=== PATIENT | female | born 1950 | race Caucasian/White ===

== ENCOUNTER 2018-06-02 06:57 | Day surgery (SDC) | payer MEDICARE, BC, SELFPAY ==
--- NOTE | 2018-05-31 20:39 | POEE_ITS ---
History of Present Illness Chief Complaint: Progressive decreased vision, left eye Narrative: The patient is a 68-year-old lady with history of progressive decreased vision in both eyes at both distance and near. She notes that things are becoming increasingly blurry and fuzzy. She also notes double vision that she experiences both with and without her glasses. Her current spectacles have prism to correct diplopia. On examination she was noted to have moderate bilateral nuclear and cortical cataracts. The option of cataract surgery was offered to the patient and she felt she was symptomatic enough that she wished to proceed. NOTE: The Chief Complaint, HPI, Past Medical History, Past Surgical History, Family History, Social History, Medications, and complete Ophthalmic Exam with detailed Assessment and Plan have already been documented in the patient's outpatient ophthalmic record and are not covered again in detail here. PFSH Family History Brother Personal history of malignant neoplasm Mother Brain cancer Father Throat cancer Medical History Cortical cataract of left eye (Acute) Nuclear sclerotic cataract of left eye (Acute) Asthma Insomnia Osteoarthritis Osteopenia Spondylolisthesis at L5-S1 level Social History Smoking/Tobacco Use Status: Never Surgical History CYSTECTOMY RIGHT NECK Colonoscopy - IV Sedation Ligation of fallopian tube Meds Home Medications Medication Instructions Recorded Confirmed Type diphenhydramine HCl 25 mg PO PRN PRN 03/21/15 05/30/18 History metronidazole [MetroCream] 45 gm TOPICAL .QOD script 04/07/17 05/26/18 History calcium carbonate 400 mg PO DAILY tab.chew 04/25/17 05/30/18 History multivitamin [Daily Multi-Vitamin] 1 ea PO DAILY 04/25/17 05/29/18 History acetaminophen [Mapap Extra 1,000 mg PO BID 02/25/18 05/29/18 History Strength] Heal And Sooth 1 tab PO TID 05/30/18 05/30/18 History Allergies Allergy/AdvReac Type Severity Reaction Status Date / Time No Known Allergies Allergy Unverified 02/25/18 05:41 Exam OCULAR EXAM:: Visual acuity at distance: Corrected 20/30 right eye, 20/40 left eye Pupils: Pupils equal, round, and reactive without afferent pupillary defect IOP: 16 OD, 14 OS Extraocular Motility: Normal, with glasses Pertinent Slit Lamp Findings: Significant for chalazion and of the right lower lid. Pupils dilate to 6 mm in both eyes. 1+ nuclear with 1+ cortical cataracts OU. Dilated Funduscopic Examination: Disc cupping is 0.3 OU with good color. Both macula does have drusen present. Peripheral retina and vitreous is normal. BRIGHTNESS ACUITY TESTING (BAT):: Off left eye 20/40 Low: 20/60 Medium: 20/60 High: 20/60 Assessment and Plan (1) Nuclear sclerotic cataract of left eye: Current visit: No Status: Acute Assessment: Visually significant cataract, left eye. Plan: Cataract extraction with intraocular lens implantation, left eye (2) Cortical cataract of left eye: Current visit: No Status: Acute Assessment: Visually significant cataract, left eye. Plan: Cataract extraction with intraocular lens implantation, left eye Note: NOTE:: The details of the planned surgery, including the risks, indications, limitations,expectations,outcome and possible complications were explained to the patient. The patient understands the complications including, but not limited to: infection, hemorrhage, posterior dislocation of the lens or nuclear fragments which may require the intervention of a vitreoretinal surgeon, possible loss of the eye, or from anesthetic complications. The patient has been made aware of the option of not having surgery, that vision following surgery may not be equal to that prior to surgery, and that the planned surgery may not achieve the intended results. Following this discussion, which the patient appeared to understand, the patient wishes to proceed with cataract surgery with lens implantation of the affected eye to improve and maximize vision.
[2018-06-02 07:13] VITALS: BP 119/76; PULSE 66; RESP 18; TEMP 36.1; O2SAT 99
[2018-06-02] MEDS: Povidone-Iodine Ophth 30 ML BTL (08:17)
[2018-06-02] MEDS: Balanced Salt Soln.-PLUS 500 ML BAG (08:17)
[2018-06-02] MEDS: Lidocaine 2% Jelly 6 ML SYR (08:17)
--- NOTE | 2018-06-02 08:43 | W.PM.DSUDISC ---
Discharge Plan Discharge Details Attending Provider: Sami Valdez Primary Care Provider: Niki Vyas Home Meds and New Rx's Prescriptions: No Action metronidazole [MetroCream] 45 GM cream 45 gm Topical .QOD RF: 0 multivitamin [Daily Multi-Vitamin] 1 EACH tablet 1 ea PO DAILY RF: 0 calcium carbonate 500 MG tablet,chewable 400 mg PO DAILY RF: 0 diphenhydramine HCl 25 MG capsule 25 mg PO PRN PRNRF: 0 acetaminophen [Mapap Extra Strength] 500 MG tablet 1,000 mg PO BID RF: 0 Heal And Sooth 1 tab PO TID RF: 0 Discharge Instructions Stand Alone Forms: Post-op Topical CataractAntonino (DSU) DS: Diagnosis Discharge Diagnosis (1) Nuclear sclerotic cataract of left eye: Status: Resolved (2) Cortical cataract of left eye: Status: Resolved
--- NOTE | 2018-06-02 08:46 | ROE_ITS ---
Date of service: 06/02/18 Time of Service: 08:44 Operative Note DATE OF PROCEDURE: 06/02/18 PRE-OP DIAGNOSIS: Cataract, left eye POST-OP DIAGNOSIS: same PROCEDURE: Cataract extraction using phacoemulsification with intraocular lens implant, left eye SURGEON: Sami Valdez ANESTHESIA: MAC and local (sub-tenon's anesthetic infiltration) PATHOLOGY: none sent COMPLICATIONS: None Patient was transported to: same day Patient's condition: stable Implants: [employer] Sha[employer] / [employer] Tecnis [id number] Indications: Progressive decreased vision due to cataract, left eye Procedure Description: CATARACT SURGERY OPERATIVE REPORT PREOPERATIVE DIAGNOSIS: Nuclear/cortical cataract, left eye POSTOPERATIVE DIAGNOSIS: Same OPERATION: Cataract extraction using phacoemulsification with posterior chamber intraocular lens implant, left eye. IOL: IOL Prospecting Driller Helper/Model: [employer] Vision / JEWEL Tecnis ZCB00 IOL Power: +20.50 diopters IOL Serial Number: [id number] Optic Diameter: 6.0mm Haptic/Overall Diameter: 13.0mm PHACO INFO: JanesEmpact Interactive Mediaon Vision System with OZil and Active Fluidics Cumulative Dispersed Energy (CDE): 6.71 seconds SURGEON: Sami Valdez MD, ISIDRO ANESTHESIA: Monitored Anesthesia Care (MAC), with local sub-tenon's anesthetic infiltration COMPLICATIONS: None SPECIMENS: None INDICATIONS FOR PROCEDURE: The patient is a 68-year-old lady with history of diminished visual acuity in her left eye. She notes fuzzy shadowy vision. She was noted to have nuclear and cortical cataract. The option of cataract surgery was offered to the patient and she felt she was symptomatic enough that she wished to proceed. PROCEDURE: The correct surgical eye was identified and marked as the left eye and the pupil was dilated in the preoperative area using mydriatics, cycloplegics, and NSAIDS (except in aspirin allergic patients). The dilated pupil size was 8.0 mm. Oral sedation was administered in the form of an Imprimis MKO Melt (midazolam 3mg/ketamine 25mg/ondansetron 2mg). The patient was brought to the operating room where cardiopulmonary monitoring was instituted and surgical time-out was performed, confirming the correct operative eye and IOL power. Topical anesthesia was administered and ophthalmic povidone-iodine 5% was instilled into the conjunctival fornices. Lidocaine gel was applied to the cornea and the jerson-ocular area was prepped with Betadine 10% solution and draped in the usual sterile fashion for intraocular surgery. Steri-strips were used to cover the lashes and lid margins and an adhesive eye drape was placed. Care was taken to isolate the lashes and lid margins under the Steri-strips and adhesive eye drape. A lid speculum was placed between the lids of the operative eye and the Sedrick-Ariel operating microscope was maneuvered into position. Miguel scissors were then used to make a conjunctival buttonhole approximately 6mm posterior to the limbus in the inferonasal quadrant. Blunt dissection was carried out to expose bare sclera, and a blunt-tipped sub-tenon? s anesthesia cannula was introduced and passed posteriorly along the globe where non-preserved plain lidocaine was injected into posterior sub-Tenon?s space. A sideport knife was used to make a paracentesis port at the 12:00 postion and the anterior chamber was filled with Healon GV. A 2.4mm keratome knife was used to create a half-thickness groove at the limbus and then to construct a three-plane near-clear corneal tunnel extending 2.0mm into clear cornea at the 3:00 position. A flap was raised on the anterior capsule and capsulorhexis forceps were used to complete a continuous curvilinear capsulorhexis of 5.0 mm. Balanced salt solution was then used to perform cortical cleaving hydrodissection and nuclear hydrodelineation until the lens could be freely rotated within the capsular bag. The lens nucleus was then disassembled and removed within the capsular bag and iris plane using phacoemulsification. Residual cortical material was removed using the 45-degree angled silicone I/A tip with 0.3mm port. The posterior capsule was carefully polished to remove as much residual lens epithelial cells as safely possible. The capsular bag was then inflated and the anterior chamber deepened with viscoelastic. The lens implant described above was inserted into the capsular bag using the JEWEL Sleetmute Injector. A Kuglen hook was used to dial the IOL into position. Residual viscoelastic was then removed first from posterior to the IOL, then from the anterior chamber using the I/A handpiece. The lens implant was noted to center nicely within the capsular bag. The incisions were stromally hydrated , and the anterior chamber was reformed using BSS. Then 0.4cc of moxifloxacin 1.5mg/ml were injected into the capsular bag and anterior chamber. The incisions were checked with a Weck spear and found to be secure. Several drops of ophthalmic povidone-iodine 5% were then applied to the eye followed by two drops of Imprimis combination moxifloxacin/dexamethasone solution. The drapes were removed and a clear plastic protective eye shield was placed over the eye. The patient was then returned to [facility] Day Surgery in stable condition.
[2018-06-02 09:00] VITALS: BP 112/69; PULSE 62; RESP 16; TEMP 37.1; O2SAT 98
== END 2018-06-02 09:15 | disposition home or self-care (01) ==
LOC: SUR 06:57
PROVIDERS: Visit Provider Ophthalmology
PROC: (CPT 66984; principal; 2018-06-02 08:20)
DX: H25.812 Combined forms of age-related cataract, left eye (principal)
CPT/HCPCS: 66984; V2632

== ENCOUNTER 2018-06-16 06:54 | Day surgery (SDC) | payer MEDICARE, BC, SELFPAY ==
--- NOTE | 2018-06-15 09:45 | W.PIPPEYE ---
History of Present Illness Chief Complaint: Progressive decreased vision, right eye Narrative: The patient is a 68-year-old lady with history of progressive decreased vision in both eyes at both distance and near. On examination she was noted to have moderate bilateral nuclear and cortical cataracts. She was significantly symptomatic that she desires cataract surgery and attempt to improve and maximize her vision. She underwent cataract surgery in the left eye on 06/02/2018. Postoperatively she has regained best corrected vision of 20/15 in the left eye. She now presents for cataract surgery in the right eye. NOTE: The Chief Complaint, HPI, Past Medical History, Past Surgical History, Family History, Social History, Medications, and complete Ophthalmic Exam with detailed Assessment and Plan have already been documented in the patient's outpatient ophthalmic record and are not covered again in detail here. PFSH Family History Brother Personal history of malignant neoplasm Mother Brain cancer Father Throat cancer Medical History Nuclear sclerotic cataract of right eye (Acute) Cortical cataract of right eye (Acute) Asthma Insomnia Osteoarthritis Osteopenia Spondylolisthesis at L5-S1 level Social History Smoking/Tobacco Use Status: Never Surgical History Status post cataract extraction and insertion of intraocular lens of left eye (Chronic 06/02/18) CYSTECTOMY RIGHT NECK Colonoscopy - IV Sedation Ligation of fallopian tube Meds Home Medications Medication Instructions Recorded Confirmed Type diphenhydramine HCl 25 mg PO PRN PRN 03/21/15 02/25/18 History metronidazole [MetroCream] 45 gm TOPICAL .QOD script 04/07/17 05/26/18 History calcium carbonate 400 mg PO DAILY tab.chew 04/25/17 02/25/18 History multivitamin [Daily Multi-Vitamin] 1 ea PO DAILY 04/25/17 02/25/18 History acetaminophen [Mapap Extra 1,000 mg PO BID 02/25/18 06/02/18 History Strength] Heal And Sooth 1 tab PO TID 05/30/18 06/02/18 History Allergies Allergy/AdvReac Type Severity Reaction Status Date / Time No Known Allergies Allergy Unverified 06/02/18 07:09 Exam OCULAR EXAM:: Visual acuity at distance: Corrected to 20/30 OD, 20/15 OS. Pupils: Pupils equal, round, and reactive without afferent pupillary defect IOP: 16 OD, 14 OS. Extraocular Motility: Normal Pertinent Slit Lamp Findings: Significant for pupils dilating to 6 mm OU. 1+ nuclear with 1+ cortical spoking OD. Well-positioned PCIOL OS with clear posterior capsule. Dilated Funduscopic Examination: Disc cupping is 0.3 OU with good color. The optic nerves have good perfusion and normal color. The retinal vasculature is normal without significant tortuosity or abnormality. The maculas are normal in appearance with normal contour and foveal reflex appropriate for age. The peripheral retina and vitreous are normal. BRIGHTNESS ACUITY TESTING (BAT):: Off right eye 20/30 Low: 20/40 Medium: 20/40 High: 20/40 Assessment and Plan (1) Cortical cataract of right eye: Current visit: No Status: Acute Assessment: Visually significant cataract, right eye. Plan: Cataract extraction with intraocular lens implantation, right eye (2) Nuclear sclerotic cataract of right eye: Current visit: No Status: Acute Assessment: Visually significant cataract, right eye. Plan: Cataract extraction with intraocular lens implantation, right eye Note: NOTE:: The details of the planned surgery, including the risks, indications,limitations,expectations,outcome and possible complications were explained to the patient. The patient understands the complications including, but not limited to: infection, hemorrhage, posterior dislocation of the lens or nuclear fragments which may require the intervention of a vitreoretinal surgeon, possible loss of the eye, or from anesthetic complications. The patient has been made aware of the option of not having surgery, that vision following surgery may not be equal to that prior to surgery, and that the planned surgery may not achieve the intended results. Following this discussion, which the patient appeared to understand, the patient wishes to proceed with cataract surgery with lens implantation of the affected eye to improve and maximize vision.
--- NOTE | 2018-06-15 09:52 | POEE_ITS ---
History of Present Illness Chief Complaint: Progressive decreased vision, right eye Narrative: The patient is a 68-year-old lady with history of progressive decreased vision in both eyes at both distance and near. On examination she was noted to have moderate bilateral nuclear and cortical cataracts. She was significantly symptomatic that she desires cataract surgery and attempt to improve and maximize her vision. She underwent cataract surgery in the left eye on 06/02/2018. Postoperatively she has regained best corrected vision of 20/ 15 in the left eye. She now presents for cataract surgery in the right eye. NOTE: The Chief Complaint, HPI, Past Medical History, Past Surgical History, Family History, Social History, Medications, and complete Ophthalmic Exam with detailed Assessment and Plan have already been documented in the patient's outpatient ophthalmic record and are not covered again in detail here. PFSH Family History Brother Personal history of malignant neoplasm Mother Brain cancer Father Throat cancer Medical History Nuclear sclerotic cataract of right eye (Acute) Cortical cataract of right eye (Acute) Asthma Insomnia Osteoarthritis Osteopenia Spondylolisthesis at L5-S1 level Social History Smoking/Tobacco Use Status: Never Surgical History Status post cataract extraction and insertion of intraocular lens of left eye ( Chronic 06/02/18) CYSTECTOMY RIGHT NECK Colonoscopy - IV Sedation Ligation of fallopian tube Meds Home Medications Medication Instructions Recorded Confirmed Type diphenhydramine HCl 25 mg PO PRN PRN 03/21/15 02/25/18 History metronidazole [MetroCream] 45 gm TOPICAL .QOD script 04/07/17 05/26/18 History calcium carbonate 400 mg PO DAILY tab.chew 04/25/17 02/25/18 History multivitamin [Daily Multi-Vitamin] 1 ea PO DAILY 04/25/17 02/25/18 History acetaminophen [Mapap Extra 1,000 mg PO BID 02/25/18 06/02/18 History Strength] Heal And Sooth 1 tab PO TID 05/30/18 06/02/18 History Allergies Allergy/AdvReac Type Severity Reaction Status Date / Time No Known Allergies Allergy Unverified 06/02/18 07:09 Exam OCULAR EXAM:: Visual acuity at distance: Corrected to 20/30 OD, 20/15 OS. Pupils: Pupils equal, round, and reactive without afferent pupillary defect IOP: 16 OD, 14 OS. Extraocular Motility: Normal Pertinent Slit Lamp Findings: Significant for pupils dilating to 6 mm OU. 1+ nuclear with 1+ cortical spoking OD. Well-positioned PCIOL OS with clear posterior capsule. Dilated Funduscopic Examination: Disc cupping is 0.3 OU with good color. The optic nerves have good perfusion and normal color. The retinal vasculature is normal without significant tortuosity or abnormality. The maculas are normal in appearance with normal contour and foveal reflex appropriate for age. The peripheral retina and vitreous are normal. BRIGHTNESS ACUITY TESTING (BAT):: Off right eye 20/30 Low: 20/40 Medium: 20/40 High: 20/40 Assessment and Plan (1) Cortical cataract of right eye: Current visit: No Status: Acute Assessment: Visually significant cataract, right eye. Plan: Cataract extraction with intraocular lens implantation, right eye (2) Nuclear sclerotic cataract of right eye: Current visit: No Status: Acute Assessment: Visually significant cataract, right eye. Plan: Cataract extraction with intraocular lens implantation, right eye Note: NOTE:: The details of the planned surgery, including the risks, indications, limitations,expectations,outcome and possible complications were explained to the patient. The patient understands the complications including, but not limited to: infection, hemorrhage, posterior dislocation of the lens or nuclear fragments which may require the intervention of a vitreoretinal surgeon, possible loss of the eye, or from anesthetic complications. The patient has been made aware of the option of not having surgery, that vision following surgery may not be equal to that prior to surgery, and that the planned surgery may not achieve the intended results. Following this discussion, which the patient appeared to understand, the patient wishes to proceed with cataract surgery with lens implantation of the affected eye to improve and maximize vision.
[2018-06-16 07:14] VITALS: BP 129/72; PULSE 68; RESP 16; TEMP 36.3; O2SAT 99
[2018-06-16] MEDS: Balanced Salt Soln.-PLUS 500 ML BAG (08:17)
[2018-06-16] MEDS: Lidocaine 1% Pres-Free 5 ML VIAL (08:18)
[2018-06-16] MEDS: Lidocaine 2% Jelly 6 ML SYR (08:19)
[2018-06-16] MEDS: Povidone-Iodine Ophth 30 ML BTL (08:19)
--- NOTE | 2018-06-16 08:39 | W.PM.DSUDISC ---
Discharge Plan Discharge Details Attending Provider: Sami Valdez Primary Care Provider: Niki Vyas Home Meds and New Rx's Prescriptions: No Action metronidazole [MetroCream] 45 GM cream 45 gm Topical .QOD RF: 0 multivitamin [Daily Multi-Vitamin] 1 EACH tablet 1 ea PO DAILY RF: 0 calcium carbonate 500 MG tablet,chewable 400 mg PO DAILY RF: 0 diphenhydramine HCl 25 MG capsule 25 mg PO PRN PRNRF: 0 acetaminophen [Mapap Extra Strength] 500 MG tablet 1,000 mg PO BID RF: 0 Heal And Sooth 1 tab PO TID RF: 0 Discharge Instructions Stand Alone Forms: Post-op Topical CataractAntonino (DSU) DS: Diagnosis Discharge Diagnosis (1) Cortical cataract of right eye: Status: Resolved (2) Nuclear sclerotic cataract of right eye: Status: Resolved
--- NOTE | 2018-06-16 08:41 | W.PM.OP ---
Date of service: 06/16/18 Time of Service: 08:41 Operative Note DATE OF PROCEDURE: 06/16/18 PRE-OP DIAGNOSIS: Cataract, right eye POST-OP DIAGNOSIS: same SURGEON: Sami Valdez ANESTHESIA: MAC and local (sub-tenon's anesthetic infiltration) PATHOLOGY: none sent COMPLICATIONS: None Patient was transported to: same day Patient's condition: stable Implants: [employer] / [employer] Tecnis [id number] Indications: Progressive decreased vision due to cataract, right eye Procedure Description: CATARACT SURGERY OPERATIVE REPORT PREOPERATIVE DIAGNOSIS: Nuclear/cortical cataract, right eye POSTOPERATIVE DIAGNOSIS: Same OPERATION: Cataract extraction using phacoemulsification with posterior chamber intraocular lens implant, right eye. IOL: IOL Fitter Type Bar And Segment/Model: [employer] Vision / JEWEL Tecnis ZCB00 IOL Power: +20.0 diopters IOL Serial Number: [id number] Optic Diameter: 6.0mm Haptic/Overall Diameter: 13.0mm PHACO INFO: [employer]urion Vision System with OZil and Active [employer]uidics Cumulative Dispersed Energy (CDE): 6.24 seconds SURGEON: Sami Valdez MD, ISIDRO ANESTHESIA: Monitored Anesthesia Care (MAC), with local sub-tenon's anesthetic infiltration COMPLICATIONS: None SPECIMENS: None INDICATIONS FOR PROCEDURE: The patient is a 68-year-old lady with history of diminished visual acuity in both eyes secondary to the development of bilateral nuclear and cortical cataracts. She was significantly symptomatic that she desired cataract surgery. She is Ardie undergone cataract surgery in the left eye on 06/02/2018 and is doing well postoperatively. She now presents for cataract surgery in the right eye. PROCEDURE: The correct surgical eye was identified and marked as the right eye and the pupil was dilated in the preoperative area using mydriatics, cycloplegics, and NSAIDS (except in aspirin allergic patients). The dilated pupil size was 8.0mm. Oral sedation was administered in the form of an Imprimis MKO Melt (midazolam 3mg/ketamine 25mg/ondansetron 2mg). The patient was brought to the operating room where cardiopulmonary monitoring was instituted and surgical time-out was performed, confirming the correct operative eye and IOL power. Topical anesthesia was administered and ophthalmic povidone-iodine 5% was instilled into the conjunctival fornices. Lidocaine gel was applied to the cornea and the jerson-ocular area was prepped with Betadine 10% solution and draped in the usual sterile fashion for intraocular surgery. Steri-strips were used to cover the lashes and lid margins and an adhesive eye drape was placed. Care was taken to isolate the lashes and lid margins under the Steri-strips and adhesive eye drape. A lid speculum was placed between the lids of the operative eye and the Sedrick-Ariel operating microscope was maneuvered into position. Miguel scissors were then used to make a conjunctival buttonhole approximately 6mm posterior to the limbus in the inferonasal quadrant. Blunt dissection was carried out to expose bare sclera, and a blunt-tipped sub-tenon?s anesthesia cannula was introduced and passed posteriorly along the globe where non-preserved plain lidocaine was injected into posterior sub-Tenon?s space. A sideport knife was used to make a paracentesis port at the 7:00 postion and the anterior chamber was filled with Healon GV. A 2.4mm keratome knife was used to create a half-thickness groove at the limbus and then to construct a three-plane near-clear corneal tunnel extending 2.0mm into clear cornea at the 10:00 position. A flap was raised on the anterior capsule and capsulorhexis forceps were used to complete a continuous curvilinear capsulorhexis of 5.0mm. Balanced salt solution was then used to perform cortical cleaving hydrodissection and nuclear hydrodelineation until the lens could be freely rotated within the capsular bag. The lens nucleus was then disassembled and removed within the capsular bag and iris plane using phacoemulsification. Residual cortical material was removed using the 45-degree angled silicone I/A tip with 0.3mm port. The posterior capsule was carefully polished to remove as much residual lens epithelial cells as safely possible. The capsular bag was then inflated and the anterior chamber deepened with viscoelastic. The lens implant described above was inserted into the capsular bag using the JEWEL Rosebud Injector. A Kuglen hook was used to dial the IOL into position. Residual viscoelastic was then removed first from posterior to the IOL, then from the anterior chamber using the I/A handpiece. The lens implant was noted to center nicely within the capsular bag. The incisions were stromally hydrated, and the anterior chamber was reformed using BSS. Then 0.4cc of moxifloxacin 1.5mg/ml were injected into the capsular bag and anterior chamber. The incisions were checked with a Weck spear and found to be secure. Several drops of ophthalmic povidone-iodine 5% were then applied to the eye followed by two drops of Imprimis combination moxifloxacin/dexamethasone solution. The drapes were removed and a clear plastic protective eye shield was placed over the eye. The patient was then returned to Same Day Surgery in stable condition.
[2018-06-16 09:05] VITALS: BP 99/60; PULSE 67; RESP 16; TEMP 36.8; O2SAT 96
== END 2018-06-16 09:10 | disposition home or self-care (01) ==
LOC: SUR 06:58
PROVIDERS: Visit Provider Ophthalmology
PROC: (CPT 66984; principal; 2018-06-16 08:20)
DX: H25.811 Combined forms of age-related cataract, right eye (principal); Z98.42 Cataract extraction status, left eye; Z96.1 Presence of intraocular lens
CPT/HCPCS: 66984; V2632

== ENCOUNTER 2018-08-08 12:31 | Outpatient (REF) | payer MEDICARE, BC, SELFPAY ==
[2018-08-09 11:50] LABS: Hepatitis C Ab w Rflx HCV PCR Negative (NEGAT)
== END 2018-08-08 12:51 ==
LOC: NCHCN 12:31
PROVIDERS: Visit Provider Nurse Practitioner Family
DX: R00.2 Palpitations (principal); R06.09 Other forms of dyspnea; Z11.59 Encounter for screening for other viral diseases
CPT/HCPCS: 86803

== ENCOUNTER 2018-10-05 14:14 | Outpatient (REF) | payer MEDICARE, BC, SELFPAY ==
[2018-10-05 21:15] LABS: Anion Gap 8.4 mmol/L (3-11); BUN 14 mg/dL (7-18); C-Reactive Protein 0.14 mg/dL (0.0-0.3); CO2 28.6 mmol/L (21.0-32.0); CREATININE 0.91 mg/dL (0.55-1.02); Calcium 9.4 mg/dL (8.5-10.1); Chloride 103 mmol/L (98-107); Creatine Kinase 91 U/L (26-192); Glucose 87 mg/dL (70-100); Magnesium 1.9 mg/dL (1.8-2.4); Potassium 4.1 mmol/L (3.5-5.1); Sodium 140 mmol/L (136-145)
[2018-10-05 21:48] LABS: ESR 9 MM/HR (0-30)
[2018-10-09 13:56] LABS: ANA Interpretation Negative (NEGAT)
[2018-10-09 15:40] LABS: Rheumatoid Factor <8 IU/mL (<12.5)
== END 2018-10-05 14:34 ==
LOC: NCHCN 14:14
PROVIDERS: Visit Provider Nurse Practitioner Family
DX: R25.3 Fasciculation (principal); R25.1 Tremor, unspecified; M54.5 Low back pain; M62.838 Other muscle spasm
CPT/HCPCS: 80048; 82550; 85652; 83735; 86038; 86140; 86431

== ENCOUNTER 2018-12-28 14:20 | Outpatient (REF) | payer MEDICARE, BC, SELFPAY ==
[2019-01-01 10:42] LABS: Hepatitis B Surface Ag Negative (NEGAT)
[2019-01-01 11:12] LABS: HBs Antibody, Quant 38.8 mIU/mL; Hepatitis B Surface Ab Positive
[2019-01-01 12:28] LABS: Hep B Core Antibody Negative (NEGAT)
== END 2018-12-28 14:40 ==
LOC: NCHCN 14:20
PROVIDERS: PCP Nurse Practitioner Family; Visit Provider Nurse Practitioner Family
DX: Z52.008 Unspecified donor, other blood (principal); Z11.59 Encounter for screening for other viral diseases
CPT/HCPCS: 86704; 86706; 87340

== ENCOUNTER 2019-03-22 09:00 | Outpatient (CLI) | payer MEDICARE, BC, SELFPAY ==
--- NOTE | 2019-02-14 08:03 | DI.US_ITS ---
SYMPTOMS/DIAGNOSIS: ABD BLOATING, R14.0 PELVIC ULTRASOUND: A transabdominal and transvaginal examination was carried out. The uterus is retroflexed. The uterine length is 4.8 cm, height 2.5 cm, width 3.9 cm. Endometrial stripe thickness is 2.3 mm. There is a posterior fundal 1.2 x 0.6 x 0.8 cm fibroid. Note is made of a tiny quantity of fluid in the endometrial cavity. The right ovary was not visualized. The left ovary measures 0.8 x 0.6 x 0.6 cm. SUMMARY: A 1.2 x 0.6 x 0.8 cm uterine fibroid is identified. A tiny quantity of fluid is noted in the endometrial cavity and note is made of nonvisualization of the right ovary. ABDOMINAL ULTRASOUND: The aorta and vena cava are normal. There are a number of small radiolucencies in the left hepatic lobe presumed to represent cysts. The largest measuring 1.4 x 1.3 x 1.3 cm. The gallbladder is normal. There are no stones or ductal dilatation. The pancreas is normal. The spleen is normal. The kidneys are normal. There is no evidence of abdominal free fluid. SUMMARY: Left hepatic lobe cysts are demonstrated. The examination is otherwise unremarkable.
--- NOTE | 2019-03-22 09:40 | DI.MAMMO_ITS ---
SYMPTOM/DIAGNOSIS: SCREENING MAMMOGRAM Z12.31 BILATERAL SCREENING MAMMOGRAM: Mammograms were interpreted according to the usual protocol including computer analysis with CAD system, tomosynthesis and C view imaging. Comparison is made with exams from 2012 through 2018. The breasts are composed of scattered fibroglandular densities, breast density category B. No suspicious masses or suspicious microcalcifications are seen. There has been no significant change. IMPRESSION: Category 1, negative mammogram. Yearly screening mammography is recommended. Breast density category B. SA ASSESSMENT OF FINDINGS: Negative. Category 1. Patient will receive a letter notifying them of these results. BI-RADS category B. There are scattered areas of fibroglandular density.
== END 2019-03-22 09:20 ==
PROVIDERS: PCP Nurse Practitioner Family; Visit Provider Nurse Practitioner Family
DX: R14.0 Abdominal distension (gaseous) (principal); D25.9 Leiomyoma of uterus, unspecified; N85.4 Malposition of uterus; K76.89 Other specified diseases of liver; Z12.31 Encounter for screening mammogram for malignant neoplasm of breast
CPT/HCPCS: 77063; 77067; 76700; 76830; 76856

== ENCOUNTER 2019-06-06 00:44 | Outpatient (CLI) | payer MEDICARE, BC, SELFPAY ==
--- NOTE | 2019-06-06 11:50 | DI.MRI_ITS ---
EXAM: MR LUMBAR SPINE WO CLINICAL HISTORY: DEGENERATIVE DISC DISEASE, M51.37, LOW BACK PAIN M54.5, OSTEOPENIA M85.80. TECHNIQUE: Multiplanar multisequence MRI was performed. COMPARISON: MRI - LUMBAR SPINE WO CONTRAST from 11/05/2016 FINDINGS: Patient is now status post surgery at L5-S1 with hardware in place. There is a stable mild L5-S1 spo ndylolisthesis. There is no evidence of an acute fracture. The conus medullaris appears intact. Th e aorta is normal in diameter. Mild disc bulging at T12-L1, L1-2 and L2-3. There is mild neural for aminal narrowing. There is mild disc bulging and facet mild facet degenerative changes at L3-4 and L 4-5. There is no significant central canal stenosis. There is no significant neural foraminal narro wing at these levels. No acute disc herniation is seen at any level. IMPRESSION: Status post posterior fusion with hardware in place at L5-S1. Degenerative disc changes and facet d egenerative changes are seen at multiple levels some causing mild neural foraminal narrowing. No dis c herniation is seen.
--- NOTE | 2019-06-06 16:02 | DI.VRAD_ITS ---
PROCEDURE INFORMATION: Exam: MR Lumbar Spine Without Contrast. Exam date and time: 06/06/2019 11:54 AM Clinical history: 69 years old, female; Low back pain; Prior surgery; Surgery date: 6+ months; Surgery type: Fusion l5-s1 2016 TECHNIQUE: Imaging protocol: Multiplanar magnetic resonance images of the lumbar spine without intravenous contrast. COMPARISON: MRI - LUMBAR SPINE WO CONTRAST 11/05/2016 5:48 PM FINDINGS: Vertebrae: Degenerative endplate marrow signal changes. No acute fracture. Alignment anatomic. Previous fusion L5-S1 with bilateral pedicle screws and posterior rods. Stable anterolisthesis L5-S1. Spinal cord: Normal signal. No cord compression. T12-L1: Degenerative disc and spondylitic changes. No stenosis. L1-L2: Degenerative disc and spondylitic changes. No central canal stenosis. Mild bilateral foraminal narrowing. L2-L3: Degenerative disc and spondylitic changes. No central canal stenosis. Mild right foraminal narrowing. L3-L4: Degenerative disc and spondylitic changes. No central canal stenosis. No significant foraminal stenosis. L4-L5: Degenerative disc and spondylitic changes. No central canal stenosis. No significant foraminal narrowing. L5-S1: Degenerative disc and spondylitic changes. No central canal stenosis. Mild left foraminal stenosis. Soft tissues: Unremarkable. IMPRESSION: Degenerative changes as described. Dictated and Authenticated by: Miguel Angel Ivory MD. Ordering:WEI Alfaro MD
== END 2019-06-06 01:04 ==
PROVIDERS: PCP Nurse Practitioner Family; Visit Provider Nurse Practitioner Family
DX: M51.37 Other intervertebral disc degeneration, lumbosacral region (principal); M43.17 Spondylolisthesis, lumbosacral region; M51.35 Other intervertebral disc degeneration, thoracolumbar region; Z98.1 Arthrodesis status; M85.80 Other specified disorders of bone density and structure, unspecified site
CPT/HCPCS: 72148

== ENCOUNTER 2019-07-19 02:19 | Outpatient (CLI) | payer MEDICARE, BC, SELFPAY ==
--- NOTE | 2019-07-19 15:05 | DI.CT_ITS ---
EXAM: CT LUMBAR SPINE WO CLINICAL HISTORY: PSEUDOARTHROSIS M24.9 COMPARISON: LUMBAR SPINE AP, LAT from 06/02/2017 MR LUMBAR SPINE WO from 06/06/2019 FINDINGS: There is posterior spinal fusion at L5 and S1 with posterior spinal rods and pedicle screws. There i s L5-S1 disc fusion. There is L5 spondylolysis and grade 1 spondylolisthesis of L5 on S1. No suspicious lucencies are seen in or about the orthopedic hardware to suggest loosening or infectio n. Cnnr-ph-wrqgzome degenerative changes are seen throughout the lumbar spine. Findings include disc sp sujey narrowing, vacuum discs and endplate osteophytes. Facet arthropathy is seen at multiple levels o f the lumbar spine. No acute fractures or subluxations are seen. No significant central spinal canal stenosis is seen in the lumbar spine. There is moderate bilateral neural foraminal stenosis at L5-S1 The soft tissues are unremarkable. IMPRESSION: Posterior spinal fusion at L5-S1. No findings to suggest infection or loosening. Degenerative changes in the lumbar spine resulting in bilateral L5-S1 neural foraminal stenosis. L5 spondylolysis and grade 1 spondylolisthesis of L5 on S1.
== END 2019-07-19 02:39 ==
PROVIDERS: PCP Nurse Practitioner Family; Visit Provider Nurse Practitioner Family
DX: Z98.1 Arthrodesis status (principal); M43.07 Spondylolysis, lumbosacral region; M43.17 Spondylolisthesis, lumbosacral region; M99.53 Intervertebral disc stenosis of neural canal of lumbar region
CPT/HCPCS: 72131

== ENCOUNTER 2020-06-13 16:52 | Outpatient (REF) | payer MEDICARE, BC, SELFPAY ==
[2020-06-16 07:11] LABS: Patient Race White; SARS-CoV-2 RNA Undetected (Undetected); SARS-CoV-2 Specimen Source Nasopharynx
== END 2020-06-13 17:12 ==
LOC: NCHCN 16:52
PROVIDERS: PCP Nurse Practitioner Family; Visit Provider Nurse Practitioner Family
DX: R05 Cough (principal)
CPT/HCPCS: U0003

== ENCOUNTER → 2020-10-09 10:27 | Outpatient (BNVA) | payer MEDICARE, BC, SELFPAY | PROVIDERS: PCP Nurse Practitioner Family; Referring Provider Nurse Practitioner Family; Visit Provider Physical Therapy Assistant | DX: Z12.11 Encounter for screening for malignant neoplasm of colon (principal); Z86.010 Personal history of colon polyps; Z80.0 Family history of malignant neoplasm of digestive organs ==

== ENCOUNTER 2020-10-24 07:16 | Day surgery (SDC) | payer MEDICARE, BC, SELFPAY ==
[2020-10-24 07:15] VITALS: BP 110/76; PULSE 76; RESP 18; TEMP 36.6; O2SAT 98
[2020-10-24] MEDS: Lactated Ringers 1,000 ML 80 ML IV (07:50)
--- NOTE | 2020-10-24 09:04 | W.COLOREPORT ---
Date of service: 10/24/20 Time of Service: 09:04 Colonoscopy Report Date of procedure: 10/29/20 Pre-op diagnosis general: family Hx of CRC Post-op diagnosis procedure note: other (right sided diverticula ) Surgeon: Pepper Marti Anesthesia proc note operative: GETA Estimated blood loss (mL): 0 Pathology: none sent Disposition: same day Prep: Miralax/Dulcolax Retraction Time: 8 mins Procedure Description: After informed consent was obtained the patient was taken to the procedure room and placed in a left decubitous position. Monitors were applied and a time out was done. The patients name, date of , procedure, allergies to medications and metal in their body was reviewed. The patient was then sedated. Once sedated and comfortable a rectal exam was done. External exam was normal. Internal exam revealed a normal sphincter tone and no palpable masses. The scope was then introduced and retrofelexed. no internal hemorrhoids were identified. The scope was then advanced to the cecum w/out difficulty. The TI and appendiceal orifice were identified. The prep was good. The scope was then slowly retracted over 8minutes back into the rectum. Patient has no polyps or AVMs. She does have smal few small scattered diverticuli confined to the right side of the colon. There is no signs of active bleeding or infection. The scope was removed and the patient was woken up and taken back to Same day surgery in stable condition. The patient tolerated the procedure well and there were no immediate complications. Follow up: The patient should follow up in 5 years (if she is still healthy for anethesia) unless they develop changes in bowel habits or other new gastrointestinal complaints.
--- NOTE | 2020-10-24 09:05 | PDOC.DSDIS_ITS ---
Discharge Plan Disposition Patient Disposition: HOME Condition: Good Discharge Details Reason For Visit: colon scope Attending Provider: Pepper Marti Primary Care Provider: Angelina Walker Home Meds and New Rx's Prescriptions: Continued metronidazole [MetroCream] 45 GM cream 45 g Topical .QOD RF: 0 multivitamin [Daily Multi-Vitamin] 1 EACH tablet 1 ea PO DAILY RF: 0 magnesium 250 mg tablet 500 mg PO DAILY RF: 0 diphenhydramine HCl 25 MG capsule 25 mg PO PRN PRNRF: 0 acetaminophen [Mapap Extra Strength] 500 MG tablet 1,000 mg PO BID RF: 0 Heal And Sooth 1 tab PO TID RF: 0 magnesium 250 mg Tablet 250 mg PO Q OTHER DAY RF: 0 Discontinued polyethylene glycol 3350 17 gram/dose powder 238 g PO ONCE Qty: 238 RF: 0 bisacodyl [Dulcolax (bisacodyl)] 5 mg tablet,delayed release (DR/EC) 5 mg PO ONCE Qty: 4 RF: 0 Discharge Instructions Additional Instructions: Findings: Right sided diverticula Follow up:repeat in 5yrs time if still healthy for anesthesia Please call if you develop: fevers >101.5 Nausea or Vomiting Abdominal pain that is not transient DAY SURGERY UNIT POST COLONOSCOPY INSTRUCTIONS 1. Because there will be medication in your system for the next 24 hours, you may feel a little sleepy. Your coordination will be affected. Therefore: a. Do not drive or operate dangerous equipment for 24 hours. b. Do not drink alcohol beverages for 24 hours (not even beer). c. Plan to go home and rest for the day. 2. Generally there are no restrictions on your activity after a day or so has gone by, but you may feel a bit fatigued for a few days. 3 After you arrive home you may have a light meal and return to a normal diet as you can tolerate it without feeling sick to your stomach. 4. After surgery, you may feel pain or discomfort. This should be only transient, but if it persists please contact your doctor. 5. If there are any questions regarding the findings of your procedure, please feel free to contact your doctor. 6. If you are unable to contact your doctor with a problem, contact the hospital at [phone]. 7. Continue all your regular medications unless directed otherwise. I understand the above instructions and have no questions. Signature of Patient or Responsible Adult Escort Date/Time Name of Responsible Adult Escort Signature of Nurse Date/Time DIVERTICULAR DISEASE OVERVIEW ? A diverticulum is a pouch-like structure that can form through points of weakness in the muscular wall of the colon (ie, at points where blood vessels pass through the wall). Diverticulosis affects men and women equally. The risk of diverticular disease increases with age. It occurs throughout the world but is seen more commonly in developed countries. WHAT IS DIVERTICULAR DISEASE? Diverticulosis ? Diverticulosis merely describes the presence of diverticula. Diverticulosis is often found during a test done for other reasons, such as flexible sigmoidoscopy, colonoscopy, or barium enema. Most people with diverticulosis have no symptoms and will remain symptom free for the rest of their lives. A person with diverticulosis may have diverticulitis, or diverticular bleeding. Diverticulitis ? Inflammation of a diverticulum (diverticulitis) occurs when there is thinning and breakdown of the diverticular wall. This may be caused by increased pressure within the colon or by hardened particles of stool, which can become lodged within the diverticulum. The symptoms of diverticulitis depend upon the degree of inflammation present. The most common symptom is pain in the left lower abdomen. Other symptoms can include nausea and vomiting, constipation, diarrhea, and urinary symptoms such as pain or burning when urinating or the frequent need to urinate. Diverticulitis is divided into simple and complicated forms. ?Simple diverticulitis, which accounts for 75 percent of cases, is not associated with complications and typically responds to medical treatment without surgery. ?Complicated diverticulitis occurs in 25 percent of cases and usually requires surgery. Complications associated with diverticulitis can include the following: ?Abscess ? a localized collection of pus ?Fistula ? an abnormal tract between two areas that are not normally connected (eg, bowel and bladder) ?Obstruction ? a blockage of the colon ?Peritonitis ? infection involving the space around the abdominal organ ?Sepsis ? overwhelming body-wide infection that can lead to failure of multiple organs Diverticular bleeding ? Diverticular bleeding occurs when a small artery located within a diverticulum is eroded and bleeds into the colon. Diverticular bleeding usually causes painless bleeding from the rectum. In approximately 50 percent of cases, the person will see maroon or bright red blood with bowel movements. Is bleeding with a bowel movement normal? ? It is not normal to see blood in a bowel movement; this can be a sign of several conditions, most of which are not serious (eg, hemorrhoids) but some of which are serious and require immediate treatment. Anyone who sees blood after a bowel movement should consult with their healthcare provider to determine if further testing or evaluation is needed. DIVERTICULOSIS AND DIVERTICULITIS DIAGNOSIS ? Diverticulosis is often found during tests performed for other reasons. ?Barium enema ? This is an x-ray study that uses barium in an enema to view the outline of the lower intestinal tract. This is an older test and has been largely replaced by computed tomography (CT) scan. ?Flexible sigmoidoscopy ? This is an examination of the inside of the sigmoid colon with a thin, flexible tube that contains a camera. ?Colonoscopy ? This is an examination of the inside of the entire colon. ?CT scan ? A CT scan is often used to diagnose diverticulitis and its complications. If diverticulitis (not just diverticulosis) is suspected, the above three tests should not be used because of the risk of perforation. TREATMENT Diverticulosis ? People with diverticulosis who do not have symptoms do not require treatment. However, most clinicians recommend increasing fiber in the diet, which can help to bulk the stools and possibly prevent the development of new diverticula, diverticulitis, or diverticular bleeding. Fiber is not proven to prevent these conditions in all patients but may help to control recurrent episodes in some. Increase fiber ? Fruits and vegetables are a good source of fiber. Fiber content of packaged foods can be calculated by reading the nutrition label. Seeds and nuts ? Patients with diverticular disease have historically been advised to avoid whole pieces of fiber (such as seeds, corn, and nuts) because of concern that these foods could cause an episode of diverticulitis. However, this belief is completely unproven. We do not suggest that patients with diverticulosis avoid seeds, corn, or nuts. Diverticulitis ? Treatment of diverticulitis depends upon how severe your symptoms are. Home treatment ? If you have mild symptoms of diverticulitis (mild abdominal pain, usually left lower abdomen), you can be treated at home with a clear liquid diet and oral antibiotics. However, if you develop one or more of the following signs or symptoms, you should seek immediate medical attention: ?Temperature >100.1?F (38?C) ?Worsening or severe abdominal pain ?An inability to tolerate fluids Hospital treatment ? If you have moderate to severe symptoms, you may be hospitalized for treatment. During this time, you are not allowed to eat or drink; antibiotics and fluids are given into a vein. If you develop an abscess of the colon, you may require drainage of the abscess (usually performed by placing a drainage tube across the abdominal wall) or by surgically opening the affected area. Surgery ? If you develop a generalized infection in the abdomen (peritonitis), you will usually require an emergency operation. A two-part operation may be necessary in some cases. ?The first operation involves removal of the diseased colon and creation of a colostomy. A colostomy is an opening between the colon and the skin, where a bag is attached to collect waste from the intestine. The lower end of the colon is temporarily sewed closed to allow it to heal. ?Approximately three to six months later, a second operation is performed to reconnect the two parts of the colon and close the opening in the skin. You are then able to empty your bowels through the rectum. Sometimes patients require up to a year to recover from the first operation, depending on how sick they were. In non-emergency situations, the diseased area of the colon can be removed and t he two ends of the colon can be reconnected in one operation, without the need for a colostomy. Surgery versus medical therapy ? An operation to remove the diseased area of the colon may be necessary if you do not improve with medical therapy. After an episode of uncomplicated diverticulitis, elective surgery is generally not required as the risk of another attack or requiring emergency surgery is low. However, patients with persistent symptoms attributable to diverticulitis, a history of complicated diverticulitis, or a compromised immune system should be evaluated for possible surgery to prevent another attack. In such patients, another attack has been associated with a higher risk of complications or . Of course, the decision will also depend in part upon your other medical conditi ons and ability to undergo surgery. In many cases, an elective operation can be performed laparoscopically, using small incisions, rather than the typical vertical (up and down) abdominal incision. Laparoscopic surgery usually allows you to recover more quickly and shortens the hospital stay. After diverticulitis resolves ? After an episode of diverticulitis resolves, if you have not had a recent colonoscopy, the entire length of the colon should be evaluated to determine the extent of disease and to rule out the presence of abnormal lesions such as polyps or cancer. Recommended tests include colonoscopy, barium enema and sigmoidoscopy, or CT colonography. Diverticular bleeding ? Most cases of diverticular bleeding resolve on their own. However, some people will need further testing or treatment to stop bleeding, which may include a colonoscopy, angiography (a treatment that blocks off the bleeding artery), bleeding scan, or surgery. DIVERTICULAR DISEASE PROGNOSIS Diverticulosis ? Over time, diverticulosis may cause no problems or it may cause episodes of bleeding and/or diverticulitis. Approximately 15 to 25 percent of people with diverticulosis will develop diverticulitis, while 5 to 15 percent will develop diverticular bleeding. Diverticulitis ? Approximately 85 percent of people with uncomplicated diverticulitis will respond to medical treatment, while approximately 15 percent of patients will need an operation. After successful treatment for a first attack of diverticulitis, one-third of patients will remain asymptomatic, one- third will have episodic cramps without diverticulitis, and one-third will go on to have a second attack of diverticulitis. The prognosis tends to remain similar following a second attack of diverticulitis. Only 10 percent of people remain symptom-free after a second attack. Subsequent attacks tend to be of similar severity, not increasing in severity as previously believed. High Fiber Diet What is Dietary Fiber? All fiber comes from plants, bushes, landy or trees. Of course, the ones that we eat provide us with fruits, vegetables and grains. There are many different types of fiber but the three that are most important to the health of the body are: Insoluble Fiber This fiber does not dissolve in water, nor is it fermented by the bacteria residing in the colon. Rather, it retains water and in so doing, helps to promote a larger, bulkier and more regular bowel activity. This, in turn, may be important in preventing disorder such as diverticulosis and hemorrhoids, and in sweeping out certain toxins and cancer causing carcinogens. Sources of insoluble fiber are: ? whole grain wheat and other whole grains ? corn bran, including popcorn, unflavored and unsweetened ? nuts and seeds ? potatoes and the skins from most fruits from trees such as apples, bananas and avocados ? many green vegetables such as green beans, zucchini, celery and cauliflower ? some fruit plants such as tomatoes and kiwi Soluble Fiber These fibers are fermented or used by the colon bacteria as a food source or nourishment. When these good bacteria grow and thrive, many health benefits occur in both the colon and the body. Soluble fiber is present in some degree in most edible plant foods, but the ones with the most soluble fiber include: ? legumes such as peas and most beans, including soybeans ? oats, rye and barley ? many fruits such as berries, plums, apples bananas and pears ? certain vegetables such as broccoli and carrots ? most root vegetables ? psyllium husk supplement products Prebiotic Soluble Fiber These are relatively newly discovered soluble plant fibers. The technical name for this fiber is inulin or fructan. When these soluble fibers are fermented by the good colon bacteria, some further significant health benefits have been shown to occur by research in many medical centers. These soluble prebiotic fibers occur in significant amounts in: ? asparagus ? yams ? onions ? garlic ? bananas ? leeks ? agave ? chicory and other root vegetables such as [place] artichokes ? wheat, rye and barley (smaller amounts) Benefits of a High Fiber Diet The health benefits of a high fiber diet, consumed on a regular basis and reaching recommended amounts (below), are now fairly well-defined. There are some additional benefits in the early research stage with the prebiotic soluble fibers. What is now known regarding a high fiber diet include: Bowel Regularity A high fiber diet promotes regularity with a softer, bulkier and regular stool pattern. This decreases the chance of hemorrhoids, diverticulosis and perhaps colon cancer. Cholesterol and Reduced Triglycerides The soluble fibers are the ones that will reduce cholesterol levels when used on a regular basis. Psyllium husk and prebiotic soluble fiber will also reduce cholesterol. They may also reduce the incidence of coronary heart disease. Oats, flax seeds and legumes or beans are the recommended fibers. Colon Polyps and Cancer It is still not certain if a high fiber diet helps prevent colon cancer. Considerable research suggests that this may occur. Certainly it makes sense to increase regularity and so speed the movement of cancer causing carcinogens t hrough the bowel. In addition, reducing a heavy meat diet reduces the bile flow from the liver in a favorable way. This, too, reduces the amount of carcinogens that reach and are manufactured in the colon. Finally, a high fiber diet, including prebiotic soluble fiber, increases the integrity and health of the wall of the colon. The risk of cancer may be reduced. Colon Wall Integrity A high fiber diet changes the bacterial makeup of the colon toward a more favorable balance. For instance, it is known that those people with obesity, diabetes type 2 and inflammatory bowel disease have a predominance of bad bacteria in the colon. This, in turn, may render the bowel wall weak and allow bacteria and, indeed, even toxins to seep through. A high fiber diet with a modest reduction in animal and meat products may return the bacterial makeup to a more positive balance. This, in particular, has been seen when the soluble fiber prebiotics are added to the diet. Blood Sugar Soluble fiber such as in legumes (beans), oats and in prebiotic fibers slows the absorption of blood sugar and so helps regulate the sugar in the blood. Insoluble fiber on a regular basis is associated with reduced risk of type 2 diabetes. Weight Loss High fiber diets are more filling and give a sense of fullness sooner than an animal and meat based diet does. In addition, the soluble prebiotic fibers have been shown to turn off the hunger hormones produced in the wall of the gut and to increase the hormones that give a sense of fullness. Those hormones are made in the wall of the gut. New medical research has shown that the bacterial makeup in the colon in overweight people is abnormal to the extent that they manufacture and absorb almost twice the number of calories through the colon wall as do normals. Prebiotic fibers (below) will help change this hormonal balancein a favorable way. Bacteria and the Function of the Colon The colon finishes the digestive process. Hopefully, the waste products move through in a nice regular manner. Insoluble fibers help this process by retaining water and so producing a bulkier, softer stool, which is easy to pass. The additional role of the colon is to provide a home for an enormous number of micro-organisms, mostly bacteria. Recent research has shown that there are over 1,000 species of bacteria with a total bacterial count ten times the number of cells in the body. These bacteria play a major role in keeping the colon wall itself healthy. In addition, these good bacteria produce a very strong immune system for the body. They significantly increase calcium absorption and bone density. They provide other documented benefits. It is the soluble fibers in the diet that are so effective in stimulating the growth of good colon bacteria. How Much is Enough? The amount of fiber in food is measured in grams. National nutritional authorities recommend the following amounts of dietary fiber daily. Under Age 50 Over Age 50 Men 38 grams 30 grams Women 25 grams 21 grams For a week or so, it is best to tally the amount of fiber you are consuming. Boxed and packaged foods will have the amount of fiber per serving on the nutrition label. Which Fibers and Which Foods are Best? As noted, healthy fiber is only found in plants. The three major categories are whole grains, fruits and vegetables. Whole Grains Wheat, oats, barley, wild or brown rice, amaranth, buckwheat, bulgur, corn, millet, quinoa, rye, sorghum, teff and triticals. By far, wheat, oats and wild or brown rice are most common. Always buy whole grain products. White bread, baked goods and rolls almost always are made from wheat flour. Wheat flour is white because most of the fiber, vitamins and other nutrients have been removed. Try not buy enriched grains. What this means is that simple white flour has had vitamins added to it by the clinic office manager. The word, enriched, implies a good and healthy product. On the contrary, enriched means that most of the fiber has been removed and a few vitamins added. Fruits Fruits come from trees such as apple and pear or from bushes or landy. You should eat a wide variety of fruits, preferably with every meal. In many cases, the skin of a fruit such as apple will contain much of the insoluble fiber while the pulp contains most of the soluble fiber. To the extent possible, buy organic fruits as these will have little or no pesticides. Always wash fruit. Vegetables Eat a wide variety of vegetables. They should be a mainstay of lunch and dinners. Frozen vegetables retain as much nutrition and fiber as fresh vegetables. As with fruit, try to buy organic to reduce any residual pesticide ingestion. Wash fresh vegetables thoroughly. Cruciferous vegetables such as broccoli, [place] sprouts and cauliflower contain certain chemicals such as sulforaphane. This substance has very strong anti-cancer properties and should be eaten frequently. Legumes, Beans, Peas and Soybeans These vegetables have plenty of soluble fiber and should be part of a varied vegetable intake. Beans, in particular, contain a certain type of fiber that may lead to harmless gas or bloating. Nuts and Seeds These are rich sources of fiber and are a good substitute for sweets such as candies and baked sweet goods. While nuts and seeds are rich in fiber, they also contain vegetable fat and so can and do add calories. Read the Labels As noted, fresh and frozen foods are usually better. They have good nutrition and few, if any, chemicals added to them. When buying packaged foods and, in particular grains, look for three things: ? The first word on the label should be whole, such as whole wheat or whole grain. ? Check out the calories and the amount of fiber in a serving. ? How many and what other additives or chemicals are added. Fewer is always better. Do you know what each additive does? Some are added not for the benefit of the strategic buyer but rather for manufacturers. These could and do include sugar, artificial flavor, chemicals to prevent oxidation and spoilage, emulsifiers to blend the product. You have to be a factory manager. Fiber Facts, Nuggets and Pearls ? For breakfast you can easily get the day started well by using a high fiber, whole grain cereal. Check the labels. Add fruit such as blueberries and bananas. If you are an egg eater, use whole wheat or grain toast. Adding wheat germ gives you a good fiber kick. ? Always use whole grain or wheat with rolls and sandwiches. Does your fast food store not have them? Perhaps you look elsewhere. Eating an occasional black starkey or veggie burger provides variety. ? Snacks should consist of fruit and/or nuts. While nuts are loaded with fiber, they are an energy rich food, meaning they have a lot of calories in a small packet. ? Fruit juices should contain pulp. Clear juices such as clear orange, pear or apple juice contain little fiber and have a lot of fructose. Prune juice is usually high in fiber. ? Homemade soups ? adding fresh or frozen vegetables to a chicken or vegetable stock is a good way to start homemade soup. ? Salads ? adding cooked and then chilled vegetables provide great flavoring to almost any salad. Remember, a whitehead salad has lots of cooked corn in it. Small slices of apples or oranges and nuts such as chopped walnuts or sliced almonds always adds taste, variety and fiber to almost any salad. ? Fruit ? Try to eat fruit of some type with almost every meal. ? Rethink how you place the various foods on your dinner plate. Reducing the portions of the meat or animal food portion to the side with equal or more portions of vegetables, legumes and fruits portion always allows for more fiber. There was never anything magic about making the meat or animal food portion the main part of the dinner plate. Eating from smaller plates can, over time, trick your mind and terminal superintendent habit of using a dinner plate. Again, there is nothing magic in an 11, 12, or 13 inch dinner plate. Fiber Supplements There are a variety of fiber supplements available on the food or pharmacy shelves. Psyllium This soluble plant fiber has been used in [place] for over 2,000 years. It is a soluble fiber with mucilage in it. This acts to retain a lot of water and also is fermented by colon bacteria. When 7 grams a day are used, it does lower cholesterol. Metamucil in various forms is psyllium. Methyl Cellulose All the cellulose products come from finely ground wood chips which are then treated in a variety of ways such as boiling in acids. Methyl cellulose is an insoluble fiber which does dissolve in water. It is also an emulsifier, meaning it blends oils and water. Citrucel is methyl cellulose (MC). MC may not be appropriate for Crohn?s disease or ulcerative colitis as several medical studies have shown that certain emulsifiers dissolve the mucous lining of the colon in animals prone to Crohn?s disease. This then allows bacteria to invade the underlying tissue. Inulin Inulin is a soluble prebiotic fiber found in many foods and which are fermented mostly in the left side of the colon. It is available in a supplement as generic inulin and in Fiber Choice. Oligofructose FOS These are also prebiotic fibers. They are fermented very quickly in the right side of the colon. Prebiotin This product is a combination of oligofructose, which feeds the bacteria in the right side of the colon and inulin, which does the same in the left side of the colon. There seems to be a benefit for this particular formula based on medical research. Prebiotic Soluble Fiber These may be the healthiest of all the soluble fibers. They grow in many plants and have had a great deal of research done on them in the last 10-15 years. These fibers are found in asparagus, yams and other root vegetables such as chicory, garlic, onion, leeks and in smaller amounts in wheat. This research has shown the following: ? Increase in good and decrease in bad colon bacteria ? Increase calcium absorption and enhanced bone mass ? Enhanced immune system ? Appetite and weight control by changing the hormone appetite signals to the brain ? May decrease colon cancer incidence ? Reduce or correct a leaky colon Eating a wide variety of plant food up to the recommended amount will likely give you enough prebiotic fiber. Supplements such as Prebiotin can be added to the diet. Short Chain Fatty Acids (SCFA) Some rather remarkable research findings have shown that one of the benefits of ingesting a lot of soluble fiber, in particular the prebiotic ones, results in larger amounts of SCFAs in the colon. These SCFAs are made by the good bacteria in the colon such as Bifidobacter and Lactobacillus. These small molecules have been shown to do the following: ? Enhance the health and integrity of the colon wall ? Provide nourishment for the cells that actually line the colon ? Increases the acidity of the colon which is a very real health benefit ? Stabilize blood sugar for diabetics ? Reduce blood cholesterol and triglyceride ? Significantly enhance immunity ? May be a benefit for Crohn?s disease and ulcerative colitis patients Fiber and Gas Everyone has intestinal gas and that is a good thing. It means that bacteria, hopefully the good ones, are thriving. The normal amount of flatus passed each day depends on sex and what is eaten. The normal number of flatus is 10-20 times a day. When the bacteria that make intestinal gases are growing, it also means that other good bacteria are using the same fibers to grow and produce multiple health benefits, including the production of healthy short-chain fatty acids. These substances are produced quietly in the colon and produce many health-related outcomes. Soluble fiber should always be used in a gradual manner. If too much is consumed at any one time, then excess, but harmless, intestinal gas can occur. People with irritable bowel syndrome are particularly prone to bloating and mild cramping. In this instance, soluble fiber in the diet or supplement should be used in small doses and increased gradually. Finally, prebiotic fibers tend to cause the production of short-chain fatty acids which acidify the colon. This, in turn, reduces or stops the growth of bacteria that make the smelly hydrogen sulfide gases that produce noxious flatus. People who consume many vegetables with prebiotics or take a prebiotic fiber supplement often have non-odoriferous flatus. Fiber and Irritable Bowel Syndrome Irritable bowel syndrome (IBS) is one of the most common disorders of the lower digestive tract. The symptoms of IBS can be quite varied. They can be a mix of several symptoms such as constipation, diarrhea, crampy abdominal discomfort, bloating and gas. An attack of IBS can be triggered by emotional tension and anxiety, poor dietary habits and certain medications. It is now known that infections in the intestine can lead to long-term IBS symptoms. Increased amounts of fiber in the diet can help relieve the symptoms of irritable bowel syndrome by producing soft, bulky stools. This helps to normalize the time it takes for the stool to pass through the colon. Recent medical research with newer techniques has shown some surprising and dramatic findings for IBS patients. Specifically, there is a very significant and abnormal shift of bacteria from those that provide health benefits to those bad bacteria that we really do not want in the gut. The technical name for this bad group of bacteria is called Firmicutes. Along with this abnormal bacterial collection, there is a smoldering low-grade inflammation in the gut wall that may contribute to symptoms. The goal for IBS patients should be to gradually increase the soluble dietary fibers in the diet so as to promote the growth of good bacteria and so suppress the bad ones along with the associated inflammation. IBS patients need to be careful of the amount of soluble fiber they consume. The reason for this is that, while the good colon bacteria thrive on these fibers and produce health benefits, other gas-forming bacteria may generate excessive but harmless gas and subsequent bloating. Thus, soluble plant fibers or a dietary prebiotic supplement should be taken in small initial doses and then gradually increased to tolerance. Fiber and Colon Polyps/Cancer Colon cancer is a major health problem. This disease is most common in Western cultures. It is not seen very often in rural cultures where the diet is mostly plant based. Usually, colon cancer starts out as a colon polyp, a benign mushroom-shaped growth. In time it grows, and in some people it becomes cancerous. Colon cancer is usually always curable if polyps are removed when found or if surgery is performed at an early stage. It is now known that people can inherit the risk of developing colon cancer, but diet is important, too. As noted, there is a very low rate of colon cancer in residents of countries where grains are unprocessed and retain their fiber. It seems that in the [place] world, cancer-containing agents (carcinogens) remain in contact with the colon wall for a longer time and in higher concentrations. So, a large bulky stool may act to dilute these carcinogens by moving them through the bowel more quickly. Less carcinogenic exposure to the colon may mean fewer colon polyps and less cancer. A very current review of the entire world?s literature on the effect of fiber on colon polyps and cancer prevention has shown rather clearly that for every 10 grams of fiber added to the diet, there is a 10% reduction in incidence of colon cancer. So the recommended 30 gram fiber diet would result in a 30% less chance of getting these tumors. There are also substances produced in the colon by the good bacteria that seem to retard certain pre-cancer factors from developing. They are called short- chain fatty acids (SCFA). See above for description of SCFAs. A high fiber diet increases these substances. So, the combination of dietary fiber and the production of short-chain fatty acids have a clear health benefit. Fiber and Diverticulosis Prolonged, vigorous contraction of the colon over a long period of time may result in diverticulosis. This increased pressure causes small and, eventually, larger ballooning pockets to form. These pockets by themselves cause no problem. However, sometimes they become infected (diverticulitis) or even break open (perforate) causing infection or inflammation within the abdomen (peritonitis). A high fiber diet increases the bulk in the stool and thereby reduces the pressure within the colon. By so doing, the formation of pockets may be reduced or possibly even stopped. In the past, many physicians were fearful that seeds as in tomatoes, nuts or berries were harmful and could get inside these pockets and rattle around, causing damage. We now know that this has never been the case and that these foods contain lots of fiber and are actually beneficial for diverticulosis patients. Certain bulking agents such as psyllium are traditional types of bulk producing supplements. Psyllium is a soluble fiber. Combining it with insoluble fiber as in wheat bran or corn bran (no gluten) can enhance this bulking effect even more. A product containing a prebiotic, psyllium and wheat bran is probably a very good combination for bowel regularity. Prebiotin Regularity/Diverticulosis is one such product. Activity:: NO lifting over 20 pounds or strenuous activity x24 hours. Diet:: small light meals x 24hrs Discharge Orders Discharge Orders: Discharge Order (Routine); Ordered 10/24/20 Ordered By: Pepper Marti DS: Diagnosis Discharge Diagnosis (1) Diverticula, colon, congenital: Status: Acute
[2020-10-24 09:20] VITALS: BP 121/72; PULSE 54; RESP 16; TEMP 36.6; O2SAT 99
== END 2020-10-24 10:00 | disposition home or self-care (01) ==
PROVIDERS: PCP Nurse Practitioner Family; Visit Provider Surgery
PROC: 0DJD8ZZ Inspection of Lower Intestinal Tract, Via Natural or Artificial Opening Endoscopic (ICD-10-PCS; CPT 45378; principal; 2020-10-24 08:15)
DX: Z12.11 Encounter for screening for malignant neoplasm of colon (principal); Z86.010 Personal history of colon polyps; J45.909 Unspecified asthma, uncomplicated; G47.00 Insomnia, unspecified; Z80.0 Family history of malignant neoplasm of digestive organs; K57.30 Diverticulosis of large intestine without perforation or abscess without bleeding
CPT/HCPCS: G0105; J2001

== ENCOUNTER 2021-03-04 01:37 | Outpatient (CLI) | payer MEDICARE, BC, SELFPAY ==
--- NOTE | 2021-03-04 15:05 | DI.MAMMO_ITS ---
Exam(s) MAMMO SCREENING EXAM: MAMMO SCREENING CLINICAL HISTORY: SCREENING, Z12.31 TECHNIQUE: Bilateral full field digital CC and MLO mammographic images were obtained with 3D tomosyn thesis and utilizing computer aided detection (CAD). COMPARISON: Available for comparison. FINDINGS: Masses/Architectural Distortion: There is a focal asymmetry in the central right breast on the MLO vi ew. Microcalcifications: No suspicious pleomorphic-type are seen. Skin Thickening/Nipple Retraction: None. IMPRESSION: 1. Focal asymmetry in the central right breast on the MLO view. 2. Further evaluation with spot compression views recommended. Ultrasound may be indicated at that t maurizio. BI-RADS Category 0 - Assessment Incomplete: Need additional imaging evaluation Breast Density - Category B - Scattered areas of fibroglandular density Breast density category C or D implies that the patient has dense breast tissue. Dense breast tissue is very common and is not abnormal but dense breast tissue can make it harder to find cancer on a ma mmogram. Also, dense breast tissue may increase their breast cancer risk. This information about the result of the mammogram report was provided to the patient to raise their awareness. Use this report when you speak with the patient about their risks for breast cancer, which includes their family hist ory. At that time, you may recommend for more screening tests (Ultrasound or MRI) as they might be us eful based on their risk. A negative radiographic report should not delay biopsy if a dominant or clinically suspicious mass is present. Up to ten percent of cancers are not identified on mammography. A negative report may reinforce clinical impression. Adenosis and dense breasts may obscure an underlying neoplasm. False positive reports average 6 to 10%. Patient will receive a letter notifying them of these results.
== END 2021-03-04 01:57 ==
PROVIDERS: PCP Nurse Practitioner Family
DX: Z12.31 Encounter for screening mammogram for malignant neoplasm of breast (principal); N64.89 Other specified disorders of breast; R92.8 Other abnormal and inconclusive findings on diagnostic imaging of breast
CPT/HCPCS: 77063; 77067

== ENCOUNTER 2021-03-12 02:06 | Outpatient (CLI) | payer MEDICARE, BC, SELFPAY ==
--- NOTE | 2021-03-12 | DI.DEXA_ITS ---
Exam(s) XR DEXA BONE DENSITY W/WO AHSAN EXAM: XR DEXA BONE DENSITY W/WO AHSAN CLINICAL HISTORY: SCREENING FOR OSTEOPOROSIS IN POSTMENOPAUSAL WOMAN,Z78.0 TECHNIQUE: Routine DEXA evaluation of the lumbar spine, hip, or forearm. COMPARISON: Prior DEXA scan November 2015 FINDINGS: Performed on a [employer] unit. Lateral image: No compression fracture evident. L5-S1 fusion hardware noted Lumbar Spine total T-score: 1.5. Prior 2016 reading was -0.4 Hip total T-score:-1.4 . prior 2016 reading was minus 0.4 Independent reading at the femoral neck yields a T-score of -0.9 Forearm total T-score: -2.8 IMPRESSION: Bone mineral density measures in the osteopenia range. Fracture risk is moderate. Note: Any spine fracture indicates 5x risk for subsequent spine fracture and 2x risk for subsequent h ip fracture. World Health Organization criteria for BMD interpretation classify patients: Normal...... T- Score at or above -1.0 Osteopenic... T- Score between -1.0 and -2.5 Osteoporosis... T-Score at or below -2.5
== END 2021-03-12 02:26 ==
PROVIDERS: PCP Nurse Practitioner Family
DX: Z13.820 Encounter for screening for osteoporosis (principal); R93.7 Abnormal findings on diagnostic imaging of other parts of musculoskeletal system; Z78.0 Asymptomatic menopausal state
CPT/HCPCS: 77080

== ENCOUNTER 2021-03-20 04:33 | Outpatient (CLI) | payer MEDICARE, BC, SELFPAY ==
--- NOTE | 2021-03-20 | DI.MAMMO_ITS ---
Exam(s) MAMMO SCREEN CALL BACK UNI EXAM: MAMMO SCREEN CALL BACK UNI CLINICAL HISTORY: F/U MAMMO, FOCAL ASYMMETRY CENTRAL RT BREAST TECHNIQUE: Spot compression views and tomographic imaging were performed. COMPARISON: 04 March 2021 and 2011. FINDINGS: No suspicious masses or suspicious microcalcifications are seen. No persistent abnormality is seen on the additional views performed. The findings are consistent wit h overlying fibroglandular tissue. There has been no significant change from prior exams. IMPRESSION: BI-RADS Category 1, Negative Yearly screening mammography is recommended. Breast Density - Category B, scattered fibroglandular densities.
== END 2021-03-20 04:53 ==
PROVIDERS: PCP Nurse Practitioner Family
DX: Z12.31 Encounter for screening mammogram for malignant neoplasm of breast (principal); N64.89 Other specified disorders of breast; R92.8 Other abnormal and inconclusive findings on diagnostic imaging of breast
CPT/HCPCS: 77063; 77067

== ENCOUNTER 2021-06-12 13:44 | Outpatient (REF) | payer MEDICARE, BC, SELFPAY ==
[2021-06-13 15:32] LABS: COVID-19 RT-PCR UVMMC Result Negative (Negative)
== END 2021-06-12 13:45 | disposition home or self-care (01) ==
LOC: NCHCN 13:44
PROVIDERS: PCP Nurse Practitioner Family; Visit Provider Family Medicine
DX: Z20.822 Contact with and (suspected) exposure to COVID-19 (principal); J06.9 Acute upper respiratory infection, unspecified
CPT/HCPCS: U0003; U0005

== ENCOUNTER 2021-12-22 03:17 | Outpatient (CLI) | payer MEDICARE, BC, SELFPAY ==
--- NOTE | 2021-12-22 09:15 | DI.MRI_ITS ---
Exam(s) MR THORACIC SPINE WO EXAM: MR THORACIC SPINE WO CLINICAL HISTORY: DYSTONIA, G24.9; SPONDYLOLISTHESIS, M43.10; LEG LENGTH DISCREPANCY, M21.70. TECHNIQUE: Multiplanar multisequence MRI of the Thoracic spine was performed. COMPARISON: MR MRI - THORACIC SPINE WO CONT from 05/03/2017 FINDINGS: The examination is limited due to patient motion artifact. Bones: No evidence of an acute fracture or subluxation. There is a mild right convex scoliosis in th e midthoracic spine. There are degenerative endplate signal changes seen in the mid and lower thorac ic spine. Cord: The thoracic cord is normal size and signal intensity. No intrinsic cord lesion is present. Discs: No disc herniation or bulge is present. There is no significant central spinal canal or neural foraminal stenosis in the thoracic spine. Soft tissues: Normal. IMPRESSION: 1. Degenerative changes seen in the thoracic spine. 2. No significant central spinal canal or neural foraminal stenosis is seen. No focal disc herniatio n is present. 3. The thoracic spinal cord shows normal size and signal. No intrinsic cord lesion is present. DATA REPOSITORY:
--- NOTE | 2021-12-22 09:15 | DI.MRI_ITS ---
Exam(s) MR LUMBAR SPINE WO EXAM: MR LUMBAR SPINE WO CLINICAL HISTORY: DYSTONIA, G24.9; SPONDYLOLISTHESIS, M43.10; DDD, L-SPINE, M51.37. TECHNIQUE: Multiplanar multisequence MRI of the Lumbar spine was performed. COMPARISON: MR MR LUMBAR SPINE WO from 06/06/2019 FINDINGS: Bones: The last intervertebral disc space is designated the L5/S1 level for the numbering purpose of this examination. The vertebral body heights are well maintained. There is stable anterolisthesis o f L5 on S1. Degenerative endplate signal changes are seen from L2-3 through L4-L5. There are postsurg ical changes with posterior fusion at L5-S1 and L5-S1 disc fusion. Cord: The conus tip ends at the T12-L1 level. It is of normal size and signal intensity. T12-L1: No disc herniations or bulges are present. No central spinal canal or neural foraminal stenos is. L1-2: No disc herniations or bulges are present. No significant central spinal canal stenosis. There is mild bilateral neural foraminal stenosis. L2-3: There is a mild diffuse disc bulge. Degenerative changes of the facets are present. No signif icant central spinal canal stenosis is seen. There is mild bilateral neural foraminal stenosis. L3-4: There is a mild diffuse disc bulge. No significant central spinal canal stenosis is present. There is very mild bilateral neural foraminal narrowing. L4-5: No disc herniations or bulges are present. Facet arthropathy is present. No significant centra l spinal canal stenosis.No significant neural foraminal stenosis is present. L5-S1: No disc herniations or bulges are present. No significant central spinal canal stenosis.The ne ural foramen show mild narrowing bilaterally. Evaluation is limited due to artifact from the orthope dic hardware. Soft tissues: The visualized SI joints and sacrum are well maintained. The paraspinal soft tissues ar e unremarkable. IMPRESSION: 1. Postsurgical changes again seen at L5-S1. 2. Multilevel degenerative changes in the lumbar spine causing bilateral neural foraminal stenosis as described above. DATA REPOSITORY:
== END 2021-12-22 03:37 ==
PROVIDERS: PCP Nurse Practitioner Family; Visit Provider Nurse Practitioner Family
DX: G24.8 Other dystonia (principal); M43.17 Spondylolisthesis, lumbosacral region; M21.70 Unequal limb length (acquired), unspecified site; M41.84 Other forms of scoliosis, thoracic region; M47.814 Spondylosis without myelopathy or radiculopathy, thoracic region; M51.26 Other intervertebral disc displacement, lumbar region; Z98.1 Arthrodesis status; M51.37 Other intervertebral disc degeneration, lumbosacral region
CPT/HCPCS: 72146; 72148

== ENCOUNTER → 2022-05-25 08:19 | Outpatient (BNVA) | payer MEDICARE, BC, SELFPAY | PROVIDERS: PCP Nurse Practitioner Family; Referring Provider Family Medicine; Visit Provider Psychiatry & Neurology Neurology | DX: G24.8 Other dystonia (principal); G25.2 Other specified forms of tremor | CPT/HCPCS: 99215; G2212 ==

== ENCOUNTER → 2022-08-16 09:15 | Outpatient (BNVA) | payer MEDICARE, BC, SELFPAY | PROVIDERS: PCP Nurse Practitioner Family; Referring Provider Nurse Practitioner Family; Visit Provider Psychiatry & Neurology Neurology | DX: G25.2 Other specified forms of tremor (principal); G24.9 Dystonia, unspecified | CPT/HCPCS: 99213 ==

== ENCOUNTER → 2022-09-27 10:47 | Outpatient (BNVA) | payer MEDICARE, BC, SELFPAY | PROVIDERS: PCP Nurse Practitioner Family; Referring Provider Nurse Practitioner Family; Visit Provider Psychiatry & Neurology Neurology | DX: G25.2 Other specified forms of tremor (principal); G24.9 Dystonia, unspecified; G47.00 Insomnia, unspecified | CPT/HCPCS: 99214 ==

== ENCOUNTER 2023-03-07 01:20 | Outpatient (CLI) | payer MEDICARE, BC, SELFPAY ==
--- NOTE | 2023-03-07 | DI.MAMMO_ITS ---
Exam(s) MAMMO SCREENING EXAM: MAMMO SCREENING CLINICAL HISTORY: SCREENING MAMMO Z12.31 PREVENTATIVE CARE Z00.00. TECHNIQUE: Bilateral full field digital CC and MLO mammographic images were obtained with 3D tomosyn thesis and utilizing computer aided detection (CAD). COMPARISON: Prior mammograms were reviewed. FINDINGS: There has been no significant change in the appearance and distribution of the fibroglandular tissue. There are no new spiculated masses nor malignant appearing microcalcification groups. There is no significant architectural distortion nor skin thickening-retraction. IMPRESSION: No radiographic evidence of malignancy. BI-RADS Category 1 - Negative Breast Density - Category B - Scattered areas of fibroglandular density Breast density Category C or D implies that the patient has dense breast tissue. Dense breast tissue can make it harder to find cancer on a mammogram. Dense breast tissue is also associated with an incr eased risk of breast cancer. This information about the result of the mammogram report was provided to the patient to raise their awareness. Use this report when you speak with the patient about their risks for breast cancer, which includes their family history. At that time, you may recommend additional screening tests (Ultrasoun d or MRI) as these tests may add significant information. A negative radiographic report should not delay biopsy if a dominant or clinically suspicious mass is present. Up to ten percent of cancers are not identified on mammography. A negative report may reinforce clinical impression. Adenosis and dense breasts may obscure an underlying neoplasm. False positive reports average 6 to 10%. Patient will receive a letter notifying them of these results.
== END 2023-06-15 13:51 ==
LOC: DI 01:21
PROVIDERS: PCP Nurse Practitioner Family; Visit Provider Family Medicine
DX: Z12.31 Encounter for screening mammogram for malignant neoplasm of breast (principal)
CPT/HCPCS: 77063; 77067

== ENCOUNTER → 2023-04-04 10:19 | Outpatient (BNVA) | payer MEDICARE, BC, SELFPAY | PROVIDERS: PCP Nurse Practitioner Family; Visit Provider Psychiatry & Neurology Neurology | DX: G25.2 Other specified forms of tremor (principal); G24.9 Dystonia, unspecified; M25.562 Pain in left knee | CPT/HCPCS: 99214 ==

== ENCOUNTER 2023-04-27 14:38 | Outpatient (REF) | payer MEDICARE, BC, SELFPAY ==
--- NOTE | 2023-04-27 09:15 | SKI_PTH ---
PATIENT: Linda Browning LOC: [id number] AGE/SX: 73/F ROOM: RE04/27/[address]: Chester Umanzor : 1950 BED: DIS: 04/27/2023 SPEC #: [id number] RECD: 04/27/23 18:16 STATUS: LOTTIE REQ #: [id number] MARYANA: 04/27/23 09:[address]: Chester Umanzor DEPT: Surgical Specimen RECD BY: Taylor Chow ENTERED: 04/27/23 18:22 SP TYPE: SKI TAYLER DR: Angelina Walker Tissues: 1 - SKIN BIOPSY(SHAVE/PUNCH) Procedures: SKIN LEVEL 4 Comments: [id number]
== END 2023-04-27 14:39 | disposition home or self-care (01) ==
LOC: NCHCN 14:38
PROVIDERS: PCP Nurse Practitioner Family; Visit Provider Family Medicine
DX: C44.91 Basal cell carcinoma of skin, unspecified (principal)
CPT/HCPCS: 88305

== ENCOUNTER 2023-06-24 10:13 | Outpatient (CLI) | payer MEDICARE, BC, SELFPAY ==
--- NOTE | 2023-06-24 09:30 | DI.RAD_ITS ---
Exam(s) XR KNEE LT 3V AP,LAT,TERRANCE EXAM: XR KNEE LT 3V AP,LAT,TERRANCE CLINICAL HISTORY: eval L knee pain. TECHNIQUE: 2D digital imaging was performed. Three views. COMPARISON: No exams were available for comparison FINDINGS: BONES: No acute fracture is present. No bony destructive lesion is seen. Enthesophyte at quadriceps insertion on patella. Minimal periarticular spurring. JOINTS: The knee is normally aligned. No joint effusion is seen. The joint spaces are maintained. SOFT TISSUE: Normal. IMPRESSION: Minimal degenerative changes. DATA REPOSITORY: RADIATION DOSE DELIVERED:
--- NOTE | 2023-06-24 09:30 | DI.RAD_ITS ---
Exam(s) XR HIP LT COMPLETE AP PELVIS EXAM: XR HIP LT COMPLETE AP PELVIS CLINICAL HISTORY: left hip pain. TECHNIQUE: 2D digital imaging was performed. Two views. COMPARISON: CR XR DEXA BONE DENSITY W/WO AHSAN from 03/12/2021 FINDINGS: BONES: No acute fracture is present. No bony destructive lesion is seen. Hardware lumbosacral junctio n. JOINTS: No dislocation present. Hip joint spaces are maintained. Bilateral acetabular spurring. Mil d spurring at the margins of the femoral heads. SI joints are unremarkable. SOFT TISSUE: Normal. IMPRESSION: Mild degenerative changes. DATA REPOSITORY: RADIATION DOSE DELIVERED:
== END 2023-06-24 10:14 | disposition home or self-care (01) ==
LOC: DIORS 10:13
PROVIDERS: PCP Nurse Practitioner Family; Referring Provider Nurse Practitioner Family; Visit Provider Student in an Organized Health Care Education/Training Program
DX: S83.242A Other tear of medial meniscus, current injury, left knee, initial encounter; X58.XXXA Exposure to other specified factors, initial encounter; M17.12 Unilateral primary osteoarthritis, left knee
CPT/HCPCS: 73562; 99213; 73502

== ENCOUNTER 2023-07-10 10:16 | Emergency (ER) | payer MEDICARE, BC, SELFPAY ==
[2023-07-10 10:28] VITALS: BP 114/63; PULSE 69; RESP 16; TEMP 37; O2SAT 100
[2023-07-10 10:32] VITALS: BP 114/63; PULSE 69; RESP 16; TEMP 37; O2SAT 100
--- NOTE | 2023-07-10 10:33 | ED.GENADUL_ITS ---
Discharge Plan Disposition Patient Disposition: Home Condition: Stable Discharge Details Clinical Impression: Infected surgical wound, Conjunctivitis of left eye Primary Care Provider: Angelina Walker ED Provider: Klever Wells Home Meds and New Rx's Prescriptions: New mupirocin 2 % ointment 1 applic topical TID Qty: 15 0RF Rx Instructions: Apply a very thin film to wound at bridge of nose three times per day- do not get in eye erythromycin 5 mg/gram (0.5 %) ointment 0.5 inch ophthalmic (eye) QID 5 Days Qty: 3.5 0RF Rx Instructions: apply 0.5in to left eye four times per day for 5 days doxycycline hyclate 100 mg capsule 100 mg PO BID 7 Days Qty: 14 0RF Continued ibuprofen 200 mg tablet 200 mg PO Q6H PRN Airborne (ascorbic acid) 250-8.875 mg tablet,chewable PO albuterol sulfate 90 mcg/actuation aerosol powdr breath activated 1 inh inhalation ONCE glucosamine HCl 500 mg tablet 500 mg PO DAILY Rx Instructions: administer with a meal multivitamin [Daily Multi-Vitamin] 1 EACH tablet 1 ea PO DAILY magnesium oxide 500 mg capsule 500 mg PO .4x wk metronidazole [MetroCream] 0.75 % cream 1 applic Topical .QOD PRN carbidopa-levodopa [Sinemet] 25-100 mg tablet 1 tab PO TID Qty: 270 3RF Discharge Instructions Instructions: Mupirocin (On the skin), Doxycycline (By mouth), Erythromycin (Into the eye), Wound Infection (ED), Conjunctivitis (ED) Additional Instructions: You were seen in the emergency department for the wound infection of the skin biopsy to the bridge of your nose, this appears to have some purulent material and I am starting you on doxycycline to cover for MRSA as well as providing a topical antibiotic called mupirocin to apply to this area, do not get this topical in your eye. I am prescribing a separate topical antibiotic for the conjunctivitis of her left eye. These were sent to [facility] in [place]. Please follow-up with your provider that perform biopsy. Please return to the emergency department for severe increase in pain and redness especially with fever or pain with eye movement. Referrals: Angelina Walker [Primary Care Provider] - Discharge Data Discharge Date/Time-TO BE ENTERED AT DEPARTURE: 07/10/23 11:04 Medical Decision Making This dictation utilizes [id number] dictation software and may contain unedited grammatical errors. 73 y/o F presents to ED today with a chief complaint of L eye redness, crusting in the AM, recent biopsy of basal cell on L bridge of nose. Patient has relevant history of cataracts, basal cell carcinoma. Family and social history: Noncontributory. Pertinent exam findings / vital signs include conjunctival erythema without purulent drainage to the left eye at this time she states that there was crusting and purulence this morning. There is a mildly purulent biopsy lesion to the left bridge of the nose, she denies fever, visual yu and vision grossly intact. Differential / pathologies of concern include cellulitis, conjunctivitis, NOT vision loss or globe involvement. Diagnostic studies of: -none. Interventions of: -outpatient Rx. ED Course: Counseled the patient on likely minor wound infection from her biopsy site and prescribed topical antibiotics as well as doxycycline to cover MRSA as well as topical erythromycin for conjunctivitis. Findings not consistent with visual compromise, orbital cellulitis, facial abscess, likely superficial conjunctivitis from cross-contamination during procedure with a minor infection to the biopsy site. Disposition of Infected Surgical Wound, Conjunctivitis of Left Eye. Patient verbalized understanding of the plan and return to ED criteria and engaged in shared decision making. HPI General Date/Time Provider Initiated Documentation: 07/10/23 10:32 . HPI Narrative: 73 year-old female presents to ED today by POV/wheelchair at baseline with a chief complaint of recent biopsy of L bridge of nose for basal cell carcinoma, now having eye redness, feels she have infection with onset days ago. Quality described as some drainage of pus, and crusting in the am to the eye, with redness to conjunctiva, and some purulent drainage from the biopsy site which is 0.5cm from her medial canthus of OS, no radiation to pain with eye movement, headache, fever, visual changes. Severity is described as 3/10. Palliating factors include has been putting vaseline on the biopsy site. Provoking factors include nothing specific. Events leading up to the incident/Associated Symptoms: Patient has follow-up with the biopsy provider in a couple weeks. Patient not anticoagulated. Related Data Home Medications Medication Instructions Recorded Confirmed multivitamin (Daily Multi-Vitamin 1 ea PO DAILY 04/25/17 07/10/23 tablet) albuterol sulfate 90 mcg/actuation 1 inh inhalation ONCE 05/25/22 07/10/23 breath activated powder inhaler ibuprofen 200 mg tablet 200 mg PO Q6H PRN 05/25/22 07/10/23 magnesium oxide 500 mg capsule 500 mg PO .4x wk 05/25/22 07/10/23 dlxoeily-jfyvpfwz-dgq C 250 tab PO 05/25/22 06/26/23 mg-herbal no.124 8.875 mg chewable tablet (Airborne (ascorbic acid)) metronidazole 0.75 % topical cream 1 applic topical .QOD PRN 08/16/22 07/10/23 (MetroCream) carbidopa 25 mg-levodopa 100 mg 1 tab PO TID #270 tabs 02/08/23 07/10/23 tablet (Sinemet) glucosamine HCl 500 mg tablet 500 mg PO DAILY 06/24/23 07/10/23 doxycycline hyclate 100 mg capsule 100 mg PO BID wound infection 7 07/10/23 days #14 caps erythromycin 5 mg/gram (0.5 %) eye 0.5 inch ophthalmic (eye) QID 07/10/23 ointment conjunctivitis 5 days #3.5 grams mupirocin 2 % topical ointment 1 applic topical TID #15 grams 07/10/23 Previous Rx's Medication Instructions Recorded carbidopa 25 mg-levodopa 100 mg 1 tab PO TID #270 tabs 02/08/23 tablet (Sinemet) doxycycline hyclate 100 mg capsule 100 mg PO BID wound infection 7 07/10/23 days #14 caps erythromycin 5 mg/gram (0.5 %) eye 0.5 inch ophthalmic (eye) QID 07/10/23 ointment conjunctivitis 5 days #3.5 grams mupirocin 2 % topical ointment 1 applic topical TID #15 grams 07/10/23 Allergies Allergy/AdvReac Type Severity Reaction Status Date / Time No Known Allergies Allergy Unverified 07/10/23 10:31 General Stated Complaint: GenMedical DANIKA: 3 Review of Systems All systems reviewed & are unremarkable except as noted in HPI and below PFSH All Active Problems Conjunctivitis of left eye (Acute) Infected surgical wound (Acute) Arthritis of left knee (Acute) Tear of medial meniscus of left knee (Acute) Dystonia (Acute) Orthostatic tremor (Acute) Diverticula, colon, 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, lumbar region (Chronic) Status post cataract extraction and insertion of intraocular lens of right eye (Chronic 06/16/18) Status post cataract extraction and insertion of intraocular lens of left eye (Chronic 06/02/18) Medical History Vertigo Degenerative disc disease Leg length discrepancy Hepatic cyst Seborrheic keratosis Menopause Seasonal allergies Nuclear sclerotic cataract of right eye Cortical cataract of right eye Asthma Osteopenia Osteoarthritis Spondylolisthesis at L5-S1 level Insomnia Surgical History History of colonoscopy (~10/24/20) History of back surgery Ligation of fallopian tube Colonoscopy - IV Sedation CYSTECTOMY RIGHT NECK Family History Brother Personal history of malignant neoplasm Colon cancer Mother Brain cancer Father Throat cancer Social History Smoking/Tobacco Use Status: Never Smoking risk assessment performed?: Yes Alcohol Intake: never Drug use: Never Substance use type: does not use Household members: spouse Housing: house Number of Children: 2 current occupation: Retired teacher Do you feel safe at home: Yes Do you feel safe in your relationship?: Yes Exam Narrative Exam Narrative: GENERAL APPEARANCE: Well-nourished, non-toxic, awake and alert, atraumatic, no acute distress. SKIN: Warm, pink, dry, intact, without rashes/lesions/ulcerations. HEAD: Normocephalic, atraumatic, normal hair distribution for gender/age. EYES: Pupils PERRLA, EOMs intact without nystagmus, normal conjunctiva, no exudates on lids/lashes. Erythema to the conjunctiva of OS, vision grossly intact, visual yu intact, biopsy site at the left bridge of the nose has some purulent drainage, no purulent drainage. ENT: Nares patent, no circumoral cyanosis, no facial swelling NECK: Supple, trachea midline, painless cervical ROM. LUNGS/CHEST: Non-labored respirations, normal A/P diameter, symmetrical expansion, no chest wall deformity HEART (CV/PV): No peripheral edema, no JVD. ABDOMEN: Soft, non-distended, no guarding. MSK: Normal ROM, no swelling/deformity to bilateral UEs or LEs, moving all extremities without weakness, no cyanosis, spine midline without tenderness, normal curvature. NEURO: Mental Status AAOx4 - alert to person, place, time, events No facial droop, no forehead involvement. Motor: No focal weakness - strength 5/5 in bilateral UEs and LEs, proximal and distal, symmetric. Sensory: sensation intact to light touch globally. Gait normal: patient ambulated without ataxia into ED room. PSYCH: euthymic, cooperative, pleasant, appropriate speech Course Vital Signs Vital signs: Vital Signs Temperature 37 C 07/10/23 10:28 Pulse 69 07/10/23 10:28 Respiratory Rate 16 07/10/23 10:28 Blood Pressure 114/63 07/10/23 10:28 Pulse Oximetry 100 07/10/23 10:28 Temperature 37 C 07/10/23 10:28 Temperature Source Temporal Artery Scan 07/10/23 10:28 Pulse 69 07/10/23 10:28 Respiratory Rate 16 07/10/23 10:28 Blood Pressure 114/63 07/10/23 10:28 Blood Pressure Position Sitting 07/10/23 10:28 Pulse Oximetry 100 07/10/23 10:28 Oxygen Delivery Method Room Air 07/10/23 10:28 Oxygen Flow Rate 0 07/10/23 10:28
[2023-07-10 11:01] VITALS: RESP 18
== END 2023-07-10 11:04 | disposition home or self-care (01) ==
PROVIDERS: Emergency Provider Physician Assistant; PCP Nurse Practitioner Family
DX: T81.49XA Infection following a procedure, other surgical site, initial encounter (principal); H10.32 Unspecified acute conjunctivitis, left eye
CPT/HCPCS: 99283; 99284

== ENCOUNTER → 2023-10-03 11:13 | Outpatient (BNVA) | payer MEDICARE, BC, SELFPAY | PROVIDERS: PCP Nurse Practitioner Family; Visit Provider Psychiatry & Neurology Neurology | DX: G25.2 Other specified forms of tremor (principal); G24.9 Dystonia, unspecified; M25.562 Pain in left knee | CPT/HCPCS: 99214 ==

== ENCOUNTER → 2024-01-03 10:30 | Outpatient (CLI) | payer MEDICARE, BC, SELFPAY ==
--- NOTE | 2024-01-03 14:24 | DI.RAD_ITS ---
Exam(s) XR RIBS LT W PA LAT CHEST EXAM: XR RIBS LT W PA LAT CHEST CLINICAL HISTORY: Acute thoracic back pain, M54.6; s/p injury TECHNIQUE: 2D digital imaging was performed. Six images are obtained. COMPARISON: No exams were available for comparison FINDINGS: MEDIASTINUM: Normal. HEART: Normal. PULMONARY VASCULATURE: Normal. LUNGS: The lungs are hyperinflated with flattened diaphragms suggesting underlying COPD. PLEURAL SPACE: No pleural effusion or pneumothorax. BONE:Within normal limits for the patient's age. LEFT RIBS: Normal. OTHER FINDINGS:Normal. IMPRESSION: 1. No acute pulmonary findings. 2. Unremarkable left ribs. DATA REPOSITORY: RADIATION DOSE DELIVERED:
== END ==
PROVIDERS: PCP Nurse Practitioner Family; Visit Provider Family Medicine
DX: M54.6 Pain in thoracic spine (principal)
CPT/HCPCS: 71046; 71100

== ENCOUNTER → 2024-04-02 08:48 | Outpatient (BNVA) | payer MEDICARE, BC, SELFPAY | PROVIDERS: PCP Nurse Practitioner Family; Visit Provider Psychiatry & Neurology Neurology | DX: G25.2 Other specified forms of tremor (principal); G24.9 Dystonia, unspecified; M25.562 Pain in left knee | CPT/HCPCS: 99214 ==

== ENCOUNTER 2024-08-09 10:13 | Outpatient (REF) | payer MEDICARE, BC, SELFPAY ==
--- OUTSIDE RECORDS SUMMARY | 2024-08-09 10:16 | XMS_ITS | Encounter Summary ---
Author Organization [facility] Address [address] [place] [address] Care Team Providers Care Batterboard Setter Name Role Phone Niki Vyas MD Primary Care Provider Unavailabl e Encounter Details Date Type Department Care Team (Late st Contact Info) Description 03/07/2015 Results Only [facility] [phone] Chip Nath, DO [address] [place] [phone] Social History Tobacco Use Types Packs/Day Years Used Date Smoking Tobacco: Never Assessed Comments Unknown Sex and Gender Information Value Date Recorded Sex Assigned at Not on file Legal Sex Female 18:13 EST Gender Identity Not on file Sexual Orientation Not on file documented as of this encounter Plan of Treatment Not on file documented as of this encounter Procedures Procedure Name Priority Date/Time Associated Diagnosis Comments SURGICAL PATHOLOGY Routine 03/07/2015 7:57 EDT documented in this encounter Results * SURGICAL PATHOLOGY (03/07/2015 7:57 EDT) Pathology Report: SURGICAL PATHOLOGY REPORT Reports generated via electronic interface contain original data; however they are lacking the format of the original report. Caution should be taken when reading/interpret ing unformatted reports. Name: ? LINDA BROWNING ? Accession #: ? [id number] ? : ? 1950 (Age: 65) ??F ? Collect Date: ? 03/07/2015 ? Location: ? [facility] ? Receive Date: ? 03/08/2015 ? Provider: CHIP NATH DO Copy to: NIKI VYAS MD ? Final Pathologic Diagnosis: A. COLON, TRANSVERSE, POLYP, BIOPSY: - ??Benign colonic mucosa with prominent lymphoid aggregate. See comment. B. COLON, SIGMOID, POLYP, BIOPSIES: - ??Fragments of hyperplastic polyp. Comment: Deeper levels of (A) have been examined. Dr. Harrison 03/11/2015 11:30 AM Document reviewed and electronically signed by: COLLIN HARRISON MD Report ??Date: 03/11/2015 17:06 By the signature above, the attending physician certifies that he/she has personally conducted a gross and/or microscopic examination of the described specimens and rendered or confirmed the above diagnosis. Specimen(s) Received: A. ??Transverse colon polyp B. ??Sigmoid polyp ?? Clinical History: Screening, F/H colon Ca, polyps Gross Description: A. ?Received in formalin labelled with proper patient identification (initials G, G) and transverse colon polyp is a single pink-torres tissue fragment (0.7 x 0.2 x 0.2 cm). Submitted intact in A1. B. ?Received in formalin labelled with proper patient identification (initials G, G) and sigmoid polyp are three pink-torres tissues (0.2 x 0.2 x 0.1 cm to 0.5 x 0.2 x 0.1 cm). Entirely submitted in B1. Yolanda Zuniga 03/10/2015 8:32 AM End of Report [facility] 03/07/2015 7:57 EDT 03/08/2015 7:57 EDT us Chip Nath DO PATHOLOGY ORDERABLES Final Res ult [facility] [address] [place] [address] documented in this encounter Visit Diagnoses Not on filedocumented in this encounter Care Teams Batterboard Setter Relationship Specialty Start Date End Date Niki Vyas MD PCP - General 08/01/09 03/13/15 documented as of this encounter
--- OUTSIDE RECORDS SUMMARY | 2024-08-09 10:16 | XMS_ITS | Encounter Summary ---
Author Organization [facility] Address [address] [place] [address] Care Team Providers Care Brazing Machine Setter Name Role Phone Niki Vysa MD Primary Care Provider Unavailabl e Encounter Details Date Type Department Care Team (Late st Contact Info) Description 04/19/2001 Results Only [facility] Medicine - [address] [address] Niki Vyas MD Social History Tobacco Use Types Packs/Day Years [...] Procedure Name Priority Date/Time Associated Diagnosis Comments CYTOPATHOLOGY Routine 04/19/2001 0:00 EDT documented in this encounter Results * CYTOPATHOLOGY (04/19/2001 0:00 EDT) Pathology Report: CYTOPATHOLOGY REPORT Reports generated via electronic interface contain original data; however they are lacking the format of the original report. Caution should be taken when reading/interpreti ng unformatted reports. Name: ? LINDA BROWNING ? Accession #: ? [id number] : ? 1950 (Age: 51) ??F ?Collect Date: ? 04/19/2001 Location: ? [facility] ? Receive Date: ? 04/24/2001 Provider: ?NIKI VYAS MD Copy to: ? Specimen/Source: ?ThinPrep Pap Test, Endocervix Last Menstrual Period: ? Not applicable. Previous Gynecologic Pathology: ? ASC-US: 1 time, f/u paps nl Other: ? HPVL - HPV testing requested if LSIL/ASCUS/CHAPIN on the current ThinPrep Pap test. ? SPECIMEN ADEQUACY ? Satisfactory for evaluation but limited by scant squamous epithelial component secondary to excessive mucus. GENERAL CATEGORIZATION ? Within Normal Limits ? Document reviewed and electronically signed by: ? BERTHA Talbert(ASCP) ? Report Date: ??04/26/2001 11:35 End of Report [facility] 04/19/2001 04/24/2001 us Niki Vyas MD PATHOLOGY ORDERABLES Final Resul t [facility] [address] [place] [address] documented in this encounter Visit Diagnoses Not on filedocumented in this encounter Care Teams Brazing Machine Setter Relationship Specialty Start Date End Date Niki Vyas MD PCP - General 08/01/09 03/13/15 documented as of this encounter
--- OUTSIDE RECORDS SUMMARY | 2024-08-09 10:16 | XMS_ITS | Clinical Summary ---
Author Organization [facility] Address [address] [place] [address] Care Team Providers Care Lead Operator Name Role Phone Unknown, Provider MD Primary Care Provider Unava ilable Social History Tobacco Use Types Packs/Day Years Used Date Smoking Tobacco: Never Assessed Comments Unknown Sex and Gender Information Value Date Recorded Sex Assigned at Not on file Legal Sex Female 18:13 EST Gender Identity Not on file Sexual Orientation Not on file Plan of Treatment Health Maintenance Due Date Last Done Comments Hepatitis C Screen 1950 Fall Risk Screening 2014 RSV Immunization ( o r 60+ Years) (1 - 1-dose 75+ series) 02/03/2024 COVID-19 Vaccine (2023-25 season) 2024 Insurance [facility] MEDICARE [facility] [place] Care Teams Lead Operator Relationship Specialty Start Date End Date Unknown, Provider, PCP - General 03/14/15
--- OUTSIDE RECORDS SUMMARY | 2024-08-09 10:16 | XMS_ITS | Encounter Summary ---
Author Organization [facility] Address [address] [place] [address] Care Team Providers Care Clinical Project Assistant Name Role Phone Niki Vyas MD Primary Care Provider Unavailabl e Encounter Details Date Type Department Care Team (Late st Contact Info) Description 02/28/2004 Results Only [facility] Family Medicine - [address] [address] Niki Vyas MD Social History [...] Priority Date/Time Associated Diagnosis Comments CYTOPATHOLOGY Routine 02/28/2004 0:00 EDT documented in this encounter Results * CYTOPATHOLOGY (02/28/2004 0:00 EDT) Pathology Report: CYTOPATHOLOGY REPORT Reports generated via electronic interface contain original data; however they are lacking the format of the original report. Caution should be taken when reading/interpreti ng unformatted reports. Name: ? LINDA BROWNING ? Accession #: ? [id number] : ? 1950 (Age: 54) ??F ?Collect Date: ? 02/28/2004 Location: ? [facility] ? Receive Date: ? 03/04/2004 Provider: ?NIKI VYAS MD Copy to: ? Specimen/Source: ?ThinPrep Pap Test, Endocervix Last Menstrual Period: ? Menstrual/Pregnanc y Status: ? Menopausal Previous Gynecologic Pathology: ? ASC-US: remote hx Other: ? HPVA - HPV testing requested if ASC-US on the current ThinPrep Pap test. ? SPECIMEN ADEQUACY ? Unsatisfactory for Evaluation, - insufficient numbers of squamous epithelial cells (less than 10% of expected cellularity) - sample preparation compromised by excessive blood GENERAL CATEGORIZATION ? Specimen processed and examined, but unsatisfactory for evaluation of epithelial abnormality. Recommend repeat Pap test or further follow up, as clinically indicated. ? Document reviewed and electronically signed by: ? BERTHA Peterson(ASCP) ? Report Date: ??03/12/2004 10:56 End of Report [facility] 02/28/2004 03/04/2004 us Niki Vyas MD PATHOLOGY ORDERABLES Final Resul t [facility] [address] [place] [address] documented in this encounter Visit Diagnoses Not on filedocumented in this encounter Care Teams Clinical Project Assistant Relationship Specialty Start Date End Date Niki Vyas MD PCP - General 08/01/09 03/13/15 documented as of this encounter
--- OUTSIDE RECORDS SUMMARY | 2024-08-09 10:16 | XMS_ITS | Encounter Summary ---
Author Organization [facility] Address [address] [place] [address] Care Team Providers Care Master Fire Control Technician Name Role Phone Niki Vyas MD Primary Care Provider Unavailabl e Encounter Details Date Type Department Care Team (Late st Contact Info) Description 03/26/2005 Results Only [facility] Family Medicine - [address] [address] Niki Vyas MD Social History [...] Priority Date/Time Associated Diagnosis Comments CYTOPATHOLOGY Routine 03/26/2005 0:00 EDT documented in this encounter Results * CYTOPATHOLOGY (03/26/2005 0:00 EDT) Pathology Report: CYTOPATHOLOGY REPORT Reports generated via electronic interface contain original data; however they are lacking the format of the original report. Caution should be taken when reading/interpreti ng unformatted reports. Name: ? LINDA BROWNING ? Accession #: ? [id number] : ? 1950 (Age: 55) ??F ?Collect Date: ? 03/26/2005 Location: ? [facility] ? Receive Date: ? 03/30/2005 Provider: ?NIKI VYAS MD Copy to: ? Specimen/Source: ?ThinPrep Pap Test, Endocervix, processed on [employer] ThinPrep Imaging System, with manual evaluation Last Menstrual Period: ? n/a Previous Gynecologic Pathology: ? ASC-US Other: ? HPVA - HPV testing requested if ASC-US on the current ThinPrep Pap test. ? SPECIMEN ADEQUACY ? Unsatisfactory for Evaluation, - insufficient numbers of squamous epithelial cells (less than 10% of expected cellularity) GENERAL CATEGORIZATION ? Specimen processed and examined, but unsatisfactory for evaluation of epithelial abnormality. Recommend repeat Pap test or further follow up, as clinically indicated. ? Document reviewed and electronically signed by: ? Jackie Green, BERTHA(ASCP)(IAC) ? Report Date: ??04/07/2005 10:52 End of Report [facility] 03/26/2005 03/30/2005 us Niki Vyas MD PATHOLOGY ORDERABLES Final Resul t Performing Organization Address City/State/[facility] Co de Phone Number [facility] [address] [place] [address] documented in this encounter Visit Diagnoses Not on filedocumented in this encounter Care Teams Master Fire Control Technician Relationship Specialty Start Date End Date Niki Vyas MD PCP - General 08/01/09 03/13/15 documented as of this encounter
--- OUTSIDE RECORDS SUMMARY | 2024-08-09 10:16 | XMS_ITS | Encounter Summary ---
Author Organization [facility] Address [address] [place] [address] Care Team Providers Care Surveillance Manager Name Role Phone Niki Vyas MD Primary Care Provider Unavailabl e Encounter Details Date Type Department Care Team (Late st Contact Info) Description 05/02/2007 Results Only [facility] Medicine - [address] [address] Niki Vyas MD Social History [...] Priority Date/Time Associated Diagnosis Comments CYTOPATHOLOGY Routine 05/02/2007 0:00 EDT documented in this encounter Results * CYTOPATHOLOGY (05/02/2007 0:00 EDT) Pathology Report: CYTOPATHOLOGY REPORT Reports generated via electronic interface contain original data; however they are lacking the format of the original report. Caution should be taken when reading/interpreti ng unformatted reports. Name: ? LINDA BROWNING ? Accession #: ? [id number] : ? 1950 (Age: 57) ??F ?Collect Date: ? 05/02/2007 Location: ? [facility] ? Receive Date: ? 05/04/2007 Provider: ?NIKI VYAS MD Copy to: ? Specimen/Source: ?ThinPrep Pap Test, Endocervix, processed on [employer] ThinPrep Imaging System, with manual evaluation Last Menstrual Period: ? NA Other: ? HPVA - HPV testing requested [...] reviewed and electronically signed by: ? BERTHA Bueno(ASCP) ? Report Date: ??05/11/2007 09:19 End of Report [facility] 05/02/2007 05/04/2007 us Niki Vyas MD PATHOLOGY ORDERABLES Final Resul t Performing Organization Address City/State/[facility] Co de Phone Number [facility] [address] [place] [address] documented in this encounter Visit Diagnoses Not on filedocumented in this encounter Care Teams Surveillance Manager Relationship Specialty Start Date End Date Niki Vyas MD PCP - General 08/01/09 03/13/15 documented as of this encounter
--- OUTSIDE RECORDS SUMMARY | 2024-08-09 10:16 | XMS_ITS | Encounter Summary ---
Author Organization [facility] Address [address] [place] [address] Care Team Providers Care Mud Plant Operator Name Role Phone Unknown, Provider MD Primary Care Provider Unava ilable Encounter Details Date Type Department Care Team (Late st Contact Info) Description 04/28/2023 Lab Requisition [facility] Pathology & Laboratory Medicine - [facility] [address] [place] [address] Chester Umanzor MD [address] [place], [place] [id number] Encounter for other general examination Social History Tobacco Use Types Packs/Day Years [...] Priority Date/Time Associated Diagnosis Comments SURGICAL PATHOLOGY Today 04/27/2023 9: 15 EDT Encounter for other general examination documented in this encounter Results * SURGICAL PATHOLOGY (04/27/2023 9:15 EDT) Note to Patient The following pathology results have been interpreted by your pathologist and may be available to you before your health provider has had the opportunity to review them. Please allow time for your provider to receive these results and explore management options, if applicable. 04/29/2023 9:23 EDT [facility] Final Diagnosis A. SKIN OF NASAL BRIDGE, RIGHT, PUNCH BIOPSY: - Basal cell carcinoma, nodular type, involving peripheral edges. 04/29/2023 9:23 EDT [facility] Attestation By the signature below, the attending physician certifies that they have 1) personally conducted a gross and/or microscopic examination of the described specimen(s), and/or personally interpreted the results of laboratory testing of the described specimen(s), and 2) personally rendered or confirmed the above diagnosis. 04/29/2023 9:23 [facility] at 0923 Clinical History ? Cancer 04/29/2023 9:23 T [facility] Gross Description A. Received in formalin labelled with proper patient identification (initials G, G) and R nasal bridge is a punch biopsy of torres-white skin (0.3 cm in diameter and 0.1 cm in thickness). Submitted intact in A1. Tracy Reyes 04/28/2023 10:32 04/29/2023 9:23 T [facility] Performing Lab [facility] 04/29/2023 9:23 T [facility] Scanned Images 04/29/2023 9:23 T [facility] Tissue SPECIMEN FROM SKIN / Unknown 04/27/2023 9:15 EDT 04/28/2023 7:15 EDT us Chester Umanzor MD PATHOLOGY ORDERABLES Final Resul t [facility] [address] [place] [address] documented in this encounter Visit Diagnoses Diagnosis Encounter for other general examination documented in this encounter Care Teams Mud Plant Operator Relationship Specialty Start Date End Date Unknown, Provider, PCP - General 03/14/15 documented as of this encounter
--- OUTSIDE RECORDS SUMMARY | 2024-08-09 10:16 | XMS_ITS | Encounter Summary ---
Author Organization [facility] Address [address] [place] [address] Care Team Providers Care Cycle Repairer Name Role Phone Niki Vyas MD Primary Care Provider Unavailabl e Encounter Details Date Type Department Care Team (Late st Contact Info) Description 02/15/2003 Results Only [facility] Medicine - [address] [address] Niki Vyas MD Social History [...] Priority Date/Time Associated Diagnosis Comments CYTOPATHOLOGY Routine 02/15/2003 0:00 EDT documented in this encounter Results * CYTOPATHOLOGY (02/15/2003 0:00 EDT) Pathology Report: CYTOPATHOLOGY REPORT Reports generated via electronic interface contain original data; however they are lacking the format of the original report. Caution should be taken when reading/interpreti ng unformatted reports. Name: ? LINDA BROWNING ? Accession #: ? [id number] : ? 1950 (Age: 53) ??F ?Collect Date: ? 02/15/2003 Location: ? [facility] ? Receive Date: ? 02/19/2003 Provider: ?NIKI VYAS MD Copy to: ? Specimen/Source: ?ThinPrep Pap Test, Endocervix Last Menstrual Period: ? N/A Previous Gynecologic Pathology: ? ASC-US: 1990 Other: ? HPVDX - HPV testing requested regardless of diagnosis on current ThinPrep Pap test. ? SPECIMEN ADEQUACY ? Unsatisfactory for Evaluation, - insufficient numbers of squamous epithelial cells (less than 10% of expected cellularity) GENERAL CATEGORIZATION ? Specimen processed and examined, but unsatisfactory for evaluation of epithelial abnormality. Recommend repeat Pap test or further follow up, as clinically indicated. ? Document reviewed and electronically signed by: ? Bryson Gregg, CT(ASCP) ? Report Date: ??02/22/2003 10:57 End of Report [facility] 02/15/2003 02/19/2003 us Niki Vyas MD PATHOLOGY ORDERABLES Final Resul t [facility] [address] [place] [address] documented in this encounter Visit Diagnoses Not on filedocumented in this encounter Care Teams Cycle Repairer Relationship Specialty Start Date End Date Niki Vyas MD PCP - General 08/01/09 03/13/15 documented as of this encounter
--- OUTSIDE RECORDS SUMMARY | 2024-08-09 10:16 | XMS_ITS | Encounter Summary ---
Author Organization [facility] Address [address] [place] [address] Care Team Providers Care Heating Engineer Name Role Phone Unavailable Primary Care Provider Unavailabl e Encounter Details Date Type Department Care Team (Late st Contact Info) Description 07/30/[address] [facility] Laboratory Services - [facility] [address] [place] [address] Thony Duran MD [address] [place] [id number] Social History Tobacco Use Types Packs/Day Years [...] Date/Time Associated Diagnosis Comments SURGICAL PATHOLOGY Routine 07/30/2009 0:00 EST documented in this encounter Results * SURGICAL PATHOLOGY (07/30/2009 0:00 EST) Pathology Report: SURGICAL PATHOLOGY REPORT ? Reports generated via electronic interface contain original data; ? however they are lacking the format of the original report. ? Caution should be taken when reading/interpreti ng unformatted reports. ? Name: ? TERESA, LINDA M ? Accession #: ? [id number] ? : ? 1950 (Age: 59) ??F ? Collect Date: ? 07/30/2009 ? Location: ? [facility] ? Receive Date: ? 07/31/2009 ? Provider: THONY SIMIN MD ? Copy to: MICHAEL FINE MD ? Final Pathologic Diagnosis: ? Skin of shoulder, right, excision: ? 1. ?Basal cell carcinoma, nodular type. ? - Margins of excision negative, but close. ?- Basal cell carcinoma measures approximately 0.2 mm to the nearest peripheral margin. ?- Basal cell carcinoma measures at least 1.0 mm to the deep margin. ? Document reviewed and electronically signed by: ? Pepper Valente MD ? Report ??Date: 08/01/2009 16:37 ? By the signature above, the attending physician certifies that he/she has ? personally conducted a gross and/or microscopic examination of the described ? specimens and rendered or confirmed the above diagnosis. ? Specimen(s) Received: ? Rt shoulder ? Clinical History: ? Present 1 yr indeterminate ? Gross Description: ? Received in formalin labelled [place], [place] and rt shoulder is an ? unoriented elliptical excision of torres-pink skin which measures 2.0 x 0.9 cm and is excised to a depth of 0.4 cm. ??There is a central torres firm, smooth nodule ? measuring 1.1 x 0.8 x 0.1 cm. ??The margins are inked blue. ??The specimen is ? serially sectioned and entirely submitted as (A1) and (A2) central sections and (A3) tips, reverse en face. (Biju Mcleod)/mpl ? End of Report ? [facility] 07/30/2009 07/31/2009 9:0 8 EST us Thony Duran MD PATHOLOGY ORDERABLES Final Result [facility] [address] [place] [address] documented in this encounter Visit Diagnoses Not on filedocumented in this encounter
--- OUTSIDE RECORDS SUMMARY | 2024-08-09 10:16 | XMS_ITS | Encounter Summary ---
Author Organization [facility] Address [address] [place] [address] Care Team Providers Care Color Maker Formulator Name Role Phone Niki Vyas MD Primary Care Provider Unavailabl e Encounter Details Date Type Department Care Team (Late st Contact Info) Description 06/23/2011 Results Only [facility] Family Medicine - [address] [address] Niki Vyas MD Social History [...] Procedure Name Priority Date/Time Associated Diagnosis Comments PAP TEST- RESULT ONLY Routine 06/23/2011 0:00 EDT documented in this encounter Results * PAP TEST- RESULT ONLY (06/23/2011 0:00 EDT) Pathology Report: CYTOPATHOLOGY REPORT Reports generated via electronic interface contain original data; however they are lacking the format of the original report. Caution should be taken when reading/interpreti ng unformatted reports. Name: ? LINDA BROWNING ? Accession #: ? [id number] : ? 1950 (Age: 61) ??F ?Collect Date: ? 06/23/2011 Location: ? [facility] ? Receive Date: ? 06/25/2011 Provider: ?NIKI VYAS MD Copy to: ? Specimen/Source: ?Pap Test, Endocervix, ThinPrep Imaging System with manual evaluation Last Menstrual Period: ? SPECIMEN ADEQUACY ? Satisfactory for Evaluation - assessment of transformation zone component not applicable ( e.g. atrophy, vaginal sample, hysterectomy) - scant squamous epithelial component GENERAL CATEGORIZATION ? Negative for Intraepithelial Lesion or Malignancy ? Document reviewed and electronically signed by: ? BERTHA Palmer(ASCP) ? Report Date: ??07/05/2011 09:49 End of Report [facility] 06/23/2011 06/25/2011 us Niki Vyas MD PATHOLOGY ORDERABLES Final Resul t [facility] [address] [place] [address] documented in this encounter Visit Diagnoses Not on filedocumented in this encounter Care Teams Color Maker Formulator Relationship Specialty Start Date End Date Niki Vyas MD PCP - General 08/01/09 03/13/15 documented as of this encounter
--- OUTSIDE RECORDS SUMMARY | 2024-08-09 10:16 | XMS_ITS | Encounter Summary ---
Author Organization [facility] Address [address] [place] [address] Care Team Providers Care Cable Tool Driller Name Role Phone Niki Vyas MD Primary Care Provider Unavailabl e Encounter Details Date Type Department Care Team (Late st Contact Info) Description 11/06/2014 Results Only [facility] Laboratory Services - [address] [address] Niki Vyas MD Social History [...] Diagnosis Comments PAP TEST- RESULT ONLY Routine 11/06/2014 0:00 EDT documented in this encounter Results * PAP TEST- RESULT ONLY (11/06/2014 0:00 EDT) Pathology Report: CYTOPATHOLOGY REPORT Reports generated via electronic interface contain original data; however they are lacking the format of the original report. Caution should be taken when reading/interpreti ng unformatted reports. Name: ? LINDA BROWNING ? Accession #: ? [id number] : ? 1950 (Age: 64) ??F ?Collect Date: ? 11/06/2014 Location: ? [facility] ? Receive Date: ? 11/07/2014 Provider: ?NIKI VYAS MD Copy to: ? Specimen/Source: ?Pap Test, Endocervix, ThinPrep Imaging System with manual evaluation Last Menstrual Period: ? N/A Other: ? Additional clinical information: Unsatisfactory ? SPECIMEN ADEQUACY ? Satisfactory for Evaluation - transformation zone component present - scant squamous epithelial component - obscuring contamination, possibly lubricant GENERAL CATEGORIZATION ? Negative for Intraepithelial Lesion or Malignancy ? Document reviewed and electronically signed by: ? BERTHA Sommers(ASCP) ? Report Date: ??11/12/2014 16:21 End of Report [facility] 11/06/2014 11/07/2014 us Niki Vyas MD PATHOLOGY ORDERABLES Final Resul t [facility] [address] [place] [address] documented in this encounter Visit Diagnoses Not on filedocumented in this encounter Care Teams Cable Tool Driller Relationship Specialty Start Date End Date Niki Vyas MD PCP - General 08/01/09 03/13/15 documented as of this encounter
--- OUTSIDE RECORDS SUMMARY | 2024-08-09 10:16 | XMS_ITS | Encounter Summary ---
Author Organization [facility] Address [address] [place] [address] Care Team Providers Care Decorator Inspector Name Role Phone Unavailable Primary Care Provider Unavailabl e Encounter Details Date Type Department Care Team (Late st Contact Info) Description 05/03/2008 Before PRISM Converted Visit (Maple) [facility] Medicine [address] [address] Niki Vyas MD Social History [...] Priority Date/Time Associated Diagnosis Comments CYTOPATHOLOGY Routine 05/03/2008 0:00 EDT documented in this encounter Results * CYTOPATHOLOGY (05/03/2008 0:00 EDT) Pathology Report: CYTOPATHOLOGY REPORT ? Reports generated via electronic interface contain original data; ? however they are lacking the format of the original report. ? Caution should be taken when reading/interpreti ng unformatted reports. ? Name: ? LINDA BROWNING ? Accession #: ? [id number] ? : ? 1950 (Age: 58) ??F ?Collect Date: ? 05/03/2008 ? Location: ? [facility] ? Receive Date: ? 05/06/2008 ? Provider: ?NIKI D FINE MD ? Copy to: ? Specimen/Source: ?ThinPrep Pap Test, Endocervix, processed on [employer] ? ThinPrep Imaging System, with manual evaluation ? Last Menstrual Period: ? Menstrual/Pregnanc y Status: ? Post Menopausal ? Previous Gynecologic Pathology: ? Yes: Atrophic Vagintos recurrent insufficient pap ? Other: ? HPVA - HPV testing requested if ASC-US on the current ThinPrep Pap test. ? SPECIMEN ADEQUACY ? Satisfactory for Evaluation ? - transformation zone component present ? - scant squamous epithelial component ? GENERAL CATEGORIZATION ? Negative for Intraepithelial Lesion or Malignancy ? Document reviewed and electronically signed by: ? Stephanie Verville,CT(ASCP) ? Report Date: ??05/08/2008 13:26 ? End of Report ? [facility] 05/03/2008 05/06/2008 us Niki Vyas MD PATHOLOGY ORDERABLES Final Resul t [facility] [address] [place] [address] documented in this encounter Visit Diagnoses Not on filedocumented in this encounter
--- OUTSIDE RECORDS SUMMARY | 2024-08-09 10:16 | XMS_ITS | Encounter Summary ---
Author Organization [facility] Address [address] [place] [address] Care Team Providers Care Assembler Type Bar And Segment Name Role Phone Niki Vyas MD Primary Care Provider Unavailabl e Encounter Details Date Type Department Care Team (Late st Contact Info) Description 03/30/2006 Results Only [facility] Family Medicine - [address] [address] Niki Vyas MD Social History [...] Priority Date/Time Associated Diagnosis Comments CYTOPATHOLOGY Routine 03/30/2006 0:00 EDT documented in this encounter Results * CYTOPATHOLOGY (03/30/2006 0:00 EDT) Pathology Report: CYTOPATHOLOGY REPORT Reports generated via electronic interface contain original data; however they are lacking the format of the original report. Caution should be taken when reading/interpreti ng unformatted reports. Name: ? LINDA BROWNING ? Accession #: ? [id number] : ? 1950 (Age: 56) ??F ?Collect Date: ? 03/30/2006 Location: ? [facility] ? Receive Date: ? 04/01/2006 Provider: ?NIKI VYAS MD Copy to: ? Specimen/Source: ?ThinPrep Pap Test, Endocervix, processed on [employer] ThinPrep Imaging System, with manual evaluation Last Menstrual Period: ? 1995 Menstrual/Pregnanc y Status: ? Post Menopausal Other: ? HPVA - HPV testing requested [...] by: ? BERTHA Peterson(ASCP) ? Report Date: ??04/13/2006 07:04 End of Report [facility] 03/30/2006 04/01/2006 us Niki Vyas MD PATHOLOGY ORDERABLES Final Resul t [facility] [address] [place] [address] documented in this encounter Visit Diagnoses Not on filedocumented in this encounter Care Teams Assembler Type Bar And Segment Relationship Specialty Start Date End Date Niki Vyas MD PCP - General 08/01/09 03/13/15 documented as of this encounter
--- OUTSIDE RECORDS SUMMARY | 2024-08-09 10:16 | XMS_ITS | Encounter Summary ---
Author Organization [facility] Address [address] [place] [address] Care Team Providers Care Agriculture Technician Name Role Phone Unknown, Provider MD Primary Care Provider Unava ilable Encounter Details Date Type Department Care Team (Late st Contact Info) Description 06/12/2021 Lab Requisition [facility] Pathology & Laboratory Medicine - [facility] [address] [place] [address] Outr Resulting Lab, Provider Social History Tobacco Use Types Packs/Day Years [...] Procedure Name Priority Date/Time Associated Diagnosis Comments ZZCOVID-19 TEST [facility] PCR Today 06/12/2021 10:03 EDT COVID-19 TESTING Routine 06/12/2021 10:0 3 EDT documented in this encounter Results * COVID-19 TEST [facility] PCR (06/12/2021 10:03 EDT) Swab ENTIRE NASOPHARYNX / Unknown 06/12/2021 10:03 EDT 06/12/2021 21:31 EDT us Provider Outr Resulting Lab MICROBIOLOGY - GENER AL ORDERABLES Final Result [facility] [address] [place] [address] * COVID-19 TESTING (06/12/2021 10:03 EDT) COVID-19 rt-PCR Result Negative Negative 06/13/2021 15:26 EDT [facility] Comment: This test has not been FDA cleared or approved. This test has been authorized by FDA under an EUA for use by authorized laboratories. This test has been authorized only for detection of nucleic acid from 2019-nCoV, not for any other viruses or pathogens. This test is only authorized for the duration of the declaration that circumstances exist justifying the authorization of emergency use of in vitro diagnostic tests for detection and/or diagnosis of 2019-nCoV under section 564(b)(1) of Act, 21 U.S.C ?? 360bbb-3(b) (1), unless the authorization is terminated or revoked sooner. Negative results do not preclude 2019-nCoV infection and should not be used as the sole basis for treatment or other patient management decisions. Negative results must be combined with clinical observations, patient history, and epidemiological information. This test was developed and its performance characteristics determined by [facility]. It has not been cleared or approved by the US Food and Drug Administration. FDA does not require this test to go through premarket FDA review. This test is used for clinical purposes. It should not be regarded as investigational or for research. This laboratory is certified under the Clinical Laboratory Improvement Amendments (CLIA) as qualified to perform high complexity clinical laboratory testing. This test is based on the [facility] COVID-19 Emergency Use Authorization (EUA) assay, with minor modification as defined by the FDA Performed on the [employer] 7 Flex RT-PCR System. Performing Lab [facility] 06/13/2021 15:26 EDT [facility] Swab 06/12/2021 10:0 3 EDT 06/12/2021 21:31 EDT us Provider Outr Resulting Lab MICROBIOLOGY - GENER AL ORDERABLES Final Result [facility] [address] [place] [address] documented in this encounter Visit Diagnoses Not on filedocumented in this encounter Care Teams Agriculture Technician Relationship Specialty Start Date End Date Unknown, Provider, PCP - General 03/14/15 documented as of this encounter
--- OUTSIDE RECORDS SUMMARY | 2024-08-09 10:16 | XMS_ITS | Encounter Summary ---
Author Organization [facility] Address [address] [place] [address] Care Team Providers Care Student Services Counselor Name Role Phone Niki Vyas MD Primary Care Provider Unavailabl e Encounter Details Date Type Department Care Team (Late st Contact Info) Description 03/28/2002 Results Only [facility] Medicine - [address] [address] Niki Vyas MD Social History [...] Priority Date/Time Associated Diagnosis Comments CYTOPATHOLOGY Routine 03/28/2002 0:00 EDT documented in this encounter Results * CYTOPATHOLOGY (03/28/2002 0:00 EDT) Pathology Report: CYTOPATHOLOGY REPORT Reports generated via electronic interface contain original data; however they are lacking the format of the original report. Caution should be taken when reading/interpreti ng unformatted reports. Name: ? LINDA BROWNING ? Accession #: ? [id number] : ? 1950 (Age: 52) ??F ?Collect Date: ? 03/28/2002 Location: ? [facility] ? Receive Date: ? 03/30/2002 Provider: ?NIKI VYAS MD Copy to: ? Specimen/Source: ?ThinPrep Pap Test, Cervix Last Menstrual Period: ? Previous Gynecologic Pathology: ? ASC-US: years ago Other: ? HPVL - HPV testing requested if LSIL/ASCUS/CHAPIN on the current ThinPrep Pap test. ? SPECIMEN ADEQUACY ? Satisfactory for Evaluation - transformation zone component present - scant squamous epithelial component GENERAL CATEGORIZATION ? Negative for Intraepithelial Lesion or Malignancy ? Document reviewed and electronically signed by: ? Bryson Gregg, CT(ASCP) ? Report Date: ??04/04/2002 08:49 End of Report [facility] 03/28/2002 03/30/2002 us Niki Vyas MD PATHOLOGY ORDERABLES Final Resul t [facility] [address] [place] [address] documented in this encounter Visit Diagnoses Not on filedocumented in this encounter Care Teams Student Services Counselor Relationship Specialty Start Date End Date Niki Vyas MD PCP - General 08/01/09 03/13/15 documented as of this encounter
--- OUTSIDE RECORDS SUMMARY | 2024-08-09 10:16 | XMS_ITS | Encounter Summary ---
Author Organization [facility] Address [address] [place] [address] Care Team Providers Care Repairer And Checker Name Role Phone Unknown, Provider MD Primary Care Provider Unava ilable Encounter Details Date Type Department Care Team (Late st Contact Info) Description 09/05/[address] [facility] Pathology & Laboratory Medicine - [facility] [address] [place] [address] Matthew Anaya MD [address] [place] [id number] Other forms of stomatitis Social History Tobacco Use Types Packs/Day Years [...] Procedure Name Priority Date/Time Associated Diagnosis Comments ANATOMIC PATHOLOGY - DOWNTIME Today 07/14/2020 14:10 EST Other forms of stomatitis documented in this encounter Results * ANATOMIC PATHOLOGY - DOWNTIME (07/14/2020 14:10 EST) Final Diagnosis See scanned downtime report. 09/05/2020 15:53 EST [facility] Attestation Report electronically released by Tayla Mead on 09/05/20 . 09/05/2020 15:53 EST [facility] Resident/Davon w: Filomena Joseph MD 09/05/2020 15:53 EST [facility] Performing Lab [facility] 09/05/2020 15:53 EST [facility] Scanned Images 09/05/2020 15:53 EST [facility] Tissue ENTIRE DORSAL SURFACE OF BASE OF TONGUE / Unknown 07/14/2020 14:10 EST 09/05/2020 15:52 EST us Matthew Anaya MD PATHOLOGY ORDERABLES Final Resul t [facility] [address] [place] [address] documented in this encounter Visit Diagnoses Diagnosis Other forms of stomatitis documented in this encounter Care Teams Repairer And Checker Relationship Specialty Start Date End Date Unknown, Provider, PCP - General 03/14/15 documented as of this encounter
--- OUTSIDE RECORDS SUMMARY | 2024-08-09 10:16 | XMS_ITS | Referral Summary ---
Author Organization [facility] Address [address] [place] [address] Care Team Providers Care Truck Operator Name Role Phone Unknown, Provider MD Primary Care Provider Unava ilable Social History Tobacco Use Types Packs/Day Years Used Date Smoking Tobacco: Never Assessed Comments Unknown Sex and Gender Information Value Date Recorded Sex Assigned at Not on file Legal Sex Female 18:13 EST Gender Identity Not on file Sexual Orientation Not on file Plan of Treatment Not on file Insurance [facility] MED[facility] [employer] [place] Care Teams Truck Operator Relationship Specialty Start Date End Date Unknown, Provider, PCP - General 03/14/15
--- OUTSIDE RECORDS SUMMARY | 2024-08-09 10:16 | XMS_ITS | Encounter Summary ---
Author Organization [facility] Address [address] [place] [address] Care Team Providers Care 3D Specialist Name Role Phone Niki Vyas MD Primary Care Provider Unavailabl e Encounter Details Date Type Department Care Team (Latest Contact Info) Description 03/07/2015 10:11 EDT - 03/07/2015 23:59 EDT Hospital Encounter [address] [address] Unknown, Provider, MD Discharge Disposition: Home or Self Care Social History Tobacco Use Types Packs/Day Years Used Date Smoking Tobacco: Never Assessed Comments Unknown Sex and Gender Information Value Date Recorded Sex Assigned at Not on file Legal Sex Female 18:13 EST Gender Identity Not on file Sexual Orientation Not on file documented as of this encounter Discharge Disposition Disposition Code Departure Means Destination Home or Self [facility]pc documented in this encounter Plan of Treatment Not on file documented as of this encounter Visit Diagnoses Not on filedocumented in this encounter Care Teams 3D Specialist Relationship Specialty Start Date End Date Niki Vyas MD PCP - General 08/01/09 03/13/15 documented as of this encounter
--- OUTSIDE RECORDS SUMMARY | 2024-08-09 10:16 | XMS_ITS | Encounter Summary ---
Author Organization [facility] Address [address] [place] [id number] Care Team Providers Care Cigar Tobacco Rehandler Name Role Phone Niki Vyas MD Primary Care Provider Unavailabl e Encounter Details Date Type Department Care Team (Late st Contact Info) Description 10/24/2013 Results Only [facility] Laboratory Services - [address] [address] Niki Vyas MD Social History [...] Diagnosis Comments PAP TEST- RESULT ONLY Routine 10/24/2013 0:00 EST documented in this encounter Results * PAP TEST- RESULT ONLY (10/24/2013 0:00 EST) Pathology Report: CYTOPATHOLOGY REPORT Reports generated via electronic interface contain original data; however they are lacking the format of the original report. Caution should be taken when reading/interpreti ng unformatted reports. Name: ? LINDA BROWNING ? Accession #: ? [id number] : ? 1950 (Age: 63) ??F ?Collect Date: ? 10/24/2013 Location: ? [facility] ? Receive Date: ? 10/26/2013 Provider: ?NIKI VYAS MD Copy to: ? Specimen/Source: ?Pap Test, Endocervix, ThinPrep Imaging System with manual evaluation Last Menstrual Period: ? Many years ago ? SPECIMEN ADEQUACY ? Unsatisfactory for Evaluation, - insufficient numbers of squamous epithelial cells (less than 10% of expected cellularity) GENERAL CATEGORIZATION ? Specimen processed and examined, but unsatisfactory for evaluation of epithelial abnormality. ??Recommend repeat Pap test in 2-4 months as stated in ASCCP's 2012 Updated Consensus Guidelines. ? Document reviewed and electronically signed by: ? BERTHA Dias([facility]) ? Report Date: ??11/06/2013 08:34 End of Report [facility] 10/24/2013 10/26/2013 us Niki Vyas MD PATHOLOGY ORDERABLES Final Resul t [facility] [address] [place] [address] documented in this encounter Visit Diagnoses Not on filedocumented in this encounter Care Teams Cigar Tobacco Rehandler Relationship Specialty Start Date End Date Niki Vyas MD PCP - General 08/01/09 03/13/15 documented as of this encounter
--- OUTSIDE RECORDS SUMMARY | 2024-08-09 10:17 | XMS_ITS | Encounter Summary ---
Author Organization [facility] [place] [address] Care Team Providers Care Gold Leaf Gilder Name Role Phone Janett Garcia MD Primary Care Provider [phone] Encounter Details Date Type Department Care Team (Latest Contact Info) Description 12/06/2023 Travel Social History Tobacco Use Types Packs/Day Years Used Date Smoking Tobacco: Never Smokeless Tobacco: Never Alcohol Use Standard Drinks/Week Comments No 0 (1 standard drink = 0.6 oz pur e alcohol) Overall Financial Resource Strain (CARDIA) Answe r Date Recorded How hard is it for you to pa y for the very basics like food, housing, medical care, and heating? Not hard at all 10/26/2022 Exercise Vital Sign Answer Date Recorde d On average, how many days pe r week do you engage in moderate to strenuous exercise (like a brisk walk)? 5 days 10/26/2022 On average, how many minutes do you engage in exercise at this level? 90 min 10/26/2022 Hunger Vital Sign Answer Date Recorded Within the past 12 months, y ou worried that your food would run out before you got the money to buy more. Never true 10/26/19 23 Within the past 12 months, t he food you bought just didn't last and you didn't have money to get more. Never true 10/26/2022 PRAPARE - Transportation Answer Date Re corded In the past 12 months, has l ack of transportation kept you from medical appointments or from getting medications? No 09/30 In the past 12 months, has l ack of transportation kept you from meetings, work, or from getting things needed for daily living? No 10/26/2022 Housing Stability Vital Sign Answer Jamel e Recorded In the last 12 months, was t here a time when you were not able to pay the mortgage or rent on time? No 10/26/2022 In the last 12 months, how many places have you lived? 1 10/26/2022 In the last 12 months, was t here a time when you did not have a steady place to sleep or slept in a fci (including now)? No 10/26/2022 DH IPV Inpatient Questions Answer Date Recorded Does Anyone Try to Keep You From Having Contact with Others or Doing Things Outside Your Home? no 09/21/2023 Feels Threatened by Someone no 08/30 Feels Unsafe at Home or Work/School no 09/21/2023 Physical Signs of Abuse Present no 09/21/2023 Sex and Gender Information Value Date Recorded Sex Assigned at Not on file Gender Identity Not on file Sexual Orientation Not on file documented as of this encounter Plan of Treatment Upcoming Encounters Date Type Department Care Team (Late st Contact Info) Description 09/18/2024 11:30 AM EST Office Visit Dermatology at [facility] [address] [place] [address] Tata Aldridge MD [facility] [place] [place] [address] 05/09/2025 2:00 PM EDT Office Visit Dermatology at [facility] [address] [place] [address] Tata Aldridge MD [facility] [place] [address] documented as of this encounter Visit Diagnoses Not on filedocumented in this encounter Care Teams Gold Leaf Gilder Relationship Specialty Start Date End Date Janett Garcia MD [address] [place] [address] PCP - General Family Medicine 08/09/23 documented as of this encounter
--- OUTSIDE RECORDS SUMMARY | 2024-08-09 10:17 | XMS_ITS | Encounter Summary ---
Author Organization [facility] [place] [address] Care Team Providers Care Disbursement Clerk Name Role Phone Janett Garcia MD Primary Care Provider [phone] Encounter Details Date Type Department Care Team (Latest Contact Info) Description 08/17/2023 Travel Social History Tobacco Use Types Packs/Day [...] place to sleep or slept in a jail (including now)? No 10/26/2022 Sex and Gender Information Value Date Recorded Sex Assigned at Not on file Gender Identity Not on file Sexual Orientation Not on file documented as of this encounter Plan of Treatment Upcoming Encounters Date Type Department Care Team (Late st Contact Info) Description 09/18/2024 11:30 AM EST Office Visit Dermatology at [facility] [address] [place] [address] Tata Aldrdige MD [facility] [place] [place] [address] 05/09/2025 2:00 PM EDT Office Visit Dermatology at [facility] [address] [place] [address] Tata Aldridge MD [facility] [place] [place] [address] documented as of this encounter Visit Diagnoses Not on filedocumented in this encounter Care Teams Disbursement Clerk Relationship Specialty Start Date End Date Janett Garcia MD [address] [place] [address] PCP - General Family Medicine 08/09/23 documented as of this encounter
--- OUTSIDE RECORDS SUMMARY | 2024-08-09 10:17 | XMS_ITS | Encounter Summary ---
[place] [address] Care Team Providers Care Metal Organ Pipe Maker Name Role Phone Janett Garcia MD Primary Care Provider [phone] Reason for Visit * Auth/Cert (Routine) Specialty Diagnoses / Procedures Referred By Contac t Referred To Contact Diagnoses Mohs defect Procedures PRO DELAY FLAP/SECTIONING FLAP EYELIDS/NOSE/EARS/LIPS PRO EAR CARTILAGE GRAFT TO FACE FLAP DELAY, DIVISION & INSERT, EYELIDS (WRVU 4.08) GRAFT, EAR CARTILAGE NOSE, EAR (WRVU 7.5) Tariq Holder MD [facility] [place] [address] Referral ID Status Reason Start Date Expiration Date Visits Re quested Visits Authorized [id number] 08/30/2023 1 1 Encounter Details Date Type Department Care Team (Late st Contact Info) Description 09/21/2023 7:30 AM EST - 09/21/2023 9:20 AM EST Surgery [place] [address] Tariq Holder MD [facility] [place] [address] FLAP DELAY, DIVISION & INSERT, EYELIDS (WRVU 4.08) Social History Tobacco Use Types Packs/Day Years [...] place to sleep or slept in a penitentiary (including now)? No 10/26/2022 DH IPV Inpatient [...] on file documented as of this encounter Last Filed Vital Signs Vital Sign Reading Time Taken Comments Blood Pressure 146/66 09/21/2023 8:43 AM EST Pulse 66 09/21/2023 8:43 AM EST Temperature 36.1 ??C (97 ??F) 09/21/2023 8:29 AM EST Respiratory Rate 16 09/21/2023 8:43 AM EST Oxygen Saturation 97% 09/21/2023 8:43 AM EST Inhaled Oxygen Concentration - - Weight 56.7 kg (125 lb) 09/21/2023 6:33 AM EST Height 160 cm (5' 3) 09/21/2023 6:33 AM EST Body Mass Index 22.14 09/21/2023 6:33 AM EST documented in this encounter Discharge Instructions * Discharge Instructions* Amisha Edgar V RN - 09/21/2023 8:51 AM EST General Anesthesia Discharge Instructions Go home and rest. You may be sleepy for several hours. Take it easy as sudden position changes may cause nausea and/or dizziness. Use caution on stairs. Do not smoke if you are alone. Follow a light to regular diet as tolerated today. If nausea occurs, start with clear liquids, and progress slowly to a regular diet. Do not drive, operate machinery, drink alcoholic beverages or make any legal decisions after havinggeneral anesthesia. The medications given change your reaction time and alter your judgement. IV site -- slight redness is normal, you can use warm compresses. If tenderness and redness increases or foul drainage occurs, please contact your M.D. Patients who have had endotracheal tubes/LMA (tubes used by the anesthesia staff to ensure a safe airway during your operation) may have a sore throat. This is normal and cold liquids or soothing lozenges will help ease this discomfort. Narcotic pain medications can cause constipation, please ask the surgeons office what they recommend for prevention of this. Some non-pharmaceutical means of constipation prevention include increasing intake of fluids, eating more fruits and vegetables as well as fruit juices. If you are uncomfortable and/or unable to urinate within 8 hours of discharge and it is before 5 pm, call your physician. If it is after 5pm go to the closest emergency room or call the hospital char filter operator helper at [phone] and ask for physician farm labor contractor covering for your physician. Questions or problems after 5pm or on a weekend: Call the [facility] char filter operator helper at and ask for the physician farm labor contractor covering for your doctor. * Patient Instructions* Chnada Cabrera MD - 09/20/2023 10:23 PM EST DISCHARGE INSTRUCTIONS WOUND CARE: You must avoid sunlight exposure to your incision(s), wear a hat. Do not use any over the counter ointments on the incisions postoperatively unless instructed by your provider. Please apply ophthalmic bacitracin twice a day to your incisions. Ok to use an iced eye pad or bag of peas on your eye on/off every hour as needed. SHOWERING: OK to shower in 2 days. Do not submerge your surgical site under water until cleared by your provider. ANTIBIOTIC THERAPY: None needed. ACTIVITIES: Minimize contact to affected area(s). No strenuous exercise until seen by MD. No driving or operating heavy machinery when on narcotics. Keep head elevated to decrease swelling. No nose blowing for one month. Avoid bending over, if you do, you may notice some drainage from your nose. This is normal. DIET: Regular healthy diet. DO???S AND DON???TS FOR THE NEXT [address] a motor vehicle for 1-2 weeks or until you can handle the steering wheel without discomfort. Do not smoke or be around anyone who smokes for 2 weeks after your surgery this is because smoking delays healing and can lead to infection. Do not participate in strenuous activities such as running or aerobics for 6 weeks. Do resume walking at a gentle pace. Protect your incisions from the sun for 6 months to 1 year. CALL MD IF: Your incision opens up. You have increasing pain, bulging, or swelling of your eye. You have changes to your vision, double vision, or blurry vision. You have signs of infection that include: a temperature over 100.4F or 38C, redness or warmth spreading away from the incision lines after the first 48 hours, you notice a yellow pus-like or foul smelling drainage larger than dime size from the incisions or drainage sites, you feel increased pain that is not relived by your pain medicine. During office hours: Tuesday - Tuesday 8am-5pm call [phone]. On weekends or after hours call [phone] and ask the char filter operator helper to page the plastic surgery resident farm labor contractor. CONTACT INFORMATION: During office hours: Tuesday through Tuesday 8 am to 5 pm Call [phone] On weekends or after hours: Call [phone] and ask the char filter operator helper to page the Plastic Surgery Resident farm labor contractor. Future Appointments Date Time Provider Department Center 09/27/2023 2:00 PM NURSE, PLASTIC SURGERY [facility] 01/11/2024 9:30 AM Tracy Johnson MD [facility] documented in this encounter Medications at Time of Discharge Medication Sig Dispensed Refills Start Date End Date UNABLE TO FIND Airborne two tablets twice a day magnesium 250 mg Tablet Take by mouth every other day. multivitamin (THERAGRAN) Tablet Take 1 tablet by mouth daily. acetaminophen (TYLENOL) 500 mg Tablet Take 1,000 mg by mouth 2 times daily. albuterol (PROVENTIL HFA;VENTOLIN HFA) 90 mcg/Actuation inhaler Inhale into the lungs as needed. 04/14/2004 doxycycline (Vibramycin) 100 mg capsule TAKE 1 CAPSULE BY MOUTH TWICE DAILY FOR 7 DAYS FOR WOUND INFECTION 07/10/2023 09/27/2023 carbidopa-levodopa (Sinemet) 25-100 mg Tablet Take 1 tablet by mouth 2 times daily. 08/16/2022 12/13/2023 documented as of this encounter Progress Notes * Jade Purcell RN - 09/21/2023 9:29 AM EST Discharge instructions and medications reviewed with patient and escort. All questions answered andwritten copy sent home with patient. Staff assisted dressing patient and all belongings returned topatient. Patient ambulated to car for discharge accompanied by [facility] staff member. documented in this encounter H&P Notes * Chanda Cabrera MD - 09/21/2023 7:17 AM EST Patient Name: Linda Browning Patient Age: 73 y.o. Birthdate: 1950 Admit date: 09/21/2023 Attending Physician: Tariq Holder MD Plastic Surgery Preoperative H&P: Patient Name: Linda Browning Patient : 1950 Today's Date: 09/21/2023 Linda Browning is a 73 y.o. female with No chief complaint on file. who presents today for left lower eyelid flap division, possible cartilage graft. No changes since last seen. Past Medical History: Diagnosis Date Lumbar degenerative disc disease Radiculopathy of lumbosacral region Spondylolisthesis at L5-S1 level Past Surgical History: Procedure Laterality Date PRO ADJ TISS TRANSFER HEAD, FAC, HAND <10SQCM Midline 08/12/2023 ADJ.TISSUE TRANSFER, REARRANGEMENT, 10SQ.CM OR LESS, FOREHEAD (WRVU 8.6) performed by Tariq Holder MD at [facility] PRO ADJ TISS TRANSFER HEAD, FAC, HAND <10SQCM 08/12/2023 ADJ.TISSUE TRANSFER, REARRANGEMENT, 10SQ.CM OR LESS, CHEEK (WRVU 8.6) performed by Tariq Holder MD at [facility] PRO ADJ TISS TRANSFER LID, NOS, EAR <10SQCM N/A 08/12/2023 ADJ.TISSUE TRANSFER, REARRANGEMENT, 10SQ.CM OR LESS, NOSE (WRVU 9.23) performed by Tariq Holder MD at [facility] PRO ALLOGRAFT FOR SPINE SURGERY ONLY MORSELIZED Bilateral 10/11/2017 ALLOGRAFT FOR SPINE SURGERY ONLY; MORSELIZED (WRVU *) performed by Trey Santos MD at [facility] MAIN OR PRO ARTHRODESIS POSTERIOR/PSTLAT TECHNIQUE 1 INTERSPACE LUMBAR Bilateral 10/11/2017 ARTHRODESIS, LUMBAR SPINE, SINGLE LEVEL (WRVU 23.53) performed by Trey Santos MD at [facility] INDIRA PRO AUTOGRAFT SPINE SURGERY LOCAL FROM SAME INCISION Bilateral 10/11/2017 AUTOGRAFT FOR SPINE SURGERY ONLY, SAME INCISION (WRVU *) performed by Trey Santos MD at [facility] MAIN OR PRO FORM SKIN PEDICLE FLAP LID, EAR, NOSE 08/12/2023 FLAP, PEDICLE,W OR W/O TRANSFER, EYELIDS (WRVU 9.37) performed by Tariq Holder MD at [facility] PRO INSERT BIOMCHN DEV INTERVERTEBRAL DSC SPC W/ARTHRD Bilateral 10/11/2017 INSERTION INTERBODY BIOMECH DEV TO INTERVEBRAL DISC SPACE, EA INTERSPACE (WRVU 4.25) performed by Trey Santos MD at [facility] MAIN OR PRO LUMBAR SPINE FUSION, ANTER APPRCH Bilateral 10/11/2017 @ANT. LUMBAR FUSION INCLUD. MIN. DISKECTOMY (WRVU 23.53) performed by Trey Santos MD at [facility] MAIN OR PRO POSTERIOR NON-SEGMENTAL INSTRUMENTATION Bilateral 10/11/2017 POSTERIOR SPINAL NON-SEGMENTAL INST.(ONE SPACE) (WRVU 12.52) performed by Trey Santos MD at [facility] MAIN OR PRO REVISE CONJUNC,FIX CUL-DE-SAC+GRFT Left 08/12/2023 CONJUNCTIVOPLASTY, RECONSTRUCTION CUL-DE-SAC, W/ GRAFT OR EXTENSIVE REARRANGEMENT (WRVU 8.42) performed by Tariq Holder MD at [facility] PRO THORAX SPINE FUSION, ANTER APPRCH N/A 10/11/2017 @ANTERIOR APPROACH, FOR THROACIC (VASC) (WRVU 24.7) performed by Chico Granados MD at [facility] INDIRA Family History Problem Relation Age of Onset Cancer Mother Cancer Father smoker Cancer Brother Cancer Brother Cancer Brother Parkinsonism Neg Hx Tremor Neg Hx Social History Socioeconomic History Marital status: Spouse name: Not on file Number of children: Not on file Years of education: Not on file Highest education level: Not on file Occupational History Not on file Tobacco Use Smoking status: Never Smokeless tobacco: Never Substance and Sexual Activity Alcohol use: No Drug use: No Sexual activity: Not on file Other Topics Concern Not on file Social History Narrative Not on file Social Determinants of Health Financial Resource Strain: Low Risk (10/26/2022) Overall Financial Resource Strain (CARDIA) Difficulty of Paying Living Expenses: Not hard at all Food Insecurity: No Food Insecurity (10/26/2022) Hunger Vital Sign Worried About Running Out of Food in the Last Year: Never true Ran Out of Food in the Last Year: Never true Transportation Needs: No Transportation Needs (10/26/2022) PRAPARE - Transportation Lack of Transportation (Medical): No Lack of Transportation (Non-Medical): No Physical Activity: Sufficiently Active (10/26/2022) Exercise Vital Sign Days of Exercise per Week: 5 days Minutes of Exercise per Session: 90 min Intimate Partner Violence: Not on file Housing Stability: Low Risk (10/26/2022) Housing Stability Vital Sign Unable to Pay for Housing in the Last Year: No Number of Places Lived in the Last Year: 1 Unstable Housing in the Last Year: No Allergies Allergen Reactions Gabapentin Itching Pt states she was itchy from Gabapentin( Pt is taking this medication) Unable To Find [Unclassified Drug] Blood pudding-asthma attack and eyes blacked out Review of systems: As per HPI, otherwise non-contributory. Exam: General: NAD Resp: CTAB CV: normal rate, regular rhythm A/P: Linda Browning is a 73 y.o. female with No chief complaint on file. who presents for left lower eyelid flap division, possible cartilage graft . - Proceed to OR. The risks, benefits and indications were reviewed with the patient and there remains an indication for surgery. Consent signed. - Preoperative abx ordered Chanda Cabrera MD Plastic Surgery Resident P# [phone] documented in this encounter Miscellaneous Notes * Brief Op Note - Tariq Holder MD - 09/21/2023 8:31 AM EST Brief Operative Note Patient Name: Linda Browning : [id number] MR#: [id number] Case Date: 09/21/2023 Surgeon: Surgeon(s) and Role: * Tariq Holder MD - Primary * Chanda Cabrera MD - Resident - Assisting Preoperative diagnosis: Mohs defect Postoperative diagnosis: Mohs defect Procedure(s) (LRB): FLAP DELAY, DIVISION & INSERT, EYELIDS (WRVU 4.08) (Left) Anesthesia: General Minimal sedation Findings: left lower eyelid reconstruction with tripier flap division and inset, V-Y local tissue rearrangement Complications: none Estimated Blood Loss: 1 mL Specimens removed during surgery: none Fluids: Intraprocedure Crystalloid Total Intake lactated ringers infusion 900.00 mL Total Intake 900 mL Output Blood Loss 1 mL Total Output 1 mL Net Net Volume 899 mL PRBCs: none (See Anesthesia Record/Report for Other Blood Products) Urine Output: (no urine output recorded) Drains: none Disposition: awakened from anesthesia, extubated and taken to the recovery room in a stable condition, having suffered no apparent untoward event. Condition: doing well without problems (Please see the Surgical Encounter Summary for any Implant and Specimen details pertinent to this patient.) Surgical Infection Prevention Bundle Used? N/A Post-Op Plan: - Follow up in: 5-7 days with nurse - Wound Check - Suture removal: None - Dressings: None, ophthalmic bacitracin to eye BID Future Appointments Date Time Provider Department Center 09/27/2023 2:00 PM NURSE, PLASTIC SURGERY [address] 01/11/2024 9:30 AM Tracy Johnson MD [facility] * Op Note - Tariq Holder MD - 09/21/2023 7:54 AM EST [facility] Operative Note Patient Name: Linda Browning : [id number] MR#: [id number] Case Date: 09/21/2023 Surgeon: Surgeon(s) and Role: * Tariq Holder MD - Primary * Chanda Cabrera MD - Resident - Assisting Preoperative diagnosis: Mohs defect prior flap left eyelid flap Postoperative diagnosis: Mohs defect flap left eyelid flap Procedure(s) (LRB): FLAP DELAY, DIVISION & INSERT, EYELIDS (WRVU 4.08) (Left) Anesthesia: General Minimal sedation Findings: left lower eyelid reconstruction with tripier flap division and inset, V-Y local tissue rearrangement Complications: none Estimated Blood Loss: 1 mL Specimens removed during surgery: none Fluids: Intraprocedure Crystalloid Total Intake lactated ringers infusion 900.00 mL Total Intake 900 mL Output Blood Loss 1 mL Total Output 1 mL Net Net Volume 899 mL PRBCs: none (See Anesthesia Record/Report for Other Blood Products) Urine Output: (no urine output recorded) Drains: none Disposition: awakened from anesthesia, extubated and taken to the recovery room in a stable condition, having suffered no apparent untoward event. Condition: doing well without problems HPI/Surgical Indications: The patient presents with BCC of the left medial eyelid , diagnosed on pathology, requiring excision and reconstruction. The patient underwent Mohs excision of the left lower eyelid and medial canthal region. The puncta appeared to be involved in the tumor... I discussed the nature of this lesion with the patient, educating them about the options for wound closure. The patient underwent a pedicled upper eyelid flap that was placed medially. This is a Tripier Flap . We discussed the risks of surgery including infection, scar, bleeding, asymmetry, deformity, ectropion, epiphora and the need forfurther surgery. The patient wishes to proceed. All questions were acknowledged and answered to thepatient's satisfaction. Procedure Description: Following the adequate induction of general LMA anesthesia the patient was prepped and draped in usual sterile fashion. The patient had good healing noted the pedicle was healed from the upper eyelidto the lower eyelid and to develop. Therefore this was injected with lidocaine 1% 100,000 epinephrine and a corneal shield with BSS to be placed. The pedicle of the upper eyelid flap was identified and divided proximally. The donor site at the upper eyelid was closed with a 5-0 suture. Then a Z-plasty was executed along the medial aspect of this eyelid. This allowed proper movement in this region. There were no problems or complications. This was closed with a combination of 5-0 Vicryl and 5-0 plain gut suture. The patient tolerated this well. Bacitracin ophthalmic ointment is placed. She hadan excellent result at the conclusion of the case. The anesthesia was reversed. She tolerated the procedure well. Sponge and needle counts were correct Attestation: Case Date: 09/21/2023 I was present for the entire procedure and performed all of the park elements of this procedure. TARIQ HOLDER MD 09/26/2023 documented in this encounter Plan of Treatment Upcoming Encounters Date Type Department Care Team (Late st Contact Info) Description 09/18/2024 11:30 AM EST Office Visit Dermatology at [facility] [address] [place] [address] Tata Aldridge MD [facility] [place] [address] 05/09/2025 2:00 PM EDT Office Visit Dermatology at [facility] [address] [place] [address] Tata Aldridge MD [facility] [place] [address] documented as of this encounter Procedures Procedure Name Priority Date/Time Associated Diagnosis Comments Ear Cartilage Graft To Face (12800) 09/21/2023 7:26 AM EST Basal cell carcinoma (BCC) of skin of left eyelid including canthus, unspecified eyelid Delay Flap/Sectioning Flap Eyelids/Nose/Ears/Lips (92589) 09/21/2023 7:26 AM EST Basal cell carcinoma (BCC) of skin of left eyelid including canthus, unspecified eyelid GRAFT, EAR CARILAGE NOSE, EAR Routine 09/21/2023 6:10 AM EST Basal cell carcinoma (BCC) of skin of left eyelid including canthus, unspecified eyelid FLAP DELAY, DIVISION & INSERT, EYELIDS Routine 09/21/2023 6:10 AM EST Basal cell carcinoma (BCC) of skin of left eyelid including canthus, unspecified eyelid documented in this encounter Visit Diagnoses Diagnosis Basal cell carcinoma (BCC) of skin of left eyelid including canthus, unspecified eyelid Basal cell carcinoma (BCC) of skin of left eyelid including canthus, unspecified eyelid documented in this encounter Administered Medications Inactive Administered Medications - up to 3 most recent administrations Medication Order MAR Action Action Date Dose Rate Site bacitracin-polymyxin b (Polysporin) ophthalmic ointment PRN, Starting on Tue09/21/23 at 0805, Until Tue09/21/23 at 1807, Intra-Operative (Intra-Procedure) Given 09/21/2023 8:05 AM EST 1 Tube 19- Surgical Site balanced salt (BSS) irrigation solution PRN, Starting on Tue09/21/23 at 0803, Until Tue09/21/23 at 1807, Intra-Operative (Intra-Procedure), Routine Given 09/21/2023 8:03 AM EST 2 Bottles 19- Surgical Site lactated ringers infusion 1,000 mL, at 100 mL/hr, Intravenous, CONTINUOUS, Starting on Tue09/21/23 at 0630, Until Tue09/21/23 at 1807, Day of Surgery (Day of Procedure) New Bag 09/21/2023 8:07 AM EST New Bag 09/21/2023 6:47 AM EST 1,000 mLs 100 mL/hr lidocaine (Xylocaine) 1% (10 mg/mL) injection 3 mg 3 mg (0.3 mL), Subcutaneous, ONCE PRN, 1 dose, Starting on Tue09/21/23 at 0612, Until Tue09/21/23 at 1807, for discomfort with PIV insertion, Day of Surgery (Day of Procedure), Routine lidocaine-EPINEPHrine (1% - 1:100,000) injection PRN, Starting on Tue09/21/23 at 0804, Until Tue09/21/23 at 1807, Intra-Operative (Intra-Procedure), Routine Given 09/21/2023 8:04 AM EST 2 mLs 19- Surgical Site povidone-iodine (Betadine Ophthalmic Prep) 5 % ophthalmic solution PRN, Starting on Tue09/21/23 at 0804, Until Tue09/21/23 at 1807, Intra-Operative (Intra-Procedure), Routine Given 09/21/2023 8:04 AM EST 30 mLs 19- Surgical Site sodium chloride 0.9 % (flush) (BD PosiFlush Normal Saline 0.9) flush 5-20 mL 5-20 mL, Intravenous, EVERY 1 MIN PRN, Starting on Tue09/21/23 at 0612, Until Tue09/21/23 at 1807, flush, Flush pertains to all indwelling lines. Flush per protocol found in the job aid using the link provided on this medication record., Day of Surgery (Day of Procedure), Routine tetracaine (PF) (Pontocaine) ophthalmic solution PRN, Starting on Tue09/21/23 at 0804, Until Tue09/21/23 at 1807, Intra-Operative (Intra-Procedure), Routine Given 09/21/2023 8:04 AM EST 2 drops 19- Surgical Site traMADoL (Ultram) tablet 50 mg 50 mg, Oral, EVERY 6 HOURS PRN, Starting on Tue09/21/23 at 0612, Until Tue09/21/23 at 1807, Pain, Routine documented in this encounter Active and Recently Administered Medications Times are shown in EST. Scheduled Medication Order 09/19/2023 09/20/2023 09/21/2023 ceFAZolin (Ancef) (100 mg/mL) injection solution 2 g (COMPLETED) 2 g, Intravenous, ONCE, 1 dose, On Tue09/21/23 at 0630, To be prepared by and administered by Anesthesia. Reconstitute each ceFAZolin 1 gram vial with 10 mL of NS or SWFI = 100 mg/mL May inject IV without further dilution over 3 to 5 minutes., Indication for (Active or Suspected): Prophylaxis 0748 (Given - Provid er: Nuvia Farris CRNA) Continuous Medication Order 09/19/2023 09/20/2023 09/21/2023 lactated ringers infusion 1,000 mL, at 100 mL/hr, Intravenous, CONTINUOUS, Starting on Tue09/21/23 at 0630, Until Tue09/21/23 at 1807, Day of Surgery (Day of Procedure) 0647 (New Bag - Prov ider: Amisha Goss RN)0806 (Paused - Provider: Nuvia Farris CRNA - Comment: Switch to gravity)0807 (New Bag - Provider: Nuvia Farris CRNA) PRN Medication Order 09/19/2023 09/20/2023 09/21/2023 bacitracin-polymyxin b (Polysporin) ophthalmic ointment (CANCELED) PRN, Starting on Tue09/21/23 at 0805, Until Tue09/21/23 at 1807, Intra-Operative (Intra-Procedure) 0805 (Given - Provid er: Tariq Holder MD - Comment: dispensed to sterile field) balanced salt (BSS) irrigation solution (CANCELED) PRN, Starting on Tue09/21/23 at 0803, Until Tue09/21/23 at 1807, Intra-Operative (Intra-Procedure), Routine 0803 (Given - Provid er: Tariq Holder MD) lidocaine (Xylocaine) 1% (10 mg/mL) injection 3 mg 3 mg (0.3 mL), Subcutaneous, ONCE PRN, 1 dose, Starting on Tue09/21/23 at 0612, Until Tue09/21/23 at 1807, for discomfort with PIV insertion, Day of Surgery (Day of Procedure), Routine lidocaine-EPINEPHrine (1% - 1:100,000) injection (CANCELED) PRN, Starting on Tue09/21/23 at 0804, Until Tue09/21/23 at 1807, Intra-Operative (Intra-Procedure), Routine 803 (Given - Provid er: Tariq Holder MD) povidone-iodine (Betadine Ophthalmic Prep) 5 % ophthalmic solution (CANCELED) PRN, Starting on Tue09/21/23 at 0804, Until Tue09/21/23 at 1807, Intra-Operative (Intra-Procedure), Routine 803 (Given - Provid er: Tariq Holder MD - Comment: used to prep) sodium chloride 0.9 % (flush) (BD PosiFlush Normal Saline 0.9) flush 5-20 mL 5-20 mL, Intravenous, EVERY 1 MIN PRN, Starting on Tue09/21/23 at 0612, Until Tue09/21/23 at 1807, flush, Flush pertains to all indwelling lines. Flush per protocol found in the job aid using the link provided on this medication record., Day of Surgery (Day of Procedure), Routine tetracaine (PF) (Pontocaine) ophthalmic solution (CANCELED) PRN, Starting on Tue09/21/23 at 0804, Until Tue09/21/23 at 1807, Intra-Operative (Intra-Procedure), Routine 803 (Given - Provid er: Tariq Holder MD) traMADoL (Ultram) tablet 50 mg 50 mg, Oral, EVERY 6 HOURS PRN, Starting on Tue09/21/23 at 0612, Until Tue09/21/23 at 1807, Pain, Routine documented in this encounter Care Teams Metal Organ Pipe Maker Relationship Specialty Start Date End Date Janett Garcia MD [address] [place] [address] PCP - General Family Medicine 08/09/23 documented as of this encounter
--- OUTSIDE RECORDS SUMMARY | 2024-08-09 10:17 | XMS_ITS | Encounter Summary ---
Author Organization [facility] [place] [address] Care Team Providers Care Battery Inspector Name Role Phone Janett Garcia MD Primary Care Provider Encounter Details Date Type Department Care Team (Latest Contact Info) Description 03/04/2024 Travel Social History Tobacco Use Types Packs/Day [...] place to sleep or slept in a fdc (including now)? No 10/26/2022 DH IPV Inpatient [...] 11:30 AM EST Office Visit Dermatology at [facility] [address] [place] [address] Tata Aldridge MD [facility] [place] [address] 05/09/2025 2:00 PM EDT Office Visit Dermatology at [facility] [address] [place] [address] Tata Aldridge MD [facility] [place] [address] documented as of this encounter Visit Diagnoses Not on filedocumented in this encounter Care Teams Battery Inspector Relationship Specialty Start Date End Date Janett Garcia MD [address] [place] [address] PCP - General Family Medicine 08/09/23 documented as of this encounter
--- OUTSIDE RECORDS SUMMARY | 2024-08-09 10:17 | XMS_ITS | Encounter Summary ---
Author Organization [facility] [place] [address] Care Team Providers Care Cargo Handler Name Role Phone Janett Garcia MD Primary Care Provider [phone] Encounter Details Date Type Department Care Team (Latest Contact Info) Description 04/17/2024 Travel Social History Tobacco Use Types Packs/Day [...] place to sleep or slept in a retirement (including now)? No 10/26/2022 DH IPV Inpatient [...] 11:30 AM EST Office Visit Dermatology at [facility] [address] [place] [address] Tata Aldridge MD [facility] [place] [address] 05/09/2025 2:00 PM EDT Office Visit Dermatology at [facility] [address] [place] [address] Tata Aldridge MD [facility] [place] [address] documented as of this encounter Visit Diagnoses Not on filedocumented in this encounter Care Teams Cargo Handler Relationship Specialty Start Date End Date Janett Garcia MD [address] [place] [address] PCP - General Family Medicine 08/09/23 documented as of this encounter
--- OUTSIDE RECORDS SUMMARY | 2024-08-09 10:17 | XMS_ITS | Encounter Summary ---
Author Organization [facility] [place] [address] Care Team Providers Care Floral Decorator Name Role Phone Janett Garcia MD Primary Care Provider [phone] Encounter Details Date Type Department Care Team (Latest Contact Info) Description 04/19/2024 Travel Social History Tobacco Use Types Packs/Day [...] place to sleep or slept in a assisted (including now)? No 10/26/2022 DH IPV Inpatient [...] 11:30 AM EST Office Visit Dermatology at [facility] [address] [place] [address] Tata Aldridge MD [facility] [place] [address] 05/09/2025 2:00 PM EDT Office Visit Dermatology at [facility] [address] [place] [address] Tata Aldridge MD [facility] [place] [address] documented as of this encounter Visit Diagnoses Not on filedocumented in this encounter Care Teams Floral Decorator Relationship Specialty Start Date End Date Janett Garcia MD [address] [place] [address] PCP - General Family Medicine 08/09/23 documented as of this encounter
--- OUTSIDE RECORDS SUMMARY | 2024-08-09 10:17 | XMS_ITS | Encounter Summary ---
Author Organization [facility] [place] [address] Care Team Providers Care Technician Support Association Name Role Phone Janett Garcia MD Primary Care Provider [phone] Reason for Visit * Auth/Cert (Routine) Specialty Diagnoses / Procedures Referred By Contac t Referred To Contact Diagnoses Basal cell carcinoma (BCC), unspecified site bcc Procedures PRO ADJ TISS TRANSFER LID, NOS, EAR <10SQCM PRO FULL THICK GRFT NOS, EAR, LID <20SQCM PRO EAR CARTILAGE GRAFT TO FACE PRO ADJ TISS TRANSFER LID, NOS, EAR 10.1-30 PRO ADJACENT TISSUE TRANSFR/REARGMT SCALP/ARM/LEG 10 SQ CM/< PRO ADJ TISS TRANSFER SCALP, EXTREM 10.1-30 PRO ADJ TISS TRANSFER HEAD, FAC, HAND <10SQCM PRO ADJ TISS TRANSFER HEAD, FAC, HAND 10.1-30 PRO FOREHEAD FLAP W PRESERVATION OF VASCULAR PEDICLE Tariq Holder MD [facility] [place] [address] Referral ID Status Reason Start Date Expiration Date Visits Re quested Visits Authorized [id number] 07/12/2023 1 1 Encounter Details Date Type Department Care Team (Late st Contact Info) Description 08/12/2023 12:13 PM EST Anesthesia Event Outpatient Surgery Center [facility] [place] [address] Maranda Lizarraga MD [facility] DR [place] [address] Anesthesia Record Procedure Summary Procedure Name Responsible Anesthesiologist Anesthesia Start Time Anesthesia Stop Time ADJ.TISSUE TRANSFER, REARRANGEMENT, 10SQ.CM OR LESS, NOSE (WRVU 9.23) (Head) Maranda Lizarraga MD 08/12/23 1213 08/12/23 1344 Events Date Time Event Comment 08/12/2023 1107 1213 AN Verify 1213 Start 1213 An Start Data 1218 An Induction 1220 An Intubation 1221 Anesthesia Ready 1342 an stop data 1344 Recovery or ICU Handoff Brandy ent care was transferred to the destination unit staff after review of the patient's medical history, current anesthetic/surgical status and plan, according to the Provider Handoff Checklist. 1344 Stop Meds Name Total fentaNYL 75 mcg IV Lidocaine 60 mg Propofol 300 mg Propofol INF 293.42 mg Dexamethasone 8 mg Ondansetron 8 mg ePHEDrine 20 mg ceFAZolin (Ancef) 2 g in dextrose 5% 100 mL infusion 2 g dexmedeTOMIDine 12 mcg labetalol 10 mg lactated ringers infusion 0 mL * Agents Name O2 * Blood No blood administrations on file. Lines, Drains, and Airways Type Details Placement Removal Drain/Device Site 10/11/17; 1348; lowe r; back; collapsible closed device; cut to 10 holes 10/11/17 1348 by Tanya Norton RN Incision 08/12/23; 1240; fron kalina region 08/12/23 1240 by Be Merchant RN PIV 08/12/23; 1049; bebt-alw-bwuogp catheter system; 20 gauge; Anatomical Landmarks; distraction, topical anesthetic spray applied; 08/12/23; 1452 08/12/23 1049 by Verna Spring RN 08/12/23 1452 by Sarah Solis RN Supraglottic Mask Ventilation: No t Attempted (0); LMA Type: Unique; LMA Size: 3; Inserted by: MD Elham; Removal Date: 08/12/23; Removal Time: 1348 08/12/23 1220 by Joyce Stevens, EZ 08/12/23 1348 by Sarah Solis RN documented in this encounter Social History Tobacco Use Types Packs/Day Years [...] in a fdc (including now)? No 10/26/2022 Sex and Gender Information Value Date Recorded Sex Assigned at Not on file Gender Identity Not on file Sexual Orientation Not on file documented as of this encounter OR Notes * Anesthesia Postprocedure Evaluation - Maranda Lizarraga MD - 08/12/2023 2:06 PM EST Department of Anesthesiology Post-procedure Note Patient: Linda Browning Procedure Summary Date: 08/12/23 Room / Location: [address] Anesthesia Start: 1213 Anesthesia Stop: 1344 Procedures: ADJ.TISSUE TRANSFER, REARRANGEMENT, 10SQ.CM OR LESS, NOSE (WRVU 9.23) (Head) ADJ.TISSUE TRANSFER, REARRANGEMENT, 10SQ.CM OR LESS, FOREHEAD (WRVU 8.6) (Midline: Face) FLAP, PEDICLE,W OR W/O TRANSFER, EYELIDS (WRVU 9.37) (Face) ADJ.TISSUE TRANSFER, REARRANGEMENT, 10SQ.CM OR LESS, CHEEK (WRVU 8.6) (Face) Diagnosis: Basal cell carcinoma (BCC), unspecified site (bcc) Surgeons: Tariq Holder MD Responsible Provider: Maranda Lizarraga MD Anesthesia Type: general ASA Status: 2 All Anesthesia Providers: Anesthesiologist: Maranda Lizarraga MD MULTIMEDIA PROGRAMMER: Joyce Stevens CRNA Vitals Value Taken Time BP 127/81 08/12/23 1400 Temp 36 ??C (96.8 ??F) 08/12/23 1347 Pulse 61 08/12/23 1405 Resp 17 08/12/23 1400 SpO2 95 % 08/12/23 1405 Pain Level 0 08/12/23 1347 Vitals shown include unfiled device data. Patient Location: PACU/[facility] Level of Consciousness: Awake and Alert Pain Management: Satisfactory Analgesia PONV: None Cardiovascular Status: At Baseline Respiratory Status: At Baseline Postoperative Fluid Status: Intravascular EUvolemia Possible Anesthetic Complications: NONE apparent at time of evaluation Final Primary Anesthesia Type: General (The anesthetic type performed was the same as planned.) Comments: * Anesthesia Preprocedure Evaluation - Maranda iLzarraga MD - 08/11/2023 12:06 PM EST Images from the original note were not included. Pre-Anesthesia Evaluation for: Linda Browning a 73 y.o. female. Procedure(s): ADJ.TISSUE TRANSFER, REARRANGEMENT, 10SQ.CM OR LESS, NOSE (WRVU 9.23) FULL THICKNESS GRAFT,FREE, W/ DIRECT CLOSURE DONOR SITE, 20SQ CM OR LESS, EYELIDS (WRVU 11.64) GRAFT, EAR CARTILAGE NOSE, EAR (WRVU 7.5) ADJ.TISSUE TRANSFER, REARRANGEMENT, 10.1 TO 30 SQ.CM, EYELIDS (WRVU 11.48) ADJ.TISSUE TRANSFER, REARRANGEMENT, 10SQ.CM OR LESS, SCALP (WRVU 7.22) ADJ.TISSUE TRANSFER, REARRANGEMENT, 10.1 TO 30 SQ.CM, SCALP (WRVU 9.72) ADJ.TISSUE TRANSFER, REARRANGEMENT, 10SQ.CM OR LESS, FOREHEAD (WRVU 8.6) ADJ.TISSUE TRANSFER, REARRANGEMENT, 10.1 TO 30 SQ.CM, FOREHEAD (WRVU 10.83) FLAP, FOREHEAD PRESERVATION OF VASCULAR PEDICLE (WRVU 14.38) Patient Active Problem List Diagnosis Date Noted ??? Basal cell carcinoma (BCC) 07/11/2023 ??? Dystonia 04/17/2018 ??? Diverticulitis 10/21/2017 ??? History of basal cell carcinoma 07/19/2017 ??? s/p OLIF L5-S1 and posterior instrumented fusion L5-S1 on 10/11/2017, Dr. Santos 11/23/2016 ??? Sebaceous hyperplasia 12/31/2014 ??? Seborrheic keratosis 12/31/2014 Past Medical History: Diagnosis Date ??? Lumbar degenerative disc disease ??? Radiculopathy of lumbosacral region ??? Spondylolisthesis at L5-S1 level Past Surgical History: Procedure Laterality Date ??? PRO ALLOGRAFT FOR SPINE SURGERY ONLY MORSELIZED Bilateral 10/11/2017 ALLOGRAFT FOR SPINE SURGERY ONLY; MORSELIZED (WRVU *) performed by Trey Santos MD at [facility] MAIN OR ??? PRO ARTHRODESIS POSTERIOR/PSTLAT TECHNIQUE 1 INTERSPACE LUMBAR Bilateral 10/11/2017 ARTHRODESIS, LUMBAR SPINE, SINGLE LEVEL (WRVU 23.53) performed by Trey Santos MD at [facility] INDIRA ??? PRO AUTOGRAFT SPINE SURGERY LOCAL FROM SAME INCISION Bilateral 10/11/2017 AUTOGRAFT FOR SPINE SURGERY ONLY, SAME INCISION (WRVU *) performed by Trey Santos MD at [facility] MAIN OR ??? PRO INSERT BIOMCHN DEV INTERVERTEBRAL DSC SPC W/ARTHRD Bilateral 10/11/2017 INSERTION INTERBODY BIOMECH DEV TO INTERVEBRAL DISC SPACE, EA INTERSPACE (WRVU 4.25) performed by Trey Santos MD at [facility] MAIN OR ??? PRO LUMBAR SPINE FUSION, ANTER APPRCH Bilateral 10/11/2017 @ANT. LUMBAR FUSION INCLUD. MIN. DISKECTOMY (WRVU 23.53) performed by Trey Santos MD at [facility] MAIN OR ??? PRO POSTERIOR NON-SEGMENTAL INSTRUMENTATION Bilateral 10/11/2017 POSTERIOR SPINAL NON-SEGMENTAL INST.(ONE SPACE) (WRVU 12.52) performed by Trey Santos MD at [facility] MAIN OR ??? PRO THORAX SPINE FUSION, ANTER APPRCH N/A 10/11/2017 @ANTERIOR APPROACH, FOR THROACIC (VASC) (WRVU 24.7) performed by Chico Granados MD at [facility] Social History Tobacco Use ??? Smoking status: Never ??? Smokeless tobacco: Never Substance Use Topics ??? Alcohol use: No Social History Substance and Sexual Activity Drug Use No Allergies Allergen Reactions ??? Gabapentin Itching Pt states she was itchy from Gabapentin( Pt is taking this medication) ??? Unable To Find [Unclassified Drug] Blood pudding-asthma attack and eyes blacked out Medications: MAR and/or home medications have been reviewed. Physical Exam: Preprocedure Vitals Current as of 08/11/23 1206 No BP, pulse, respiration, SpO2, or temperature recorded. Height: Weight: BMI: IBW: Airway Assessment: Mallampati: II TM distance: >3 FB Neck ROM: full Cardiovascular Assessment: Rhythm: regular Pulmonary Assessment: breath sounds clear to auscultation Dental Assessment: Misc Assessment: IV access: Peripheral line Last Filed Perioperative Cognitive Screening None Anesthesia Plan: ASA 2 general, with a(n) intravenous induction 73 y/o here for tissue transfer PMH: parkinson's ./ dystonia - takes sinemet three times / day, took am dose. Has mainly balance issues, tremor with getting up. No GERD. No HTN. No CP or CP. Healthy, active patient PSH: back surgery, no problems, colonoscopy Plan : tylenol, GA LMA .The patient was informed of the risks of anesthesia, and consent was obtained. The risks of anesthesia include, but are not limited to, PONV, pain, sore throat, and other rare but serious complications such as major organ damage, allergies, blood transfusions, intraoperative awareness, and dental/lip trauma. Region - Other Informed Consent: Anesthetic plan and risks discussed with patient. Plan discussed with MULTIMEDIA PROGRAMMER. Anesthesia Screening documented in this encounter Plan of Treatment Upcoming Encounters Date Type Department Care Team (Late st Contact Info) Description 09/18/2024 11:30 AM EST Office Visit Dermatology at [address] [address] Tata Aldridge MD [facility] [place] [address] 05/09/2025 2:00 PM EDT Office Visit Dermatology at [address] [address] Tata Aldridge MD [facility] [place] [address] documented as of this encounter Visit Diagnoses Not on filedocumented in this encounter Administered Medications Inactive Administered Medications - up to 3 most recent administrations Medication Order MAR Action Action Date Dose Rate Site ceFAZolin (Ancef) 2 g in dextrose 5% 100 mL infusion 2 g, Intravenous, ONCE, 1 dose, On Tue08/12/23 at 1200, Administer over 30 Minutes, Indication for (Active or Suspected): Prophylaxis Given 08/12/2023 12:23 PM EST 2 g dexAMETHasone (Decadron) injection Intravenous, PRN, Starting on Tue08/12/23 at 1226, Until Tue08/12/23 at 1344, Anesthesia Intra-op, Routine Given 08/12/2023 12:26 PM EST 8 mg dexmedeTOMIDine (Precedex) (4 mcg/mL) bolus injection (Anesthsia) Intravenous, PRN, Starting on Tue08/12/23 at 1316, Until Tue08/12/23 at 1344, Anesthesia Intra-op, Routine Given 08/12/2023 1:26 PM EST 4 mcg Given 08/12/2023 1:16 PM EST 8 mcg ePHEDrine sulfate (5 mg/mL) multi-dose injection Intravenous, PRN, Starting on Tue08/12/23 at 1301, Until Tue08/12/23 at 1344, Anesthesia Intra-op, Routine Given 08/12/2023 1:01 PM EST 10 mg Given 08/12/2023 12:48 PM EST 10 mg fentaNYL (pf) (50 mcg/mL) multi-dose injection Intravenous, PRN, Starting on Tue08/12/23 at 1225, Until Tue08/12/23 at 1344, Anesthesia Intra-op, Routine Given 08/12/2023 1:27 PM EST 25 mcg Given 08/12/2023 12:51 PM EST 25 mcg Given 08/12/2023 12:25 PM EST 25 mcg labetaloL (Normodyne) (5 mg/mL) multi-dose injection Intravenous, PRN, Starting on Tue08/12/23 at 1320, Until Tue08/12/23 at 1344, Anesthesia Intra-op, Routine Given 08/12/2023 1:35 PM EST 5 mg Given 08/12/2023 1:20 PM EST 5 mg lactated ringers infusion 1,000 mL, at 100 mL/hr, Intravenous, CONTINUOUS, Starting on Tue08/12/23 at 1045, Until Tue08/12/23 at 1452, Day of Surgery (Day of Procedure) New Bag 08/12/2023 12:13 PM EST lidocaine (pf) (Xylocaine) (20 mg/mL) 2% injection syringe Intravenous, PRN, Starting on Tue08/12/23 at 1218, Until Tue08/12/23 at 1344, Anesthesia Intra-op, Routine Given 08/12/2023 12:18 PM EST 60 mg ondansetron (pf) (Zofran) (2 mg/mL) injection Intravenous, PRN, Starting on Tue08/12/23 at 1226, Until Tue08/12/23 at 1344, Anesthesia Intra-op, Routine Given 08/12/2023 1:09 PM EST 4 mg Given 08/12/2023 12:26 PM EST 4 mg propofoL (Diprivan) (10 mg/mL) infusion Intravenous, CONTINUOUS PRN, Starting on Tue08/12/23 at 1218, Until Tue08/12/23 at 1344, Anesthesia Intra-op, Routine Rate/Dose Change 08/12/2023 1:16 PM EST 100 mcg/kg/min 34.02 mL/hr Rate/Dose Change 08/12/2023 1:13 PM EST 75 mcg/kg/min 25.5 15 mL/hr Rate/Dose Change 08/12/2023 1:09 PM EST 125 mcg/kg/min 42. 525 mL/hr propofoL (Diprivan) 10 mg/mL bolus injection (Anesthesia) Intravenous, PRN, Starting on Tue08/12/23 at 1218, Until Tue08/12/23 at 1344, Anesthesia Intra-op Given 08/12/2023 1:27 PM EST 50 mg Given 08/12/2023 1:16 PM EST 50 mg Given 08/12/2023 12:26 PM EST 20 mg documented in this encounter Care Teams Technician Support Association Relationship Specialty Start Date End Date Janett Garcia MD [address] [place] [address] PCP - General Family Medicine 08/09/23 documented as of this encounter
--- OUTSIDE RECORDS SUMMARY | 2024-08-09 10:17 | XMS_ITS | Encounter Summary ---
Author Organization [facility] [place] [address] Care Team Providers Care Crown Attacher Name Role Phone Janett Garcia MD Primary Care Provider [phone] Encounter Details Date Type Department Care Team (Late st Contact Info) Description 08/13/2023 Tele[place] [phone] Shonda Pearson MD [facility] [place] [address] Social History Tobacco Use Types Packs/Day Years [...] place to sleep or slept in a usp (including now)? No 10/26/2022 Sex and Gender Information Value Date Recorded Sex Assigned at Not on file Gender Identity Not on file Sexual Orientation Not on file documented as of this encounter Miscellaneous Notes * Telephone Encounter - Shonda Pearson MD - 08/13/2023 2:43 PM EST I returned the patient's call at 2:40 PM. Linda Browning is a 73 y.o. female who is s/p reconstruction of left lower eyelid and right nasal sidewall Mohs wounds with Dr. Holder on 08/13. They are calling in regards to clarification of dressing and bacitracin instructions. There are Steri- Strips in place. I advised the patient to leave the Steri-Strips in place as they will fall off overtime and apply bacitracin ointment to her uncovered incisions. Linda Browning agrees with this plan. This note will be routed to the provider mentioned above. Shonda Pearson MD documented in this encounter Plan of Treatment Upcoming Encounters Date Type Department Care Team (Late st Contact Info) Description 09/18/2024 11:30 AM EST Office Visit Dermatology at [facility] [address] [place] [address] Taat Aldridge MD [facility] [place] [address] 05/09/2025 2:00 PM EDT Office Visit Dermatology at [facility] [address] [facility] [place] [address] Tata Aldridge MD [facility] [place] [place] [address] documented as of this encounter Visit Diagnoses Not on filedocumented in this encounter Care Teams Crown Attacher Relationship Specialty Start Date End Date Janett Garcia MD [address] [place] [address] PCP - General Family Medicine 08/09/23 documented as of this encounter
--- OUTSIDE RECORDS SUMMARY | 2024-08-09 10:17 | XMS_ITS | Encounter Summary ---
Author Organization [facility] [place] [address] Care Team Providers Care Human Performance Professor Name Role Phone Janett Garcia MD Primary Care Provider [phone] Encounter Details Date Type Department Care Team (Latest Contact Info) Description 12/09/2023 Travel Social History Tobacco Use Types Packs/Day [...] 11:30 AM EST Office Visit Dermatology at [facility] [address] [place] [address] Tata Aldridge MD [facility] [address] 05/09/2025 2:00 PM EDT Office Visit Dermatology at [facility] [address] [place] [address] Tata Aldridge MD [facility] [place] [address] documented as of this encounter Visit Diagnoses Not on filedocumented in this encounter Care Teams Human Performance Professor Relationship Specialty Start Date End Date Janett Garcia MD [address] [place] [address] PCP - General Family Medicine 08/09/23 documented as of this encounter
--- OUTSIDE RECORDS SUMMARY | 2024-08-09 10:17 | XMS_ITS | Encounter Summary ---
Author Organization [facility] [place] [address] Care Team Providers Care Entry Clerk Name Role Phone Janett Garcia MD Primary Care Provider [phone] Reason for Referral * Consultation (Routine) - Authorized Specialty Diagnoses / Procedures Referred By Contac t Referred To Contact Dermatology Diagnoses Basal cell carcinoma (BCC) of skin of face, unspecified part of face Janett Garcia MD [address] [place] [address] [facility] Dermatology [address] [place] [address] Referral ID Status Reason Start Date Expiration Date Visits Requested Visits Authorized [id number] Authorized Consult, Test & Treat PCP Updated and/or Approved 10/14/2023 10/13/2024 6 6 Encounter Details Date Type Department Care Team (Latest Contact Info) Description 10/14/2023 Transcribe Orders eDH Incoming Referrals [phone] Janett Garcia MD [address] [place] [address] Basal cell carcinoma (BCC) of skin of face, unspecified part of face Social History Tobacco Use Types Packs/Day Years [...] place to sleep or slept in a care home (including now)? No 10/26/2022 DH IPV Inpatient [...] 11:30 AM EST Office Visit Dermatology at [facility] [address] [place] [address] Tata Aldridge MD [facility] [place] [address] 05/09/2025 2:00 PM EDT Office Visit Dermatology at [facility] [address] [place] [address] Tata Aldridge MD [facility] [place] [address] Scheduled Referrals Name Type Priority Associated Diagnoses Orde r Schedule Referral to Dermatology Outpatient Referral Routine Basal cell carcinoma (BCC) of skin of face, unspecified part of face Ordered: 10/14/2023 documented as of this encounter Visit Diagnoses Diagnosis Basal cell carcinoma (BCC) of skin of face, unspecified part of face documented in this encounter Care Teams Entry Clerk Relationship Specialty Start Date End Date Janett Garcia MD [address] [place] [address] PCP - General Family Medicine 08/09/23 documented as of this encounter
--- OUTSIDE RECORDS SUMMARY | 2024-08-09 10:17 | XMS_ITS | Encounter Summary ---
Author Organization [facility] Address [facility] [place] [address] Care Team Providers Care Car Electronics Installer Name Role Phone Janett Garcia MD Primary Care Provider [phone] Reason for Visit * Consultation (Routine) - Authorized Specialty Diagnoses / Procedures Referred By Umair burk Referred To Contact Dermatology Diagnoses Basal cell carcinoma (BCC) of skin of face, unspecified part of face Janett Garcia MD [address] [place] [address] [facility] Dermatology [address] [place] [address] Referral ID Status Reason Start Date Expiration Date Visits Requested Visits Authorized [id number] Authorized Consult, Test & Treat PCP Updated and/or Approved 10/14/2023 10/13/2024 6 6 Encounter Details Date Type Department Care Team (Late st Contact Info) Description 03/08/2024 1:30 PM EDT Office Visit Dermatology at [facility] [address] [place] [address] Tata Aldridge MD [facility] [place] [address] History of basal cell carcinoma; Skin cancer screening; SK (seborrheic keratosis); Madera angioma; Multiple benign melanocytic nevi of upper and lower extremities and trunk; Lentigines; Neoplasm of unspecified behavior of bone, soft tissue, and skin; AK (actinic keratosis); Lichen simplex chronicus Social History Tobacco Use Types Packs/Day Years [...] on file documented as of this encounter Progress Notes * Tata Aldridge MD - 03/08/2024 1:30 PM EDT Images from the original note were not included. DEPARTMENT OF DERMATOLOGY Medical Dermatology Clinic Provider: Tata Aldridge MD Patient's preferred name Linda Preferred contact method for results []Phone [x]myD-H []Letter Detailed phone message OK? Y Are there any other people with whom we may discuss your care? Past Medical History Date, location, treatment Melanoma N Dysplastic nevi N SCC N BCC Jun 2016: BCC, left upper back, right upper back, and mid central back 07/06/23: BCC, right nasal bridge, s/p Mohs 08/11/23 07/06/23: BCC, left medial canthus, s/p Mohs 08/11/[address] UV Exposure & Protection N Family History Details Melanoma N NMSC Brother Other relevant family history N Social History Occupation: Hobbies: Other: Pre-Procedure Screening Details Allergy to lidocaine, epinephrine, Dermabond, chlorhexidine, or adhesives N Bleeding disorder or blood thinners N Pacemaker, defibrillator, deep brain stimulator, cochlear implant N History of Present Illness: Linda Browning is a 74 y.o. Patient is referred to the clinic at the request of Janett Garcia for a full skin exam with the following concerns: - a spot on the left medial ankle that hasn't healed in over a year. She scratches at it due to symptoms of itching. - a few crusty spots on the face. Review of Systems: General: Feeling well. Skin: No other skin concerns. Medications: Reviewed in eD-H Allergies: Reviewed in eD-H Skin Examination: Full skin examination: Patient asked to undress to their comfort level. Verbalized that the provider's preference is that patient remove all clothing and that the provider will not examine areas patient elects to keep covered. Examination of the scalp, hair, head, face, ears, neck, chest, axillae, abdomen, back, buttocks, and upper and lower extremities was normal with the exception of the findings below. Genitalia not examined. Assessment/Plan A. R/O BCC - 1.4 cm pink shiny plaque with dots of pigment on the right lower back (Figure 1). - Recommended a skin biopsy to confirm/clarify the nature of the skin lesion. After discussion of potential risks (scarring, bleeding, infection) and recurrence, patient agreed to proceed. - Patient denies known allergies to lidocaine and epinephrine. Procedure: Skin shave biopsy Location: right lower back Time of procedure: 2:00 PM Discussed indications for procedure and expectations including risks and benefits. Verbal consent obtained. Time out performed. Skin prepped with alcohol. Local anesthesia with 1% xylocaine, 1/100,000 epinephrine. A sample of the lesion was removed by shave technique to the level of the dermis and s ubmitted to Pathology. Hemostasis obtained (AlCl). There were no complications; patient tolerated the procedure well. Wound dressed. Post-procedure expectations, wound care and activity restrictions reviewed. - Follow-up based on pathology results. B. ISK vs BCC - 0.8 cm pink slightly scaly papule on the right posterior neck (Figure 2). - Recommended a skin biopsy to confirm/clarify the nature of the skin lesion. After discussion of potential risks (scarring, bleeding, infection) and recurrence, patient agreed to proceed. - Patient denies known allergies to lidocaine and epinephrine. Procedure: Skin shave biopsy Location: posterior neck Time of procedure: 2:00 PM Discussed indications for procedure and expectations including risks and benefits. Verbal consent obtained. Time out performed. Skin prepped with alcohol. Local anesthesia with 1% xylocaine, 1/100,000 epinephrine. A sample of the lesion was removed by shave technique to the level of the dermis and s ubmitted to Pathology. Hemostasis obtained (AlCl). There were no complications; patient tolerated the procedure well. Wound dressed. Post-procedure expectations, wound care and activity restrictions reviewed. - Follow-up based on pathology results. #. Actinic keratoses - ill-defined scaly pink papule(s) on the left forearm x1, right preauricular cheek x1, left forehead x1 - Reviewed diagnosis with patient, premalignant potential, and treatment options including clinicalmonitoring (risks include progression), LN2 (risks including discoloration, discomfort, and possible recurrence), and field therapy - Joint decision to proceed with cryotherapy Procedure: Destruction of lesion(s) with cryotherapy (LN2). Location(s): As noted above Number: 3 Discussed procedure and expectations including risks and benefits. Verbal consent obtained. Treatedwith LN2. There were no complications; Patient tolerated the procedure well. Post-procedure expectations and wound care were reviewed. #. Lichen Simplex Chronicus vs NMSC - 2 cm hemecrusted slightly lichenified plaque on left medial ankle - Dicussed findings and management options including empiric treatment with steroid injection versus topical steroids with plan for biopsy if this is not resolved after treatment. - Joint decision to trial ILK injection today. Will recheck the spot in 6-8 weeks. Procedure: Intra-lesional Kenalog injection Location(s): left medial ankle Kenalog 10 mg/mL, total 0.3 mL Discussed indications for the procedure and expectations including risks, benefits, and potential side effects (hypopigmentation, ulceration, and skin atrophy). Skin prepped with alcohol and Kenalog injected intralesionally. There were no complications; patient tolerated the procedure well. Wound dressed with adhesive bandage as needed. LOT: [id number] EXP: Sep 2025 [facility]: [id number] # Solar lentigines - 0.3-0.6cm light-brown evenly pigmented, well-demarcated macules in a photodistributed pattern on the face, trunk and extremities. - Recommend diligent sun protection (hats/shade/clothing/sunscreen) - Discussed warning signs of skin cancer # Seborrheic keratoses - torres/brown waxy stuck-on papules and plaques on the trunk and extremities. - Reassured of the benign nature of these lesions - No treatment needed # Melanocytic nevi - Scattered medium-brown macules and papules on the head, trunk, and extremities. - Morphology reassuring for benign nevi. - Reassured of benign appearance on exam today. 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 - Reassured of the benign nature of these lesions. No treatment needed. #. History of BCC - Well-healed scars per skin history. - No evidence of recurrence; will continue to monitor. Figure 1 Figure 2 Figure 3 Photo(s) taken and charted with patient's verbal consent. Other: N/A RTC: 6 weeks for spot recheck, 1 year for FSE []Note routed to secretary receptionist []Recall placed in scheduling system [x]Appointment scheduled at checkout Scribe attestation: Heather Hinojosa [facility] has performed the documentation for this encounter in thepresence of and acting as a scribe for Tata Aldridge MD. I performed the above scribed service and agree with the accuracy of the documentation in this encounter. Reviewed and signed by: Tata Aldridge MD Dermatology [facility] * Tata Aldridge MD - 03/08/2024 1:30 PM EDT Skin biopsy results reviewed. Recommend ED&C for both of these BCCs. [id number] Location: [facility] The signing pathologist has (i) examined the relevant preparation(s) for the specimen(s) and (ii) rendered or confirmed the diagnosis(es). Surgical Pathology DIAGNOSIS A - Right lower back, skin shave biopsy: - Basal cell carcinoma, superficial and nodular patterns, present at the peripheral and deep specimen edges B - Posterior neck, skin shave biopsy: - Basal cell carcinoma, superficial and early nodular patterns, present at the peripheral and deep specimen edges documented in this encounter Plan of Treatment Upcoming Encounters Date Type Department Care Team (Late st Contact Info) Description 09/18/2024 11:30 AM EST Office Visit Dermatology at [facility] [address] [place] [address] Tata Aldridge MD [facility] [place] [address] 05/09/2025 2:00 PM EDT Office Visit Dermatology at [facility] [address] [place] [address] Tata Aldridge MD [facility] [address] [place] [address] documented as of this encounter Procedures Procedure Name Priority Date/Time Associated Diagnosis Comments SPECIMEN TO PATHOLOGY Routine 03/08/2024 2:22 PM EDT Neoplasm of unspecified behavior of bone, soft tissue, and skin SPECIMEN TO PATHOLOGY Routine 03/08/2024 2:22 PM EDT Neoplasm of unspecified behavior of bone, soft tissue, and skin SURGICAL PATHOLOGY REPORT Routine 03/08/2024 2:03 PM EDT documented in this encounter Results * Specimen to Pathology (03/08/2024 2:22 PM EDT) AP Specimen 03/08/2024 2:22 PM EDT 03/08/2024 2:22 PM EDT Narrative [facility] - 03/08/2024 2:22 PM EDT Specimen requisition ordered. ??Separate Pathology report to follow Tata Aldridge MD PATHOLOGY/CYTOLOGY O [place] Performing Organization Address City/[facility]/ZIP Co de Phone Number [facility] [place] [address] * Specimen to Pathology (03/08/2024 2:22 PM EDT) AP Specimen 03/08/2024 2:22 PM EDT 03/08/2024 2:22 PM EDT Narrative [facility] - 03/08/2024 2:22 PM EDT Specimen requisition ordered. ??Separate Pathology report to follow Tata Aldridge MD PATHOLOGY/CYTOLOGY O [place] [facility] [place] [address] * (ABNORMAL) Surgical Pathology Report (03/08/2024 2:03 PM EDT) Final Diagnosis [id number] ? Location: [facility] The signing pathologist has (i) examined the relevant preparation(s) for the specimen(s) and (ii) rendered or confirmed the diagnosis(es). . ?Surgical Pathology DIAGNOSIS A - Right lower back, skin shave biopsy: - Basal cell carcinoma, superficial and nodular patterns, ?present at the peripheral and deep specimen edges B - Posterior neck, skin shave biopsy: - ??Basal cell carcinoma, superficial and early nodular patterns, ?present at the peripheral and deep specimen edges Electronically signed by: ?Binh MARTIN, Funmilayo Verified: ??03/12/2024 16:57 ??Dermatopathol ogist Performed at: ??-[facility] [facility], [place] [address] Oracle Software Engineer: Gabriele Jarvis MD, FCAP, ??CLIA Certificate: [id number] DISCUSSION THIS RESULT REQUIRES PHYSICIAN/A.P.P . FOLLOW UP SPECIMEN(S) SUBMITTED A - right lower back, skin shave biopsy (1) B - posterior neck, skin shave biopsy (1) CLINICAL INFORMATION A - Rule out BCC -1.4 cm pink shiny plaque with dots of pigment on the right lower back B - ISK versus BCC -0.8 cm pink slightly scaly papule on the right posterior neck SPECIMEN PROCESSING A - Labeled/Fixativ e: Right lower back, formalin. Quantity/Size: ??Single, 1.0 x 0.7 x 0.1 cm. Tissue Description: Shave of a torres-white shiny skin plaque. Sections/Proces sing: Inked, trisected and entirely submitted in 1 cassette labeled A1. B - Labeled/Fixativ e: Posterior neck, formalin. Quantity/Size: ??Single, 0.9 x 0.8 x 0.1 cm. Tissue Description: Shave of a torres-white scaly skin papule. Sections/Proces sing: Inked, trisected and entirely submitted in 1 cassette labeled B1. ??SM(A) 03/12/2024 4:57 PM EDT [facility] SPECIMEN FROM SKIN / Unknown 03/08/2024 2:03 PM EDT 03/08/2024 2:03 PM EDT SPECIMEN FROM SKIN / Unknown 03/08/2024 2:03 PM EDT 03/08/2024 2:03 PM EDT Tata Aldridge MD PATHOLOGY/CYTOLOGY O RDERABLES [facility] [place] [address] documented in this encounter Visit Diagnoses Diagnosis History of basal cell carcinoma Personal history of other malignant neoplasm of skin Skin cancer screening Screening for malignant neoplasm of the skin SK (seborrheic keratosis) Other seborrheic keratosis Madera angioma Nevus, non-neoplastic Multiple benign melanocytic nevi of upper and lower extremities and trunk Lentigines Other dyschromia Neoplasm of unspecified behavior of bone, soft tissue, and skin AK (actinic keratosis) Actinic keratosis Lichen simplex chronicus Lichenification and lichen simplex chronicus documented in this encounter Administered Medications Inactive Administered Medications - up to 3 most recent administrations Medication Order MAR Action Action Date Dose Rate Site triamcinolone acetonide (Kenalog) (10 mg/mL) injection 10 mg 10 mg, Intra-Lesional, ONCE, 1 dose, On Rupali 03/08/24 at 1445, Routine Given 03/08/2024 2:23 PM EDT 10 mg documented in this encounter Care Teams Car Electronics Installer Relationship Specialty Start Date End Date Janett Garcia MD [address] [place] [address] PCP - General Family Medicine 08/09/23 documented as of this encounter
--- OUTSIDE RECORDS SUMMARY | 2024-08-09 10:17 | XMS_ITS | Encounter Summary ---
Author Organization [facility] [place] [address] Care Team Providers Care Diesel Engine Pipe Fitter Name Role Phone Janett Garcia MD Primary Care Provider [phone] Reason for Visit * Reason Comments Follow-up Encounter Details Date Type Department Care Team (Late st Contact Info) Description 12/13/2023 11:45 AM EDT Office [place] [id number] Tariq Holder MD [facility] [place] [place] [address] Surgery follow-up; Basal cell carcinoma (BCC) of skin of left eyelid including canthus, unspecified eyelid Social History Tobacco Use Types Packs/Day Years [...] place to sleep or slept in a detention (including now)? No 10/26/2022 DH IPV Inpatient [...] as of this encounter Progress Notes * Khadijah Austin - 12/13/2023 11:45 AM EDT Images from the original note were not included. Plastic Surgery Follow Up Note Provider: Tariq Holder MD. Reason for visit: F/U status post procedure; suture removal Date of surgery: 09/21/2023 Procedure(s): Left lower eyelid reconstruction w/ tripier flap division and local tissue rearrangement Complications: None reported Date of surgery: 08/12/2023 Procedure(s): Mohs reconstruction of left lower eye-lid with local tissue rearrangement/local flap Complications: None reported HPI: The patient is doing well. She reports constant tearing in the left eyelid. The patient statesthat she has been massaging the scar. There is some persistent thickening of the nasal scar which is causing some contraction along the Examination: Patient is alert, conversant, comfortable, ambulating Flap well perfused. Incisions: CDI, healing well - sutures removed today. No collection, no erythema, no evidence of cellulitis Able to achieve full closure of eye. Some thickening along the scar of the medial canthal region on the left eyelid after reconstruction. Impression: Linda Browning is a 73 y.o. female who was seen today for follow up after the above procedure. Please see the operative note for details. The patient reports that she is doing well. Upon physical examination, there is a left medial eyelid nasal scar which remains persistently thickened.. We discussed the possibility of a steroid injection. We reviewed the risks of the steroid injection which includes, pain at injection site, redness at injection site, flushing, and risk of depigmentation. After our discussion, the patient elects to proceed with Kenalog injection. I have indicated that it would take at least 6 to 8 weeks for this to work. We would like to see her back in 2 months after this injection to reassess this. Further surgery might be required for this. Procedure: A steroid injection was performed at the left nasal bridge using 1 cc of a 1:1 mixture of 1% plain Lidocaine and Kenalog- 10mg. This was well tolerated. Kenalog expiration date: Jul 2025 Lot number: [id number] Lidocaine expiration date: Jul 2025 Batch number: [id number] Plan: Follow up 2 months documented in this encounter Plan of Treatment Upcoming Encounters Date Type Department Care Team (Late st Contact Info) Description 09/18/2024 11:30 AM EST Office Visit Dermatology at [facility] [address] [place] [address] Tata Aldridge MD [facility] [place] [address] [place] [address] 05/09/2025 2:00 PM EDT Office Visit Dermatology at [facility] [address] [place] [address] Tata Aldridge MD [facility] [place] [address] [place] [address] documented as of this encounter Visit Diagnoses Diagnosis Surgery follow-up Follow-up examination, following unspecified surgery Basal cell carcinoma (BCC) of skin of left eyelid including canthus, unspecified eyelid documented in this encounter Care Teams Diesel Engine Pipe Fitter Relationship Specialty Start Date End Date Janett Garcia MD [address] [place] [address] PCP - General Family Medicine 08/09/23 documented as of this encounter
--- OUTSIDE RECORDS SUMMARY | 2024-08-09 10:17 | XMS_ITS | Encounter Summary ---
[place] [address] Care Team Providers Care Independent Crop Consultant Name Role Phone Janett Garcia MD Primary Care Provider Reason for Visit * Reason Comments Follow Up Surgery S/p flap division Encounter Details Date Type Department Care Team (Latest Contact Info) Description 09/27/2023 2:00 PM EST Clinical [place] [address] Surgery follow-up Social History Tobacco Use Types Packs/Day Years Used Date Smoking Tobacco: Never Smokeless Tobacco: Never Tobacco Cessation:Counseling Given: Not Answered Alcohol Use Standard Drinks/Week Comments No 0 [...] place to sleep or slept in a fpc (including now)? No 10/26/2022 DH IPV Inpatient [...] on file documented as of this encounter Patient Instructions * Patient Instructions* Meena Lyn RN - 09/27/2023 2:00 PM EST Signs of Infection : A temperature over 100.4 F or 38 C. Redness at the incision line that is beginning to spread away from the incision after the first 48 hours. Yellow pus-like or foul smelling drainage larger than a dime size from the incision or drain sites. Increased pain / discomfort that is not relieved by your pain medicine such as extra strength tylenol, or NSAIDS For any of these symptoms please call our nurse's line at [phone] M - F 8 - 5 For after hours, and on weekends; Call [phone] and ask for our plastic surgeon specification manager Massage three times a day as shown by Dr. Holder -SCAR MASSAGE TECHNIQUE: to begin 4-6 weeks following surgery What is a scar? When an injury occurs, the body immediately begins to repair itself & the area becomes swollen & sore. Eventually small collagen fibers form, becoming a solid tissue that results in a scar. This scar will continue to change in appearance for 1-2 years. Ideally, a scar is smooth & flat, blending in with the surrounding skin. However, some scars may become highly visible & unattractive due to factors such as your age, scar location & size, nutrition, genetics, or infection. A hypertrophic scar occurs when there is an excess production of collagen tissue that is elevated but remains within the wound boundaries. The scar is tense, red, & can be associated with itching & tenderness. A hypertrophic scar can be ordinary (usually stabilizes in 3 months & may even get smaller and smoother) or keloid. The keloid scar invades nearby tissue that was not part of the original wound, tends to enlarge even after 6 months & does not get softer. Will scar massage make my scars disappear? Nothing can make scars disappear. However, massaging the scar assists the body in breaking down thescar tissue to give it a flatter, softer, appearance. Massage also mobilizes the scar, preventing it from adhering to underlying tissue, tendons, & nerves. You can make the greatest difference in the appearance of the scar if you massage it in the first 3months. What should I use on my scars? You will hear many recommendations. This clinic finds that it is the massage itself that reduces the scar & not necessarily the choice of ointments or creams. We do discourage the use of Vitamin E oil, however, due to studies that have reported scar inflammation & deterioration. How do I massage my scars? Apply the lotion or cream into the scar 3-4 times a day for 8 weeks on new scars, and 3-4 times perday for 3 to 6 months on existing scars. Using your finger, apply pressure to the scar in a crosswise & circular direction, bearing down as hard as tolerated. Remember to protect your scar from the sun, especially in the first 6-12 months, by using a moisturizer with sunblock and wearing a physical barrier (ie: a hat) when possible documented in this encounter Progress Notes * Meena Lyn RN - 09/27/2023 2:00 PM EST Reason for Visit: Postoperative Evaluation s/p Case Date: 09/21/2023 Surgeon: Surgeon(s) and Role: * Tariq Holder MD - Primary * Chanda Cabrera MD - Resident - Assisting Preoperative diagnosis: Mohs defect Postoperative diagnosis: Mohs defect Procedure(s) (LRB): FLAP DELAY, DIVISION & INSERT, EYELIDS (WRVU 4.08) (Left) POD # 6 Linda is here for an incision check. Subjective: Linda states she has no discomfort. Objective: Dr. Holder into examine Bruising none Swelling: mild Sutures absorbable, incision well approximated Assessment: No signs of delayed healing,erythema,incisions CDI. Plan: Begin scar massage in four to six weeks, instructions provided in avs. We reviewed signs and symptoms of infection. We reviewed sun precautions, increase protein in the diet. We reviewed communication through [facility] portal, and correct phone numbers to call for concerns on AVS, Linda expressed understanding of instructions,and agrees with the plan of care. Follow up six to [address] Holder documented in this encounter Plan of Treatment Upcoming Encounters Date Type Department Care Team (Late st Contact Info) Description 09/18/2024 11:30 AM EST Office Visit Dermatology at [facility] [address] [place] [address] Tata Aldridge MD [facility] [place] [address] 05/09/2025 2:00 PM EDT Office Visit Dermatology at [facility] [address] [place] [address] Tata Aldridge MD [facility] [place] [address] documented as of this encounter Visit Diagnoses Diagnosis Surgery follow-up Follow-up examination, following unspecified surgery documented in this encounter Care Teams Independent Crop Consultant Relationship Specialty Start Date End Date Janett Garcia MD [address] [place] [address] PCP - General Family Medicine 08/09/23 documented as of this encounter
--- OUTSIDE RECORDS SUMMARY | 2024-08-09 10:17 | XMS_ITS | Encounter Summary ---
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 Date of : 1950 Today's Date: 08/11/2023 REFERRING PROVIDER: Chester Umanzor MD CC: Mohs micrographic surgery for treatment of a cutaneous tumor HPI: Linda Browning is a 73 y.o. female presenting for biopsy-proven basal cell carcinoma, nodular location on the right nasal bridge, and biopsy-proven basal cell carcinoma, superficial and nodular location on the left medial canthus The dermatologic preoperative information sheet was reviewed with pertinent positive and negative as below. DERMATOLOGIC PRE-OPERATIVE EVALUATION AND REVIEW OF SYSTEMS History of Mohs surgery? no Pacemaker/Defibrillator? no Joint replacement or other implantable devices (e.g. Cochlear implant)? If yes then when? no Do you take a blood thinner? No History of organ transplant? no History of artificial valve or stroke? no History of liver disease or bleeding disorder? no Do you have any medical problems that may affect your upcoming surgery? no Do you have any concerns regarding your upcoming surgery? yes, concerns about proximity to the eye,Dr. Holder to repair post Mohs defects. We ask patients to discontinue Fish oil/Multivitamin/Vit E/?? supplements and natural medicines not prescribed by a physician 1 week prior to surgery. SOCIAL HISTORY: Makes Own Decisions Yes Hearing aid or other devices: Yes , glasses Relevant travel history or future plans: none Tobacco use (amount per day, type of tobacco.): no Do you have any physical limitations that may affect your surgery?: yes, crutches, wheelchair for long distances. Fusion L5-S1. ALLERGIES: Allergies reviewed MEDICATIONS: Medications reviewed documented in this encounter Plan of Treatment Upcoming Encounters Date Type Department Care Team (Late st Contact Info) Description 09/18/2024 11:30 AM EST Office Visit Dermatology at [facility] [address] [place] [address] Tata Aldridge MD [facility] [place] [address] 05/09/2025 2:00 PM EDT Office Visit Dermatology at [facility] [address] [place] [address] Tata Aldridge MD [facility] [place] [address] documented as of this encounter Visit Diagnoses Diagnosis 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
--- OUTSIDE RECORDS SUMMARY | 2024-08-09 10:17 | XMS_ITS | Clinical Summary ---
Author Organization [facility] [place] [address] Care Team Providers Care Seal Extrusion Operator Name Role Phone Janett Garcia MD Primary Care Provider [phone] Allergies Active Allergy Reactions Criticality Noted Date Comments Gabapentin Itching Medium 10/11/2017 Pt states she was itchy from Gabapentin( Pt is taking this medication) Unclassified Drug 09/15/2017 Blood pudding-asthma attack and eyes blacked out Medications Medication Sig Dispensed Refills Start Date End Date Status albuterol (PROVENTIL HFA;VENTOLIN HFA) 90 mcg/Actuation inhaler Inhale into the lungs as needed. 04/14/2004 Active multivitamin (THERAGRAN) Tablet Take 1 tablet by mouth daily. Active acetaminophen (TYLENOL) 500 mg Tablet Take 1,000 mg by mouth 2 times daily. Active magnesium 250 mg Tablet Take by mouth every other day. Active UNABLE TO FIND Airborne two tablets twice a day Active baclofen (Lioresal) 10 mg tablet Take 1 tablet by mouth 2 times daily. Take morning and mid afternoon. 60 tablet 11 12/09/2023 Active Active Problems Problem Noted Date Diagnosed Date Surgery follow-up 12/15/2023 Muscle spasticity 12/09/2023 Basal cell carcinoma (BCC) 07/11/2023 Dystonia 04/17/2018 Diverticulitis 10/21/2017 Overview (10/21/2017): Patient reports history of diverticulitis. History of basal cell carcinoma 07/19/2017 s/p OLIF L5-S1 and posterior instrumented fusion L5-S1 on 10/11/2017, Dr. Santos 11/23/2016 Sebaceous hyperplasia 12/31/2014 Seborrheic keratosis 12/31/2014 Family History Medical History Relation Comments Cancer Brother 1 Cancer Brother 2 Cancer Brother 3 Cancer Father smoker Cancer Mother Parkinsonism Neg Hx Tremor Neg Hx Relation Status Comments Brother 1 Other Brother 2 Brother 3 Father Mother Social History Tobacco Use Types Packs/Day Years [...] place to sleep or slept in a custodial (including now)? No 10/26/2022 DH IPV Inpatient [...] on file Sexual Orientation Not on file Last Filed Vital Signs Vital Sign Reading Time Taken Comments Blood Pressure 107/59 12/09/2023 10:47 AM EDT Pulse 67 12/09/2023 10:47 AM EDT Temperature 36.1 ??C (97 ??F) 09/21/2023 8:29 AM EST Respiratory Rate 16 09/21/2023 8:43 AM EST Oxygen Saturation 97% 09/21/2023 8:43 AM EST Inhaled Oxygen Concentration - - Weight 57.2 kg (126 lb) 12/09/2023 10:47 AM EDT Height 160 cm (5' 3) 12/09/2023 10:47 AM EDT re ported Body Mass Index 22.32 12/09/2023 10:47 AM EDT Plan of Treatment Upcoming Encounters Date Type Department Care Team (Late st Contact Info) Description 09/18/2024 11:30 AM EST Office Visit Dermatology at [facility] [address] [place] [address] Tata Aldridge MD [facility] [place] [address] 05/09/2025 2:00 PM EDT Office Visit Dermatology at [facility] [address] [place] [address] Tata Aldridge MD [facility] [place] [address] Health Maintenance Due Date Last Done Comments CT Colonography 1950 Colonoscopy 1950 Colorectal Cancer Screening 1950 FIT DNA 1950 FIT 1950 Sigmoidoscopy (10 year) with FIT yearly 1950 Sigmoidoscopy 1950 Hepatitis C Screening 1967 Tetanus/Diphtheria/Pertussis Vaccines (1 - Tdap) 02/02 Zoster vaccine (1 of 2) 1999 Bone Density Scan 2014 Pneumoccocal Vaccine: 65+ (1 of 1 - PCV) 2014 RSV Vaccine (1 - 1-dose 75+ series) 02/03/2024 Covid-19 Vaccine (1 - 2023-25 season) 2024 Influenza (Flu) vaccine (1 o f 1 - Influenza standard series) 04/29/2024 Medical Devices Implanted Type Area Integrity Director Device Identifier Shelf Expiration Date Model / Serial / Lot Graft,Infuse, Bn,Sm,2.8ml ([id number]) - [id number] Implanted:Qty : 1 on 10/11/2017 by Trey Santos MD at [facility] IMPLANTS Spine Lumbar Medtronic - [employer] - [id number] 10/26/2018 [id number] / / [id number] Cap,Creo,Lck, 5.5mm ([id number]) (Autoreq) - [id number] Implanted:Qty : 4 on 10/11/2017 by Trey Santos MD at [facility] IMPLANTS Spine Lumbar DO NOT USE [employer] - [id number] / / Amp,Ivanna,Plya x,5.5mm ([id number]) (Autoreq) - [id number] Implanted:Qty : 4 on 10/11/2017 by Trey Santos MD at [facility] IMPLANTS Spine Lumbar DO NOT USE [employer] - [id number] / / Screw,Creo,Am p,Mod,6.5x45m m ([id number]) (Autoreq) - [id number] Implanted:Qty : 1 on 10/11/2017 by Trey Santos MD at [facility] IMPLANTS Spine Lumbar DO NOT USE [employer] - [id number] / / Screw,Creo,Am p,Mod,6.5x55m m ([id number]) (Autoreq) - [id number] Implanted:Qty : 2 on 10/11/2017 by Trey Santos MD at [facility] IMPLANTS Spine Lumbar DO NOT USE [employer] - [id number] / / Screw,Creo,Am p,Mod,6.5x40m m ([id number]) ([employer]oreq) - [id number] Implanted:Qty : 1 on 10/11/2017 by Trey Santos MD at [facility] IMPLANTS Spine Lumbar DO NOT USE [employer] - [id number] / / Graft,Ostb,Op m,Putty,5ml ([id number]) - [id number] Implanted:Qty : 1 on 10/11/2017 by Trey Santos MD at [facility] IMPLANTS Spine Lumbar [facility] - [id number] 07/14/2020 [id number] / / [id number] Bone,Crushed, Cancellous,30 cc ([id number]) (Autoreq) - [id number] Implanted:Qty : 1 on 10/11/2017 by Trey Santos MD at [facility] IMPLANTS Spine Lumbar [facility] - [id number] 03/27/2022 [id number] / / [id number] Denzel,Creo,Ti,C vd,5.5x40mm ([id number]) ([employer]oreq) - [id number] Implanted:Qty : 2 on 10/11/2017 by Trey Santos MD at [facility] IMPLANTS Spine Lumbar DO NOT USE [employer] - [id number] / / Medtronic Interbody Spacer 8deg X 8 Mm X 30 Mm X 24 Mm Implanted:Qty : 1 on 10/11/2017 by Trey Santos MD at [facility] Spine Lumbar 07/24/2020 [id number] / / [id number] Advance Directives Documents on File Type Date Recorded Patient Corporate Accountant Expl anation Advance Directives and Livin g Will 10/11/2017 2:24 PM * Full Code (Latest Code Status on File) Date Activated Date Inactivated Comments 10/11/2017 8:46 PM 10/13/2017 4:03 PM Question Answer Comments Does patient have capacity to make decision: Yes * Full Code Date Activated Date Inactivated Comments 10/11/2017 7:07 AM 10/11/2017 8:46 PM Question Answer Comments Does patient have capacity to make decision: Yes Care Teams Seal Extrusion Operator Relationship Specialty Start Date End Date Janett Garcia MD [address] [place] [address] PCP - General Family Medicine 08/09/23
--- OUTSIDE RECORDS SUMMARY | 2024-08-09 10:17 | XMS_ITS | Encounter Summary ---
Author Organization [facility]ly [facility] Address [facility] [place] [address] Care Team Providers Care Automotive Airconditioning Mechanic Name Role Phone Janett Garcia MD Primary Care Provider [phone] Reason for Visit * Auth/Cert (Routine) Specialty [...] PRESERVATION OF VASCULAR PEDICLE Tariq Holder MD [facility] [place] [address] Referral ID Status Reason Start Date Expiration Date Visits Re quested Visits Authorized [id number] 07/12/2023 1 1 Encounter Details Date Type Department Care Team (Late st Contact Info) Description 08/12/2023 11:50 AM EST - 08/12/2023 1:40 PM EST Surgery Outpatient [facility] [place] [address] Tariq Holder MD [facility] DR PLASTIC SURGERY [place] [id number] ADJ.TISSUE TRANSFER, REARRANGEMENT, 10SQ.CM OR LESS, NOSE (WRVU 9.23) Social History Tobacco Use Types Packs/Day Years [...] place to sleep or slept in a [facility] (including now)? No 10/26/2022 Sex and Gender Information Value Date Recorded Sex Assigned at Not on file Gender Identity Not on file Sexual Orientation Not on file documented as of this encounter Last Filed Vital Signs Vital Sign Reading Time Taken Comments Blood Pressure 130/87 08/12/2023 10:40 AM EST Pulse 70 08/12/2023 10:40 AM EST Temperature 36.5 ??C (97.7 ??F) 08/12/2023 10:[address] Respiratory Rate 16 08/12/2023 10:40 AM EST Oxygen Saturation 100% 08/12/2023 10:40 AM EST Inhaled Oxygen Concentration - - Weight 56.7 kg (125 lb) 08/12/2023 10:40 AM EST Height 160 cm (5' 3) 08/12/2023 10:40 AM EST Body Mass Index 22.14 08/12/2023 10:40 AM EST documented in this encounter Discharge Instructions * Discharge Instructions* Sarah Solis RN - 08/12/2023 10:40 AM EST General Anesthesia Discharge Instructions Go [...] closest emergency room or call the hospital wreath machine operator at [phone] and ask for physician drafter (cad) electronic covering for your physician. Questions or problems after 5pm or on a weekend: Call the [facility] wreath machine operator at and ask for the physician drafter (cad) electronic covering for your doctor. At 10:30 you received 975 mg of acetaminophen- Your next dose should not be taken before 8 hours have passed or as advised by your provider. Next dose not before 6:30pm You should not take more than a total of 3000 mg of acetaminophen in a 24 hour period. * Patient Instructions* Tj Egan MD - 08/12/2023 11:52 AM EST DISCHARGE INSTRUCTIONS WOUND CARE: Your sutures will be removed at your next post-op visit Please apply opthalmic bacitracin twice a day to your incisions You must avoid sunlight exposure to your incision(s). Do not use any over the counter ointments on the incisions postoperatively unless instructed by your provider. Can apply cold compress to incisions for swelling SHOWERING: OK to shower two days after surgery and get incisions wet. Gently wash your incisions with soap andwater. Pat dry with a clean towel. Do not submerge your surgical site under water until cleared by your provider. MEDICATIONS: You should resume your home medications. You do not need any antibiotics. ACTIVITIES: Minimize contact to affected area(s). No heavy lifting until seen by MD. DIET: Regular healthy diet. Contact your Doctor To make an appointment or for questions about scheduling, please contact our administrative officesat [phone] For clinical questions, please call our nurses at [phone] Both offices are open Tuesday thru Tuesday 8a - 5p. With emergencies after hours, call the hospital wreath machine operator at [phone] and ask for the Plastic Surgery Resident drafter (cad) electronic. Future Appointments Date Time Provider Department Center 08/17/2023 10:40 AM Jyotsna Solomon APRN [facility] 01/11/2024 9:30 AM Tracy Johnson MD [facility] documented in this encounter Medications at Time [...] as of this encounter Progress Notes * Sarah Solis RN - 08/12/2023 2:51 PM EST Pt stood and got into her wheelchair and motorized herself out of [facility]. and daughter at sidehelping into car. No questions at this time. * Sarah Solis RN - 08/12/2023 2:28 PM EST Reviewed discharge instructions with pt's and daughter. Bacitracin given to family. Ice packs and guaze also given. No questions at this time. * Sarah Solis RN - 08/12/2023 1:58 PM EST Pt arrived to PACU with two wet guaze on both eyes. Reddish tears from left eye. documented in this encounter H&P Notes * Agatha Rivera MD - 08/12/2023 11:38 AM EST Plastic Surgery Preoperative H&P: Patient Name: Linda Browning Patient : 1950 Today's Date: 08/12/2023 Linda Browning is a 73 y.o. female with No chief complaint on file. who presents today for Procedure(s): ADJ.TISSUE TRANSFER, REARRANGEMENT, 10SQ.CM OR LESS, [...] FLAP, FOREHEAD PRESERVATION OF VASCULAR PEDICLE (WRVU 14.38). No changes since last seen. Exam: General: NAD Resp: Breathing comfortably on room air CV: normal rate A/P: Linda Browning is a 73 y.o. female with No chief complaint on file. who presents for Procedure(s): ADJ.TISSUE TRANSFER, REARRANGEMENT, 10SQ.CM OR LESS, [...] FOREHEAD PRESERVATION OF VASCULAR PEDICLE (WRVU 14.38) Proceed to OR The risks, benefits and indications were reviewed with the patient and there remains an indication for surgery. Consent signed and scanned in chart. Pre-operative antibiotics ordered Please page if any questions Agatha Rivera MD/S Plastic Surgery Resident, Pager: [phone] Plastic Surgery Team Pager: [phone] documented in this encounter Miscellaneous Notes * Brief Op Note - Tj Egan MD - 08/12/2023 1:36 PM EST Brief Operative Note Patient Name: Linda Browning : [id number] MR#: [id number] Case Date: 08/12/2023 Surgeon: Surgeon(s) and Role: * Tariq Holder MD - Primary * Agatha Rivera MD - Resident - Assisting * Tj Egan MD - Resident - Assisting Preoperative diagnosis: bcc Postoperative diagnosis: bcc Procedure(s) (LRB): ADJ.TISSUE TRANSFER, REARRANGEMENT, 10SQ.CM OR LESS, NOSE (WRVU 9.23) (N/A) ADJ.TISSUE TRANSFER, REARRANGEMENT, 10SQ.CM OR LESS, FOREHEAD (WRVU 8.6) (Midline) FLAP, PEDICLE,W OR W/O TRANSFER, EYELIDS (WRVU 9.37) ADJ.TISSUE TRANSFER, REARRANGEMENT, 10SQ.CM OR LESS, CHEEK (WRVU 8.6) Anesthesia: General Local (3cc's of 1% xylocaine with epinephrine was used during the case) Findings: Mohs reconstruction of left lower eye-lid with local tissue rearrangement/local flap. Local tissue re-arrangement/primary closure of right nasal side wall mohs defect. Complications: none Estimated Blood Loss: 2cc's Specimens removed during surgery: None Fluids: Intraprocedure Crystalloid Total None PRBCs: none (See Anesthesia Record/Report for Other [...] Plan: - Follow up in: 5-7 days - Wound Check - Suture removal: 5-7 days if not dissolving - Ophthalmic bacitracin BID Future Appointments Date Time Provider Department Center 08/17/2023 10:40 AM Jyotsna Solomon APRN [facility] 01/11/2024 9:30 AM Tracy Johnson MD [facility] Tj Egan, PGY-3 Plastic & Reconstructive Surgery Pager: [phone] * Op Note - Tariq Holder MD - 08/12/2023 12:40 PM EST [facility] Operative Note Patient Name: Linda Browning : [id number] MR#: [id number] Case Date: 08/12/2023 Surgeon: Surgeon(s) and Role: * Tariq Holder MD - Primary * Agatha Rivera MD - Resident - Assisting * Tj Egan MD - Resident - Assisting Preoperative diagnosis: bcc Postoperative diagnosis: bcc Procedure(s) (LRB): ADJ.TISSUE TRANSFER, REARRANGEMENT, 10SQ.CM OR LESS, NOSE (WRVU 9.23) (N/A) FLAP, PEDICLE,W OR W/O TRANSFER, EYELIDS (WRVU 9.37) CONJUNCTIVOPLASTY, RECONSTRUCTION CUL-DE-SAC, W/ GRAFT OR EXTENSIVE REARRANGEMENT (WRVU 8.42) (Left) Anesthesia: General Local (3cc's of 1% xylocaine with epinephrine was used during the case) Findings: Mohs reconstruction of left lower eye-lid with local tissue rearrangement/local flap. Local tissue re-arrangement/primary closure of right nasal side wall mohs defect. Complications: none Estimated Blood Loss: 2cc's Specimens removed during surgery: None Fluids: Intraprocedure Crystalloid Total None PRBCs: none (See Anesthesia Record/Report for Other [...] them about the options for wound closure. We discussed the treatment options in detail including primary closure, local flap closure or FTSG. We discussed that the recommended treatment depends on the extent of the excision and their aesthetic concerns and need for possible revision. We discussed the risks of excision including infection, scar, bleeding, asymmetry, deformity, ectropion, epiphora and the need for further surgery. The patient wishes to proceed. All questions were acknowledged and answered to the patient's satisfaction. Final defect size: 1.3 x 1.0 cm Procedure Description: Following the adequate induction of general LMA anesthesia was prepped and draped in the usual sterile fashion with Betadine ophthalmic solution. A corneal shield had been placed after the application of tetracaine and BSS. Lidocaine 1% 1-100,000 epinephrine was infiltrated into the area of the defect in the upper eyelid. The puncta of the upper and lower eyelid appear to be involved in the tumorand was not visible on the lower eyelid. Is difficult to determine the extent of the involvement inthe upper eyelid. The procedure began by dissecting out the area of the defect which measured cm incompetence the area of the medial canthal region as well as the conjunctiva and the orbicularis as well as the medial tarsal plate. The conjunctiva of the orbicularis and the tarsal plate were all separately dissected as well as the skin along the lower eyelid. The defect measured 1.3 x 1.0 centimeters. A nasal flap was elevated and extended about the medial canthus and this was elevated utilizingthe skin and medial element of the orbicularis. This was brought up and elevated. A conjunctivoplast y was done in the cul-de-sac and this was brought up and elevated separately and a rotational flap of the conjunctiva was done in order to suture to the superior area of the conjunctival defect. Thisarea is closed with 5-0 plain gut making sure that the knots were on the outside and not on the conjunctival side. The orbicularis muscle was brought together to provide tension for the lower lid. At this point, a pedicled Tripier flap was taken from the medial upper eyelid side and rotated inferior flap was created by taking the skin and a small portion of the muscle from the upper eyelid essentially performing a blepharoplasty along the upper eyelid crease taken area measuring 3.0 x 2.0 cm from the upper eyelid and leave this pedicle medially. This flap was then brought down and placed into the defect of the lower eyelid and then sutured to the conjunctiva and orbicularis and then using quilting sutures through this to see this into position. The lateral orbicularis was sutured to the lower lid orbicularis utilizing a 4-0 Vicryl in order to provide appropriate tensioning for the upper and lower lid for proper functioning. The upper eyelid incision was closed in standard fashion utilizing a 4-0 Prolene suture in running subcuticular fashion. All subsequent incisions were closed with combination of 5-0 Prolene and 6-0 Prolene laterally for the cheek flap and then the area of the lower lid was closed with 5-0 plain gut. The patient tolerated the procedure well. Sponge and needle counts were noted to be correct. BSS was used to irrigate the eye and corneal james. No complications were noted at this point. Bacitracin ophthalmic ointment is placed. Patient tolerated the procedure well. The anesthesia was reversed. The patient was then taken to the recovery room in stable condition after the reversal of anesthesia. Attestation: Case Date: 08/12/2023 I was present for the entire procedure and performed all of the park elements of this procedure. TARIQ HOLDER MD 08/14/2023 documented in this encounter Plan of Treatment Upcoming Encounters Date Type Department Care Team (Late st Contact Info) Description 09/18/2024 11:30 AM EST Office Visit Dermatology at [facility] [address] [place] [address] Tata Aldridge MD [facility] [place] [address] 05/09/2025 2:00 PM EDT Office Visit Dermatology at [facility] [address] [place] [address] Tata Aldridge MD [facility] [place] [address] documented as of this encounter Procedures Procedure Name Priority Date/Time Associated Diagnosis Comments CONJUNCTIVOPLASTY RECONSTRUCT CUL-DE-SAC, W/ GRAFT OR EXTENS REARRANGE Routine 08/12/2023 2:23 PM EST Basal cell carcinoma (BCC), unspecified site ADJ.TISSUE TRANSFER, REARRANGEMENT, 10SQ.CM OR LESS, CHEEK Routine 08/12/2023 1:37 PM EST Basal cell carcinoma (BCC), unspecified site FLAP, PEDICLE,W OR W/O TRANSFER, EYELIDS Routine 08/12/2023 1:36 PM EST Basal cell carcinoma (BCC), unspecified site Revise Conjunc, Fix Cul-De-Sac+Grft ([id number]) Yes 08/12/2023 12:12 PM EST Basal cell carcinoma (BCC), unspecified site Adj Tiss Transfer Head, Fac, Hand <10Sqcm ([id number]) Yes 08/12/2023 12:12 PM EST Basal cell carcinoma (BCC), unspecified site Form Skin Pedicle Flap Lid, Ear, Nose ([id number]) Yes 08/12/2023 12:12 PM EST Basal cell carcinoma (BCC), unspecified site Adj Tiss Transfer Head, Fac, Hand <10Sqcm ([id number]) Yes 08/12/2023 12:12 PM EST Basal cell carcinoma (BCC), unspecified site Adj Tiss Transfer Lid, Nos, Ear <10Sqcm ([id number]) Yes 08/12/2023 12:12 PM EST Basal cell carcinoma (BCC), unspecified site ADJ.TISSUE TRANSFER, REARRANGEMENT, 10SQ.CM OR LESS, NOSE Routine 08/12/2023 10:21 AM EST Basal cell carcinoma (BCC), unspecified site ADJ.TISSUE TRANSFER, REARRANGEMENT, 10SQ.CM OR LESS, FOREHEAD Routine 08/12/2023 10:21 AM EST Basal cell carcinoma (BCC), unspecified site documented in this encounter Visit Diagnoses Diagnosis Basal cell carcinoma (BCC), unspecified site Basal cell carcinoma (BCC), unspecified site documented in this encounter Administered Medications Inactive Administered Medications - up to 3 most recent administrations Medication Order MAR Action Action Date Dose Rate Site acetaminophen (Tylenol) 325 mg tablet 1 dose, Starting on Tue08/12/23 at 1026, Until Tue08/12/23 at 1037, Verna Spring: cabinet override acetaminophen (Tylenol) tablet 975 mg 975 mg, Oral, ONCE, 1 dose, On Tue08/12/23 at 1045, Administer with a SIP of water only. Maximum dose of acetaminophen is 4,000 mg from all sources in 24 hours., Day of Surgery (Day of Procedure), Routine Given 08/12/2023 10:37 AM EST 975 mg balanced salt (BSS) irrigation solution PRN, Starting on Tue08/12/23 at 1240, Until Tue08/12/23 at 1654, Intra-Operative (Intra-Procedure), Routine Given 08/12/2023 12:40 PM EST 2 mLs 19- Surgical Site lidocaine-EPINEPHrine (1% - 1:100,000) injection PRN, Starting on Tue08/12/23 at 1240, Until Tue08/12/23 at 1654, Intra-Operative (Intra-Procedure), Routine Given 08/12/2023 12:40 PM EST 3 mLs 19- Surgical Site povidone-iodine (Betadine Ophthalmic Prep) 5 % ophthalmic solution PRN, Starting on Tue08/12/23 at 1311, Until Tue08/12/23 at 1654, Intra-Operative (Intra-Procedure), Routine Given 08/12/2023 12:30 PM EST 60 mLs 19- Surgical Site tetracaine (PF) (Pontocaine) ophthalmic solution PRN, Starting on Tue08/12/23 at 1240, Until Tue08/12/23 at 1654, Intra-Operative (Intra-Procedure), Routine Given 08/12/2023 12:40 PM EST 2 drops 19- Surgical Site documented in this encounter Active and Recently Administered Medications Times are shown in EST. Scheduled Medication Order 08/10/2023 08/11/2023 08/12/2023 acetaminophen (Tylenol) tablet 975 mg (COMPLETED) 975 mg, Oral, ONCE, 1 dose, On Tue08/12/23 at 1045, Administer with a SIP of water only. Maximum dose of acetaminophen is 4,000 mg from all sources in 24 hours., Day of Surgery (Day of Procedure), Routine 1037 (Given - Provid er: Verna Spring RN) ceFAZolin (Ancef) 2 g in dextrose 5% 100 mL infusion (COMPLETED) 2 g, Intravenous, ONCE, 1 dose, On Tue08/12/23 at 1200, Administer over 30 Minutes, Indication for (Active or Suspected): Prophylaxis 1223 (Given - Provid er: Joyce Stevens CRNA) Continuous Medication Order 08/10/2023 08/11/2023 08/12/2023 lactated ringers infusion (CANCELED) 1,000 mL, at 100 mL/hr, Intravenous, CONTINUOUS, Starting on Tue08/12/23 at 1045, Until Tue08/12/23 at 1452, Day of Surgery (Day of Procedure) 1213 (New Bag - Prov ider: Joyce Stevens CRNA) PRN Medication Order 08/10/2023 08/11/2023 08/12/2023 balanced salt (BSS) irrigation solution (CANCELED) PRN, Starting on Tue08/12/23 at 1240, Until Tue08/12/23 at 1654, Intra-Operative (Intra-Procedure), Routine 1240 (Given - Provid er: Tariq Holder MD) lidocaine-EPINEPHrine (1% - 1:100,000) injection (CANCELED) PRN, Starting on Tue08/12/23 at 1240, Until Tue08/12/23 at 1654, Intra-Operative (Intra-Procedure), Routine 1240 (Given - Provid er: Tariq Holder MD) povidone-iodine (Betadine Ophthalmic Prep) 5 % ophthalmic solution (CANCELED) PRN, Starting on Tue08/12/23 at 1311, Until Tue08/12/23 at 1654, Intra-Operative (Intra-Procedure), Routine 1230 (Given - Provid er: Agatha Rivera MD - Comment: facial prep) tetracaine (PF) (Pontocaine) ophthalmic solution (CANCELED) PRN, Starting on Tue08/12/23 at 1240, Until Tue08/12/23 at 1654, Intra-Operative (Intra-Procedure), Routine 1240 (Given - Provid er: Agatha Rivera MD) documented in this encounter Care Teams Automotive Airconditioning Mechanic Relationship Specialty Start Date End Date Janett Garcia MD [address] [place] [address] PCP - General Family Medicine 08/09/23 documented as of this encounter
--- OUTSIDE RECORDS SUMMARY | 2024-08-09 10:17 | XMS_ITS | Encounter Summary ---
Author Organization [facility] [place] [address] Care Team Providers Care Futures Trader Name Role Phone Janett Garcia MD Primary Care Provider [phone] Encounter Details Date Type Department Care Team (Latest Contact Info) Description 09/27/2023 Travel Social History Tobacco Use Types Packs/Day [...] place to sleep or slept in a long term (including now)? No 10/26/2022 DH IPV Inpatient [...] 11:30 AM EST Office Visit Dermatology at [facility] [address] [place] [address] [facility] [address] 05/09/2025 2:00 PM EDT Office Visit Dermatology at [facility] [address] [place] [address] [facility] [place] [address] documented as of this encounter Visit Diagnoses Not on filedocumented in this encounter Care Teams Futures Trader Relationship Specialty Start Date End Date Janett Garcia MD [address] [place] [address] PCP - General Family Medicine 08/09/23 documented as of this encounter
--- OUTSIDE RECORDS SUMMARY | 2024-08-09 10:17 | XMS_ITS | Encounter Summary ---
Author Organization [facility] [place] [address] Care Team Providers Care Timber Mill Worker Name Role Phone Janett Garcia MD Primary Care Provider [phone] Reason for Visit * Auth/Cert (Routine) Specialty Diagnoses / Procedures Referred By Contac t Referred To Contact Diagnoses Mohs defect Procedures PRO DELAY FLAP/SECTIONING FLAP EYELIDS/NOSE/EARS/LIPS PRO EAR CARTILAGE GRAFT TO FACE FLAP DELAY, DIVISION & INSERT, EYELIDS (WRVU 4.08) GRAFT, EAR CARTILAGE NOSE, EAR (WRVU 7.5) Tariq Holder MD [facility] [place] [address] Referral ID Status Reason Start Date Expiration Date Visits Re quested Visits Authorized [id number] 08/30/2023 1 1 Encounter Details Date Type Department Care Team (Late st Contact Info) Description 09/21/2023 7:28 AM EST Anesthesia Event [facility] [id number] Loki Schulte MD [facility] [place] [address] Maranda Lizarraga MD [facility] [place] [address] Anesthesia Record Procedure Summary Procedure Name Responsible Anesthesiologist Anesthesia Start Time Anesthesia Stop Time FLAP DELAY, DIVISION & INSERT, EYELIDS (WRVU 4.08) (Left: Face) Loki Schulte MD 09/21/23 0728 09/21/23 0831 Events Date Time Event Comment 09/21/2023 0659 0726 AN Verify 0728 Start 0728 An Start Data 0731 An Induction 0732 An Intubation 0733 Anesthesia Ready 0745 Procedure Start 0825 Extubation/LMA Out 08 an stop data 0831 Stop 0838 Recovery or ICU Handoff Brandy ent care was transferred to the destination unit staff after review of the patient's medical history, current anesthetic/surgical status and plan, according to the Provider Handoff Checklist. Meds Name Total fentaNYL 50 mcg IV Lidocaine 60 mg Propofol 200 mg Propofol INF 182.86 mg Dexamethasone 8 mg Ondansetron 8 mg ePHEDrine 15 mg ceFAZolin (Ancef) (100 mg/mL) injection solution 2 g 2 g lactated ringers infusion 900 mL * Agents Name O2 Sevoflurane (et) * Blood No blood administrations on file. Lines, Drains, and Airways Type Details Placement Removal Drain/Device Site 10/11/17; 1348; lowe r; back; collapsible closed device; cut to 10 holes 10/11/17 1348 by Tanya Norton RN Incision 08/12/23; 1240; fron kalina region 08/12/23 1240 by Be Merchant RN PIV 09/21/23; 0645; [id number] catheter system; 20 gauge; median cubital vein (antecubital fossa), right; Meliza CHILEL; distraction, topical anesthetic spray applied, tolerated well, appears comfortable 09/21/23 0645 by Amisha Edgar RN Incision 09/21/23; 0823; Left ; eye 09/21/23 08 by Haley Sarah RN Supraglottic Mask Ventilation: Ea sy (1); LMA Type: air-Q; LMA Size: 4; Inserted by: Brenton HUI; Removal Date: 09/21/23; Removal Time: 82509/21/23 0732 by Nuvia Farris CRNA 09/21/23 08 by Nuvia Farris CRNA documented in this encounter Social History Tobacco [...] OR Notes * Anesthesia Postprocedure Evaluation - Loki Schulte MD - 09/21/2023 9:04 AM EST Department of Anesthesiology Post-procedure Note Patient: Linda Browning Procedure Summary Date: 09/21/23 Room / Location: [address] Anesthesia Start: 727 Anesthesia Stop: 830 Procedures: FLAP DELAY, DIVISION & INSERT, EYELIDS (WRVU 4.08) (Left: Face) GRAFT, EAR CARTILAGE NOSE, EAR (WRVU 7.5) (Left: Ear) Diagnosis: Basal cell carcinoma (BCC) of skin of left eyelid including canthus, unspecified eyelid (Mohs defect) Surgeons: Tariq Holder MD Responsible Provider: Loki Schulte MD Anesthesia Type: general ASA Status: 2 All Anesthesia Providers: Anesthesiologist: Loki Schulte MD GOLD STAMPER: Nuvia Farris CRNA Vitals Value Taken Time BP 146/66 09/21/23 0843 Temp 36.1 ??C (97 ??F) 09/21/23 0829 Pulse 65 09/21/23 0843 Resp 16 09/21/23 0843 SpO2 98 % 09/21/23 0843 Pain Level Vitals shown include unfiled device data. Patient Location: PACU/[facility] Level of Consciousness: Awake and Alert Pain Management: Satisfactory Analgesia PONV: None Cardiovascular Status: At Baseline and Hemodynamically Stable Respiratory Status: At Baseline and Room Air Postoperative Fluid Status: Intravascular EUvolemia Possible Anesthetic Complications: NONE apparent at time of evaluation Final Primary Anesthesia Type: General (The anesthetic type performed was the same as planned.) Comments: Loki Schulte MD * Anesthesia Preprocedure Evaluation - Loki Schulte MD - 09/20/2023 3:24 PM EST Images from the original note were not included. Pre-Anesthesia Evaluation for: Linda Browning a 73 y.o. female. Procedure(s): FLAP DELAY, DIVISION & INSERT, EYELIDS (WRVU 4.08) (Left: Face) GRAFT, EAR CARTILAGE NOSE, EAR (WRVU 7.5) (Left: Ear) Patient Active Problem List Diagnosis Date Noted [...] level Past Surgical History: Procedure Laterality Date ? ? PRO ADJ TISS TRANSFER HEAD, FAC, HAND <10SQCM Midline 08/12/2023 ADJ.TISSUE TRANSFER, REARRANGEMENT, 10SQ.CM OR LESS, FOREHEAD (WRVU 8.6) performed by Tariq Holder MD at [facility] ? ? PRO ADJ TISS TRANSFER HEAD, FAC, HAND <10SQCM 08/12/2023 ADJ.TISSUE TRANSFER, REARRANGEMENT, 10SQ.CM OR LESS, CHEEK (WRVU 8.6) performed by Tariq Holder MD at [facility] ? ? PRO ADJ TISS TRANSFER LID, NOS, EAR <10SQCM N/A 08/12/2023 ADJ.TISSUE TRANSFER, REARRANGEMENT, 10SQ.CM OR LESS, NOSE (WRVU 9.23) performed by Tariq Holder MD at [facility] ??? PRO ALLOGRAFT FOR SPINE SURGERY ONLY MORSELIZED Bilateral 10/11/2017 ALLOGRAFT FOR SPINE SURGERY ONLY; MORSELIZED (WRVU *) performed by Trey Santos MD at [facility] ??? PRO ARTHRODESIS POSTERIOR/PSTLAT TECHNIQUE 1 INTERSPACE LUMBAR Bilateral 10/11/2017 ARTHRODESIS, LUMBAR SPINE, SINGLE LEVEL (WRVU 23.53) performed by Trey Santos MD at [facility] ??? PRO AUTOGRAFT SPINE SURGERY LOCAL FROM SAME INCISION Bilateral 10/11/2017 AUTOGRAFT FOR SPINE SURGERY ONLY, SAME INCISION (WRVU *) performed by Trey Santos MD at [facility] ??? PRO FORM SKIN PEDICLE FLAP LID, EAR, NOSE 08/12/2023 FLAP, PEDICLE,W OR W/O TRANSFER, EYELIDS (WRVU 9.37) performed by Tariq Holder MD at [facility] ??? PRO INSERT BIOMCHN DEV INTERVERTEBRAL DSC SPC W/ARTHRD Bilateral 10/11/2017 INSERTION INTERBODY BIOMECH DEV TO INTERVEBRAL DISC SPACE, EA INTERSPACE (WRVU 4.25) performed by Trey Santos MD at [facility] ??? PRO LUMBAR SPINE FUSION, ANTER APPRCH Bilateral 10/11/2017 @ANT. LUMBAR FUSION INCLUD. MIN. DISKECTOMY (WRVU 23.53) performed by Trey Santos MD at [facility] ??? PRO POSTERIOR NON-SEGMENTAL INSTRUMENTATION Bilateral 10/11/2017 POSTERIOR SPINAL NON-SEGMENTAL INST.(ONE SPACE) (WRVU 12.52) performed by Trey Santos MD at [facility] ??? PRO REVISE CONJUNC,FIX CUL-DE-SAC+GRFT Left 08/12/2023 CONJUNCTIVOPLASTY, RECONSTRUCTION CUL-DE-SAC, W/ GRAFT OR EXTENSIVE REARRANGEMENT (WRVU 8.42) performed by Tariq Holder MD at [facility] ??? PRO THORAX SPINE FUSION, ANTER APPRCH N/A 10/11/2017 @ANTERIOR APPROACH, FOR THROACIC (VASC) (WRVU 24.7) performed by Chico Granados MD at [facility] Social History Tobacco Use ??? Smoking [...] Neck ROM: full Cardiovascular Assessment: Rhythm: regular Rate: normal Pulmonary Assessment: breath sounds clear to auscultation Dental Assessment: Misc Assessment: Patient is wearing No contact(s). IV access: Peripheral line Last Filed Perioperative [...] problems, colonoscopy Plan : tylenol, GA LMA Region - Other Informed Consent: Anesthetic plan and risks discussed with patient. Plan discussed with GOLD STAMPER and attending. Anesthesia Screening documented in this encounter Miscellaneous Notes * Addendum Note - Nuvia Farris CRNA - 09/22/2023 9:06 AM EST Addendum created 09/22/23905 by Nuvia Farris CRNA Intraprocedure Meds edited documented in this encounter Plan of Treatment Upcoming Encounters Date Type Department Care Team (Late st Contact Info) Description 09/18/2024 11:30 AM EST Office Visit Dermatology at [facility] [address] [place] [address] Tata Aldridge MD [facility] [place] [address] 05/09/2025 2:00 PM EDT Office Visit Dermatology at [facility] [address] [place] [address] Tata Aldridge MD [facility] [place] [address] documented as of this encounter Visit Diagnoses Not on filedocumented in this encounter Administered Medications Inactive Administered Medications - up to 3 most recent administrations Medication Order MAR Action Action Date Dose Rate Site ceFAZolin (Ancef) (100 mg/mL) injection solution 2 g 2 g, Intravenous, ONCE, 1 dose, On Tue09/21/23 at 0630, To be prepared by and administered by Anesthesia. Reconstitute each ceFAZolin 1 gram vial with 10 mL of NS or SWFI = 100 mg/mL May inject IV without further dilution over 3 to 5 minutes., Indication for (Active or Suspected): Prophylaxis Given 09/21/2023 7:48 AM EST 2 g dexAMETHasone (Decadron) injection Intravenous, PRN, Starting on Tue09/21/23 at 0746, Until Tue09/21/23 at 0838, Anesthesia Intra-op, Routine Given 09/21/2023 7:46 AM EST 8 mg ePHEDrine sulfate (5 mg/mL) multi-dose injection Intravenous, PRN, Starting on Tue09/21/23 at 0750, Until Tue09/21/23 at 0838, Anesthesia Intra-op, Routine Given 09/21/2023 7:59 AM EST 7.5 mg Given 09/21/2023 7:50 AM EST 7.5 mg fentaNYL (pf) (50 mcg/mL) multi-dose injection Intravenous, PRN, Starting on Tue09/21/23 at 0744, Until Tue09/21/23 at 0838, Anesthesia Intra-op, Routine Given 09/21/2023 7:44 AM EST 25 mcg Given 09/21/2023 7:41 AM EST 25 mcg lactated ringers infusion 1,000 mL, at 100 mL/hr, Intravenous, CONTINUOUS, Starting on Tue09/21/23 at 0630, Until Tue09/21/23 at 1807, Day of Surgery (Day of Procedure) New Bag 09/21/2023 8:07 AM EST New Bag 09/21/2023 6:47 AM EST 1,000 mLs 100 mL/hr lidocaine (pf) (Xylocaine) (20 mg/mL) 2% injection syringe Intravenous, PRN, Starting on Tue09/21/23 at 0731, Until Tue09/21/23 at 0838, Anesthesia Intra-op, Routine Given 09/21/2023 7:31 AM EST 60 mg ondansetron (pf) (Zofran) (2 mg/mL) injection Intravenous, PRN, Starting on Tue09/21/23 at 0820, Until Tue09/21/23 at 0838, Anesthesia Intra-op, Routine Given 09/21/2023 8:20 AM EST 4 mg Given 09/21/2023 7:47 AM EST 4 mg propofoL (Diprivan) (10 mg/mL) infusion Intravenous, CONTINUOUS PRN, Starting on Tue09/21/23 at 0740, Until Tue09/21/23 at 0838, Anesthesia Intra-op, Routine Rate/Dose Change 09/21/2023 8:19 AM EST 25 mcg/kg/min 8.505 mL/hr New Bag 09/21/2023 7:40 AM EST 75 mcg/kg/min 25.515 mL/ hr propofoL (Diprivan) 10 mg/mL bolus injection (Anesthesia) Intravenous, PRN, Starting on Tue09/21/23 at 0731, Until Tue09/21/23 at 0838, Anesthesia Intra-op Given 09/21/2023 7:31 AM EST 200 mg documented in this encounter Care Teams Timber Mill Worker Relationship Specialty Start Date End Date Janett Garcia MD [address] [place] [address] PCP - General Family Medicine 08/09/23 documented as of this encounter
--- OUTSIDE RECORDS SUMMARY | 2024-08-09 10:17 | XMS_ITS | Encounter Summary ---
Author Organization [facility] [place] [address] Care Team Providers Care Gem Setter Name Role Phone Janett Garcia MD Primary Care Provider [phone] Reason for Visit * Reason Comments Follow Up Surgery S/p Mohs reconstruct ion of left lower eye-lid with local tissue 08/12/2023 Encounter Details Date Type Department Care Team (Late st Contact Info) Description 08/17/2023 10:40 AM EST Office Visit [place] [address] Jyotsna Solomon APRN [facility] [place] [address] Surgery follow-up Social History Tobacco Use Types [...] this encounter Patient Instructions * Patient Instructions* Jyotsna Solomon APRN - 08/17/2023 10:40 AM EST Follow up in 08/30 for suture removal. At next clinic visit Dr. Holder to determine next stage. Ophthalmic bacitracin twice daily. BSS drops as needed. documented in this encounter Progress Notes * Jyotsna Solomon APRN - 08/17/2023 10:40 AM EST Images from the original note were not included. Plastic Surgery Post Op Note Provider: Jyotsna Solomon APRN Reason for visit: F/U status post procedure Date of surgery: 08/12/2023 Procedure(s): Mohs reconstruction of left lower eye-lid with local tissue rearrangement/local flap (Gallo) Complications: None reported HPI: Patient reports being well. She notes some blurry vision in left eye, excessive tearing. Examination: Patient is alert, conversant, comfortable, ambulating Flap well perfused. Incisions: CDI, healing well - sutures in place. No collection, no erythema, no evidence of cellulitis Able to achieve full closure of eye. Impression: Linda Browning is a 73 y.o. female who was seen today for follow up after the above procedure. Please see the operative note for details. Plan: Follow up in 08/30 for suture removal. At next clinic visit Dr. Holder to determine next stage. Ophthalmic bacitracin twice daily. BSS drops as needed. Dr. Holder in to examine patient. He agrees with this plan. documented in this encounter Plan of Treatment Upcoming Encounters Date Type Department Care Team (Late st Contact Info) Description 09/18/2024 11:30 AM EST Office Visit Dermatology at [facility] [address] [place] [address] Tata Aldridge MD [facility] [place] [address] 05/09/2025 2:00 PM EDT Office Visit Dermatology at [facility] [address] [place] [address] Tata lAdridge MD [facility] [place] [address] documented as of this encounter Visit Diagnoses Diagnosis Surgery follow-up Follow-up examination, following unspecified surgery documented in this encounter Care Teams Gem Setter Relationship Specialty Start Date End Date Janett Garcia MD [address] [place] [address] PCP - General Family Medicine 08/09/23 documented as of this encounter
--- OUTSIDE RECORDS SUMMARY | 2024-08-09 10:17 | XMS_ITS | Encounter Summary ---
Author Organization [facility] Address [facility] [place] [address] Care Team Providers Care Dining Room Attendant Name Role Phone Janett Garcia MD Primary Care Provider [phone] Reason for Visit * Reason Comments Basal Cell Carcinoma * Consultation (Routine) - Closed Specialty Diagnoses / Procedures Referred By Contac t Referred To Contact Dermatology Diagnoses Basal cell carcinoma (BCC), unspecified site Tariq Holder MD [facility] [place] [address] Loki Honeycutt MD [facility] DR [facility]EEW[facility] [place] [address] Referral ID Status Reason Start Date Expiration Date V isits Requested Visits Authorized [id number] Closed Consult, Test & Treat 07/11/2023 07/10/2024 1 1 Encounter Details Date Type Department Care Team (Latest Contact Info) Description 08/11/2023 11:45 AM EST Procedure visit Dermatology at [facility] [address] [place] [address] Loki Honeycutt MD [facility] DR PEEWEE [place] [address] Basal cell carcinoma of medial canthus of [...] place to sleep or slept in a intermediate (including now)? No 10/26/2022 Sex and Gender Information Value Date Recorded Sex Assigned at Not on file Gender Identity Not on file Sexual Orientation Not on file documented as of this encounter Last Filed Vital Signs Vital Sign Reading Time Taken Comments Blood Pressure 109/72 08/11/2023 3:24 PM EST Pulse 67 08/11/2023 3:24 PM EST Temperature - - Respiratory Rate - - Oxygen Saturation - - Inhaled Oxygen Concentration - - Weight - - Height - - Body Mass Index - - documented in this encounter Patient Instructions * Patient Instructions* Amie Arias RN - 08/11/2023 11:45 AM EST Instructions after your Mohs surgery visit. You had Mohs surgery today with Loki Honeycutt MD. Your tumor has been cleared but your wound hasbeen left open so this can be repaired by another provider. Your wound will be repaired by Maude Holder MD in Plastic surgery tomorrow 08/12/23. The nursing staff have placed a pressure bandage over your wound which will help keep your wound clean and also help apply pressure to prevent bleeding. Instructions: 1. Please keep your bandage on until your scheduled reconstruction. Do not get your bandage wet or dirty. You may shower if you can definitely avoid getting your bandage wet. 2. If you experience any bleeding, use your hand or have a devil tender place his/her hand directly over the bandage covering your wound, applying firm pressure for up to 20 minutes. Do not peek to check whether bleeding has stopped during this 20 minutes. If after 20 minutes, the bleeding has stopped, you may apply additional clean bandages on top of your current bandage. If you have attempted to stop the bleeding with 3 episodes of 20 minute applications of firm pressure, please call our own call dermatololgist. 3. Once you have your reconstruction, please follow wound care directions as directed by your plastic surgeon or other provider. If you need any help or have any questions from now until your reconstruction, please call the dermatology clinic at during business hours. When you leave a message or reach someone, please leave your name, date of , date of surgery, and inform them you are a Mohs surgery patient. After 5PM and on weekends, please call the hospital number and ask for the [employer] Architect motion picture equipment machinist. documented in this encounter Progress Notes * Loki Honeycutt MD - 08/11/2023 11:45 AM EST Images from the original note were not included. Summary of Procedure(s): Site: right nasal bridge Tumor Type: Basal Cell Carcinoma, nodular Stages to clear tumor: 2 Repair: Referred to Tariq Holder MD in Plastic surgery for reconstruction Images: Site: left medial canthus Tumor Type: Basal Cell Carcinoma, superficial/ nodular Stages to clear tumor: 3 Repair: Referred to Tariq Holder MD in Plastic surgery for reconstruction Images: The patient was asked to call with any issues and is aware that I am available 21/03 should questions arise. Loki Honeycutt MD PhD Mohs Micrographic Surgery and Dermatologic Oncology Department of Dermatology Please note that I have reviewed the preoperative checklist from today's nursing visit including relevant social history and medications. I have reviewed the preoperative photos if available and the biopsy report. VITAL SIGNS: BP 109/72 (BP Location (NBP): Left arm, Patient Position: Sitting, BP Cuff Sizes: Adult (25-34 cm)) Pulse 67 PHYSICAL EXAMINATION: General: patient is awake, alert, oriented and in no acute distress. Skin: Focused examination of surgical site(s) performed which shows a well healed biopsy site with surrounding poorly defined pearly plaque. PHYSICIAN REVIEW OF REPORTS, RECORDS, IMAGES: 1) The accompanying pathology report(s) associated with aforementioned biopsy slide(s) were/was also reviewed. Assessment: Linda Browning is a 73 y.o. female presenting for: 1. Biopsy-proven basal cell carcinoma, nodular located on the right nasal bridge. 2. Biopsy-proven basal cell carcinoma, superficial and nodular located on the left medial canthus. Plan: 1. Findings from the biopsy report, today's clinical exam, and other pertinent details were reviewed with patient today. All questions were answered. 2. Discussed treatment options based on the above findings. We recommended Mohs micrographic surgery for treatment of this tumor. Mohs micrographic surgery was indicated due to patient, site and/or tumor characteristics (see operative report for specific indication). 3. We discussed risks, benefits, and alternative treatment options to the Mohs micrographic surgeryprocedure and pertinent information including but not limited to the following: Risks include bleeding, infection, scar, recurrence, incomplete tumor removal or inability to cure with surgery alone if the tumor features are more aggressive than the initial pathology indicates. Occasionally, additional adjuvant treatments may be recommended. Additional risks include large wound, prolonged wound and healing, pain, swelling, bruising, increased appearance of vessels or worsening erythema of baseline skin; more rarely risks include damage to underlying structures such as nerves, cartilage, or muscle which could lead to temporary or permanent loss of sensation or motor function. Benefit is precise tumor removal If reconstruction is performed, it is specific to the patient and defect. Discussed that the shape, size, depth of the wound is often not known until the tumor is cleared and thus the reconstruction options are sometimes not known until after tumor clearance. Occasionally,referrals to other providers may be recommended for reconstruction based on patient preference and need. Reviewed the pros and cons of common reconstructions used for this tumor type, size, and location, and that reconstruction may lead to change in appearance. Natural history of scar was discussed, including that the scar will continue to mature for 1-2 years. Recommended avoidance of special ointments or scar creams, and avoidance of direct sun exposure to the scar for optimal recovery. Reviewed that there are some aspects of cosmesis that are dependent on patient's characteristics such as age, skin laxity/texture factors, inflammatory skin diseases such as rosacea, prior surgery/radiation, degree of actinic damage, smoking status, strength of the patient's immune system, diligentwound care, medications, and genetics. Having Mohs surgery may lead to physical limitations for optimal healing, such as restricted physical activity and heavy lifting. 4. Signs and symptoms of skin cancer reviewed. Patient to report any new, changing, or symptomatic lesions and follow up with his or her sap pp consultant or other skin provider. Note initiated by Amie Arias RN Amie Arias RN has performed the documentation for this encounter in the presence of and acting as a scribe for Dr. Honeycutt I performed the above scribed service and agree with the accuracy of the documentation in this encounter. Reviewed and signed by: Loki Honeycutt Dermatology [facility] * Loki Honeycutt MD - 08/11/2023 11:45 AM EST Mohs micrographic Surgery Operative Report Site #1 - right nasal bridge Patient name: Linda Browning : 1950 Date: 08/11/2023 Staff Surgeon and Pathologist: Loki Honeycutt MD PhD Nursing/Gas Compressor Operator(s): Amie Arias RN Tours Captain (s): Jenna Mays Pre-operative diagnosis: Basal Cell Carcinoma, nodular Post-operative diagnosis: same Location/Site: right nasal bridge Procedure: Mohs micrographic surgery Indication(s) for Mohs micrographic surgery: Anatomic location for tissue conservation Stages: 2 Preoperative size of tumor: 1.1 x 0.7 cm Stage I The nature and purpose of the procedure, associated risks, possible consequences and complications,and alternative forms of treatment were explained in detail. We reviewed the possible repairs basedon the clinical appearance of tumor but discussed that often the repair options may not be known until the tumor has maritza extirpated. Informed consent and permission to take photographs were obtained. The site was confirmed with the patient/authorized apparel trimmings sales representative/referring physician and/or a photograph form time of biopsy. A pre-operative time-out (procedural pause) was conducted with no unresolved discrepancies noted. Local anesthesia was obtained with 0.5 % lidocaine with 1:200,000 epinephrine. The surgical site was prepped and draped in the usual sterile manner. A 1-2 mm margin was excised around clinically evident tumor as a complete layer. Hemostasis was achieved by electrocoagulation. The excised tissue was oriented and divided into 2 sections, chromacoded, and submitted for frozen sections. The patient tolerated the procedure well and without complications. On my personal microscopic evaluation of the frozen sections, residual tumor was identified as NODULAR BASAL CELL CARCINOMA - Arising from the epidermis and extending into the dermis are irregularly shaped islands of basaloid keratinocytes. The cells have scant cytoplasm and round dark nuclei. The cells at the periphery of the islands display a palisaded arrangement. The islands are associated with a fibromyxoid stroma and there is cleft formation between some of the islands and stroma. on section A2 (see section number on map). Stage II The surgical site was re-anesthetized with 0.5 % lidocaine with 1:200,000 epinephrine, re-prepped and redraped in a sterile manner. The residual tumor was re-excised as a complete layer 2-3mm in thickness using the Mohs map to delineate area of residual tumor. Hemostasis was achieved with electrocoa gulation. The tissue was oriented and divided into 1 sections, chromacoded, and submitted for frozen sections. The patient tolerated the procedure well and without complications. On my personal microscopic evaluation of the frozen sections, no residual tumor was identified on the deep or outer border of the sections. Depth of excision perichondrium Final defect size: 1.3 x 1.0 cm Loki Honeycutt MD PhD Mohs Micrographic Surgery and Dermatologic Oncology Department of Dermatology [address] [place] [address] Mohs micrographic Surgery Operative Report Site #2 - left medial canthus Patient name: Linda Browning : 1950 Date: 08/11/2023 Staff Surgeon and Pathologist: Loki Honeycutt MD PhD Nursing/Gas Compressor Operator(s): Amie Arias RN Tours Captain (s): Jenna Mays Pre-operative diagnosis: basal cell carcinoma, superficial and nodular Post-operative diagnosis: same Location/Site: left medial canthus Procedure: Mohs micrographic surgery Indication(s) for Mohs micrographic surgery: Anatomic location for tissue conservation Stages: 3 Preoperative size of tumor: 0.9 x 0.9 cm Final defect size: 2.5 x 2.0 cm Stage I The nature and purpose of the procedure, associated risks, possible consequences and complications,and alternative forms of treatment were explained in detail. We reviewed the possible repairs basedon the clinical appearance of tumor but discussed that often the repair options may not be known until the tumor has maritza extirpated. Informed consent and permission to take photographs were obtained. The site was confirmed with the patient/authorized apparel trimmings sales representative/referring physician and/or a photograph form time of biopsy. A pre-operative time-out (procedural pause) was conducted with no unresolved discrepancies noted. Local anesthesia was obtained with 0.5 % lidocaine with 1:200,000 epinephrine. The surgical site was prepped and draped in the usual sterile manner. A 1-2 mm margin was excised around clinically evident tumor as a complete layer. Hemostasis was achieved by electrocoagulation. The excised tissue was oriented and divided into 1 sections, chromacoded, and submitted for frozen sections. The patient tolerated the procedure well and without complications. On my personal microscopic evaluation of the frozen sections, residual tumor was identified as NODULAR BASAL CELL CARCINOMA - Arising from the epidermis and extending into the dermis are irregularly shaped islands of basaloid keratinocytes. The cells have scant cytoplasm and round dark nuclei. The cells at the periphery of the islands display a palisaded arrangement. The islands are associated with a fibromyxoid stroma and there is cleft formation between some of the islands and stroma. on section A1 (see section number on map). Stage II The surgical site was re-anesthetized with 0.5 % lidocaine with 1:200,000 epinephrine, re-prepped and redraped in a sterile manner. The residual tumor was re-excised as a complete layer 2-3mm in thickness using the Mohs map to delineate area of residual tumor. Hemostasis was achieved with electrocoa gulation. The tissue was oriented and divided into 2 sections, chromacoded, and submitted for frozen sections. The patient tolerated the procedure well and without complications. On my personal microscopic evaluation of the frozen sections, residual tumor was identified as NODULAR BASAL CELL CARCINOMA - Arising from the epidermis and extending into the dermis are irregularly shaped islands of basaloid keratinocytes. The cells have scant cytoplasm and round dark nuclei. The cells at the periphery of the islands display a palisaded arrangement. The islands are associated with a fibromyxoid stroma and there is cleft formation between some of the islands and stroma. on section(s) B1 and B2. Stage III The surgical site was re-anesthetized with 0.5 % lidocaine with 1:200,000 epinephrine, re-prepped and redraped in a sterile manner. The residual tumor was re-excised as a complete layer 2-3mm in thickness. Hemostasis was achieved with electrocoagulation. The tissue was oriented and divided into 1 sections, chromacoded, and submitted for frozen sections. The patient tolerated the procedure well and without complications. On my personal microscopic evaluation of the frozen sections, no residual tumor was identified on the deep or outer border of the sections. The final size of the defect after complete tumor removal was 2.5 x 2.0 cm, extending to subcutaneous tissue and conjunctiva. Loki Honeycutt MD PhD Mohs Micrographic Surgery and Dermatologic Oncology Department of Dermatology [address] [place] [address] Referred for Repair Following tumor clearance with the Mohs micrographic procedure as above, hemostasis was achieved with electrocoagulation, and the wounds were dressed and bandaged. The patient was transferred to the care of Tariq Holder MD in Plastic surgery, for final wound closure. Estimated blood loss: Minimal. Complications: None. Wound care: Routine. Instructed to leave current bandage on until repair/reconstruction. Over the counter acetaminophen for pain control was recommended with maximum 3000 mg in a 24 hour period. Total local anesthesia with 0.5% lidocaine with 1:200,000 epinephrine used: 17cc Total local with 0.25% bupivacaine used: 6cc Note initiated by Amie Arias, RN Amie Arias, RANJANA has performed the documentation for this encounter in the presence of and acting as a scribe for Dr. Honeycutt I performed the above scribed service and agree with the accuracy of the documentation in this encounter. Reviewed and signed by: Loki Honeycutt Dermatology [facility] documented in this encounter Plan of Treatment Upcoming Encounters Date Type Department Care Team (Late st Contact Info) Description 09/18/2024 11:30 AM EST Office Visit Dermatology at [facility] [address] [place] [address] Tata Aldridge MD [facility] [address] [place] [address] 05/09/2025 2:00 PM EDT Office Visit Dermatology at [facility] [address] [place] [address] Tata Aldridge MD [facility] [place] [address] Scheduled Referrals Name Type Priority Associated Diagnoses Orde r Schedule Referral to Dermatology Outpatient Referral Routine Basal cell carcinoma (BCC), unspecified site Ordered: 07/11/2023 documented as of this encounter Visit Diagnoses Diagnosis Basal cell carcinoma of medial canthus of left eye Basal cell carcinoma of right nasal sidewall Basal cell carcinoma of skin of other and unspecified parts of face documented in this encounter Care Teams Dining Room Attendant Relationship Specialty Start Date End Date Janett Garcia MD [address] [place] [address] PCP - General Family Medicine 08/09/23 documented as of this encounter
--- OUTSIDE RECORDS SUMMARY | 2024-08-09 10:17 | XMS_ITS | Encounter Summary ---
Author Organization [facility] [place] [address] Care Team Providers Care Space Operations Officer Name Role Phone Janett Garcia MD Primary Care Provider [phone] Encounter Details Date Type Department Care Team (Latest Contact Info) Description 08/11/2023 Travel Social History Tobacco Use Types Packs/Day [...] place to sleep or slept in a senior living (including now)? No 10/26/2022 Sex and Gender Information Value Date Recorded Sex Assigned at Not on file Gender Identity Not on file Sexual Orientation Not on file documented as of this encounter Plan of Treatment Upcoming Encounters Date Type Department Care Team (Late st Contact Info) Description 09/18/2024 11:30 AM EST Office Visit Dermatology at [facility] [address] [place] [address] Tata Aldridge MD [facility] [place] [address] 05/09/2025 2:00 PM EDT Office Visit Dermatology at [facility] [address] [place] [address] Tata Aldridge MD [facility] [place] [address] documented as of this encounter Visit Diagnoses Not on filedocumented in this encounter Care Teams Space Operations Officer Relationship Specialty Start Date End Date Janett Garcia MD [address] [place] [address] PCP - General Family Medicine 08/09/23 documented as of this encounter
--- OUTSIDE RECORDS SUMMARY | 2024-08-09 10:17 | XMS_ITS | Encounter Summary ---
Author Organization [facility] [place] [address] Care Team Providers Care Vp Global Marketing [employer] Name Role Phone Janett Garcia MD Primary Care Provider [phone] Encounter Details Date Type Department Care Team (Late st Contact Info) Description 04/17/2024 11:45 AM EDT Office Visit [place] [address] Tariq Holder MD [facility] [place] [address] Basal cell carcinoma (BCC) of skin of [...] as of this encounter Progress Notes * Tariq Holder MD - 04/17/2024 11:45 AM EDT Images from the original [...] flap Complications: None reported HPI: The patient returns to clinic for follow up. She is accompanied by her for today's visit. The patient reports significant tearing in her left eye. Examination: Patient is alert, conversant, comfortable, ambulating Excellent overall healing Able to achieve full closure of eye. Some thickening along the scar of the medial canthal region on the left eyelid after reconstruction. Impression: Linda Browning is a 74 y.o. female who was seen today for follow up after the above procedure. Please see the operative note for details. Upon physical examination, the patient is healingwell. The patient reports significant tearing of her left eye. We discussed the possibility of a left tear duct reconstruction with a dacryocystorhinostomy if necessary.. All questions were acknowledged and answered to the patient's satisfaction. After our discussion, the patient elects not to proceed with a consultation with an optical technician. Additional follow up is not required at this time, but the patient is welcome to contact the clinic with any questions or concerns. Plan: Follow up PRN Khadijah Mccann, have performed the documentation for this encounter in the presence of and actingas a scribe for TARIQ HOLDER MD. documented in this encounter Plan of Treatment Upcoming Encounters Date Type Department Care Team (Late st Contact Info) Description 09/18/2024 11:30 AM EST Office Visit Dermatology at [facility] [address] [place] [address] Tata Aldridge MD [facility] [place] [address] 05/09/2025 2:00 PM EDT Office Visit Dermatology [facility] [address] [place] [address] Tata Aldridge MD [facility] [place] [address] documented as of this encounter Visit Diagnoses Diagnosis Basal cell carcinoma (BCC) of skin of left eyelid including canthus, unspecified eyelid documented in this encounter Care Teams Vp [employer] Marketing [employer] Relationship Specialty Start Date End Date Janett Garcia MD [address] [place] [address] PCP - General Family Medicine 08/09/23 documented as of this encounter
--- OUTSIDE RECORDS SUMMARY | 2024-08-09 10:17 | XMS_ITS | Encounter Summary ---
Author Organization [facility] [place] [address] Care Team Providers Care Supervisor Aircraft Cleaning Name Role Phone Janett Garcia MD Primary Care Provider [phone] Encounter Details Date Type Department Care Team (Latest Contact Info) Description 04/26/2024 Travel Social History Tobacco Use Types Packs/Day [...] 11:30 AM EST Office Visit Dermatology at [facility] [address] [place] [address] Tata Aldridge MD [facility] [place] [address] 05/09/2025 2:00 PM EDT Office Visit Dermatology at [facility] [address] [place] [address] Tata Aldridge MD [facility] [place] [address] documented as of this encounter Visit Diagnoses Not on filedocumented in this encounter Care Teams Supervisor Aircraft Cleaning Relationship Specialty Start Date End Date Janett Garcia MD [address] [place] [address] PCP - General Family Medicine 08/09/23 documented as of this encounter
--- OUTSIDE RECORDS SUMMARY | 2024-08-09 10:17 | XMS_ITS | Encounter Summary ---
Author Organization [facility] [place] [address] Care Team Providers Care Endo Tech Name Role Phone Angelina Walker APRN Primary Care Provider [phone] Encounter Details Date Type Department Care Team (Late st Contact Info) Description 07/11/[address] [place] [address] Amie Arias, RN Social History Tobacco Use Types Packs/Day Years [...] place to sleep or slept in a chcf (including now)? No 10/26/2022 Sex and Gender Information Value Date Recorded Sex Assigned at Not on file Gender Identity Not on file Sexual Orientation Not on file documented as of this encounter Miscellaneous Notes * Telephone Encounter - Amie Arias RN - 07/11/2023 2:17 PM EST Patient reports new diagnosis of conjunctivitis of the left eye. She reports being prescribed erythromycin and mupirocin topical treatments and oral Doxycyline for 7 days. Initiated both topical and oral therapy yesterday. 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 Holder the next day. Encouraged patient to complete planned course of antibiotics, and let our office know if there is no improvement, or if symptoms worsen over this week. Will plan to proceed with Mohs surgery as planned. Dr. Dempsey notified. Amie Arias RN documented in this encounter Plan of Treatment Upcoming Encounters Date Type Department Care Team (Late st Contact Info) Description 09/18/2024 11:30 AM EST Office Visit Dermatology at [facility] [address] [place] [address] Tata Aldridge MD [facility] [place] [address] 05/09/2025 2:00 PM EDT Office Visit Dermatology at [facility] [address] [place] [address] Tata Aldridge MD [facility] [place] [address] documented as of this encounter Visit Diagnoses Not on filedocumented in this encounter Care Teams Endo Tech Relationship Specialty Start Date End Date Angelina Walker APRN [address] [place] [address] PCP - General Family Medicine 05/31/22 08/08/23 documented as of this encounter
--- OUTSIDE RECORDS SUMMARY | 2024-08-09 10:17 | XMS_ITS | Encounter Summary ---
[place] [address] Care Team Providers Care Door Repairer Bus Name Role Phone Janett Garcia MD Primary Care Provider [phone] Reason for Visit * Auth/Cert (Routine) Specialty Diagnoses / Procedures Referred By Contac t Referred To Contact Diagnoses Mohs defect Procedures PRO DELAY FLAP/SECTIONING FLAP EYELIDS/NOSE/EARS/LIPS PRO EAR CARTILAGE GRAFT TO FACE FLAP DELAY, DIVISION & INSERT, EYELIDS (WRVU 4.08) GRAFT, EAR CARTILAGE NOSE, EAR (WRVU 7.5) Tariq Holder MD [facility] [place] [address] Referral ID Status Reason Start Date Expiration Date Visits Re quested Visits Authorized [id number] 08/30/2023 1 1 Encounter Details Date Type Department Care Team (Latest Contact Info) Description 09/21/2023 6:05 AM EST - 09/21/2023 9:28 AM EST Hospital Encounter [place] [address] Tariq Holder MD [facility] [place] [address] Basal cell carcinoma (BCC) of skin of left eyelid including canthus, unspecified eyelid Discharge Disposition: Home Social History Tobacco Use Types Packs/Day Years [...] closest emergency room or call the hospital asphalt machine operator at [phone] and ask for physician innovations paraprofessional covering for your physician. Questions or problems after 5pm or on a weekend: Call the [facility] asphalt machine operator at and ask for the physician innovations paraprofessional covering for your doctor. * Patient Instructions* Chanda Cabrera MD - 09/20/2023 10:23 PM EST [...] office hours: Tuesday - Tuesday 8am-5pm call [phone]. On weekends or after hours call [phone] and ask the asphalt machine operator to page the plastic surgery resident innovations paraprofessional. CONTACT INFORMATION: During office hours: Tuesday through Tuesday 8 am to 5 pm Call [phone] On weekends or after hours: Call [phone] and ask the asphalt machine operator to page the Plastic Surgery Resident innovations paraprofessional. Future Appointments Date Time Provider Department Center 09/27/2023 2:00 PM NURSE, PLASTIC SURGERY [address] 01/11/2024 9:30 AM Tracy Johnson MD [facility] documented in this encounter Medications at Time [...] 8.6) performed by Tariq Holder MD at [facility] OSC PRO ADJ TISS TRANSFER HEAD, FAC, HAND <10SQCM 08/12/2023 ADJ.TISSUE TRANSFER, REARRANGEMENT, 10SQ.CM OR LESS, CHEEK (WRVU 8.6) performed by Tariq Holder MD at [facility] O[facility] PRO ADJ TISS TRANSFER LID, NOS, EAR <10SQCM N/A 08/12/2023 ADJ.TISSUE TRANSFER, REARRANGEMENT, 10SQ.CM OR LESS, NOSE (WRVU 9.23) performed by Tariq Holder MD at [facility] O[facility] PRO ALLOGRAFT FOR SPINE SURGERY ONLY MORSELIZED Bilateral 10/11/2017 ALLOGRAFT FOR SPINE SURGERY ONLY; MORSELIZED (WRVU *) performed by Trey Santos MD at [facility] MAIN OR PRO ARTHRODESIS POSTERIOR/PSTLAT TECHNIQUE 1 INTERSPACE LUMBAR Bilateral 10/11/2017 ARTHRODESIS, LUMBAR SPINE, SINGLE LEVEL (WRVU 23.53) performed by Trey Santos MD at [facility] INDIRA PRO AUTOGRAFT SPINE SURGERY LOCAL FROM SAME INCISION Bilateral 10/11/2017 AUTOGRAFT FOR SPINE SURGERY ONLY, SAME INCISION (WRVU *) performed by Trey Santos MD at [facility] MAIN OR PRO FORM SKIN PEDICLE FLAP LID, EAR, NOSE 08/12/2023 FLAP, PEDICLE,W OR W/O TRANSFER, EYELIDS (WRVU 9.37) performed by Tariq Holder MD at [facility] PRO INSERT BIOMCHN DEV INTERVERTEBRAL DSC SPC W/ARTHRD Bilateral 10/11/2017 INSERTION INTERBODY BIOMECH DEV TO INTERVEBRAL DISC SPACE, EA INTERSPACE (WRVU 4.25) performed by Trey Santos MD at [facility] MAIN OR PRO LUMBAR SPINE FUSION, ANTER APPRCH Bilateral 10/11/2017 @ANT. LUMBAR FUSION INCLUD. MIN. DISKECTOMY (WRVU 23.53) performed by Trey Santos MD at [facility] MAIN OR PRO POSTERIOR NON-SEGMENTAL INSTRUMENTATION Bilateral 10/11/2017 POSTERIOR SPINAL NON-SEGMENTAL INST.(ONE SPACE) (WRVU 12.52) performed by Trey Santos MD at [facility] MAIN OR PRO REVISE CONJUNC,FIX CUL-DE-SAC+GRFT Left 08/12/2023 CONJUNCTIVOPLASTY, RECONSTRUCTION CUL-DE-SAC, W/ GRAFT OR EXTENSIVE REARRANGEMENT (WRVU 8.42) performed by Tariq Holder MD at [facility] O[facility] PRO THORAX SPINE FUSION, ANTER APPRCH N/A 10/11/2017 @ANTERIOR APPROACH, FOR THROACIC (VASC) (WRVU 24.7) performed by Chico Granados MD at [facility] INDIRA Family History Problem Relation Age of [...] Chanda Cabrera MD Plastic Surgery Resident P# [phone] documented in this encounter Miscellaneous Notes * Brief Op Note - Tariq Holder MD - 09/21/2023 8:31 AM EST Brief Operative Note Patient Name: Linda Browning : [id number] MR#: [id number] Case Date: 09/21/2023 Surgeon: Surgeon(s) and Role: [...] Center 09/27/2023 2:00 PM NURSE, PLASTIC SURGERY [address] 01/11/2024 9:30 AM Tracy Johnson MD [facility] * Op Note - Tariq Holder MD - 09/21/2023 7:54 AM EST [facility] [place] Patient Name: Linda Browning : [id number] MR#: [id number] Case Date: 09/21/2023 Surgeon: Surgeon(s) and Role: [...] AM EST Office Visit Dermatology at [facility] [address] [place] [address] Tata Aldridge MD [facility] [place] [address] 05/09/2025 2:00 PM EDT Office Visit Dermatology at [facility] [address] [place] [address] Tata Aldridge MD [facility] [place] [address] documented as of this encounter Procedures Procedure Name Priority Date/Time Associated Diagnosis Comments Ear Cartilage Graft To Face (45234) 09/21/2023 7:26 AM EST Basal cell carcinoma (BCC) of skin of left eyelid including canthus, unspecified eyelid Delay Flap/Sectioning Flap Eyelids/Nose/Ears/Lips (05246) 09/21/2023 7:26 AM EST Basal cell carcinoma [...] MAR Action Action Date Dose Rate Site lactated ringers infusion 1,000 mL, at [...] Day of Surgery (Day of Procedure), Routine sodium chloride 0.9 % (flush) (BD PosiFlush Normal Saline 0.9) flush 5-20 mL 5-20 mL, Intravenous, EVERY 1 MIN PRN, Starting on Tue09/21/23 at 0612, Until Tue09/21/23 at 1807, flush, Flush pertains to all indwelling lines. Flush per protocol found in the job aid using the link provided on this medication record., Day of Surgery (Day of Procedure), Routine traMADoL (Ultram) tablet 50 mg 50 mg, [...] 0805, Until Tue09/21/23 at 1807, Intra-Operative (Intra-Procedure) 08 (Given - Provid er: Tariq Holder MD - Comment: dispensed to sterile field) balanced salt (BSS) irrigation solution (CANCELED) PRN, Starting on Tue09/21/23 at 0803, Until Tue09/21/23 at 1807, Intra-Operative (Intra-Procedure), Routine 08 (Given - Provid er: Tariq Holder MD) [...] Until Tue09/21/23 at 1807, Intra-Operative (Intra-Procedure), Routine 08 (Given - Provid er: Tariq Holder MD) [...] Until Tue09/21/23 at 1807, Intra-Operative (Intra-Procedure), Routine 0804 (Given - Provid er: Tariq Holder MD) traMADoL (Ultram) tablet 50 mg 50 mg, Oral, EVERY 6 HOURS PRN, Starting on Tue09/21/23 at 0612, Until Tue09/21/23 at 1807, Pain, Routine documented in this encounter Care Teams Door Repairer Bus Relationship Specialty Start Date End Date Janett Garcia MD [address] [place] [address] PCP - General Family Medicine 08/09/23 documented as of this encounter
--- OUTSIDE RECORDS SUMMARY | 2024-08-09 10:17 | XMS_ITS | Encounter Summary ---
Author Organization [facility] [place] [address] Care Team Providers Care Logistics Vice President Name Role Phone Janett Garcia MD Primary Care Provider [phone] Encounter Details Date Type Department Care Team (Latest Contact Info) Description 08/30/2023 Travel Social History Tobacco Use Types Packs/Day [...] 11:30 AM EST Office Visit Dermatology at [facility] [address] [place] [address] Tata Aldridge MD [facility] [place] [address] 05/09/2025 2:00 PM EDT Office Visit Dermatology at [facility] [address] [place] [address] Tata Aldridge MD [facility] [place] [address] documented as of this encounter Visit Diagnoses Not on filedocumented in this encounter Care Teams Logistics Vice President Relationship Specialty Start Date End Date Janett Garcia MD [address] [place] [address] PCP - General Family Medicine 08/09/23 documented as of this encounter
--- OUTSIDE RECORDS SUMMARY | 2024-08-09 10:17 | XMS_ITS | Encounter Summary ---
Author Organization [place] [address] Care Team Providers Care Automobile Body Worker Name Role Phone Janett Garcia MD Primary Care Provider [phone] Encounter Details Date Type Department Care Team (Late st Contact Info) Description 12/09/2023 11:00 AM EDT Office Visit Neurology at [facility] [address] [place] [address] Tracy Johnson MD [facility] [place] [address] Muscle spasticity Social History Tobacco Use Types Packs/Day Years [...] place to sleep or slept in a alf (including now)? No 10/26/2022 DH IPV Inpatient [...] Pulse 67 12/09/2023 10:47 AM EDT Temperature - - Respiratory Rate - - Oxygen Saturation - - Inhaled Oxygen Concentration - - Weight 57.2 kg (126 lb) 12/09/2023 10:47 AM EDT Height 160 cm (5' 3) 12/09/2023 10:47 AM EDT re ported Body Mass Index 22.32 12/09/2023 10:47 AM EDT documented in this encounter Progress Notes * Tracy Johnson MD - 12/09/2023 11:00 AM EDT Images from the original note were not included. [facility] Movement Disorders Follow Up Patient Evaluation Date of service 12/09/2023 Referring provider No referring provider defined for this encounter. Cc: tremors History of present illness Linda Browning is a 73 y.o. right handed woman who presents to the movement disorders clinic for evaluation of tremors. She started noting aching back pain in Fall of 2015, initially though she just over did it in the garden. She went through physical therapy and it was during one of her early PT sessions that she first noted tremors. She has noted tremors in her abdoninal muscles while sitting. She has also noted tremors in her legs that occur while standing and relieved by walking or slouching. She is able to avoid falls and does not feel a sense of impending fall. No changes with caffeine but does not drink much caffeine. She does not drink any alcohol. No tremor issues in the family. No tremors when sleeping. She does have a tightness and pulling sensation in her paraspinal muscles which she feels is a co ntributing factor. She has not had sciatic type symptoms and no leg pain. There were no medication changes at the time the tremor started. Gabapentin has not been helpful. She also tried flexeril fora short time. She had a spine surgery 10/16. This was lumbar discectomy and fusion. Her standing is better since having this but still has walking issues. She shares a video of her walking pre and post surgery. Herwalking appears about the same but posture improves. She has known uneven leg lengths and wears a lift now on the right. Much of her life she did not wear the lift. In the meantime since 2018 she has been evaluated in [place] with the impression that she has decompensated scoliosis and would not recommend surgery because it would be too extensive. She did go back on gabapentin for a while and tolerated it ok but did not see significant relief. She was also tried on carbidopa/levodopa but had GI issues on higher doses than one TID. This is definitely helping a little and she gives it about a 5/10 for benefit. People have noted that she seems to stand up right more. She uses crutches at times. Long distances she uses a transport chair. In the home she scoots around on an office chair. She still gets a sense that she gets pulled back. 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 She shares videos showing her posture improve in the days following botox but it does gleason off early. She has a crouching gait and abnormal knee posture. Tends to worsen as she walks further. She stillhas pain in the back. She does see a chiropractor regularly. She has increase CL to 2 tabs TID and this made her feel sleepy. It is now at 1 tab BID. She has not noted much difference on the different doses. This was started for standing leg tremors. She has noted driving that her legs may check. Current Outpatient Medications: carbidopa-levodopa (Sinemet) 25-100 mg Tablet, Take 1 tablet by mouth 2 times daily., Disp: , Rfl: UNABLE TO FIND, Airborne two tablets twice a day, Disp: , Rfl: magnesium 250 mg Tablet, Take by mouth every other day., Disp: , Rfl: multivitamin (THERAGRAN) Tablet, Take 1 tablet by mouth daily., Disp: , Rfl: acetaminophen (TYLENOL) 500 mg Tablet, Take 1,000 mg by mouth 2 times daily., Disp: , Rfl: albuterol (PROVENTIL HFA;VENTOLIN HFA) 90 mcg/Actuation inhaler, Inhale into the lungs as needed., Disp: , Rfl: baclofen (Lioresal) 10 mg tablet, Take 1 tablet by mouth 2 times daily. Take morning and mid afternoon., Disp: 60 tablet, Rfl: 11 Past Medical History: Diagnosis Date Lumbar degenerative disc disease Radiculopathy of lumbosacral region Spondylolisthesis at L5-S1 level Past Surgical History: Procedure Laterality Date PRO ADJ TISS TRANSFER HEAD, FAC, HAND <10SQCM Midline 08/12/2023 ADJ.TISSUE TRANSFER, REARRANGEMENT, 10SQ.CM OR LESS, FOREHEAD (WRVU 8.6) performed by Tariq Holder MD at [facility] OSC PRO ADJ TISS TRANSFER HEAD, FAC, HAND <10SQCM 08/12/2023 ADJ.TISSUE TRANSFER, REARRANGEMENT, 10SQ.CM OR LESS, CHEEK (WRVU 8.6) performed by Tariq Holder MD at [facility] PRO ADJ TISS TRANSFER LID, NOS, EAR <10SQCM N/A 08/12/2023 ADJ.TISSUE TRANSFER, REARRANGEMENT, 10SQ.CM OR LESS, NOSE (WRVU 9.23) performed by Tariq Holder MD at [facility] PRO ALLOGRAFT FOR SPINE SURGERY ONLY MORSELIZED Bilateral 10/11/2017 ALLOGRAFT FOR SPINE SURGERY ONLY; MORSELIZED (WRVU *) performed by Trey Santos MD at [facility] ARTHRODESIS POSTERIOR/PSTLAT TECHNIQUE 1 INTERSPACE LUMBAR Bilateral 10/11/2017 ARTHRODESIS, LUMBAR SPINE, SINGLE LEVEL (WRVU 23.53) performed by Trey [facility] AUTOGRAFT SPINE SURGERY LOCAL FROM SAME INCISION Bilateral 10/11/2017 AUTOGRAFT FOR SPINE SURGERY ONLY, SAME INCISION (WRVU *) performed by Trey Santos MD at [facility] MAIN OR PRO DELAY FLAP/SECTIONING FLAP EYELIDS/NOSE/EARS/LIPS Left 09/21/2023 FLAP DELAY, DIVISION & INSERT, EYELIDS (WRVU 4.08) performed by Tariq Holder MD at [facility] PRO EAR CARTILAGE GRAFT TO FACE Left 09/21/2023 GRAFT, EAR CARTILAGE NOSE, EAR (WRVU 7.5) performed by Tariq Holder MD at [facility] PRO FORM SKIN PEDICLE FLAP LID, EAR, NOSE 08/12/2023 FLAP, PEDICLE,W OR W/O TRANSFER, EYELIDS (WRVU 9.37) performed by Tariq Holder MD at [facility] PRO INSERT BIOMCHN DEV INTERVERTEBRAL DSC SPC W/ARTHRD Bilateral 10/11/2017 INSERTION INTERBODY BIOMECH DEV TO INTERVEBRAL DISC SPACE, EA INTERSPACE (WRVU 4.25) performed by Trey Santos MD at [facility] MAIN OR PRO LUMBAR SPINE FUSION, ANTER APPRCH Bilateral 10/11/2017 @ANT. LUMBAR FUSION INCLUD. MIN. DISKECTOMY (WRVU 23.53) performed by Trey Santos MD at [facility] MAIN OR PRO POSTERIOR NON-SEGMENTAL INSTRUMENTATION Bilateral 10/11/2017 POSTERIOR SPINAL NON-SEGMENTAL INST.(ONE SPACE) (WRVU 12.52) performed by Trey Santos MD at [facility] MAIN OR PRO REVISE CONJUNC,FIX CUL-DE-SAC+GRFT Left 08/12/2023 CONJUNCTIVOPLASTY, RECONSTRUCTION CUL-DE-SAC, W/ GRAFT OR EXTENSIVE REARRANGEMENT (WRVU 8.42) performed by Tariq Holder MD at [facility] OSC PRO THORAX SPINE FUSION, ANTER APPRCH N/A 10/11/2017 @ANTERIOR APPROACH, FOR THROACIC (VASC) (WRVU 24.7) performed by Chico Granados MD at [facility] INDIRA Social History: , two kids, non smoker, rare alcohol Review of Systems - All others negative except as per HPI Physical Exam Patient Vitals for the past 24 hrs: Pulse BP 12/09/23 1047 67 107/59 Voice/language: no vocal tremor or dysarthria. Normal fluency and comprehension Neck: full ROM Extremities: full ROM and no visible deformities Mental status: oriented to place, self, date and reason for visit Cranial Nerves: III, IV, : EOMI, normal saccades and pursuit Reflexes: 1/4 symmetrical throughout Coordination: Finger to nose: normal No limb ataxia Gait: Pushes off to stand, stooped posture, visible trunk and leg tremors on standing, tremors do dissipate with walking, she can initially stand up straighter and as she walks she philomena and crouching worsens Additional movement disorder specific findings: No tremors in the upper extremities She has a truncal jerky irregular tremor which worsens with sitting up straight or standing She has a fairly regular tremor on standing in the legs which is of moderate amplitude No bradykinesia Normal tone Tremor measured with liftpulse juan attached above right patella Review of available labs and imaging: MRI of spine reviewed in stored imaging. Notes from [facility] reviewed. Assessment: ICD-10-CM 1. 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 The worsening on standing is suspicious of orthostatic tremor but the frequency is too low and amplitude too high for that diagnosis. It seems the leg training is more like a clonus and due to muscle spasticity coming from the back. She has been told that additional spinal surgery would be too extensive. She has previously had lumbar spine fusion. She has failed baclofen and gabapentin. In discussion today realizing she did not give the baclofen much of a try so we will try again. Plan: - trial of baclofen 10mg BID - if not helpful we may try robaxin or [place] back to botox - ok to stop the carbidopa/levodopa She has also seen Dr. Robert MD [facility] Neurology-Movement Disorders documented in this encounter Plan of Treatment Upcoming Encounters Date Type Department Care Team (Late st Contact Info) Description 09/18/2024 11:30 AM EST Office Visit Dermatology at [facility] [address] [place] [address] Tata Aldridge MD [facility] [place] [address] 05/09/2025 2:00 PM EDT Office Visit Dermatology at [facility] [address] [place] [address] Tata Aldridge MD [facility] [place] [place] [address] documented as of this encounter Visit Diagnoses Diagnosis Muscle spasticity Spasm of muscle documented in this encounter Care Teams Automobile Body Worker Relationship Specialty Start Date End Date Janett Garcia MD [address] [place] [address] PCP - General Family Medicine 08/09/23 documented as of this encounter
--- OUTSIDE RECORDS SUMMARY | 2024-08-09 10:17 | XMS_ITS | Encounter Summary ---
Author Organization [facility] [place] [address] Care Team Providers Care Tool Mechanic Name Role Phone Janett Garcia MD Primary Care Provider [phone] Encounter Details Date Type Department Care Team (Latest Contact Info) Description 09/20/2023 Travel Social History Tobacco Use Types Packs/Day [...] 11:30 AM EST Office Visit Dermatology at [facility] [address] [place] [address] Tata Aldridge MD [facility] [place] [address] 05/09/2025 2:00 PM EDT Office Visit Dermatology at [facility] [address] [place] [address] Tata Aldridge MD [facility] [place] [address] documented as of this encounter Visit Diagnoses Not on filedocumented in this encounter Care Teams Tool Mechanic Relationship Specialty Start Date End Date Janett Garcia MD [address] [place] [address] PCP - General Family Medicine 08/09/23 documented as of this encounter
--- OUTSIDE RECORDS SUMMARY | 2024-08-09 10:17 | XMS_ITS | Encounter Summary ---
Author Organization [facility] [place] [address] Care Team Providers Care Health Information Management Director Name Role Phone Janett Garcia MD Primary Care Provider [phone] Reason for Visit * Reason Comments Follow Up Surgery S/p Mohs reconstruct ion of left lower eye-lid with local tissue rearrangement/local flap 08/12/2023 Encounter Details Date Type Department Care Team (Late st Contact Info) Description 08/30/2023 11:20 AM EST Office [place] [address] Jyotsna Solomon APRN [facility] [place] [address] Basal cell carcinoma (BCC) of skin of [...] in a alf (including now)? No 10/26/2022 Sex and Gender Information Value Date Recorded Sex Assigned at Not on file Gender Identity Not on file Sexual Orientation Not on file documented as of this encounter Progress Notes * Jyotsna Solomon APRN - 08/30/2023 11:20 AM EST Plastic Surgery Follow Up Note Provider: Jyotsna Solomon APRN Reason for visit: F/U status post procedure; suture removal Date of surgery: 08/12/2023 Procedure(s): Mohs reconstruction of left lower eye-lid with local tissue rearrangement/local flap (Holder) Complications: None reported HPI: Patient reports being well. She notes some more drainage from her left eye. Examination: Patient is alert, conversant, comfortable, ambulating Flap well perfused. Incisions: CDI, healing well - sutures removed today. No collection, no erythema, no evidence of cellulitis Able to achieve full closure of eye. Impression: Linda Browning is a 73 y.o. female who was seen today for follow up after the above procedure. Please see the operative note for details. Dr. Holder in to examine patient. They discussed the next stage of reconstruction. Plan: OR in 3-4 weeks for flap division and possible cartilage graft. Surgical Grid: Surgeon: Gallo Duration: 90 minutes Timeframe: 3-4 weeks Coordinated with: none Procedure: flap division, possible cartilage graft CPT: 57551, 58288 Surgical site: lower eyelid Side: left Anesthesia: General Follow up: 5-7days NSO when JS in clinic THHF: N PAT: H&P DOS documented in this encounter Plan of Treatment Upcoming Encounters Date Type Department Care Team (Late st Contact Info) Description 09/18/2024 11:30 AM EST Office Visit Dermatology at [facility] [address] [place] [address] Tata Aldridge MD [facility] [place] [address] 05/09/2025 2:00 PM EDT Office Visit Dermatology [facility] [address] [place] [address] Tata Aldridge MD [facility] [place] [address] documented as of this encounter Visit Diagnoses Diagnosis Basal cell carcinoma (BCC) of skin of left eyelid including canthus, unspecified eyelid documented in this encounter Care Teams Health Information Management Director Relationship Specialty Start Date End Date Janett Garcia MD [address] [place] [address] PCP - General Family Medicine 08/09/23 documented as of this encounter
--- OUTSIDE RECORDS SUMMARY | 2024-08-09 10:17 | XMS_ITS | Encounter Summary ---
Author Organization [facility] [place] [address] Care Team Providers Care Hand Potter Name Role Phone Janett Garcia MD Primary Care Provider [phone] Encounter Details Date Type Department Care Team (Latest Contact Info) Description 03/08/2024 Travel Social History Tobacco Use Types Packs/Day [...] place to sleep or slept in a residential (including now)? No 10/26/2022 DH IPV Inpatient [...] 11:30 AM EST Office Visit Dermatology at [facility] [address] [place] [address] Tata Aldridge MD [facility] [place] [address] 05/09/2025 2:00 PM EDT Office Visit Dermatology at [facility] [address] [place] [address] Tata Aldridge MD [facility] [place] [address] documented as of this encounter Visit Diagnoses Not on filedocumented in this encounter Care Teams Hand Potter Relationship Specialty Start Date End Date Janett Garcia MD [address] [place] [address] PCP - General Family Medicine 08/09/23 documented as of this encounter
--- OUTSIDE RECORDS SUMMARY | 2024-08-09 10:17 | XMS_ITS | Encounter Summary ---
Author Organization [facility] [place] [address] Care Team Providers Care Furnace Tender Name Role Phone Angelina Walker APRN Primary Care Provider [phone] Encounter Details Date Type Department Care Team (Latest Contact Info) Description 08/04/2023 Travel Social History Tobacco Use Types Packs/Day [...] place to sleep or slept in a nursing home (including now)? No 10/26/2022 Sex and Gender Information Value Date Recorded Sex Assigned at Not on file Gender Identity Not on file Sexual Orientation Not on file documented as of this encounter Plan of Treatment Upcoming Encounters Date Type Department Care Team (Late st Contact Info) Description 09/18/2024 11:30 AM EST Office Visit Dermatology at [facility] [address] [place] [address] Tata Aldridge MD [facility] [place] [address] 05/09/2025 2:00 PM EDT Office Visit Dermatology at [facility] [address] [place] [address] Tata Aldridge MD [facility] [place] [address] documented as of this encounter Visit Diagnoses Not on filedocumented in this encounter Care Teams Furnace Tender Relationship Specialty Start Date End Date Angelina Walker APRN [address] [place] [address] PCP - General Family Medicine 05/31/22 08/08/23 documented as of this encounter
--- OUTSIDE RECORDS SUMMARY | 2024-08-09 10:17 | XMS_ITS | Encounter Summary ---
Author Organization [facility] [place] [address] Care Team Providers Care Forge Operator Helper Name Role Phone Angelina Walker APRN Primary Care Provider [phone] Encounter Details Date Type Department Care Team (Latest Contact Info) Description 07/12/2023 Travel Social History Tobacco Use Types Packs/Day [...] in a penitentiary (including now)? No 10/26/2022 Sex and Gender Information Value Date Recorded Sex Assigned at Not on file Gender Identity Not on file Sexual Orientation Not on file documented as of this encounter Plan of Treatment Upcoming Encounters Date Type Department Care Team (Late st Contact Info) Description 09/18/2024 11:30 AM EST Office Visit Dermatology at [facility] [address] [place] [address] Tata Aldridge MD [facility] [place] [address] 05/09/2025 2:00 PM EDT Office Visit Dermatology at [facility] [address] [place] [address] Tata Aldridge MD [facility] [place] [address] documented as of this encounter Visit Diagnoses Not on filedocumented in this encounter Care Teams Forge Operator Helper Relationship Specialty Start Date End Date Angelina Walker APRN [address] [place] [address] PCP - General Family Medicine 05/31/22 08/08/23 documented as of this encounter
--- OUTSIDE RECORDS SUMMARY | 2024-08-09 10:17 | XMS_ITS | Encounter Summary ---
Author Organization [facility] Address [facility] [place] [address] Care Team Providers Care Project Lead Name Role Phone Janett Garcia MD Primary Care Provider [phone] Encounter Details Date Type Department Care Team (Late st Contact Info) Description 04/26/2024 11:30 AM EDT Office Visit Dermatology at [address] [place] [address] Tata Aldridge MD [facility] [place] [address] Basal cell carcinoma (BCC) of skin of other part of torso; Basal cell carcinoma of neck; Lichen simplex chronicus Social History Tobacco Use [...] Progress Notes * Tata Aldridge MD - 04/26/2024 11:30 AM EDT Images from the original note [...] BCC, left medial canthus, s/p Mohs 08/11/23 03/08/24: BCC, right lower back, s/p ED&C 04/26/24 03/08/24: BCC, Posterior neck, s/p ED&C 04/26/[address] UV Exposure & Protection N Family History Details Melanoma N NMSC Brother Other relevant family history N Social History Occupation: Hobbies: Other: Pre-Procedure Screening Details Allergy to lidocaine, epinephrine, Dermabond, chlorhexidine, or adhesives N Bleeding disorder or blood thinners N Pacemaker, defibrillator, deep brain stimulator, cochlear implant N History of Present Illness: Linda Browning is a 74 y.o. Patient returns to clinic today for a spot recheck and ED&C. Patient reports that the spot on her ankle is healing nicely. No questions or concerns about ED&C procedure. Last visit at Dermatology: 03/08/2024 Last visit with this provider: 03/08/2024 Medications: Reviewed in eD-H Allergies: Reviewed in eD-H Skin Examination: Focused skin examination of the left ankle and back was normal with the exception of the findings below. Assessment/Plan #. Biopsy-Proven BCC - healing biopsy site on the right lower back. - Reviewed pathology and ED&C procedure with patient. Shirley decision to proceed with ED&C today. - Patient denies allergies to lidocaine and epinephrine. - Patient denies having a pacemaker or defibrillator. Procedure: Destruction of lesion by electrodesiccation and curettage (ED&C) Location: As noted above. Discussed indications and expectations including risks and benefits. Verbal consent obtained. Skin prepped with alcohol. Local anesthesia with 1% xylocaine, 1/100,000 epinephrine. The entire lesion plus a small margin was treated. Post- curettage defect size: 2.3 cm. There were no complications; patient tolerated the procedure well. Wound dressed. Expectations (including discomfort management) andwound care reviewed. #. Biopsy-Proven BCC - healing biopsy site on the Posterior neck. - Reviewed pathology and ED&C procedure with patient. Shirley decision to proceed with ED&C today. - Patient denies allergies to lidocaine and epinephrine. - Patient denies having a pacemaker or defibrillator. Procedure: Destruction of lesion by electrodesiccation and curettage (ED&C) Location: As noted above. Discussed indications and expectations including risks and benefits. Verbal consent obtained. Skin prepped with alcohol. Local anesthesia with 1% xylocaine, 1/100,000 epinephrine. The entire lesion plus a small margin was treated. Post- curettage defect size: 1.3 cm. There were no complications; patient tolerated the procedure well. Wound dressed. Expectations (including discomfort management) andwound care reviewed. #. Lichen Simplex Chronicus vs NMSC, improved - 2 cm heme-crusted slightly lichenified plaque healing on the left medial ankle (figure 1) - s/p ILK 10mg/ml, total 0.3mL on 03/08/24. Improved from prior visit after ILK. Discussed that thiscould be scar tissue after a chronic wound but we have not definitively ruled out BCC. - Will continue to monitor and recheck in May Figure 1 Photo(s) taken and charted with patient's verbal consent. Other: N/A RTC: 2-3 months for spot recheck on left ankle // sooner as needed [x]Note routed to inventory taker []Recall placed in scheduling system []Appointment scheduled at checkout Scribe attestation: ALLYN Lang has performed the documentation for this encounter in the presence of and acting as a scribe for Tata Aldridge MD. I performed the above scribed service and agree with the accuracy of the documentation in this encounter. Reviewed and signed by: Tata Aldridge MD Dermatology [facility] documented in this encounter Plan of Treatment Upcoming Encounters Date Type Department Care Team (Late st Contact Info) Description 09/18/2024 11:30 AM EST Office Visit Dermatology at [facility] [address] [place] [address] Tata Aldridge MD [facility] [place] [address] 05/09/2025 2:00 PM EDT Office Visit Dermatology at [address] [place] [address] Tata Aldridge MD [facility] [place] [address] documented as of this encounter Visit Diagnoses Diagnosis Basal cell carcinoma (BCC) of skin of other part of torso Basal cell carcinoma of neck Basal cell carcinoma of scalp and skin of neck Lichen simplex chronicus Lichenification and lichen simplex chronicus documented in this encounter Care Teams Project Lead Relationship Specialty Start Date End Date Janett Garcia MD [address] [place] [address] PCP - General Family Medicine 08/09/23 documented as of this encounter
--- OUTSIDE RECORDS SUMMARY | 2024-08-09 10:17 | XMS_ITS | Encounter Summary ---
Author Organization [facility] Address [facility] [place] [address] Care Team Providers Care Agricultural Chemicals Inspector Name Role Phone Janett Garcia MD Primary Care Provider [phone] Reason for Visit * Auth/Cert (Routine) Specialty [...] PRESERVATION OF VASCULAR PEDICLE Tariq Holder MD [facility] [place] [address] Referral ID Status Reason Start Date Expiration Date Visits Re quested Visits Authorized [id number] 07/12/2023 1 1 Encounter Details Date Type Department Care Team (Latest Contact Info) Description 08/12/2023 10:15 AM EST - 08/12/2023 2:54 PM EST Hospital Encounter [place] [address] Tariq Holder MD [facility] [place] [address] Basal cell carcinoma (BCC), unspecified site Discharge Disposition: Home Social History Tobacco Use [...] place to sleep or slept in a correction (including now)? No 10/26/2022 Sex and Gender Information Value Date Recorded Sex Assigned at Not on file Gender Identity Not on file Sexual Orientation Not on file documented as of this encounter Last Filed Vital Signs Vital Sign Reading Time Taken Comments Blood Pressure 138/80 08/12/2023 2:30 PM EST Pulse 64 08/12/2023 2:30 PM EST Temperature 36 ??C (96.8 ??F) 08/12/2023 1:47 PM EST Respiratory Rate 16 08/12/2023 2:30 PM EST Oxygen Saturation 96% 08/12/2023 2:30 PM EST Inhaled Oxygen Concentration - - Weight [...] closest emergency room or call the hospital scrap drop operator at [phone] and ask for physician verification manager covering for your physician. Questions or problems after 5pm or on a weekend: Call the [facility] scrap drop operator at and ask for the physician verification manager covering for your doctor. At 10:30 you [...] about scheduling, please contact our administrative officesat [phone] For clinical questions, please call our nurses at [phone] Both offices are open Tuesday thru Tuesday 8a - 5p. With emergencies after hours, call the hospital scrap drop operator at [phone] and ask for the Plastic Surgery Resident verification manager. Future Appointments Date Time Provider Department Center 08/17/2023 10:40 AM Jyotsna Solomon APRN [facility] PLAS 4M [facility] 01/11/2024 9:30 AM Tracy Johnson MD [facility] documented in this encounter Medications at Time [...] Agatha Rivera MD/S Plastic Surgery Resident, Pager: [phone] Plastic Surgery Team Pager: [phone] documented in this encounter Miscellaneous Notes * Brief Op Note - Tj Egan MD - 08/12/2023 1:36 PM EST Brief Operative Note Patient Name: Linda Browning : [id number] MR#: [id number] Case Date: 08/12/2023 Surgeon: Surgeon(s) and Role: [...] Center 08/17/2023 10:40 AM Jyotsna Solomon APRN [facility] 01/11/2024 9:30 AM Tracy Johnson MD [facility] Tj Egan, PGY-3 Plastic & Reconstructive Surgery Pager: [phone] * Op Note - Tariq Holder MD - 08/12/2023 12:40 PM EST [facility] Operative Note Patient Name: Linda Browning : [id number] MR#: [id number] Case Date: 08/12/2023 Surgeon: Surgeon(s) and Role: [...] 11:30 AM EST Office Visit Dermatology at [facility] [address] [place] [address] Tata Aldridge MD [facility] [place] [address] 05/09/2025 2:00 PM EDT Office Visit Dermatology at [address] [place] [address] Tata Aldridge MD [facility] [place] [address] documented as of this encounter Procedures Procedure [...] (BCC), unspecified site Revise Conjunc, Fix [place]+Grft ([id number]) Yes 08/12/2023 12:12 PM EST Basal cell carcinoma (BCC), unspecified site Adj Tiss Transfer Head, Fac, Hand <10Sqcm ([id number]) Yes 08/12/2023 12:12 PM EST Basal cell carcinoma (BCC), unspecified site Form Skin Pedicle Flap Lid, Ear, Nose ([id number]) Yes 08/12/2023 12:12 PM EST Basal cell carcinoma (BCC), unspecified site Adj Tiss Transfer Head, Fac, Hand <10Sqcm ([id number]) Yes 08/12/2023 12:12 PM EST Basal cell carcinoma (BCC), unspecified site Adj Tiss Transfer Lid, Nos, Ear <10Sqcm ([id number]) Yes 08/12/2023 12:12 PM EST Basal cell carcinoma (BCC), unspecified site ADJ.TISSUE TRANSFER, REARRANGEMENT, 10SQ.CM OR LESS, NOSE Routine 08/12/2023 10:21 AM EST Basal cell carcinoma (BCC), unspecified site ADJ.TISSUE TRANSFER, REARRANGEMENT, 10SQ.CM OR LESS, FOREHEAD Routine 08/12/2023 10:21 AM EST Basal cell carcinoma (BCC), unspecified site documented in this encounter Visit Diagnoses Diagnosis Basal cell carcinoma (BCC), unspecified site documented [...] Given 08/12/2023 10:37 AM EST 975 mg documented in this encounter Active and Recently [...] MD) documented in this encounter Care Teams Agricultural Chemicals Inspector Relationship Specialty Start Date End Date Janett Garcia MD [address] [place] [address] PCP - General Family Medicine 08/09/23 documented as of this encounter
--- OUTSIDE RECORDS SUMMARY | 2024-08-09 10:17 | XMS_ITS | Encounter Summary ---
Author Organization [facility] [place] [address] Care Team Providers Care Mergers And Acquisitions Banker Name Role Phone Janett Garcia MD Primary Care Provider [phone] Encounter Details Date Type Department Care Team (Latest Contact Info) Description 12/13/2023 Travel Social History Tobacco Use Types Packs/Day [...] place to sleep or slept in a snf (including now)? No 10/26/2022 DH IPV Inpatient [...] 11:30 AM EST Office Visit Dermatology at [facility] [address] [place] [address] Tata Aldridge MD [facility] [place] [address] 05/09/2025 2:00 PM EDT Office Visit Dermatology at [facility] [address] [place] [address] Tata Aldridge MD [facility] [place] [address] documented as of this encounter Visit Diagnoses Not on filedocumented in this encounter Care Teams Mergers And Acquisitions Banker Relationship Specialty Start Date End Date Janett Garcia MD [address] [place] [address] PCP - General Family Medicine 08/09/23 documented as of this encounter
--- OUTSIDE RECORDS SUMMARY | 2024-08-09 10:17 | XMS_ITS | Encounter Summary ---
Author Organization [facility] [address] Care Team Providers Care Interactive Media Marketing Strategist Name Role Phone Janett Garcia MD Primary Care Provider [phone] Encounter Details Date Type Department Care Team (Latest Contact Info) Description 08/25/2023 Travel Social History Tobacco Use Types Packs/Day [...] to sleep or slept in a senior care (including now)? No 10/26/2022 Sex and Gender Information Value Date Recorded Sex Assigned at Not on file Gender Identity Not on file Sexual Orientation Not on file documented as of this encounter Plan of Treatment Upcoming Encounters Date Type Department Care Team (Late st Contact Info) Description 09/18/2024 11:30 AM EST Office Visit Dermatology at [facility] [address] [place] [address] Tata Aldridge MD [facility] [address] 05/09/2025 2:00 PM EDT Office Visit Dermatology at [facility] [address] [place] [address] Tata Aldridge MD [facility] [place] [address] documented as of this encounter Visit Diagnoses Not on filedocumented in this encounter Care Teams Interactive Media Marketing Strategist Relationship Specialty Start Date End Date Janett Garcia MD [address] [place] [address] PCP - General Family Medicine 08/09/23 documented as of this encounter
--- OUTSIDE RECORDS SUMMARY | 2024-08-09 10:18 | XMS_ITS | Encounter Summary ---
Author Organization [facility] [place] [address] Care Team Providers Care Airborne Missions Systems Name Role Phone Angelina Walker APRN Primary Care Provider [phone] Encounter Details Date Type Department Care Team (Latest Contact Info) Description 02/25/2023 Travel Social History Tobacco Use Types Packs/Day [...] in a assisted (including now)? No 10/26/2022 Sex and Gender Information Value Date Recorded Sex Assigned at Not on file Gender Identity Not on file Sexual Orientation Not on file documented as of this encounter Plan of Treatment Upcoming Encounters Date Type Department Care Team (Late st Contact Info) Description 09/18/2024 11:30 AM EST Office Visit Dermatology at [facility] [address] [place] [address] Tata Aldridge MD [facility] [place] [address] 05/09/2025 2:00 PM EDT Office Visit Dermatology at [facility] [address] [place] [address] Tata Aldridge MD [facility] [place] [address] documented as of this encounter Visit Diagnoses Not on filedocumented in this encounter Care Teams Airborne Missions Systems Relationship Specialty Start Date End Date Angelina Walker APRN [address] [place] [address] PCP - General Family Medicine 05/31/22 08/08/23 documented as of this encounter
--- OUTSIDE RECORDS SUMMARY | 2024-08-09 10:18 | XMS_ITS | Encounter Summary ---
Author Organization [facility] [place] [address] Care Team Providers Care Home Specialist Name Role Phone Niki Vyas MD Primary Care Provider [phone] Encounter Details Date Type Department Care Team (Late st Contact Info) Description 10/14/2017 Telephone [place] [phone] Trey Santos MD [facility] [place] [address] Social History Tobacco Use Types Packs/Day Years Used Date Smoking Tobacco: Never Smokeless Tobacco: Never Alcohol Use Standard Drinks/Week Comments No 0 (1 standard drink = 0.6 oz pur e alcohol) Sex and Gender Information Value Date Recorded Sex Assigned at Not on file Gender Identity Not on file Sexual Orientation Not on file documented as of this encounter Miscellaneous Notes * Telephone Encounter - Trey Santos MD - 10/14/2017 5:11 PM EST Called patient at home. Doing well. No leg pain. +back pain. Urinating without difficulty. Has not moved bowels yet. Rec supp. Passing gas. No leg swelling. Incisions without drainage. Plan 1. Supp 2. Mobilization increase activity. Gave patient my cell phone to call over long weekend if needed. Trey Santos MD [place] Pet Ambassador - Orthopedic Spine Surgery / Spine Center Reference Services Head - Department of Orthopedic Surgery / Academics and Research Motorboat Mechanic Inboard/Outboard - [facility] 10/14/2017 documented in this encounter Plan of Treatment Upcoming Encounters Date Type Department Care Team (Late st Contact Info) Description 09/18/2024 11:30 AM EST Office Visit Dermatology at [facility] [address] [place] [address] Tata Aldridge MD [facility] [place] [address] 05/09/2025 2:00 PM EDT Office Visit Dermatology at [facility] [address] [place] [address] Tata Aldridge MD [facility] [place] [address] documented as of this encounter Visit Diagnoses Not on filedocumented in this encounter Care Teams Home Specialist Relationship Specialty Start Date End Date Niki Vyas MD [address] [place] [address] PCP - General 07/21/10 12/16/21 documented as of this encounter
--- OUTSIDE RECORDS SUMMARY | 2024-08-09 10:18 | XMS_ITS | Encounter Summary ---
Author Organization [facility] [place] [address] Care Team Providers Care Laboratory Coordinator Name Role Phone Niki Vyas MD Primary Care Provider [phone] Encounter Details Date Type Department Care Team (Late st Contact Info) Description 02/13/2018 [place] [phone] Mony Henson Social History Tobacco Use Types Packs/Day Years [...] 11:30 AM EST Office Visit Dermatology at [facility] [address] [place] [address] Tata Aldridge MD [facility] [place] [address] 05/09/2025 2:00 PM EDT Office Visit Dermatology at [facility] [address] [place] [address] Tata Aldridge MD [facility] [place] [address] documented as of this encounter Visit Diagnoses Not on filedocumented in this encounter Care Teams Laboratory Coordinator Relationship Specialty Start Date End Date Niki Vyas MD [address] [place] [address] PCP - General 07/21/10 12/16/21 documented as of this encounter
--- OUTSIDE RECORDS SUMMARY | 2024-08-09 10:18 | XMS_ITS | Encounter Summary ---
Author Organization [facility] [place] [address] Care Team Providers Care Lighting Director Name Role Phone Niki Vyas MD Primary Care Provider [phone] Reason for Referral * High Dollar Medication (Routine) - Specialty Diagnoses / Procedures Referred By Contac t Referred To Contact Neurology Diagnoses Focal dystonia Procedures Auth Request for Medication Tracy Johnson MD [facility] [place] [address] [facility] [address] [place] [id number] Referral ID Status Reason Start Date Expiration Date V isits Requested Visits Authorized [id number] Consult, Test & Treat 03/13/2018 03/13/2019 4 4 Encounter Details Date Type Department Care Team (Late st Contact Info) Description 03/13/2018 [place] [address] Tracy Johnson MD [facility] [place] [address] Focal dystonia Social History Tobacco Use Types Packs/Day Years [...] 11:30 AM EST Office Visit Dermatology at [facility] [address] [place] [address] Tata Aldridge MD [facility] [place] [address] 05/09/2025 2:00 PM EDT Office Visit Dermatology at [facility] [address] [place] [address] Tata Aldridge MD [facility] [place] [address] documented as of this encounter Visit Diagnoses 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
--- OUTSIDE RECORDS SUMMARY | 2024-08-09 10:18 | XMS_ITS | Encounter Summary ---
[place] [address] Care Team Providers Care Acute Care Registered Nurse Name Role Phone Niki Vyas MD Primary Care Provider [phone] Encounter Details Date Type Department Care Team (Late st Contact Info) Description 10/17/2017 [place] [phone] Taylor Tinajero LPN Social History Tobacco Use Types Packs/Day Years [...] encounter Miscellaneous Notes * Telephone Encounter - Taylor Tinajero LPN - 10/17/2017 11:49 AM EST Linda is s/p -13- 1. ALIF L5-S1 2. Application interbody cage anterior L5-S1 3. Application of BMP2 4. Posterior segmental instrumentation L5-S1. 6. Posterolateral arthrodesis L5-S1. 7. Application of local autograft. 8. Application of allograft morselized. Called this morning on behalf of Dr. Santos. Per her report today she is okay, her pain level fluctuates between a 1-5 depending on her activity She takes Oxycodone roughly every 4 hours, 6 a day Tylenol 1000 mg BID can up to TID as she is aware She used a suppository on Tuesday10-14-17 and moved her bowels on Tuesday10-15-17, she has not moved them since. She will take another suppository if no results today. She is passing gas and doesn't feel as bloated She has right thigh numbness and right knee numbness. She is eating smaller more frequent meals No other concerns noted she has our number to call if that changes. documented in this encounter Plan of Treatment Upcoming Encounters Date Type Department Care Team (Late st Contact Info) Description 09/18/2024 11:30 AM EST Office Visit Dermatology at [facility] [address] [place] [address] Tata Aldridge MD [facility] [place] [address] 05/09/2025 2:00 PM EDT Office Visit [facility] [address] [place] [address] Tata Aldridge MD [facility] [place] [address] documented as of this encounter Visit Diagnoses Not on filedocumented in this encounter Care Teams Acute Care Registered Nurse Relationship Specialty Start Date End Date Niki Vyas MD [address] [place] [address] PCP - General 07/21/10 12/16/21 documented as of this encounter
--- OUTSIDE RECORDS SUMMARY | 2024-08-09 10:18 | XMS_ITS | Encounter Summary ---
Author Organization [facility] [place] [address] Care Team Providers Care Sand Polisher Name Role Phone Angelina Walker APRN Primary Care Provider [phone] Encounter Details Date Type Department Care Team (Latest Contact Info) Description 11/02/2022 Travel Social History Tobacco Use Types Packs/Day [...] place to sleep or slept in a half-way (including now)? No 10/26/2022 Sex and Gender Information Value Date Recorded Sex Assigned at Not on file Gender Identity Not on file Sexual Orientation Not on file documented as of this encounter Plan of Treatment Upcoming Encounters Date Type Department Care Team (Late st Contact Info) Description 09/18/2024 11:30 AM EST Office Visit Dermatology at [facility] [address] [place] [address] Tata Aldridge MD [facility] [place] [address] 05/09/2025 2:00 PM EDT Office Visit Dermatology at [facility] [address] [place] [address] Tata Aldridge MD [facility] [place] [address] documented as of this encounter Visit Diagnoses Not on filedocumented in this encounter Care Teams Sand Polisher Relationship Specialty Start Date End Date Angelina Walker APRN [address] [place] [address] PCP - General Family Medicine 05/31/22 08/08/23 documented as of this encounter
--- OUTSIDE RECORDS SUMMARY | 2024-08-09 10:18 | XMS_ITS | Encounter Summary ---
Author Organization [facility] [place] [address] Care Team Providers Care Central Scheduler Name Role Phone Angelina Walker APRN Primary Care Provider [phone] Encounter Details Date Type Department Care Team (Latest Contact Info) Description 06/29/2023 Travel Social History Tobacco Use Types Packs/Day [...] place to sleep or slept in a group home (including now)? No 10/26/2022 Sex and Gender Information Value Date Recorded Sex Assigned at Not on file Gender Identity Not on file Sexual Orientation Not on file documented as of this encounter Plan of Treatment Upcoming Encounters Date Type Department Care Team (Late st Contact Info) Description 09/18/2024 11:30 AM EST Office Visit Dermatology at [facility] [address] [place] [address] Tata Aldridge MD [facility] [place] [address] 05/09/2025 2:00 PM EDT Office Visit Dermatology at [facility] [address] [place] [address] Tata Aldridge MD [facility] [place] [address] documented as of this encounter Visit Diagnoses Not on filedocumented in this encounter Care Teams Central Scheduler Relationship Specialty Start Date End Date Angelina Walker APRN [address] [place] [address] PCP - General Family Medicine 05/31/22 08/08/23 documented as of this encounter
--- OUTSIDE RECORDS SUMMARY | 2024-08-09 10:18 | XMS_ITS | Encounter Summary ---
Author Organization [facility] [place] [address] Care Team Providers Care Security Operations Engineer Name Role Phone Angelina Walker APRN Primary Care Provider [phone] Encounter Details Date Type Department Care Team (Latest Contact Info) Description 07/06/2023 Travel Social History Tobacco Use Types Packs/Day [...] No 10/26/2022 Housing Stability Vital Sign Answer Ajmel e Recorded In the last 12 months, [...] 11:30 AM EST Office Visit Dermatology at [facility] [address] [place] [address] Tata Aldridge MD [facility] [place] [address] 05/09/2025 2:00 PM EDT Office Visit Dermatology at [facility] [address] [place] [address] Tata Aldridge MD [facility] [place] [address] documented as of this encounter Visit Diagnoses Not on filedocumented in this encounter Care Teams Security Operations Engineer Relationship Specialty Start Date End Date Angelina Walker APRN [address] [place] [address] PCP - General Family Medicine 05/31/22 08/08/23 documented as of this encounter
--- OUTSIDE RECORDS SUMMARY | 2024-08-09 10:18 | XMS_ITS | Encounter Summary ---
Author Organization [facility] Address [facility] [place] [address] Care Team Providers Care Forklift Picker Name Role Phone Niki Vyas MD Primary Care Provider [phone] Encounter Details Date Type Department Care Team (Late st Contact Info) Description 04/17/2018 9:00 AM EDT [place] [address] Tracy Johnson MD [facility] [place] [address] Dystonia Social History Tobacco Use Types Packs/Day Years [...] Sign Reading Time Taken Comments Blood Pressure 121/70 04/17/2018 8:59 AM EDT Pulse 61 04/17/2018 8:59 AM EDT Temperature - - Respiratory Rate - - Oxygen Saturation - - Inhaled Oxygen Concentration - - Weight 63.1 kg (139 lb 3.2 oz) 04/17/2018 8:59 A M EDT Height 160 cm (5' 3) 04/17/2018 8:59 AM EDT rep orted Body Mass Index 24.66 04/17/2018 8:59 AM EDT documented in this encounter Procedure Notes * Tracy Johnson MD - 04/17/2018 9:00 AM EDTAssociated Order(s): CHEMODENERVATION W/ EMG GUIDANCE Chemodenervation Procedure Note Diagnosis: dystonia with dystonic tremor HPI: 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 Seemed to worsen after lumbar spine surgery. We tried baclofen without success. Conservative measures (stretching and exercise) have not provided acceptable relief. Codes for chemodenervation visit: 17717, 44029 Exam: Most Recent Vitals: 04/17/18 0859 BP: 121/70 Pulse: 61 Procedure: A time out was performed The patient was positioned for best access to muscles to be injected. The area was cleaned with alcohol swabs. 100 units of onabotulinumtoxinA was prepared by 1 cc dilution with preservative free saline EMG guidance was used for this procedure. Injections: Left paraspinal 20 units in 2 sites (40 units total) EMG activity with tremor Tested low thoracic paraspinals and they were quiet Tested right lumbar paraspinals and they were quiet Waste 60 units LOT# [id number] Exp: 10/2020 The patient tolerated the procedure well with no immediate adverse events. Follow up will be in 3 months. Tracy Johnson MD [facility] Neurology-Movement Disorders documented in this encounter Plan of Treatment Upcoming Encounters Date Type Department Care Team (Late st Contact Info) Description 09/18/2024 11:30 AM EST Office Visit Dermatology at [facility] [address] [place] [address] Tata Aldridge MD [facility] [place] [address] 05/09/2025 2:00 PM EDT Office Visit Dermatology at [facility] [address] [place] [address] Tata Aldridge MD [facility] [place] [address] documented as of this encounter Procedures Procedure Name Priority Date/Time Associated Diagnosis Comments CHEMODENERVATION W/ EMG GUIDANCE Routine 04/17/2018 9:46 AM EDT documented in this encounter Results * CHEMODENERVATION W/ EMG GUIDANCE (04/17/2018 9:46 AM EDT) Narrative Tracy Johnson MD - 04/17/2018 9:46 AM EDT Tracy Johnson MD ? 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 Seemed to worsen after lumbar spine surgery. We tried baclofen without success. Conservative measures (stretching and exercise) have not provided acceptable relief. Codes for chemodenervation visit: 15928, 79744 Exam: Most Recent Vitals: 04/17/18 0859 BP: 121/70 Pulse: 61 Procedure: A time out was performed The patient was positioned for best access to muscles to be injected. The area was cleaned with alcohol swabs. 100 units of onabotulinumtoxinA was prepared by 1 cc dilution with preservative free saline EMG guidance was used for this procedure. Injections: Left paraspinal 20 units in 2 sites (40 units total) EMG activity with tremor Tested low thoracic paraspinals and they were quiet Tested right lumbar paraspinals and they were quiet Waste 60 units LOT# [id number] Exp: 10/2020 The patient tolerated the procedure well with no immediate adverse events. Follow up will be in 3 months. Tracy Johnson MD [facility] Neurology-Movement Disorders Tracy Johnson MD NEUROLOGY ORDERABL ES documented in this encounter Visit Diagnoses Diagnosis Dystonia Abnormal involuntary movements documented in this encounter Administered Medications Inactive Administered Medications - up to 3 most recent administrations Medication Order MAR Action Action Date Dose Rate Site botulinum toxin type A (BOTOX) injection 100 Units 100 Units, Intramuscular, ONCE, 1 dose, On 04/17/18 at 1000, Routine Given 04/17/2018 9:45 AM EDT 40 Units 20-Other (document in comment section) documented in this encounter Care Teams Forklift Picker Relationship Specialty Start Date End Date Niki Vyas MD [address] [place] [address] PCP - General 07/21/10 12/16/21 documented as of this encounter
--- OUTSIDE RECORDS SUMMARY | 2024-08-09 10:18 | XMS_ITS | Encounter Summary ---
Author Organization [facility] Address [facility] [place] [address] Care Team Providers Care Learning Development Specialist Name Role Phone Niki Vyas MD Primary Care Provider [phone] Encounter Details Date Type Department Care Team (Latest Contact Info) Description 10/28/2017 12:48 PM EST - 10/28/2017 11:59 PM EST Hospital Encounter XRay at [address] [place] [address] Trey Santos MD [facility] [place] [address] S/P lumbar fusion Discharge Disposition: Home Social History Tobacco Use Types Packs/Day Years Used Date Smoking Tobacco: Never Smokeless Tobacco: Never Alcohol Use Standard Drinks/Week Comments No 0 (1 standard drink = 0.6 oz pur e alcohol) Sex and Gender Information Value Date Recorded Sex Assigned at Not on file Gender Identity Not on file Sexual Orientation Not on file documented as of this encounter Medications at Time of Discharge Medication Sig Dispensed Refills Start Date End Date magnesium 250 mg Tablet Take by mouth every other day. multivitamin (THERAGRAN) Tablet Take 1 tablet by mouth daily. acetaminophen (TYLENOL) 500 mg Tablet Take 1,000 mg by mouth 2 times daily. albuterol (PROVENTIL HFA;VENTOLIN HFA) 90 mcg/Actuation inhaler Inhale into the lungs as needed. 04/14/2004 bisacodyl (DULCOLAX) [address] 10 mg rectally daily. 02/03/2018 oxyCODONE (ROXICODONE) 5 mg TabletIndications:S/P lumbar fusion Take 1-2 tablets by mouth every 4 hours as needed for Pain. Take 1 tablet (5mg) po Q4 hours prn MILD - MODERATE pain -OR- take 2 tablets (10mg) po Q4 hours prn SEVERE pain 30 tablet 10/28/2017 11/16/2017 polyethylene glycol (MIRALAX) 17 gram Powder in Packet Take 17 g by mouth 2 times daily. Take to maintain normal bowel pattern while taking narcotic pain medication. 10/13/2017 02/03/2018 diphenhydrAMINE (BENADRYL) 25 mg Capsule Take 25 mg by mouth as needed for Itching. 02/03/2018 METRONIDAZOLE (METROCREAM TOP) Apply topically. Uses this three times per week on her face 02/03/2018 amitriptyline (ELAVIL) 10 mg Tablet take 1 tablet by mouth at bedtime 0 07/05/2017 02/03/2018 CALCIUM CARBONATE/VITAMIN D3 (CALCIUM 600 + D,3, ORAL) Take 1 tablet by mouth daily. 02/03/2018 documented as of this encounter Plan of Treatment Upcoming Encounters Date Type Department Care Team (Late st Contact Info) Description 09/18/2024 11:30 AM EST Office Visit Dermatology at [facility] [address] [place] [address] Tata Aldridge MD [facility] [place] [address] 05/09/2025 2:00 PM EDT Office Visit Dermatology at [facility] [address] [place] [address] Tata Aldridge MD [facility] [place] [address] documented as of this encounter Procedures Procedure Name Priority Date/Time Associated Diagnosis Comments XR LUMBAR SPINE 2 OR 3 VIEWS Routine 10/28/2017 12:57 PM EST S/P lumbar fusion documented in this encounter Results * XR Lumbar Spine 2 Or 3 Views (Generic) (10/28/2017 12:57 PM EST) Anatomical Region Laterality Modality L-spine N/A Digital Radiogra phy Impressions 10/28/2017 1:46 PM EST 1. ??Unchanged L5-S1 fusion 2. ??Unchanged lumbar spine spondylosis with disc space narrowing at scattered locations and facet arthropathy. Narrative 10/28/2017 1:46 PM EST EXAMINATION: XR LUMBAR SPINE 2 OR 3 VIEWS (GENERIC) CLINICAL HISTORY: AP/LAT lumbar spine please TECHNIQUE: 2 views COMPARISON: Radiographs from September 2017 FINDINGS: L5-S1 posterior instrumented fusion. There are interbody graft is unchanged in alignment. No hardware complications. Number of non-rib bearing lumbar-type vertebrae: 5 Vertebral bodies: Normal vertebral height. No vertebral fracture. There are diffuse small osteophytes and lower lumbar spine facet arthropathy. Disk spaces: Unchanged narrow L3-4 L4-5 disc space. Soft tissues: Normal. ?? Alignment: L3- 4: 5 mm retrolisthesis on the basis of degenerative change. Procedure Note Barbara Shetty MD - 10/28/2017 EXAMINATION: XR LUMBAR SPINE 2 OR 3 VIEWS (GENERIC) CLINICAL HISTORY: AP/LAT lumbar spine please TECHNIQUE: 2 views COMPARISON: Radiographs from September 2017 FINDINGS: L5-S1 posterior instrumented fusion. There are interbody graft isunchanged in alignment. No hardware complications. Number of non-rib bearinglumbar-type vertebrae: 5 Vertebral bodies: Normal vertebral height. No vertebral fracture. Thereare diffuse small osteophytes and lower lumbar spine facet arthropathy. Disk spaces: Unchanged narrow L3-4 L4-5 disc space. Soft tissues: Normal. Alignment: L3- 4: 5 mm retrolisthesis on the basis of degenerative change. IMPRESSION 1. Unchanged L5-S1 fusion 2. Unchanged lumbar spine spondylosis with disc space narrowing atscattered locations and facet arthropathy. Trey Santos MD IMG DX ORDERABLES documented in this encounter Visit Diagnoses Diagnosis S/P lumbar fusion Arthrodesis status documented in this encounter Care Teams Learning Development Specialist Relationship Specialty Start Date End Date Niki Vyas MD [address] [place] [address] PCP - General 07/21/10 12/16/21 documented as of this encounter
--- OUTSIDE RECORDS SUMMARY | 2024-08-09 10:18 | XMS_ITS | Encounter Summary ---
Author Organization [facility] Address [facility] [place] [address] Care Team Providers Care Natural Fabricator Name Role Phone Niki Vyas MD Primary Care Provider [phone] Reason for Visit * Auth/Cert Specialty Diagnoses / Procedures Referred By Contac t Referred To Contact Diagnoses 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 Lytic Listhesis L5-S1 UNKNOWN Procedures PRO LUMBAR SPINE FUSION, ANTER APPRC @ANT. LUMBAR FUSION INCLUD. MIN. DISKECTOMY (WRVU 23.53) Referral ID Status Reason Start Date Expiration Date Visits Re quested Visits Authorized [id number] 1 1 Encounter Details Date Type Department Care Team (Latest Contact Info) Description 10/11/2017 5:49 AM EST - 10/13/2017 1:58 PM [facility] Hospital Encounter [address] [place] [address] Trey Santos MD [facility] [place] [address] Spine pain, lumbar ; 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; s/p OLIF L5-S1 and posterior instrumented fusion L5-S1 on 10/11/2017, Dr. Santos Discharge Disposition: Home with VNA Social History Tobacco Use Types Packs/Day Years [...] Sign Reading Time Taken Comments Blood Pressure 136/63 10/13/2017 8:00 AM EST Pulse 68 10/13/2017 4:08 AM EST Temperature 37.3 ??C (99.1 ??F) 10/13/2017 8:00 AM ES T Respiratory Rate 16 10/13/2017 8:00 AM EST Oxygen Saturation 97% 10/13/2017 8:00 AM EST Inhaled Oxygen Concentration - - Weight 66.2 kg (145 lb 15.1 oz) 018 12:53 AM EST Height 160 cm (5' 3) 10/11/2017 6:19 AM EST Body Mass Index 25.85 10/11/2017 6:19 AM EST documented in this encounter Discharge Summaries * Perlita Lora MD - 10/13/2017 11:50 AM EST Discharge Summary Patient Name: Linda Browning Patient Age: 67 y.o. Language: Cameroonian Race: White Ethnicity: Not nor Admit date: 10/11/2017 Discharge date and time: 10/13/2017 Attending Physician: Trey Santos MD Discharge Physician: Trey Santos MD Follow-up Recommendations for Providers: See discharge instructions for additional details. Future Appointments Date Time Provider Department Center 10/28/2017 1:[address] [facility] DX ROOM 2 Xray Leb Rad Clin 10/28/2017 2:20 PM Trey Santos MD Leb Spine [facility] 07/25/2018 8:30 AM Steven Souza MD [facility] Inpatient Provider Contact Information: Trey Santos MD Spine Center: [phone] After hours and weekends, call [facility] Sleeping Bag Department, , and have the Orthopedic resident paged. Discharge Diagnoses (Hospital Problems) and Secondary Diagnoses (Chronic Problems): Active Hospital Problems Diagnosis ??? s/p OLIF L5-S1 and posterior instrumented fusion L5-S1 on 10/11/2017, Dr. Santos Resolved Hospital Problems Diagnosis Date Resolved No resolved problems to display. Active Non-Hospital Problems Diagnosis ??? History of basal cell carcinoma ??? Sebaceous hyperplasia ??? Seborrheic keratosis Operations/Major Procedures: 10/11/2017 Surgeon(s) and Role: Panel 1: * Trey Santos MD - Primary * Chico Granados MD - *ASSISTING SURGEON * Franklin Triplett MD Panel 2: * Chico Granados MD - Primary * Joyce Shultz MD Procedure(s): @ANT. LUMBAR FUSION INCLUD. MIN. DISKECTOMY (WRVU 23.53) INSERTION INTERBODY BIOMECH DEV TO INTERVEBRAL DISC SPACE, EA INTERSPACE (WRVU 4.25) ARTHRODESIS, LUMBAR SPINE, SINGLE LEVEL (WRVU 23.53) POSTERIOR SPINAL NON-SEGMENTAL INST.(ONE SPACE) (WRVU 12.52) AUTOGRAFT FOR SPINE SURGERY ONLY, SAME INCISION (WRVU *) ALLOGRAFT FOR SPINE SURGERY ONLY; MORSELIZED (WRVU *) MODIFIER GLOBUS CREO MODIFIER L5 MODIFIER S1 @ANTERIOR APPROACH, FOR THROACIC (VASC) (WRVU 24.7) History of Presentation: Linda Browning is a 67 y.o. female presents with c/o Back pain. ??Unable to stand up and walk. ? Diagnosis: 1. 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 2. ??Diffuse lumbar spondylosis mild to moderate. 3. ??Back pain with buttock and limited leg pain worse with walking better with forward flexion andpushing. 4. ??Leg length discrepancy with pelvic obliquity. ?? Patient returns to discuss surgical intervention. We discussed at length with her and her about an anterior posterior procedure. She understands that I may not be able to get a cage and anteriorly given the collapse. CT also shows interspinous fusion from L3-L5. The pedicles appear to be large enough to accept screws. The anterior posterior overlap of L5 on S1 is approximately 25 mm. Her B MT is 24. ?? On exam in clinic she walks with a forward flexed gait. Unable to stand upright. She can lie flat quite comfortably. She can lie on her side. She can lie on her belly. She has no hip flexion contracture. She remains neurologically intact. ?? She has had tubal ligation through an arthroscopic approach. No abdominal surgery. ?? We talked about the risks of vascular injury nonunion infection resistant pain as well as other complications. Consents reviewed and signed. We talked about the extent of the procedure and the amountof pain afterwards. About the importance of mobilization. ?? Procedure: OLIF L5-S1 with instrumentation and BMP2. Posterior spinal instrumentation L5-S1 with arthrodesis. ?? Hospital Course: Linda Browning was admitted for the above operation. Operative course was uneventful. On POD#1 she was allowed out of bed ad raul, with no bending or twisting, no lifting more than 5-10 pounds, and nopushing or pulling. These parameters were reinforced by Physical therapy. she was transitioned to oral pain medications and was comfortable. The urrutia catheter was removed on POD#1 and she was voiding without difficulty. On POD#2 the dressing was dry and intact and was benign. She did not have a bowel movement prior to discharge but was passing flatus and taking PO without difficulty. Prior to discharge on POD#2 the patient was afebrile with stable vital signs, pain was well controlled on oral m edications, and was deemed stable for discharge to home per PT. Vital Signs at Discharge: Weight: Wt Readings from Last 1 Encounters: /15/18 66.2 kg (145 lb 15.1 oz) Height: Ht Readings from Last 1 Encounters: //18 160 cm (5' 3) HC: HC Readings from Last 1 Encounters: No data found for HC BMI: Body mass index is 25.85 kg/(m^2). Last value Range last 24 hrs Temperature Temp: 37.3 ??C (99.1 ??F) Temp: [36.6 ??C (97.9 ??F)-37.3 ??C (99.1 ??F)] Heart Rate Heart Rate: 68 Heart Rate: [68-81] Blood Pressure BP: 136/63 BP: (111-136)/(50-63) Respiratory Rate Resp: 16 Resp: [16-18] SpO2 SpO2: 97 % SpO2: [95 %-97 %] Art BP BP (Arterial Line): 117/55 BP (Arterial Line): -- Functional and Cognitive Status: Patient mobilizing with assistive devices - such as walker, cognitively intact at baseline mental status at time of discharge. Important Lab Data: Last 3 wbc, hgb, hct plt Recent Labs 10/12/17 0645 10/11/17 0611 WBC 8.4 6.7 HGB 10.2* 12.8 HCT 31.1* 38.1 PLATELET 159 230 Last 3 Lytes Recent Labs 10/12/17 0645 10/11/17 0611 NA 139 143 K 4.3 4.0 CL 105 103 CO2 24 25 BUN 19* 15 CREATININE 0.82 0.90 Studies: Xr Fluoro No Rad <1hr - Or Use Result Date: 10/11/2017 This order does not need a radiologist interpretation. Scan Doc: Diagnostic Radiology Result Date: 10/04/2017 Ordered by an unspecified provider. Xr Lumbar Spine 2 Or 3 Views (generic) Result Date: 10/11/2017 EXAMINATION: XR LUMBAR SPINE 2 OR 3 VIEWS (GENERIC) CLINICAL HISTORY: s/p OLIF L5-S1 and posterior instrumented fusion L5-S1 TECHNIQUE: Frontal and lateral views of the lumbar spine. COMPARISON: Intraoperative spot images from earlier the same day. Lumbar spine CT from 08/25/2017. FINDINGS: Status post L5-S1 posterior fixation, with hardware in unchanged position compared to the intraoperative spot views. Unchanged lumbar vertebral body height and alignment compared to the intraoperative spot views. Improved L5 anterolisthesis relative to S1. Increased intervertebral disc space height due to the presence of a spacer. No appreciable hardware complication. Improved alignment at L5-S1 posterior fixation. No appreciable postoperative hardware complication. Pending Studies and Lab Data at Discharge: None Transfusions: No Discharge Conditions/Prognosis: Stable, awake, and alert. Mobilizing as noted above, pain controlled on oral medications. Discharge to: Home Updated Allergies/ADRs: Allergies Allergen Reactions ??? Gabapentin Itching Pt states she was itchy from Gabapentin ??? Unable To Find [Unclassified Drug] Blood pudding-asthma attack and eyes blacked out Immunizations Given this Hospitalization: There is no immunization history on file for this patient. Discharge Medications: Your Medications Notice Some of the medications listed here do not show instructions, such as how often to take the medication. Ask your doctor or nurse how to use these medications. Specifically ask about this and similar medications: albuterol (PROVENTIL HFA;VENTOLIN HFA) 90 mcg/Actuation inhaler New Medications Dose Details bisacodyl 5 mg Tbec Commonly known as: DULCOLAX Take 2 tablets by mouth 2 times daily as needed for Constipation. 10 mg Refills: 0 lactulose 20 gram/30 mL Soln Commonly known as: CHRONULAC Take 30 mLs by mouth 2 times daily as needed for up to 28 days. 20 g Refills: 0 oxyCODONE 5 mg Tab Commonly known as: ROXICODONE Take 1-2 tablets by mouth every 4 hours as needed for Pain. Take 1 tablet (5mg) po Q4 hours prn MILD - MODERATE pain -OR- take 2 tablets (10mg) po Q4 hours prn SEVERE pain 5-10 mg Quantity: 60 tablet Refills: 0 polyethylene glycol 17 gram Pwpk Commonly known as: MIRALAX Take 17 g by mouth 2 times daily. Take to maintain normal bowel pattern while taking narcotic pain medication. 17 g Refills: 0 senna-docusate 8.6-50 mg Tab Commonly known as: PERICOLACE Take 2 tablets by mouth 2 times daily. Take to maintain normal bowel pattern while taking narcotic pain medication. 2 tablet Refills: 0 Continued medications, unchanged Dose Details acetaminophen 500 mg Tab Commonly known as: TYLENOL Take 1,000 mg by mouth 2 times daily. 1000 mg Refills: 0 albuterol 90 mcg/actuation Hfaa ?nk?wn!?? Refills: 0 amitriptyline 10 mg Tab Commonly known as: ELAVIL take 1 tablet by mouth at bedtime Refills: 0 CALCIUM 600 + D(3) ORAL Take 1 tablet by mouth daily. 1 tablet Refills: 0 diphenhydrAMINE 25 mg Cap Commonly known as: BENADRYL Take 25 mg by mouth as needed for Itching. 25 mg Refills: 0 LYRICA 25 mg Cap Generic drug: pregabalin Refills: 0 magnesium 250 mg Tab Take by mouth every other day. Refills: 0 METROCREAM TOP Apply topically. Uses this three times per week on her face Refills: 0 multivitamin Tab Commonly known as: THERAGRAN Take 1 tablet by mouth daily. 1 tablet Refills: 0 STOPPED Medications HYDROcodone-acetaminophen 5-325 mg Tab Commonly known as: NORCO Smoking Status at Discharge: History Smoking Status ??? Never Smoker Smokeless Tobacco ??? Never Used Instructions for Rehab Providers or PCP: Instructions Given to Patient at Discharge: There are no outpatient Patient Instructions on file for this admission. General Instructions Orthopaedic Spine Discharge Instructions Activity: 1. You may perform your daily activities as tolerated but minimize bending at the waist greater than 90 degrees, twisting around your waist, or lifting anything heavier than 5-10 lbs (about a full gallon of water). 2. In general, guide your activity by the thought that if it hurts, don???t do it. 3. In addition, we recommend taking several walks every day after surgery and gradually increasing your distance and duration over the next 2-4 weeks. Diet: 1. Eat your normal diet, with adequate amounts of protein and fiber. 2. The pain medications you are taking can cause constipation, so increase your intake of fluids and fiber while you are taking them. 3. You should also take an hlas-pxu-brotihh stool softener of laxative, such as Cadence-colace or Miralax, to facilitate a bowel movement. Drivin. You are not allowed to drive if you are still requiring narcotic pain medication to manage your discomfort. 2. In general, you may begin to drive once you are off of your pain medications and you are comfortable. Call the Spine Center or your Primary Care Physician if you have questions or concerns. Medication: 1. You are being discharged on a narcotic pain medication. Common side effects of this medication include drowsiness, nausea, and constipation. You should only take the smallest amount of pain medication that adequately controls your pain. 2. You may take Tylenol (acetaminophen) around the clock as directed on the package insert to help reduce the amount of narcotic medication you need. Do not take more than 3,000mg of acetaminophen bk 24 hour period. 3. You have had a spinal fusion surgery. DO NOT take any nonsteroidal anti- inflammatory medication (NSAID) such as Aleve, Ibuprofen, Motrin, Naprosyn, or Advil. 4. If you need a renewal of your pain medication, please contact the [facility] Prescription Lineat [phone]. PRESCRIPTION RENEWAL REQUESTS CAN TAKE UP TO 3 DAYS TO FILL. YOU WILL BE REQUIRED TO STOVE POLISHER YOUR NARCOTIC REFILL PRESCRIPTION IN PERSON AT [facility] OR IT CAN BE MAILED TO YOUR PHARMACY. Wound Care/Shower/Bath: Absorbable - anterior incision and posterior incision 1. You have absorbable sutures under your skin that do not need to be removed. They are covered by steri-strips, gauze and a clear plastic Tegaderm dressing. 2. This dressing should stay in place until 3 days after your surgery. After 3 days, on 10/14, you may remove the dressing and change the dressing daily with dry sterile gauze and tegaderm for 1 week.After which you can leave the incision uncovered so long as there is no continued drainage. If there is drainage, you may replace the dressing with a clean, dry gauze held in place with tape. Any bandage over the incision should be dry at all times and should be replaced if wet. If the incision continues to drain 5 days after surgery, please call the [facility] at the number below. 4. Shower: After 3 days, you may allow water to run over the incision when you shower but do not scrub the surrounding skin. Gently pat dry with a clean, dry towel after showering. 5. Do not soak the incision underwater (i.e. lakes, pools, hot tubs, bath tubs, etc.) for at least 4 weeks until the incision has completely healed. PLEASE CALL US AT [phone] TO SPEAK WITH A SPINE CENTER NURSE IF YOU EXPERIENCE THE FOLLOWING: ?? Fevers greater than 101.5 degrees Fahrenheit ?? Chills or night sweats ?? Nausea or vomiting ?? Wound Redness or drainage after 5 days ?? New numbness or tingling in your hands or feet ?? Incontinence of bowel or bladder ?? Any questions or concerns Important Phone Numbers: Clinical issues, nurse questions, medication renewals: [phone] Santos: [phone] Evenings after 5pm and weekends you may contact the Orthopaedic resident transitional care liaison: [phone], askthe blade grader operator to page the Orthopaedic resident Follow Up Appointments: 1. You will have follow-up appointments at [facility] as indicated in the ???Future Appointments and Orders?? section of your discharge summary. If X-rays have been ordered for you prior to this appointment you will need to report to the Radiology department, desk 3T, 1 hour prior to your spine center appointment. 2. If you do not have a scheduled follow-up appointment listed at the time of discharge, you will be notified of your scheduled appointment on the next business day. Please call [phone] if you do not hear from us by that time, as your timely follow-up is very important to us. Future Appointments Date Time Provider Department Center 10/28/2017 1:[address] [facility] DX ROOM 2 Xray Leb Rad Clin 10/28/2017 2:20 PM Trey Santos MD Le Spine [facility] 07/25/2018 8:30 AM Steven Souza MD [facility] Future Appointments and Orders Future Appointments Provider Department Dept Phone 10/28/2017 1:[address] [facility] DX ROOM 2 XRay at [place] [phone] Please go to Credit Collections Analyst Area 3T ([place] Location). 10/28/2017 2:20 PM Trey Santos MD Spine Center at [place] [phone] 07/25/2018 8:30 AM Steven Souza MD Dermatology at [place] [phone] Future Orders Complete By Expires Referral to Home Health - at DISCHARGE [[id number] CPT(R)] As directed Process Instructions: Scheduling Instructions: Comments: DOCUMENTATION FOR VNA SERVICES (INCLUDING THOSE PATIENTS WITH MEDICARE COVERAGE REQUIRING HOME VNA SERVICES AND/OR HOSPICE SERVICES) PATIENT'S LOCATION: [place] [address] [facility] [id number] (home) Cell: Telephone Information: Spinner Operator's Name: patient and family In discussion with the attending physician, it is certified that this patient is under their care and that they, or a Nurse Practitioner,Clinical Nurse specialist or Physician Wheat Washer who is working directly with them, had a face to face encounter that meets the physician face to face encounter requirements with this patient on 10/12/2017 The encounter with the patient was in whole, or in part, for the following medical condition, whichis the primary reason for home health care services: L5- S1 OLIF In discussion with the provider, it is certified that, based on their findings, the following services are medically necessary for home health services. To provide the following care/treatments with the clinical findings supporting the need for services as follows: HOME CARE ORDERS: RN ORDERS:Assess incision, vital signs, cardiopulmonary status, nutrition, hydration, elimination, meds effectiveness and management; reinforce education re health issues PT ORDERS: Continue rehab for endurance, gait stability and strength with mobility and transfers. Home safety evaluation. Home exercise program if appropriate. HOME HEALTH CARE AGENCY: [facility] PHONE: [phone] FAX: [phone] Start of care: 24 to 48 hours FOR MEDICARE ONLY: (please delete this section if not Medicare) In discussion with the attending physician, it is certified that the clinical findings support thatthis patient is homebound because absences from home require considerable and taxing effort due to:following back surgery requiring a walker and assist of another person to leave home Please note that any additional orders needs or changes will need to be obtained from this patient's PCP: Niki Vyas MD [address] / [facility] [address] All VNA agencies which cover the area of patient's residence have been reviewed, either verbally mason writing, and patient/family have chosen the home health care agency noted Questions: Agency name and contact information: [facility] Patient location post discharge: home What services are requested: Registered Nurse Physical Therapy Start date: Responsible MD post discharge contact info: PCP and ortho-surgeon Walker standard [EQ135 Custom] As directed Process Instructions: Scheduling Instructions: Comments: Please deliver front wheeled walker to accomodate 137 pounds and 5 feet 3 inches to room 504A Questions: Vendor Name/Contact information: [facility] Primary Care Provider: Niki Vyas MD [phone] Discharge References/Attachments None Click refresh button immediately prior to signing DCS to ensure all yu are updated. documented in this encounter Discharge Instructions * Discharge Instructions* Perlita Lora MD - 10/13/2017 12:52 PM EST Orthopaedic Spine Discharge Instructions Activity: 1. You may perform your daily activities as tolerated but minimize bending at the waist greater than 90 degrees, twisting around your waist, or lifting anything heavier than 5-10 lbs (about a full gallon of water). 2. In general, guide your activity by the thought that if it hurts, don???t do it. 3. In addition, we recommend taking several walks every day after surgery and gradually increasing your distance and duration over the next 2-4 weeks. Diet: 1. Eat your normal diet, with adequate amounts of protein and fiber. 2. The pain medications you are taking can cause constipation, so increase your intake of fluids and fiber while you are taking them. 3. You should also take an kyhd-fpl-aozacar stool softener of laxative, such as Cadence-colace or Miralax, to facilitate a bowel movement. Drivin. You are not allowed to drive if you are still requiring narcotic pain medication to manage your discomfort. 2. In general, you may begin to drive once you are off of your pain medications and you are comfortable. Call the Spine Center or your Primary Care Physician if you have questions or concerns. Medication: 1. You are being discharged on a narcotic pain medication. Common side effects of this medication include drowsiness, nausea, and constipation. You should only take the smallest amount of pain medication that adequately controls your pain. 2. You may take Tylenol (acetaminophen) around the clock as directed on the package insert to help reduce the amount of narcotic medication you need. Do not take more than 3,000mg of acetaminophen bk 24 hour period. 3. You have had a spinal fusion surgery. DO NOT take any nonsteroidal anti- inflammatory medication (NSAID) such as Aleve, Ibuprofen, Motrin, Naprosyn, or Advil. 4. If you need a renewal of your pain medication, please contact the Spine Center Prescription Lineat [phone]. PRESCRIPTION RENEWAL REQUESTS CAN TAKE UP TO 3 DAYS TO FILL. YOU WILL BE REQUIRED TO STOVE POLISHER YOUR NARCOTIC REFILL PRESCRIPTION IN PERSON AT [facility] OR IT CAN BE MAILED TO YOUR PHARMACY. Wound Care/Shower/Bath: Absorbable - anterior incision and posterior incision 1. You have absorbable sutures under your skin that do not need to be removed. They are covered by steri-strips, gauze and a clear plastic Tegaderm dressing. 2. This dressing should stay in place until 3 days after your surgery. After 3 days, on 10/14, you may remove the dressing and change the dressing daily with dry sterile gauze and tegaderm for 1 week.After which you can leave the incision uncovered so long as there is no continued drainage. If there is drainage, you may replace the dressing with a clean, dry gauze held in place with tape. Any bandage over the incision should be dry at all times and should be replaced if wet. If the incision continues to drain 5 days after surgery, please call the Spine Center at the number below. 4. Shower: After 3 days, you may allow water to run over the incision when you shower but do not scrub the surrounding skin. Gently pat dry with a clean, dry towel after showering. 5. Do not soak the incision underwater (i.e. lakes, pools, hot tubs, bath tubs, etc.) for at least 4 weeks until the incision has completely healed. PLEASE CALL US AT [phone] TO SPEAK WITH A SPINE CENTER NURSE IF YOU EXPERIENCE THE FOLLOWING: ?? Fevers greater than 101.5 degrees Fahrenheit ?? Chills or night sweats ?? Nausea or vomiting ?? Wound Redness or drainage after 5 days ?? New numbness or tingling in your hands or feet ?? Incontinence of bowel or bladder ?? Any questions or concerns Important Phone Numbers: Clinical issues, nurse questions, medication renewals: [phone] Santos: [phone] Evenings after 5pm and weekends you may contact the Orthopaedic resident transitional care liaison: [phone], askthe blade grader operator to page the Orthopaedic resident Follow Up Appointments: 1. You will have follow-up appointments at [facility] as indicated in the ???Future Appointments and Orders?? section of your discharge summary. If X-rays have been ordered for you prior to this appointment you will need to report to the Radiology department, desk 3T, 1 hour prior to your spine center appointment. 2. If you do not have a scheduled follow-up appointment listed at the time of discharge, you will be notified of your scheduled appointment on the next business day. Please call [phone] if you do not hear from us by that time, as your timely follow-up is very important to us. Future Appointments Date Time Provider Department Center 10/28/2017 1:[address] [facility] DX ROOM 2 Xray [facility] 10/28/2017 2:20 PM Trey Santos MD [facility] 07/25/2018 8:30 AM Steven Souza MD [facility] documented in this encounter Medications at Time of Discharge Medication Sig Dispensed Refills Start Date End Date magnesium 250 mg Tablet Take by mouth every other day. multivitamin (THERAGRAN) Tablet Take 1 tablet by mouth daily. acetaminophen (TYLENOL) 500 mg Tablet Take 1,000 mg by mouth 2 times daily. albuterol (PROVENTIL HFA;VENTOLIN HFA) 90 mcg/Actuation inhaler Inhale into the lungs as needed. 04/14/2004 polyethylene glycol (MIRALAX) 17 gram Powder in Packet Take 17 g by mouth 2 times daily. Take to maintain normal bowel pattern while taking narcotic pain medication. 10/13/2017 02/03/2018 bisacodyl (DULCOLAX) 5 mg Tablet, Delayed Release (E.C.) Take 2 tablets by mouth 2 times daily as needed for Constipation. 10/13/2017 10/28/2017 lactulose (CHRONULAC) 20 gram/30 mL Solution Take 30 mLs by mouth 2 times daily as needed for up to 28 days. 10/13/2017 10/28/2017 oxyCODONE (ROXICODONE) 5 mg Tablet Take 1-2 tablets by mouth every 4 hours as needed for Pain. Take 1 tablet (5mg) po Q4 hours prn MILD - MODERATE pain -OR- take 2 tablets (10mg) po Q4 hours prn SEVERE pain 60 tablet 10/13/2017 10/28/2017 diphenhydrAMINE (BENADRYL) 25 mg Capsule Take 25 mg by mouth as needed for Itching. 02/03/2018 METRONIDAZOLE (METROCREAM TOP) Apply topically. Uses this three times per week on her face 02/03/2018 LYRICA 25 mg Capsule 0 05/18/2017 018 amitriptyline (ELAVIL) 10 mg Tablet take 1 tablet by mouth at bedtime 0 07/05/2017 02/03/2018 CALCIUM CARBONATE/VITAMIN D3 (CALCIUM 600 + D,3, ORAL) Take 1 tablet by mouth daily. 02/03/2018 documented as of this encounter Progress Notes * Becka Schneider RN - 10/13/2017 1:47 PM EST Linda Browning discharged to Home by private car with Family member. All belongings sent with patient. AHSAN removed, incision healing well, skin free from pressure ulcers. Discharge instructions, medications, and follow-up appointments reviewed, education provided on medications, paper prescriptionsgiven to patient, all questions answered. [facility] paperwork faxed. Patient instructed to call with concerns. * Lelia Simon - 10/13/2017 12:17 PM EST Alessio Encounter Note Patient Name: Linda Browning : [id number] MR#: [id number] Admit Date: 10/11/2017 5:49 AM Hospital Day 2 days Narrative: Linda was sitting up in bed eating lunch when I visited. She had two visitors in the room with her. She told me that her surgery went well and she anticipates being discharged later later today. Linda is from [place], [place] and is a member of the [employer] there and is supported by her family and her pet ambassador, Rev. Jerson Johnson. Assessment: Linda seems comfortable being here and pleased about a possible discharge today, knowing that she has PT work ahead of her when she returns home. Intervention and Outcome: Conversation, listening Follow-up: None needed. It is likely that Rev. Johnson will visit her once she is home. Time in Direct Care: 10 min Lelia Simon 10/13/2017 * Radha Weir RN - 10/13/2017 10:53 AM EST GUILLE paged OrthoPerlita, at [phone] to sign walker order in order to have Ortho care bring walker to room. * Kirk Mistry MD - 10/13/2017 8:42 AM EST Vascular Surgery Consult Note Linda Browning is a 67 y.o. female who underwent OLIF L5-S1 and posterior instrumented fusion L5-S1on 10/11/2017. Vascular Surgery performed the exposure of the anterior lumbar spine. Patient has done well post-operatively and remains on the orthopedic surgery service. Exam: Gen: No acute distress CV: RRR Abd: Soft, non-tender, dressing c/d/i Vascular Surgery will sign off. Please page if there are further questions or concerns. Julita Mistry Vascular Surgery, PGY2 Pager #[phone] * Bethany Callahan - 10/13/2017 5:27 AM EST Orthopaedic Spine Inpatient Progress Note Linda Browning is a 67 y.o. female who was admitted after an OLIF L5-S1 and posterior instrumented fusion L5-S1 on 10/11/2017 Preoperative Symptoms: Primarily low back pain, no bilateral lower extremity symptoms Preoperative symptoms Currently Present: Incisional low back pain Subjective: Patient feeling well this AM Pain well controlled Has mobilized with PT without difficulty Mild numbness/tingling in lateral aspect of R thigh after sitting in chair, appears to be improving No other acute concerns or complaints. Drain with minimal output overnight and this AM. Objective: Temp: [36.5 ??C (97.7 ??F)-37.2 ??C (99 ??F)] Heart Rate: [68-81] Resp: [16-18] BP: (109-126)/(49-66) SpO2: [95 %-96 %] Heart Rate from SPO2: [70 bpm-83 bpm] I/O last 3 completed shifts: In: 4429 [P.O.:960; I.V.:3469] Out: 2220 [Urine:1600; Other:420; Blood:200] I/O this shift: In: 1329 [P.O.:300; I.V.:1029] Out: 60 [Other:60] Physical Exam: General: Well appearing, no acute distress Cardio Vascular: RRR checked peripherally Abdomen: soft, non-tender, non-distended. Dressing c/d/i Back: dressing clean dry and intact. Drain in place, approx 60cc overnight, 15 cc b/w 4am and 6am (removed, 10 holes counted) Left Lower Extremity: DP/PT pulses 2+. Sensation intact in L1-S1 dermatomes Right Lower Extremity: DP/PT pulses 2+. Sensation intact in L1-S1 dermatomes Motor: Segment Muscle Action R L L2 Iliopsoas Hip flexion 5 5 L3 Quadriceps Knee extension 5 5 L4,5 Hamstring Knee Flexion 5 5 L4 Tibialis anterior Dorsiflexion 5 5 L5 Extensor hallucis Great toe extension 5 5 S1 Gastrocnemius, FHL Plantar flexion 5 5 Laboratory Recent Labs 10/12/17 0645 10/11/17 0611 WBC 8.4 6.7 HGB 10.2* 12.8 HCT 31.1* 38.1 PLATELET 159 230 NA 139 143 K 4.3 4.0 CL 105 103 CO2 24 25 BUN 19* 15 CREATININE 0.82 0.90 Imaging: XR lumbar spine - reveals well positioned hardware without evidence of hardware complication Assessment: 67 y.o. female s/p an OLIF L5-S1 and posterior instrumented fusion L5-S1 on 10/11/2017, doing well post-op. Labs this morning are unremarkable. Will plan to mobilize with physical therapy today and continue working on pain control. Patient has already made arrangements for home recovery and will likely discharge to a home setting from the hospital. Will plan as follows: Plan for today: mobilize with physical therapy today Active Inpatient Issues: ?? O2 overnight: None ?? Low blood pressure/hypotension post-op: None ?? Pain requiring IV breakthrough analgesia: None ?? Acute post-op urinary retention requiring straight cath: Urrutia in overnight, discontinued this morning ?? Post-op Nausea/Emesis requiring IV bolus or IV antiemetic: None Plan: ?? Mobilize with Physical Therapy - Ambulate as tolerated, no lifting, twisting or bending ?? Change dressing PRN starting POD#3 for back and abdomen. Abdomen dressings should remain as DSG with Tegederm. Back dressing can be changed to Mepilex. ?? Antibiotics x 24 hours ?? Pain Control: transition to PO pain meds ?? DVT Prophalaxis: mechanical ?? Drain with minimal output overnight. Removed this AM. ?? Urrutia out ?? Wound closed with subcuticular monocryl and prineo/dermabond on back; subcuticular monocryl and dermabond/steri-strips in front. ?? Discharge Planning: Home vs rehab per PT final recommendations. ?? Follow up in 2 weeks in the Spine Center with AP/Lateral lumbar spine x-rays. Future Appointments Date Time Provider Department Center 10/28/2017 1:[address] [facility] DX ROOM 2 Xray Le[facility] Rad Clin 10/28/2017 2:20 PM rTey Santos MD [facility] Spine [facility] 07/25/2018 8:30 AM Steven Souza MD [facility] BETHANY CALLAHAN MD 10/13/2017 * Janett Garcia RN - 10/12/2017 11:16 AM EST I reviewed a list of Home Health Agencies/DME vendors with patient which serve her preferred geographic area. I educated Her about her right to choose where referrals are placed. Patient requests referral to [facility] [employer]. PHONE: [phone] FAX: [phone] Ortho Care Located @ [place], [place] Expected date of discharge: tomorrow or Tuesday Referral routed to the [facility] [employer] for matching with agency/vendor and to provide any required information. * Franklin Triplett MD - 10/12/2017 6:08 AM EST Orthopaedic Spine Inpatient Progress Note Linda Browning is a 67 y.o. female who was admitted after an OLIF L5-S1 and posterior instrumented fusion L5-S1 on 10/11/2017 Preoperative Symptoms: Primarily low back pain, no bilateral lower extremity symptoms Preoperative symptoms Currently Present: Incisional low back pain Subjective: Admitted post-operative after the above stated procedure No acute events overnight Pain control has been adequate, no significant pain, but patient also states that she has not mobilized out of bed Urrutia catheter discontinued this morning Denies any bilateral lower extremity neurological complaints No chest pain/pressure, shortness of breath, nausea or vomitting Eager to mobilize this morning Objective: Temp: [36.3 ??C (97.3 ??F)-37.1 ??C (98.8 ??F)] Heart Rate: [65-88] Resp: [12-27] BP: (95-130)/(39-81) SpO2: [93 %-99 %] Heart Rate from SPO2: [65 bpm-88 bpm] I/O last 3 completed shifts: In: 1774 [P.O.:120; I.V.:1654] Out: 700 [Urine:425; Other:75; Blood:200] I/O this shift: In: 1602 [P.O.:360; I.V.:1242] Out: 930 [Urine:675; Other:255] Physical Exam: General: Well appearing, no acute distress Cardio Vascular: RRR checked peripherally Abdomen: soft, non-tender, non-distended. Dressing c/d/i Back: dressing clean dry and intact. Drain in place, ~250 cc out overnight Left Lower Extremity: DP/PT pulses 2+. Sensation intact in L1-S1 dermatomes Right Lower Extremity: DP/PT pulses 2+. Sensation intact in L1-S1 dermatomes Motor: Segment Muscle Action R L L2 Iliopsoas Hip flexion 5 5 L3 Quadriceps Knee extension 5 5 L4,5 Hamstring Knee Flexion 5 5 L4 Tibialis anterior Dorsiflexion 5 5 L5 Extensor hallucis Great toe extension 5 5 S1 Gastrocnemius, FHL Plantar flexion 5 5 Laboratory Recent Labs 10/11/17 0611 WBC 6.7 HGB 12.8 HCT 38.1 PLATELET 230 NA 143 K 4.0 CL 103 CO2 25 BUN 15 CREATININE 0.90 Imaging: XR lumbar spine - reveals well positioned hardware without evidence of hardware complication Assessment: 67 y.o. female s/p an OLIF L5-S1 and posterior instrumented fusion L5-S1 on 10/11/2017, doing well post-op. Labs this morning are unremarkable. Will plan to mobilize with physical therapy today and continue working on pain control. Patient has already made arrangements for home recovery and will likely discharge to a home setting from the hospital. Will plan as follows: Plan for today: mobilize with physical therapy today, work on pain control, plan to leave drain in today and d/c tomorrow. Active Inpatient Issues: ?? O2 overnight: None ?? Low blood pressure/hypotension post-op: None ?? Pain requiring IV breakthrough analgesia: None ?? Acute post-op urinary retention requiring straight cath: Urrutia in overnight, discontinued this morning ?? Post-op Nausea/Emesis requiring IV bolus or IV antiemetic: None Plan: ?? Mobilize with Physical Therapy - Ambulate as tolerated, no lifting, twisting or bending ?? Change dressing PRN starting POD#3 for back and abdomen. Abdomen dressings should remain as DSG with Tegederm. Back dressing can be changed to Mepilex. ?? Antibiotics x 24 hours ?? Pain Control: transition to PO pain meds ?? DVT Prophalaxis: mechanical ?? Urrutia out today ?? Wound closed with subcuticular monocryl and prineo/dermabond on back; subcuticular monocryl and dermabond/steri-strips in front. ?? Discharge Planning: Home vs rehab per PT final recommendations. ?? Follow up in 2 weeks in the Spine Center with AP/Lateral lumbar spine x-rays. Future Appointments Date Time Provider Department Center 10/28/2017 1:[address] [facility] DX ROOM 2 [facility] 10/28/2017 2:20 PM Trey Santos MD [facility] Spine [facility] 07/25/2018 8:30 AM Steven Souza MD [facility] FRANKLIN TRIPLETT MD 10/12/2017 * Cyndie Coe RN - 10/12/2017 6:02 AM EST 0556 Urrutia catheter removed. * aCrmina Thomas MD - 10/11/2017 7:01 PM EST Orthopaedic Surgery Post-Operative Progress Note Patient Name: Linda Browning Age: 67 y.o. Surgery/Issue: Procedure(s) (LRB): @ANT. LUMBAR FUSION INCLUD. MIN. DISKECTOMY (WRVU 23.53) (Bilateral) INSERTION INTERBODY BIOMECH DEV TO INTERVEBRAL DISC SPACE, EA INTERSPACE (WRVU 4.25) (Bilateral) ARTHRODESIS, LUMBAR SPINE, SINGLE LEVEL (WRVU 23.53) (Bilateral) POSTERIOR SPINAL NON-SEGMENTAL INST.(ONE SPACE) (WRVU 12.52) (Bilateral) AUTOGRAFT FOR SPINE SURGERY ONLY, SAME INCISION (WRVU *) (Bilateral) ALLOGRAFT FOR SPINE SURGERY ONLY; MORSELIZED (WRVU *) (Bilateral) MODIFIER GLOBUS CREO (Bilateral) MODIFIER L5 (Bilateral) MODIFIER S1 (Bilateral) @ANTERIOR APPROACH, FOR THROACIC (VASC) (WRVU 24.7) (N/A) s/p OLIF and posterior instrumented fusion L5-S1 Attending: Danielle Date of surgery: 10/11/2017 Subjective/Events: Patient denies numbness/weakness, chest pain, shortness of breath, nausea, vomiting. Pain reasonably well-controlled, currently 01/05. Pre-op Symptoms: 1. 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 2. ??Diffuse lumbar spondylosis mild to moderate. 3. ??Back pain with buttock and limited leg pain worse with walking better with forward flexion andpushing. 4. ??Leg length discrepancy with pelvic obliquity. Pre-op symptoms currently present: Back pain Objective: Temp: [36.3 ??C (97.3 ??F)-37.1 ??C (98.8 ??F)] Heart Rate: [65-88] Resp: [12-] BP: (95-130)/(39-81) Intake/Output Summary (Last 24 hours) at 10/11/17 1901 Last data filed at 10/11/17 1700 Gross per 24 hour Intake 1654 ml Output 525 ml Net 1129 ml Lab Results Component Value Date NA 143 10/11/2017 K 4.0 10/11/2017 CL 103 10/11/2017 CO2 25 10/11/2017 BUN 15 10/11/2017 CREATININE 0.90 10/11/2017 GLUCOSE 85 10/11/2017 CALCIUM 8.7 10/11/2017 Lab Results Component Value Date WBC 6.7 10/11/2017 HGB 12.8 10/11/2017 HCT 38.1 10/11/2017 MCV 93.8 10/11/2017 PLATELET 230 10/11/2017 Drain output: 50cc Exam: General: NAD, awake/alert, responds to questions CV: RRR Resp: Breathing comfortably, lungs CTAB Back: Dressing c/d/i, no hematoma Motor: Segment Muscle Action R L L2 Iliopsoas Hip flexion 5 5 L3 Quadriceps Knee extension 5 5 L4,5 Hamstring Knee Flexion 5 5 L4 Tibialis anterior Dorsiflexion 5 5 L5 Extensor hallucis Great toe extension 5 5 S1 Gastrocnemius, FHL Plantar flexion 5 5 Sensory: Sensation (light touch) (0=absent, 1=impaired, 2=normal) Segment Location Right Left L1 upper inner thigh 2 2 L2 mid-ant thigh 2 2 L3 med femoral condyle 2 2 L4 medial mal 2 2 L5 dorsum foot, 3rd MT 2 2 S1 lat heal 2 2 S2 Popliteal fossa 2 2 Radiology: pending A/P: 67 y.o. female POD#0 s/p OLIF and posterior instrumented fusion L5-S1. Vitals stable. - Activity as tolerated, no b/t/l - Mechanical DVT prophylaxis - Cefazolin x24 hours - PT/OT consult - Drain to suction, out when output <100 cc/12 hours - Urrutia out POD #1 - PO multimodal analgesic regimen - F/u lumbar spine x-rays (being obtained TROY) - Wound closed with running monocryl and Prineo/Dermabond - DSG/Tegederm dressings change starting POD #3 - F/u with Dr. Santos in 2 weeks documented in this encounter H&P Notes * Franklin Triplett MD - 10/11/2017 6:29 AM EST 24-Hour Pre-Operative H&P Update Linda Browning 1950 [id number] Patient seen in pre-op holding area today. There are no clinically significant changes to the patient's yvonne since the original H&P. Patient denies any recent fevers or chills. The patient is ready to proceed with the planned surgical procedure today. Surgical consent form reviewed. Operative site marked. All questions sought and answered. Franklin Triplett MD Orthopaedic Surgery Associated attestation - Trey Santos MD - 10/11/2017 3:08 PM EST Patient seen in holding. R/b discussed with patient and family. Surgical plan for the day discussed. All questions answered. Trey Santos MD MS [employer] Goods Repairer - Orthopedic Spine Surgery / Spine Center Urban Renewal Manager - Department of Orthopedic Surgery / Academics and Research Director Asset - [facility] 10/11/2017 * Franklin Triplett MD - 10/11/2017 6:27 AM EST Patient Name: Linda Browning Patient Age: 67 y.o. Birthdate: 1950 Admit date: 10/11/2017 Attending Physician: Trey Santos MD Please see H&P as completed by PCP and scanned into scanned docs. Franklin Triplett MD Orthopaedic Surgery * Joyce Shultz MD - 10/10/2017 5:41 PM EST Vascular Surgery History and Physical HPI: Ms. Browning is a 67 year old woman with L5-S1 spinal listhesis with collapse and severe foraminal stenosis. She is scheduled for OLIF L5-S1 today (anterior approach) and vascular surgery is requested for assistance with anterior spine exposure. She reports that she is in good health today. Prior abdominal surgery includes only laparoscopic tubal ligation which was done laparoscopically. Review of Systems: General: Denies fevers, chills, night sweats Neuro: Denies lightheadedness, amaurosis, dysarthria, transient weakness or new headaches HEENT: Denies changes in vision, hearing, smell or difficulty swallowing Pulm: Denies shortness of breath, wheezing or cough Card: Denies chest discomfort, palpitations, orthopnea, dyspnea with exersion or claudication GI: Denies nausea, vomiting, constipation, diarrhea, melana or BRBPR : Denies urinary urgency, frequency, dysuria, hematuria Musc: Denies joint pains or stiffness, denies extremity swelling Endo: Denies heat or cold in tolerance Psych: Denies mood changes or feelings of depression or anxiety Past Medical History: Diagnosis Date ??? Lumbar degenerative disc disease ??? Radiculopathy of lumbosacral region ??? Spondylolisthesis at L5-S1 level Functional Status/Social Hx: Never smoker; lives with Family Hx: Negative for Thrombosis, Bleeding Disorders Medications: No current facility-administered medications on file prior to encounter. Current Outpatient Prescriptions on File Prior to Encounter Medication Sig Dispense Refill ??? amitriptyline (ELAVIL) 10 mg Tablet take 1 tablet by mouth at bedtime 0 ??? magnesium 250 mg Tablet Take by mouth every other day. ??? multivitamin (THERAGRAN) Tablet Take 1 tablet by mouth daily. ??? acetaminophen (TYLENOL) 500 mg Tablet Take 1,000 mg by mouth 2 times daily. ??? CALCIUM CARBONATE/VITAMIN D3 (CALCIUM 600 + D,3, ORAL) Take 1 tablet by mouth daily. ??? albuterol (PROVENTIL HFA;VENTOLIN HFA) 90 mcg/Actuation inhaler Allergies: Unable to find [unclassified drug] Physical Exam: Blood pressure 130/81, pulse 67, temperature 36.3 ??C (97.3 ??F), temperature source Temporal, resp. rate 16, height 160 cm (5' 3), weight 62.1 kg (137 lb), SpO2 99 %. General: NAD, resting comfortably HEENT: PERRL, anicteric sclerae CVS: Regular rate, no murmurs rubs or gallops Pulm: Clear bilaterally Abd: soft, non tender, non distended; small well-healed scar at umbilicus Ext: RLE: No edema. Skin warm and pink. No tissue loss. Brisk capillary refill LLE: No edema. Skin warm and pink. No tissue loss. Brisk capillary refill Neuro: Grossly nonfocal, moving all extremities. - 2+ PT pulses in b/l feet Labs: T&S - A positive, AB negative CBC Lab Results Component Value Date WBC 6.7 10/11/2017 Hemoglobin 12.8 10/11/2017 Hematocrit 38.1 10/11/2017 Platelets 230 10/11/2017 No results found for: NA, K, CL, CO2, BUN, CREATININE, GLUCOSE Assessment and Plan: Ms. Browning presents today for OLIF L5-S1 via anterior approach. Vascular surgery will assist with the exposure portion of the case. Risks and benefits discussed in detail and informed consent obtained and documented. Joyce Shultz MD Vascular Surgery Fellow documented in this encounter Miscellaneous Notes * Op Note - Chico Granados MD - 10/13/2017 1:[address] [facility] [place] Patient Name: Linda Browning : [id number] MR#: [id number] Case Date: 10/11/2017 Surgeon: Surgeon(s) and Role: Panel 1: * Trey Santos MD - Primary * Chico Granados MD - *ASSISTING SURGEON * Franklin Triplett MD Panel 2: * Chico Granados MD - Primary * Joyce Shultz MD Preoperative diagnosis: Lytic Listhesis L5-S1 Postoperative diagnosis: Lytic Listhesis L5-S1 Procedure(s) (LRB): @ANT. LUMBAR FUSION INCLUD. MIN. DISKECTOMY (WRVU 23.53) (Bilateral) INSERTION INTERBODY BIOMECH DEV TO INTERVEBRAL DISC SPACE, EA INTERSPACE (WRVU 4.25) (Bilateral) ARTHRODESIS, LUMBAR SPINE, SINGLE LEVEL (WRVU 23.53) (Bilateral) POSTERIOR SPINAL NON-SEGMENTAL INST.(ONE SPACE) (WRVU 12.52) (Bilateral) AUTOGRAFT FOR SPINE SURGERY ONLY, SAME INCISION (WRVU *) (Bilateral) ALLOGRAFT FOR SPINE SURGERY ONLY; MORSELIZED (WRVU *) (Bilateral) MODIFIER GLOBUS CREO (Bilateral) MODIFIER L5 (Bilateral) MODIFIER S1 (Bilateral) @ANTERIOR APPROACH, FOR THROACIC (VASC) (WRVU 24.7) (N/A) Anesthesia: General Estimated Blood Loss: 200 mL Specimens removed during surgery: None Drains: Drain/Device Site 10/11/17 1348 lower back collapsible closed device (Active) Insertion Site clean and dry 10/13/2017 5:40 AM Drainage Characteristics/Odor sanguineous 10/13/2017 5:40 AM Drainage Amount small 10/13/2017 5:40 AM General Output (mL) 302 10/13/2017 5:40 AM Surgical Closure: Primary Closure - closure of ALL tissue levels during the original surgery regardless of wires, wickes, drains, or other devices extruding through the incision Disposition: awakened from anesthesia, extubated and taken to the recovery room in a stable condition, having suffered no apparent untoward event. Condition: doing well without problems (Please see the Surgical Encounter Summary for any Implant and Specimen details pertinent to this patient.) HPI/Surgical Indications: Need for exposure of the L5-S1 disc space for anterior spinal surgery. Procedure Description: The patient was placed in a right lateral decubitus position approximately 4cm incision was made in the left paramedian region approximately 2 fingerbreadths medial to the anterior superior iliac spine. This is carried down to the fascia with electrocautery anterior oblique was incised longitudinally the muscles of the internal oblique and transversus abdominis were split the retroperitoneal plane was developed and the retroperitoneal contents were swept anteriorly over the left iliac artery and vein such that exposure of the presacral fascia in the L5-S1 disc space between the iliac arteries was obtained. This was incised using electrocautery the left iliac artery and vein were then reflected laterally the. The [employer] retractor system was then positioned as perroutine. Following this there was adequate exposure for performance of the discectomy. The patient tolerated procedure well. Infection Bundle used? No Attestation: Case Date: 10/11/2017 I was present and I participated during the entire procedure (does not need to include opening and closing). CHICO GRAANDOS MD 10/19/2017 * Plan of Care - Christina Rueda RN - 10/13/2017 4:33 AM EST Problem: Patient Care Overview Goal: Plan of Care Review Outcome: Ongoing (Interventions Implemented as Appropriate) 10/12/17199910/13/17 0429 Coping/Psychosocial Plan Of Care Reviewed With patient -- Plan of Care Review Progress -- improving OUTCOME EVALUATION NOTE: OUTCOME SUMMARY: Patient calling appropriately during the night. Neurovascular checks remain unchanged, right outer thigh tingling still present. YAMINI draining sanguinous fluid (see Doc Flowsheet). All dressings CDI. Safety maintained, will continue to monitor. PLAN MOVING FORWARD: Discharge planning. INDIVIDUALIZED FALL PREVENTION INTERVENTIONS: Patient-specific fall risk factors per assessment: Medical equipment, drain Assistance: SBA, FWW Supervision: Arms reach Surveillance: Bed locked in low position, call veras within reach, purposeful hourly rounding, clutter free environment, bed alarm on Patient-specific fall prevention interventions for sensory deficits provided: N/A CPG GOAL OUTCOME EVALUATION: Continue care plan as documented. * Plan of Care - Gisela Cuevas RN - 10/12/2017 4:27 PM EST Problem: Patient Care Overview Goal: Plan of Care Review Outcome: Ongoing (Interventions Implemented as Appropriate) 10/12/17 1156 Coping/Psychosocial Plan Of Care Reviewed With patient OUTCOME EVALUATION NOTE: OUTCOME SUMMARY: AAOx4. New numbness in right outer thigh. Ambulated around unit with FWW and numbness remained present. Reports 3-4/10 pain in back at incision site, 5mg oxycodone given with good effect. Held lyricabecause patient reported she was prescribed this in April when trying to get pain undercontrol w/o success. Worked with PT. Sat up in chair for most of the day, encouraged patient to shift weight. Ambulated to bathroom w/ FWW and SBA. Presented with minimal shaking in upper body when standing up. YAMINI draining sanguinous fluid (see doc flow sheet). Family at bedside. PLAN MOVING FORWARD: Encourage patient to ambulate w/ FWW Monitor YAMINI output Discharge planning - home INDIVIDUALIZED FALL PREVENTION INTERVENTIONS: Patient-specific fall risk factors per assessment: s/p anterior lumbar infusion, generalized weakness, IV fluids Assistance: SBA, FWW Supervision: Arms reach Surveillance: Bed locked in low position, call veras within reach, purposeful hourly rounding, clutter free environment, bed/chair alarm on, family at bedside Patient-specific fall prevention interventions for sensory deficits provided: yes CPG GOAL OUTCOME EVALUATION: Continue care plan as documented. * Plan of Care - Irma Garcia - 10/12/2017 12:02 PM EST Problem: Patient Care Overview Goal: Plan of Care Review Outcome: Ongoing (Interventions Implemented as Appropriate) 10/12/17 1156 Coping/Psychosocial Plan Of Care Reviewed With patient Occupational Therapy Evaluation Pertinent History of Current Problem: Linda Browning is a 67 y.o. female who was admitted after an OLIF L5-S1 and posterior instrumented fusion L5-S1 on 10/11/2017 Active Non-Hospital Problems Diagnosis ??? History of basal cell carcinoma ??? Sebaceous hyperplasia ??? Seborrheic keratosis Precautions/Restrictions: fall Precautions Comments: no BLT, YAMINI drain, act as aiden Living Environment Comment: Pt lives with in a one level home with two steps to get into the house. Pt does drive and is retired. Pt has a tub shower but does not have AD. Prior Functional Level Comment: At baseline, pt ambulates independently without AD, but up until recently she has been using crutches to stand upright and ski poles. Pt reports her and daughter would be able to help her when she returns home. Assessment: Pt has been seen by OT for evaluation, please refer to associated flowsheet data for details. Despite mild pain, decreased activity tolerance, and spinal precautions, Pt demonstrates the ability to perform basic ADL???s such as UB dressing. Pt able to ambulate 150 ft around unit with supervision. Due to limited BLT precautions, Pt issued a sock aid. Pt reports she has shoe horn at home and will have help from daughter and if needed. Anticipate that pt will return home with assistance once medically ready for discharge. Do not anticipate further OT needs while hospitalized. Therapy Frequency: evaluation only Anticipated Equipment Needs at Discharge: dressing equipment Anticipated Discharge Disposition: home with assist Pager: [phone] Irma Garcia 10/12/2017 Occupational Therapy Rehabilitation Department 2017 OT Evaluation Code Rationale: ?? Diagnosis & Pertinent Co-Morbidities affecting Plan of Care: see PMHx above ?? Occupational Profile & Client History: Brief Expanded Extensive x ?? Assessment of Occupational Performance: 1-3 performance deficits 3-5 performance deficits x 5 + performance deficits ?? Clinical Decision Making: Low Moderate High x Clinical decision making of moderate complexity using standardized patient assessment instrument and measurable assessment of functional outcome. [facility] 6 Clicks Daily Activity Inpatient Short Form How much help from another person does the patient currently need... Total (1) A Lot (2) A Little (3) None (4) 1. Putting on and taking off regular lower body clothing? x 2. Bathing (including washing, rinsing, drying)? x 3. Toileting, which includes using toilet, bedpan or urinal? x 4. Putting on and taking off regular upper body clothing? x 5. Taking care of personal grooming such as brushing teeth? x 6. Eating meals? x Raw Score: 22 Standardized Score: 47.10 CMS 0-100% Score: 25.80% CMS Modifier: CJ Associated attestation - Lizbeth Marx OT - 10/12/2017 3:59 PM EST Patient status, treatment interventions, and goals discussed with student. I am in agreement with all details and associated flowsheet rows as documented and was present for all aspects of the patient treatment session. G-Code: Self-Care Status Modifier CURRENT CJ - At least 20 percent but less than 40 percent impaired, limited or restricted PROJECTED CJ - At least 20 percent but less than 40 percent impaired, limited or restricted DISCHARGE CJ - At least 20 percent but less than 40 percent impaired, limited or restricted G Code Rationale: This G-Code and these disability modifiers were selected as the primary therapy goal based upon the patient's evaluation including the following functional test(s) AM-PAC - ActivityMeasure for Post-Acute Care. Current ability measures, co-morbidities and clinical judgement were also used to select the disability modifier. This Patient's current G-Code functional level is 25% impaired based upon CJ. Lizbeth Marx, OTR/L Pager [phone] * Plan of Care - Reyna Reyes, PT - 10/12/2017 11:39 AM EST Problem: Patient Care Overview Goal: Plan of Care Review Outcome: Ongoing (Interventions Implemented as Appropriate) 10/12/17 6935 Coping/Psychosocial Plan Of Care Reviewed With patient Physical Therapy Evaluation Pertinent History of Current Problem: Linda Browning is a 67 y.o. female who was admitted after an OLIF L5-S1 and posterior instrumented fusion L5-S1 on 10/11/2017 Living Environment Comment: Pt lives with on one-level with two small steps to enter. At baseline, she is independent with her ADL and (I)ADL tasks, but more recently has not been able to complete tasks that involve prolonged standing. She has a tub shower set-up. Patient is an active route salesman and driver. She does not work. Patient's and daughter will be available to assist patient after discharge. Prior Functional Level Comment: Pt used to ambulate independently without an AD, but more recently has used ski poles or crutches to help her achieve a more upright posture. She denies falls. Assessment: Pt seen for skilled PT 1 , please refer to associated flowsheet data for details. Pt etelvina&o x 4, pleasant, cooperative. BLT precautions and log- rolling techniques were explained to patient. She presents with impaired postural control and core strength, decreased activity tolerance, and decreased dynamic balance. Functionally, patient was able to stand and ambulate 150 ft with RW under supervision with a steadygait. Patient states she will have her and daughter to assist her. Interventions: PT evaluation, gait Anticipate that pt will return home with assistance and services. Do not anticipate further inpatient PT needs; will monitor. Precautions/Restrictions: fall Precautions Comments: no BLT's, YAMINI drain, ambulate as tolerated Mobility Guidelines: Supervision with RW Discharge Recommendations: Home with assist and home PT/OT; needs a walker Pager: [phone] Reyna Reyes, DPT, NCS Physical Therapy Rehabilitation Department 2017 PT Evaluation Code Rationale: ?? Diagnosis & Pertinent Co-Morbidities, personal factors, and present illness affecting Plan of Care: Patient Active Problem List Diagnosis Code ??? Sebaceous hyperplasia L73.8 ??? Seborrheic keratosis L82.1 ??? s/p OLIF L5-S1 and posterior instrumented fusion L5-S1 on 10/11/2017, Dr. Santos M43.19 ??? History of basal cell carcinoma Z85.828 ?? List of Factors: 0 1-2 3+ x ?? Examination of body system impairments, functional limitations and behaviors, that result in participation restrictions. Addressing 1-2 elements Addressing 3 + elements x Addressing 4 + elements ?? Clinical presentation: See assessment above. Stable/Uncomplicated Evolving/Fluctuating Symptoms Unstable/Unpredictable x ?? Clinical decision making of moderate complexity based on pt's functional performance as outlinedin this evaluation. G-Code: Mobility Status Modifier CURRENT CJ - At least 20 percent but less than 40 percent impaired, limited or restricted PROJECTED CJ - At least 20 percent but less than 40 percent impaired, limited or restricted DISCHARGE CJ - At least 20 percent but less than 40 percent impaired, limited or restricted G Code Rationale: This G-Code and these disability modifiers were selected as the primary therapy goal based upon the patient's evaluation including the following functional test(s) FOMs. Current ability measures, co-morbidities and clinical judgement were also used to select the disability modifier. * Initial Assessments - Sandhya Delgado MSW - 10/12/2017 9:57 AM EST Office of Care Management Initial Assessment OBIE Hammond reviewed record and discussed patient with Care Team. Source of Information: Patient at bedside Introduced self/reviewed role; services accepted. Reason for Hospitalization: Reason for Admission as Stated by Patient: pt states that she was admitted in hospital for her back surgery Past Medical History: Diagnosis Date ??? Lumbar degenerative disc disease ??? Radiculopathy of lumbosacral region ??? Spondylolisthesis at L5-S1 level Hospitalizations Within the Past 30 Days: No [facility] [place]. Anticipated Length Of Stay (If known): Current Decision-Making Capacity: Alert and oriented x 4. Able to make own decisions. Advance Care Planning: On file: Skyler Browning (spouse), Galina (daughter) and Rj (son) Current Coping/Education/Information Needs: Expressed understanding of her plan of care, and discharge plan. Denied any questions/concerns at this time. Current Functional Ability: Independent Functional Status Prior to Admission: Independent at baseline. Uses crutches and hiking poles for ambulation. Has difficulties putting on socks and shoes. Rolls around the kitchen in a desk chair dueto difficulties standing for long periods of time. Home Environment: Lives with her in a multiple level home, with two steps to enter. Bedroomand bathroom are on the first level; bathroom has a tub shower. Social & Family Supports/Community Resources: Endorses a strong social support system between her , Skyler, and her friends. Daughter lives in [place], and son lives in [place]. Was going to outpatient PT, and pool therapy prior to admission. Behavioral Health History: None Substance Use/Abuse: None Other Pertinent/Service Specific Information: None Health/Prescription Coverage: Primary Insurance: MEDICARE Secondary Insurance: [employer] [facility] Prescription Coverage: [employer] Preferred Pharmacy: [facility] Other: None Primary Care Provider: Niki Vyas MD [phone] Patient/Caregiver Goals of Treatment: Go home Potential Needs for Transition of Care: Rehab/SNF: None Home Health: [facility] DME: [facility] Dialysis: None Community Resources: None Transportation: None Other: None Anticipated Barriers to Discharge/Special Considerations: None Plan: Anticipate discharge home with her , VNA services through [facility], and walker. , Skyler, will transport pt home upon discharge. A member of the Care Management team will continue to monitor progress, follow for continuity of care and assist with transition of care planning. OBIE Hammond Pager: [phone] * Plan of Care - Cyndie Coe RN - 10/12/2017 3:34 AM EST Problem: Patient Care Overview Goal: Plan of Care Review Outcome: Ongoing (Interventions Implemented as Appropriate) OUTCOME EVALUATION NOTE: OUTCOME SUMMARY: 2034 Trans from PACU by bed along with pt's file and belongings, report received from RANJANA Merida. Oriented to unit room and staff, call veras within reach, kept comfortable in bed. Alert and oriented, calm and cooperative. Scheduled Tylenol and Toradol given for back pain with positive effect. Refuses oxycodone for now. Left lower abdomen and back incision CDI, no drainage noted, YAMINI drain in place draining moderate amount of sanguinous drainage. No numbness, no tingling noted on all extremities. + Pedal pulses. Slept fairly over night, will continue to monitor. PLAN MOVING FORWARD: Continue treatment plan INDIVIDUALIZED FALL PREVENTION INTERVENTIONS: Patient-specific fall risk factors per assessment: Recent surgery Assistance: Repositioned in bed, 1 assist Supervision: Hands on Surveillance: Bed locked in low position, bed alarm on, purposeful rounding, call veras within reach Patient-specific fall prevention interventions for sensory deficits provided, if applicable: [X] Yes CPG GOAL OUTCOME EVALUATION: Goal: Fall Prevention-Safe Patient Handling Outcome: Ongoing (Interventions Implemented as Appropriate) 10/12/17317 Restraint Interventions Safety Promotion/Fall Prevention activity supervised;fall prevention program maintained;nonskid shoes/slippers when out of bed Goal: Infection Control Outcome: Ongoing (Interventions Implemented as Appropriate) 10/12/17317 Safety Interventions Isolation Precautions standard precautions maintained Problem: Skin Integrity Impairment, Risk/Actual (Adult) Goal: Skin Integrity/Wound Healing Patient will demonstrate the desired outcomes by discharge/transition of care. Outcome: Ongoing (Interventions Implemented as Appropriate) 10/12/17317 Skin Integrity Impairment, Risk/Actual (Adult) Skin Integrity/Wound Healing making progress toward outcome Problem: Pain, Acute (Adult) Goal: Acceptable Pain Control/Comfort Level Patient will demonstrate the desired outcomes by discharge/transition of care. Outcome: Ongoing (Interventions Implemented as Appropriate) 10/12/17317 Pain, Acute (Adult) Acceptable Pain Control/Comfort Level making progress toward outcome * Op Note - Trey Santos MD - 10/11/2017 2:[address] [facility] [place] Patient Name: Linda Browning : [id number] MR#: [id number] Case Date: 10/11/2017 Surgeon: Surgeon(s) and Role: Panel 1: * Trey Santos MD - Primary * Chico Granados MD - *ASSISTING SURGEON * Franklin Triplett MD Panel 2: * Chico Granados MD - Primary * Joyce Shultz MD Preoperative diagnosis: Lytic Listhesis L5-S1 Postoperative diagnosis: Lytic Listhesis L5-S1 Procedure(s) (LRB): @ANT. LUMBAR FUSION INCLUD. MIN. DISKECTOMY (WRVU 23.53) (Bilateral) INSERTION INTERBODY BIOMECH DEV TO INTERVEBRAL DISC SPACE, EA INTERSPACE (WRVU 4.25) (Bilateral) ARTHRODESIS, LUMBAR SPINE, SINGLE LEVEL (WRVU 23.53) (Bilateral) POSTERIOR SPINAL NON-SEGMENTAL INST.(ONE SPACE) (WRVU 12.52) (Bilateral) AUTOGRAFT FOR SPINE SURGERY ONLY, SAME INCISION (WRVU *) (Bilateral) ALLOGRAFT FOR SPINE SURGERY ONLY; MORSELIZED (WRVU *) (Bilateral) MODIFIER GLOBUS CREO (Bilateral) MODIFIER L5 (Bilateral) MODIFIER S1 (Bilateral) @ANTERIOR APPROACH, FOR THROACIC (VASC) (WRVU 24.7) (N/A) Anesthesia: General Estimated Blood Loss: 200 mL Specimens removed during surgery: None Drains: Drain/Device Site 10/11/17 1348 lower back collapsible closed device (Active) Surgical Closure: Primary Closure - closure of ALL tissue levels during the original surgery regardless of wires, wickes, drains, or other devices extruding through the incision Disposition: awakened from anesthesia, extubated and taken to the recovery room in a stable condition, having suffered no apparent untoward event. Condition: doing well without problems (Please see the Surgical Encounter Summary for any Implant and Specimen details pertinent to this patient.) HPI/Surgical Indications: See below. Procedure Description: DIAGNOSIS: 1. 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 2. Lytic spondylolisthesis L5-S1. PROCEDURE: 1. ALIF L5-S1 2. Application interbody cage anterior L5-S1 3. Application of BMP2 4. Posterior segmental instrumentation L5-S1. 6. Posterolateral arthrodesis L5-S1. 7. Application of local autograft. 8. Application of allograft morselized. INDICATIONS FOR PROCEDURE: This is a patient with severe foraminal stenosis with a chief complaint of back and leg pain. Please see clinical notes for details. The patient was seen in the holding area and risks and benefits were discussed, as well as in the clinic. The risks of spinal fluid leak, nonunion, persistent symptoms, infection, adjacent segment degeneration, further surgery, hardware failure. Consents were again reviewed. All questions were answered. DESCRIPTION OF PROCEDURE: Patient was brought back to the operating theater. General endotracheal intubation was accomplished. The patient was placed in a right lateral decubitus position on the Luís table. All bony problems carefully padded. Urrutia been placed. Prophylactic antibiotics were given. Fluoroscopy was used todocument adequate visualization. He was prepped and draped sterilely in usual fashion. Exposure: The exposure of the anterior lumbar spine through an oblique lateral interbody fusion technique was performed by Dr. Granados. Please see his operative notes for details. Once the disc space was a identified based on fluoroscopic imaging. A blunt probe was passed into the disc space. This was checked on AP and lateral views. OLIF L5-S1: A discectomy was performed to the posterior aspect the vertebral body. The endplates were prepared with multiple tools. Trials were utilized and sized appropriately. An 8 mm x 8 degree lordosis interbody device was filled with BMP and placed in interbody position. It was checked on AP and lateral fluoroscopy views. Application of interbody cage L5-S1: As above. Closure: The fascia was closed in layers. The skin was closed in layers and sterile dressings were applied. The patient was then placed prone on Luís spine table. All bony prominences were carefully padded. The patient was prepped and draped sterilely in the usual fashion. A timeout was performed and confirmed. Radiographs were used for incisional planning. An incision was made centered on the appropriate spinous process and the incision was taken down to the fascia. Irrigation was utilized. The fascia was incised bilaterally. The paraspinal muscles were retracted to the lateral edge of the pars. Facets were maintained laterally and for an appropriate level. Posterior segmental instrumentation at L5-S1: Based on preoperative imaging, intraoperative imaging, and type of landmarks, a high-speed cortical bur was utilized to make a cortical breach inline with the pedicle. The gearshift advanced down the pedicle. A ball-tip probe documented cortical integrity. The screw hole was tapped and a screw was inserted. Screws were checked on imaging and found to be in good condition. Screws were placed bilaterally from L5-S1. Denzel was placed and locked into position. Posterolateral arthrodesis with application of morselized autograft in the same incision: The high-speed cortical drill was utilized to decorticate the L5 TP and S1 Ala. Copious amounts of allograft was morselized. This was packed densely into inter transverse position. This was done across the L5-S1. CLOSURE: Copious irrigation was utilized throughout the case. No evidence of CSF leak. A drain was placed deep in the fascia and vancomycin powder was utilized. The fascia was closed in a watertight fashion. Irrigation was again utilized. The wound was closed in layers. The patient was extubated and taken to the PACU in good condition. INSTRUMENTATION: Posterior: Globus CREO AMP. Anterior Medtronic Perimeter Vancomycin was utilized. Infection Bundle used? N/A Attestation: Case Date: 10/11/2017 I was present and I participated during the entire procedure (does not need to include opening and closing). Trey Santos MD 10/11/2017 * Brief Op Note - Trey Santos MD - 10/11/2017 2:37 PM EST Brief Operative Note Patient Name: Linda Browning : [id number] MR#: [id number] Case Date: 10/11/2017 Surgeon: Surgeon(s) and Role: Panel 1: * Trey Santos MD - Primary * Chico Granados MD - *ASSISTING SURGEON * Franklin Triplett MD Panel 2: * Chico Granados MD - Primary * Joyce Shultz MD Preoperative diagnosis: Lytic Listhesis L5-S1 Postoperative diagnosis: Lytic Listhesis L5-S1 Procedure(s) (LRB): @ANT. LUMBAR FUSION INCLUD. MIN. DISKECTOMY (WRVU 23.53) (Bilateral) INSERTION INTERBODY BIOMECH DEV TO INTERVEBRAL DISC SPACE, EA INTERSPACE (WRVU 4.25) (Bilateral) ARTHRODESIS, LUMBAR SPINE, SINGLE LEVEL (WRVU 23.53) (Bilateral) POSTERIOR SPINAL NON-SEGMENTAL INST.(ONE SPACE) (WRVU 12.52) (Bilateral) AUTOGRAFT FOR SPINE SURGERY ONLY, SAME INCISION (WRVU *) (Bilateral) ALLOGRAFT FOR SPINE SURGERY ONLY; MORSELIZED (WRVU *) (Bilateral) MODIFIER GLOBUS CREO (Bilateral) MODIFIER L5 (Bilateral) MODIFIER S1 (Bilateral) @ANTERIOR APPROACH, FOR THROACIC (VASC) (WRVU 24.7) (N/A) Anesthesia: General Findings: c/w disease Complications: None noted Intake: Intraprocedure Crystalloid Total None Transfusion No data found. Output: Estimated Blood Loss: 200 mL Urine Output:: 225 mL Other Output: (no other output recorded) Drains: Y Specimens removed during surgery: None Disposition: awakened from anesthesia, extubated and taken to the recovery room in a stable condition, having suffered no apparent untoward event. Condition: doing well without problems Attestation: Case Date: 10/11/2017 I was present and I participated during the entire procedure (does not need to include opening and closing). (Please see the Surgical Encounter Summary for any Implant and Specimen details pertinent to this patient.) documented in this encounter Plan of Treatment Upcoming Encounters Date Type Department Care Team (Late st Contact Info) Description 09/18/2024 11:30 AM EST Office Visit Dermatology at [facility] [address] [place] [id number] Tata Aldridge MD [facility] [address] 05/09/2025 2:00 PM EDT Office Visit Dermatology at [facility] [address] [place] [phone] Tata Aldridge MD [facility] [place] [address] [place] [address] documented as of this encounter Procedures Procedure Name Priority Date/Time Associated Diagnosis Comments IMPLANTABLE DEVICES SCAN 10/14/2017 12:00 AM EST ECG SCAN 10/14/2017 12:00 AM EST HEMOGRAM Routine 10/12/2017 6:45 AM EST DIFFERENTIAL, AUTOMATED Routine 10/12/2017 6:45 AM EST CBC (WITH DIFF) Routine 10/12/2017 6:45 AM EST BASIC METABOLIC PANEL Routine 10/12/2017 6:45 AM EST XR LUMBAR SPINE 2 OR 3 VIEWS Routine 10/11/2017 8:31 PM EST XR FLUORO NO RAD <1HR - OR USE Routine 10/11/2017 2:11 PM EST @ANTERIOR APPROACH, FOR THROACIC (VASC) (WRVU 24.7) Yes 10/11/2017 7:41 AM EST 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 MODIFIER S1 Yes 10/11/2017 7:41 AM EST 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 MODIFIER L5 Yes 10/11/2017 7:41 AM EST 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 MODIFIER GLOBUS CREO Yes 10/11/2017 7:41 AM EST 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 ALLOGRAFT FOR SPINE SURGERY ONLY; MORSELIZED (WRVU *) Yes 10/11/2017 7:41 AM EST 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 AUTOGRAFT FOR SPINE SURGERY ONLY, SAME INCISION (WRVU *) Yes 10/11/2017 7:41 AM EST 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 POSTERIOR SPINAL NON-SEGMENTAL INST.(ONE SPACE) (WRVU 12.52) Yes 10/11/2017 7:41 AM EST 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 ARTHRODESIS, LUMBAR SPINE, SINGLE INTERSPACE (WRVU 23.53) Yes 10/11/2017 7:41 AM EST 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 INSERTION INTERBODY BIOMECH DEV TO INTERVEBRAL DISC SPACE, EA INTERSPACE (WRVU 4.25) Yes 10/11/2017 7:41 AM EST 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 @ANT. LUMBAR FUSION INCLUD. MIN. DISKECTOMY (WRVU 23.53) Yes 10/11/2017 7:41 AM EST 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 INSERTION INTERBODY BIOMECH DEV TO INTERVEBRAL DISC SPACE, EA INTERSPACE Routine 10/11/2017 6:13 AM EST 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 POSTERIOR SPINAL NON-SEGMENTAL INST.(ONE SPACE) Routine 10/11/2017 6:13 AM EST 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 ARTHRODESIS,LUMBAR SPINE,SINGLE LEVEL Routine 10/11/2017 6:13 AM EST 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 ANTERIOR APPROACH,FOR THROACIC (VASC) Routine 10/11/2017 6:13 AM EST 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 AUTOGRAFT FOR SPINE SURGERY ONLY,SAME INCISION Routine 10/11/2017 6:13 AM EST 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 ALLOGRAFT FOR SPINE SURGERY ONLY;MORSELIZED Routine 10/11/2017 6:13 AM EST 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 HEMOGRAM Routine 10/11/2017 6:11 AM EST Spine pain, lumbar 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 DIFFERENTIAL, AUTOMATED Routine 10/11/2017 6:11 AM EST Spine pain, lumbar 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 CBC (WITH DIFF) Routine 10/11/2017 6:11 AM EST Spine pain, lumbar 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 BASIC METABOLIC PANEL Routine 10/11/2017 6:11 AM EST 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 documented in this encounter Results * SCAN DOC: IMPLANTABLE DEVICES (10/14/2017 12:00 AM EST) Narrative 10/14/2017 12:00 AM EST Ordered by an unspecified provider. Scanning Provider MEDIA MGR SCAN EXT O RDR/RSLT * SCAN DOC: ECG (10/14/2017 12:00 AM EST) Narrative 10/14/2017 12:00 AM EST Ordered by an unspecified provider. Scanning Provider MEDIA MGR SCAN EXT O RDR/RSLT * Differential, Automated (10/12/2017 6:45 AM EST) Neutrophil % 70.9 % [facility] Neutrophil Absolute 5.92 1.70 - 6.10 x10(3)/[facility] Lymph % 17.9 % [facility] Lymphocytes Abs 1.5 0.9 - 3.2 x10(3)/[facility] Monocyte % 10.6 % [facility] Monocyte Abs 0.9 0.3 - 0.9 x10(3)/[facility] Eos % 0.0 % [facility] Eosinophils Abs 0.0 0.0 - 0.4 x10(3)/[facility] Basophil % 0.2 % [facility] Baso Absolute 0.0 0.0 - 0.1 x10(3)/[facility] Immature Gran % 0.40 % [facility] Comment: Immature granulocytes(IG's)percentage and absolute count will include metamyelocytes, myelocytes, and promyelocytes. Blood smears from CBCs yielding IG's will be scanned manually for concordance. If this scan disagrees with the automated IG or if promyelocytes are noted, a manual differential will be performed. Immature Gran Absolute 0.03 0.00 - 0.04 x10(3)/[facility] Blood specimen (specimen) 10/12/2017 6:45 AM EST 10/12/2017 6:51 AM EST Narrative Resulting Agency Comment Spec In Lab Franklin Triplett MD HEMATOLOGY ORDERABLE S [facility] [place] [phone] * (ABNORMAL) Hemogram (10/12/2017 6:45 AM EST) [facility] White Blood Cell 8.4 4.0 - 9.5 x10(3)/[facility] LABORAT[facility] Red Blood Cell 3.23(L) 4.00 - 5.21 x10(6)/ L [facility] Hemoglobin 10.2(L) 11.7 - 15.5 gm/dL [facility] Hematocrit 31.1(L) 35.7 - 45.8 % [facility] Mean Cell Volume 96.3(H) 82.6 - 94.4 fL [facility] Mean Cell Hemoglobin 31.6 27.1 - 32.0 pg [facility] Mean Cell Hemoglobin Concentration 32.8 31.7 - 35.0 gm/dL [facility] Platelet 159 145 - 357 x10(3)/[facility] RDW Standard Deviation 46.0 37.0 - 46.0 [facility] RDW coefficient of variation 12.9 11.5 - 14.1 % [facility] Mean Platelet Volume 9.4 7.6 - 12.9 fL [facility] NRBC% auto 0.0 % [facility] NRBC Absolute 0.000 0.000 - 0.000 x10(3)/[facility] Blood specimen (specimen) 10/12/2017 6:45 AM EST 10/12/2017 6:51 AM EST Narrative Resulting Agency Comment Spec In Lab Franklin Triplett MD HEMATOLOGY ORDERABLE S [facility] [place] [address] * (ABNORMAL) Basic Metabolic Panel (non-fasting) (10/12/2017 6:45 AM EST) [facility] Glucose 91 65 - 199 mg/dL [facility] Comment:Diabetes: >=200 mg/d L plus symptoms Blood Urea Nitrogen 19(H) 8 - 18 mg/dL [facility] Creatinine 0.82 0.70 - 1.20 mg/dL [facility] Sodium 139 135 - 145 mmol/L [facility] Potassium 4.3 3.5 - 5.0 mmol/L [facility] Comment: Please note: ??Patients with WBC >100,000 may have falsely elevated Potassium levels. ??For accurate Potassium quantification in these patients send serum separator tube (gold top) for subsequent determinations. ??Contact the Clinical Chemistry Laboratory if there are any questions. Chloride 105 98 - 107 mmol/L [facility] Carbon Dioxide 24 22 - 31 mmol/L [facility] Anion Gap 10 5 - 15 mmol/L [facility] Calcium 7.9(L) 8.5 - 10.5 mg/dL [facility] Est Glomerular Filtration Rate >60 >=60 [facility] Comment: The reported eGFR should be multiplied by 1.2 for patients. The MDRD is not an appropriate measure of renal function for patients with body mass extremes or in patients with acute kidney failure. http://NotaryAct/DHnkdep http://NotaryAct/DHMCnkf Blood specimen (specimen) 10/12/2017 6:45 AM EST 10/12/2017 6:51 AM EST Narrative Resulting Agency Comment Spec In Lab Trey Santos MD CHEMISTRY ORDERABLES [facility] [place] [address] * XR Lumbar Spine 2 Or 3 Views (Generic) (10/11/2017 8:31 PM EST) Anatomical Region Laterality Modality L-spine N/A Digital Radiogra phy Impressions 10/11/2017 8:59 PM EST Improved alignment at L5-S1 posterior fixation. No appreciable postoperative hardware complication. Narrative 10/11/2017 8:59 PM EST EXAMINATION: XR LUMBAR SPINE 2 OR 3 VIEWS (GENERIC) CLINICAL HISTORY: s/p OLIF L5-S1 and posterior instrumented fusion L5-S1 TECHNIQUE: Frontal and lateral views of the lumbar spine. COMPARISON: Intraoperative spot images from earlier the same day. Lumbar spine CT from 08/25/2017. FINDINGS: Status post L5-S1 posterior fixation, with hardware in unchanged position compared to the intraoperative spot views. Unchanged lumbar vertebral body height and alignment compared to the intraoperative spot views. Improved L5 anterolisthesis relative to S1. Increased intervertebral disc space height due to the presence of a spacer. No appreciable hardware complication. Procedure Note Justyna Watt MD - 10/11/2017 EXAMINATION: XR LUMBAR SPINE 2 OR 3 VIEWS (GENERIC) CLINICAL HISTORY: s/p OLIF L5-S1 and posterior instrumented fusion L5-S1 TECHNIQUE: Frontal and lateral views of the lumbar spine. COMPARISON: Intraoperative spot images from earlier the same day. Lumbarspine CT from 08/25/2017. FINDINGS: Status post L5-S1 posterior fixation, with hardware inunchanged position compared to the intraoperative spot views. Unchanged lumbarvertebral body height and alignment compared to the intraoperative spot views.Improved L5 anterolisthesis relative to S1. Increased intervertebral disc space heightdue to the presence of a spacer. No appreciable hardware complication. IMPRESSION Improved alignment at L5-S1 posterior fixation. No appreciablepostoperative hardware complication. Trey Santos MD [facility] [place]LES * XR Fluoro No Rad <1Hr - OR Use (10/11/2017 2:11 PM EST) Narrative RAD - 10/11/2017 2:12 PM EST This order does not need a radiologist interpretation. ?? Trey CERON FLUORO ORDERABLE S [facility] [place], [place] * Differential, Automated (10/11/2017 6:11 AM EST) Pathologist [facility] Neutrophil % 52.3 % [facility] Neutrophil Absolute 3.49 1.70 - 6.10 x10(3)/[facility] Lymph % 33.0 % [facility] Lymphocytes Abs 2.2 0.9 - 3.2 x10(3)/[facility] Monocyte % 9.7 % [facility] Monocyte Abs 0.6 0.3 - 0.9 x10(3)/[facility] Eos % 4.0 % [facility] Eosinophils Abs 0.3 0.0 - 0.4 x10(3)/[facility] Basophil % 0.9 % [facility] Baso Absolute 0.1 0.0 - 0.1 x10(3)/[facility] Immature Gran % 0.10 % [facility] Comment: Immature granulocytes(IG's)percentage and absolute count will include metamyelocytes, myelocytes, and promyelocytes. Blood smears from CBCs yielding IG's will be scanned manually for concordance. If this scan disagrees with the automated IG or if promyelocytes are noted, a manual differential will be performed. Immature Gran Absolute 0.01 0.00 - 0.04 x10(3)/[facility] Blood specimen (specimen) 10/11/2017 6:11 AM EST 10/11/2017 6:30 AM EST Narrative Resulting Agency Comment Spec In Lab Franklin Triplett MD HEMATOLOGY ORDERABLE S [facility] [place] [address] * Hemogram (10/11/2017 6:11 AM EST) [facility] White Blood Cell 6.7 4.0 - 9.5 x10(3)/[facility] Red Blood Cell 4.06 4.00 - 5.21 x10(6)/[facility] Hemoglobin 12.8 11.7 - 15.5 gm/dL [facility] Hematocrit 38.1 35.7 - 45.8 % [facility] Mean Cell Volume 93.8 82.6 - 94.4 fL [facility] Mean Cell Hemoglobin 31.5 27.1 - 32.0 pg [facility] Mean Cell Hemoglobin Concentration 33.6 31.7 - 35.0 gm/dL [facility] Platelet 230 145 - 357 x10(3)/[facility] RDW Standard Deviation 45.3 37.0 - 46.0 fL [facility] RDW coefficient of variation 13.0 11.5 - 14.1 % [facility] Mean Platelet Volume 9.2 7.6 - 12.9 fL [facility] NRBC% auto 0.0 % [facility] NRBC Absolute 0.000 0.000 - 0.000 x10(3)/[facility] Blood specimen (specimen) 10/11/2017 6:11 AM EST 10/11/2017 6:30 AM EST Narrative Resulting Agency Comment Spec In Lab Franklin Triplett MD HEMATOLOGY ORDERABLE S [facility] [place] [address] * Basic Metabolic Panel (non-fasting) (10/11/2017 6:11 AM EST) Glucose 85 65 - 199 mg/dL [facility] Comment:Diabetes: >=200 mg/d L plus symptoms Blood Urea Nitrogen 15 8 - 18 mg/dL [facility] Creatinine 0.90 0.70 - 1.20 mg/dL [facility] Sodium 143 135 - 145 mmol/L [facility] Potassium 4.0 3.5 - 5.0 mmol/L [facility] Comment: Please note: ??Patients with WBC >100,000 may have falsely elevated Potassium levels. ??For accurate Potassium quantification in these patients send serum separator tube (gold top) for subsequent determinations. ??Contact the Clinical Chemistry Laboratory if there are any questions. Chloride 103 98 - 107 mmol/L [facility] Carbon Dioxide 25 22 - 31 mmol/L [facility] Anion Gap 15 5 - 15 mmol/L [facility] Calcium 8.7 8.5 - 10.5 mg/dL [facility] Est Glomerular Filtration Rate >60 >=60 [facility] Comment: The reported eGFR should be multiplied by 1.2 for patients. The MDRD is not an appropriate measure of renal function for patients with body mass extremes or in patients with acute kidney failure. http://NotaryAct/DHnkdep http://NotaryAct/DHMCnkf Blood specimen (specimen) 10/11/2017 6:11 AM EST 10/11/2017 6:30 AM EST Narrative Resulting Agency Comment Spec In Lab Trey Santos MD CHEMISTRY ORDERABLES [facility] [place] [address] documented in this encounter Visit Diagnoses Diagnosis s/p OLIF L5-S1 and posterior instrumented fusion L5-S1 on 10/11/2017, Dr. Santos- Primary Acquired spondylolisthesis Spine pain, lumbar Lumbago s/p OLIF L5-S1 and posterior instrumented fusion L5-S1 on 10/11/2017, Dr. Santos Acquired spondylolisthesis documented in this encounter Administered Medications Inactive Administered Medications - up to 3 most recent administrations Medication Order MAR Action Action Date Dose Rate Site acetaminophen (TYLENOL) tablet 1,000 mg 1,000 mg, Oral, ONCE, 1 dose, On Tue10/11/17 at 0645, Administer with SIP of H2O only., Day of Surgery (Day of Procedure), Routine Given 10/11/2017 6:33 AM EST 1,000 mg acetaminophen (TYLENOL) tablet 1,000 mg 1,000 mg, Oral, EVERY 8 HOURS SCHEDULED, First dose on Tue10/11/17 at 1700, Until Discontinued, Maximum dose of acetaminophen is 4000 mg from all sources in 24 hours., Recovery (Recovery-Hospital Unit), Routine Given 10/13/2017 9:47 AM EST 1,000 mg Given 10/12/2017 11:41 PM EST 1,000 mg Given 10/12/2017 4:56 PM EST 1,000 mg ceFAZolin (ANCEF) 1g in dextrose 5% 50mL 1 g, Intravenous, EVERY 8 HOURS, 3 doses, First dose on Tue10/11/17 at 1700, Last dose on Tue10/12/17 at 0900, Administer over 30 Minutes, Adjust to 4 hours from intraoperative dose. * Beta-lactam based antibiotics (eg. Ampicillin, Cefazolin, Aztreonam) should be administered within 4 hours of the preceding intraoperative dose. * Vancomycin, Flouroquinolones, Clindamycin, Gentamicin, and Metronidazole should be administered within 8 hours of the preceding intraoperative dose., Recovery (Recovery-Hospital Unit), Indication for (Active or Suspected): Prophylaxis New Bag 10/12/2017 8:39 AM EST 1 g 100 mL/hr New Bag 10/12/2017 1:06 AM EST 1 g 100 mL/hr New Bag 10/11/2017 4:41 PM EST 1 g 100 mL/hr HYDROmorphone (DILAUDID) injection 0.2-0.4 mg 0.2-0.4 mg, Intravenous, EVERY 5 MIN PRN, Starting on Tue10/11/17 at 1424, Until Tue10/11/17 at 1838, Pain, Give 0.2 mg every 5 minutes PRN for mild to moderate pain (1-5) Give 0.4 mg every 5 minutes PRN for moderate to severe pain (6-10). Hold for respiratory rate less than 10 per minute. Maximum dose 4 mg over one hour. If multiple pain medications are ordered, start with hydromorphone or morphine and use fentanyl for breakthrough pain., PACU Recovery, Routine Given 10/11/2017 4:20 PM EST 0.2 mg Given 10/11/2017 3:33 PM EST 0.2 mg ketorolac (TORADOL) injection 15 mg 15 mg, Intravenous, EVERY 6 HOURS SCHEDULED, 4 doses, First dose on Tue10/11/17 at 1700, Last dose on Tue10/12/17 at 1200, Recovery (Recovery-Hospital Unit), Routine Given 10/12/2017 12:24 PM EST 15 mg Given 10/12/2017 6:07 AM EST 15 mg Given 10/11/2017 11:18 PM EST 15 mg lactated Ringers infusion 1,000 mL 1,000 mL, at 100 mL/hr, Intravenous, CONTINUOUS, Starting on Tue10/11/17 at 0645, Until Tue10/11/17 at 1838, Day of Surgery (Day of Procedure) New Bag 10/11/2017 6:47 AM EST 1,000 mLs 100 mL/hr multivitamin Lneu-Ff-BR-Min (THERAPEUTIC-M) 27-0.4 mg tablet 1 tablet 1 tablet, Oral, DAILY, First dose on Tue10/12/17 at 0900, Until Discontinued, Recovery (Recovery-Hospital Unit) Given 10/13/2017 9:49 AM EST 1 tablet Given 10/12/2017 8:49 AM EST 1 tablet oxyCODONE (ROXICODONE) immediate release tablet 10 mg 10 mg, Oral, EVERY 4 HOURS PRN, Starting on Tue10/11/17 at 1939, Until Rupali 10/13/17 at 1603, Pain, moderate pain (4-6), For moderate pain (4-6). Do not exceed 15 mg in 4 hours. If pain not relieved, call provider., Recovery (Recovery-Hospital Unit), Routine Given 10/13/2017 9:47 AM EST 10 mg Given 10/11/2017 7:42 PM EST 10 mg oxyCODONE (ROXICODONE) immediate release tablet 15 mg 15 mg, Oral, EVERY 4 HOURS PRN, Starting on Tue10/11/17 at 1939, Until Rupali 10/13/17 at 1603, Pain, severe pain (7-10), For severe pain (7-10). Do not exceed 15 mg in 4 hours. If pain not relieved, call provider., Recovery (Recovery-Hospital Unit), Routine oxyCODONE (ROXICODONE) immediate release tablet 5 mg 5 mg, Oral, EVERY 4 HOURS PRN, Starting on Tue10/11/17 at 1939, Until Rupali 10/13/17 at 1603, Pain, mild pain (1-3), For mild pain (1-3). Do not exceed 15 mg in 4 hours. If pain not relieved, call provider, Recovery (Recovery-Hospital Unit), Routine Given 10/13/2017 1:50 PM EST 5 mg Given 10/12/2017 10:08 PM EST 5 mg Given 10/12/2017 9:04 AM EST 5 mg pantoprazole (PROTONIX) tablet 40 mg 40 mg, Oral, DAILY, First dose on Tue10/12/17 at 0900, Until Discontinued, DO NOT CRUSH OR OPEN, Recovery (Recovery-Hospital Unit), Routine Given 10/13/2017 9:49 AM EST 40 mg Given 10/12/2017 8:48 AM EST 40 mg polyethylene glycol (MIRALAX) packet 17 g 17 g, Oral, 2 TIMES DAILY, First dose on Tue10/11/17 at 2115, Until Discontinued, Recovery (Recovery-Hospital Unit), Routine Given 10/13/2017 9:45 AM EST 17 g Given 10/12/2017 8:22 PM EST 17 g Given 10/11/2017 9:22 PM EST 17 g senna-docusate (PERICOLACE) 8.6-50 mg per tablet 2 tablet 2 tablet, Oral, 2 TIMES DAILY, First dose on Tue10/11/17 at 2115, Until Discontinued, Recovery (Recovery-Hospital Unit), Routine Given 10/13/2017 9:49 AM EST 2 tablets Given 10/12/2017 8:22 PM EST 2 tablets Given 10/12/2017 8:43 AM EST 2 tablets sodium chloride 0.9 % flush 5 mL 5 mL, Intravenous, 2 TIMES DAILY, First dose on Tue10/11/17 at 2115, Until Discontinued, Recovery (Recovery-Hospital Unit), Routine Given 10/12/2017 8:24 PM EST 5 mLs Given 10/12/2017 8:49 AM EST 5 mLs Given 10/11/2017 9:24 PM EST 5 mLs sodium chloride 0.9% infusion 1,000 mL, at 100 mL/hr, Intravenous, CONTINUOUS, Starting on Tue10/11/17 at 1615, Until Rupali 10/13/17 at 1603, Recovery (Recovery-Hospital Unit) New Bag 10/13/2017 9:50 AM EST 1,000 mLs 100 mL/hr New Bag 10/12/2017 11:36 PM EST 1,000 mLs 100 mL/hr New Bag 10/12/2017 11:57 AM EST 1,000 mLs 100 mL/hr documented in this encounter Active and Recently Administered Medications Times are shown in EST. Scheduled Medication Order 10/11/2017 10/12/2017 10/13/2017 acetaminophen (TYLENOL) tablet 1,000 mg (COMPLETED) 1,000 mg, Oral, ONCE, 1 dose, On Tue10/11/17 at 0645, Administer with SIP of H2O only., Day of Surgery (Day of Procedure), Routine 0633 (Given - Provider: Claire Varela RN) acetaminophen (TYLENOL) tablet 1,000 mg 1,000 mg, Oral, EVERY 8 HOURS SCHEDULED, First dose on Tue10/11/17 at 1700, Until Discontinued, Maximum dose of acetaminophen is 4000 mg from all sources in 24 hours., Recovery (Recovery-Hospital Unit), Routine 1641 (Given - Provider: Adriana Cabrera RN) 0007 (Given - Provider: Cyndie Coe RN)0843 (Given - Provider: Gisela Cuevas RN)1656 (Given - Provider: Gisela Cuevas, RANJANA)2341 (Given - Provider: Christina Rueda, RANJANA) 0947 (Given - Provider: Becka Schneider RN) ceFAZolin (ANCEF) 1g in dextrose 5% 50mL (COMPLETED) 1 g, Intravenous, EVERY 8 HOURS, 3 doses, First dose on Tue10/11/17 at 1700, Last dose on Tue10/12/17 at 0900, Administer over 30 Minutes, Adjust to 4 hours from intraoperative dose. * Beta-lactam based antibiotics (eg. Ampicillin, Cefazolin, Aztreonam) should be administered within 4 hours of the preceding intraoperative dose. * Vancomycin, Flouroquinolones, Clindamycin, Gentamicin, and Metronidazole should be administered within 8 hours of the preceding intraoperative dose., Recovery (Recovery-Hospital Unit), Indication for (Active or Suspected): Prophylaxis 1641 (New Bag - Provider: Adriana Cabrera RN)1711 (Stopped - Provider: Meliza Vicente RN) 0106 (New Bag - Provider: Cyndie Coe RN)0136 (Stopped - Provider: Cyndie Coe RN)0839 (New Bag - Provider: Gisela Cuevas RN)0909 (Stopped - Provider: Gisela Cuevas RN) ceFAZolin (ANCEF) 2g in dextrose 5% 100 mL (COMPLETED) 2 g, Intravenous, EVERY 3 HOURS, 1 dose, First dose on Tue10/11/17 at 0645, Administer over 30 Minutes, Redose after 3 hours., Intra-Operative (Intra-Procedure), Indication for (Active or Suspected): Prophylaxis 0815 (Given - Provider: Giovani Jovel MD)1138 (Given - Provider: Giovani Jovel MD) ketorolac (TORADOL) injection 15 mg (COMPLETED) 15 mg, Intravenous, EVERY 6 HOURS SCHEDULED, 4 doses, First dose on Tue10/11/17 at 1700, Last dose on Tue10/12/17 at 1200, Recovery (Recovery-Hospital Unit), Routine 1641 (Given - Provider: Adriana Cabrera RN)2318 (Given - Provider: Cyndie Coe RN) 0607 (Given - Provider: Cyndie Coe RN)1224 (Given - Provider: Gisela Cuevas RN) multivitamin Rxhh-Kc-TK-Min (THERAPEUTIC-M) 27-0.4 mg tablet 1 tablet 1 tablet, Oral, DAILY, First dose on Tue10/12/17 at 0900, Until Discontinued, Recovery (Recovery-Hospital Unit) 0849 (Given - Provider: Gisela Cuevas RN) 0949 (Given - Provider: Becka Schneider, RANJANA) pantoprazole (PROTONIX) tablet 40 mg 40 mg, Oral, DAILY, First dose on Tue10/12/17 at 0900, Until Discontinued, DO NOT CRUSH OR OPEN, Recovery (Recovery-Hospital Unit), Routine 0848 (Given - Provider: Gisela Cuevas RN) 0949 (Given - Provider: Becka Schneider RN) polyethylene glycol (MIRALAX) packet 17 g 17 g, Oral, 2 TIMES DAILY, First dose on Tue10/11/17 at 2115, Until Discontinued, Recovery (Recovery-Hospital Unit), Routine 2121 (Given - Provider: Cyndie Coe RN) 0843 (Not Given - Provider: Gisela Cuevas RN - Reason: Patient/family refused - Comment: requested to try pericolace first)2021 (Given - Provider: Christina Rueda, RANJANA) 0945 (Given - Provider: Becka Schneider, RANJANA) pregabalin (LYRICA) capsule 25 mg 25 mg, Oral, DAILY, First dose on Tue10/11/17 at 1700, Until Discontinued, Recovery (Recovery-Hospital Unit), Routine 2121 (Not Given - Provider: Cyndie Coe RN - Reason: Patient/family refused - Comment: Pt is not taking this medication since April) 09 (Not Given - Provider: Gisela Cuevas RN - Reason: See comment - Comment: patient hasn't taken this since April for back pain, pt stated did not help) 09 (Not Given - Provider: Becka Schneider RN - Reason: Patient/family refused) senna-docusate (PERICOLACE) 8.6-50 mg per tablet 2 tablet 2 tablet, Oral, 2 TIMES DAILY, First dose on Tue10/11/17 at 2115, Until Discontinued, Recovery (Recovery-Hospital Unit), Routine 2120 (Given - Provider: Cyndie Coe RN) 0843 (Given - Provider: Gisela Cuevas, RANJANA)2021 (Given - Provider: Christina Rueda, RANJANA) 0949 (Given - Provider: Becka Schneider, RANJANA) sodium chloride 0.9 % flush 5 mL 5 mL, Intravenous, 2 TIMES DAILY, First dose on Tue10/11/17 at 2115, Until Discontinued, Recovery (Recovery-Hospital Unit), Routine 2123 (Given - Provider: Cyndie Coe RN) 0849 (Given - Provider: Gisela Cuevas, RANJANA)2023 (Given - Provider: Christina Rueda, RANJANA) 0900 (Not Given - Provider: Becka Schneider, RANJANA - Reason: Order parameters not met) Continuous Medication Order 10/11/2017 10/12/2017 10/13/2017 lactated Ringers infusion 1,000 mL (CANCELED) 1,000 mL, at 100 mL/hr, Intravenous, CONTINUOUS, Starting on Tue10/11/17 at 0645, Until Tue10/11/17 at 1838, Day of Surgery (Day of Procedure) 0647 (New Bag - Provider: Claire Varela, RN)1349 (Anesthesia Volume Adjustment - Provider: Giovani Jovel MD) sodium chloride 0.9% infusion 1,000 mL, at 100 mL/hr, Intravenous, CONTINUOUS, Starting on 10/11/17 at 1615, Until Rupali 10/13/17 at 1603, Recovery (Recovery-Hospital Unit) 1630 (New Bag - Provider: Meliza Vicente, RN) 0203 (New Bag - Provider: Cyndie Coe RN)1157 (New Bag - Provider: Viviana Sauer, RANJANA)2336 (New Bag - Provider: Felicita Cordoba, RN) 0950 (New Bag - Provider: Becka Schneider, RN) PRN Medication Order 10/11/2017 10/12/2017 10/13/2017 bacitracin injection (CANCELED) ONCE PRN, Starting on 10/11/17 at 0955, Until Rupali 10/13/17 at 1603, Intra-Operative (Intra-Procedure), Routine 0955 (Given - Provider: Trey Santos MD - Comment: Mixed in 1 L NS administered via bulb syringe.)1400 (Given - Provider: Trey Santos MD - Comment: Mixed in 1 L NS administered via bulb syringe.) gelatin adsorbable (GELFOAM) sponge (CANCELED) ONCE PRN, Starting on 10/11/17 at 0955, Until Rupali 10/13/17 at 1603, Intra-Operative (Intra-Procedure) 0955 (Given - Provider: Trey Santos MD - Comment: Mixed with 20,000 units Thrombin.) HYDROmorphone (DILAUDID) injection 0.2-0.4 mg (CANCELED) 0.2-0.4 mg, Intravenous, EVERY 5 MIN PRN, Starting on e 10/11/17 at 1424, Until 10/11/17 at 1838, Pain, Give 0.2 mg every 5 minutes PRN for mild to moderate pain (1-5) Give 0.4 mg every 5 minutes PRN for moderate to severe pain (6-10). Hold for respiratory rate less than 10 per minute. Maximum dose 4 mg over one hour. If multiple pain medications are ordered, start with hydromorphone or morphine and use fentanyl for breakthrough pain., PACU Recovery, Routine 1533 (Given - Provider: Adriana Cabrera RN)1620 (Given - Provider: Adriana Cabrera RN) lidocaine (XYLOCAINE) 10 mg/mL (1 %) injection 3 mg 3 mg (0.3 mL), Subcutaneous, ONCE PRN, 1 dose, Starting on e 10/11/17 at 2046, Until Rupali 10/13/17 at 1603, for discomfort with PIV insertion, Recovery (Recovery-Hospital Unit), Routine ondansetron (ZOFRAN) injection 4 mg 4 mg, Intravenous, EVERY 8 HOURS PRN, Starting on e 10/11/17 at 2046, Until Rupali 10/13/17 at 1603, Nausea, If multiple antiemetics are ordered, use ondansetron first, prochlorperazine second, metaclopromide third., Recovery (Recovery-Hospital Unit) oxyCODONE (ROXICODONE) immediate release tablet 10 mg(Linked Group 1) 10 mg, Oral, EVERY 4 HOURS PRN, Starting on Tue10/11/17 at 1939, Until Rupali 10/13/17 at 1603, Pain, moderate pain (4-6), For moderate pain (4-6). Do not exceed 15 mg in 4 hours. If pain not relieved, call provider., Recovery (Recovery-Hospital Unit), Routine 194 (Given - Provider: Adriana Cabrera RN) 0904 (See Alternative - Provider: Gisela Cuevas RN)2208 (See Alternative - Provider: Christina Rueda RN) 0947 (Given - Provider: Becka Schneider, RANJANA)1350 (See Alternative - Provider: Becka Schneider RN) oxyCODONE (ROXICODONE) immediate release tablet 15 mg(Linked Group 1) 15 mg, Oral, EVERY 4 HOURS PRN, Starting on e 10/11/17 at 1939, Until Rupali 18 at 1603, Pain, severe pain (7-10), For severe pain (7-10). Do not exceed 15 mg in 4 hours. If pain not relieved, call provider., Recovery (Recovery-Hospital Unit), Routine 1941 (See Alternative - Provider: Adriana Cabrera RN) 0904 (See Alternative - Provider: Gisela Cuevas RN)2207 (See Alternative - Provider: Christina Rueda RN) 0947 (See Alternative - Provider: Becka Schneider RN)1350 (See Alternative - Provider: Becka Schneider RN) oxyCODONE (ROXICODONE) immediate release tablet 5 mg(Linked Group 1) 5 mg, Oral, EVERY 4 HOURS PRN, Starting on e 10/11/17 at 1939, Until Rupali 10/13/17 at 1603, Pain, mild pain (1-3), For mild pain (1-3). Do not exceed 15 mg in 4 hours. If pain not relieved, call provider, Recovery (Recovery-Hospital Unit), Routine 1941 (See Alternative - Provider: Adriana Cabrera RN) 0904 (Given - Provider: Gisela Cuevas RN - Comment: working with PT at 0930, requested for premedication)2207 (Given - Provider: Christina Rueda RN) 0947 (See Alternative - Provider: Becka Schneider RN)1350 (Given - Provider: Becka Schneider RN) sodium chloride 0.9 % flush 5-20 mL 5-20 mL, Intravenous, EVERY 1 MIN PRN, Starting on Tue10/11/17 at 2046, Until Rupali 10/13/17 at 1603, flush, Flush pertains to all indwelling lines. Flush per protocol found in the job aid using the link provided on this medication record., Recovery (Recovery-Hospital Unit), Routine thrombin (Bovine) (THROMBINAR) kit (CANCELED) ONCE PRN, Starting on e 10/11/17 at 0956, Until Rupali 18 at 1603, Intra-Operative (Intra-Procedure) 0956 (Given - Provider: Trey Santos MD - Comment: Neuropatties and gelfoam soaked in 20,000 units Thrombin.) vancomycin (VANCOCIN) injection (CANCELED) ONCE PRN, Starting on Tue10/11/17 at 1400, Until 10/12/17 at 0624, Intra-Operative (Intra-Procedure), Routine 1400 (Given - Provider: Trey Santos MD - Comment: Placed subcutaneously into lower back incision.) Linked Groups Order Group 1: oxyCODONE (ROXICODONE) immediate release tablet 5 mgJump to med 5 mg, Oral, EVERY 4 HOURS PRN, Starting on Tue10/11/17 at 1939, Until Rupali 10/13/17 at 1603, Pain, mild pain (1-3), For mild pain (1-3). Do not exceed 15 mg in 4 hours. If pain not relieved, call provider, Recovery (Recovery-Hospital Unit), Routine Or oxyCODONE (ROXICODONE) immediate release tablet 10 mgJump to med 10 mg, Oral, EVERY 4 HOURS PRN, Starting on Tue10/11/17 at 1939, Until Rupali 10/13/17 at 1603, Pain, moderate pain (4-6), For moderate pain (4-6). Do not exceed 15 mg in 4 hours. If pain not relieved, call provider., Recovery (Recovery-Hospital Unit), Routine Or oxyCODONE (ROXICODONE) immediate release tablet 15 mgJump to med 15 mg, Oral, EVERY 4 HOURS PRN, Starting on Tue10/11/17 at 1939, Until Rupali 10/13/17 at 1603, Pain, severe pain (7-10), For severe pain (7-10). Do not exceed 15 mg in 4 hours. If pain not relieved, call provider., Recovery (Recovery-Hospital Unit), Routine documented in this encounter Care Teams Natural Fabricator Relationship Specialty Start Date End Date Niki Vyas MD [address] [place] [address] PCP - General 07/21/10 12/16/21 documented as of this encounter
--- OUTSIDE RECORDS SUMMARY | 2024-08-09 10:18 | XMS_ITS | Encounter Summary ---
Author Organization [facility] [place] [address] Care Team Providers Care Hasher Operator Name Role Phone Niki Vyas MD Primary Care Provider [phone] Reason for Referral * Diagnostic Test (Routine) - Closed Specialty Diagnoses / Procedures Referred By Contmargarette t Referred To Contact Radiology Diagnoses Tremor Procedures MRI Brain wo Contrast Tracy Johnson MD [facility] [place] [address] [place] [address] Referral ID Status Reason Start Date Expiration Date V isits Requested Visits Authorized [id number] Closed Specialty Service Requested 02/13/2018 02/13/2019 1 1 Reason for Visit * Diagnostic Test (Routine) - Closed Specialty Diagnoses / Procedures Referred By Contmargarette t Referred To Contact Radiology Diagnoses Tremor Procedures MRI Brain wo Contrast Tracy Johnson MD [facility] [place] [address] [place] [address] Referral ID Status Reason Start Date Expiration Date V isits Requested Visits Authorized [id number] Closed Specialty Service Requested 02/13/2018 02/13/2019 1 1 Encounter Details Date Type Department Care Team (Latest Contact Info) Description 02/16/2018 6:39 PM EDT - 02/16/2018 11:59 PM EDT Hospital Encounter MRI at [facility] [place] [address] Tracy Johnson MD [facility] [place] [address] Tremor Discharge Disposition: Home Social History Tobacco Use [...] Inhale into the lungs as needed. 04/14/2004 gabapentin (NEURONTIN) 300 mg Capsule Take 300 mg by mouth 3 times daily. 04/17/2018 documented as of this encounter Plan of Treatment Upcoming Encounters Date Type Department Care Team (Late st Contact Info) Description 09/18/2024 11:30 AM EST Office Visit Dermatology at [facility] [address] [place] [address] Tata Aldridge MD [facility] [place] [address] 05/09/2025 2:00 PM EDT Office Visit Dermatology at [facility] [address] [place] [address] Tata Aldridge MD [facility] [place] [address] documented as of this encounter Procedures Procedure Name Priority Date/Time Associated Diagnosis Comments MRI BRAIN WO CONTRAST Routine 02/16/2018 7:42 PM EDT Tremor documented in this encounter Results * MRI Brain wo Contrast (02/16/2018 7:42 PM EDT) Anatomical Region Laterality Modality Head Magnetic Resonan ce Impressions 02/16/2018 8:37 PM EDT Mild sequela of atrophy and chronic microangiopathy. Narrative 02/16/2018 8:37 PM EDT EXAMINATION: MRI BRAIN WO CONTRAST CLINICAL HISTORY: tremors TECHNIQUE: Routine MRI of the brain was performed without contrast ? COMPARISON: None FINDINGS: Mild generalized parenchymal volume loss with commensurate enlargement of the ventricles and widening of the sulci. Cavum velum interpositum is noted. There are a few scattered nonspecific foci of white matter signal alteration and mild confluent periventricular white matter signal alteration, likely reflecting sequela of chronic microangiopathy. No disproportionate atrophy of the brainstem or hippocampi. No mass effect, midline shift or extra-axial collection. No evidence for recent infarction. 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 Regional bone marrow demonstrates no evidence for aggressive marrow replacing process. Mild paranasal sinus mucosal thickening. Scattered fluid opacified left mastoid air cells. The orbits are normal in appearance. Major intracranial vascular flow voids are normal. Procedure Note Estefania Penny MD - 02/16/2018 EXAMINATION: MRI BRAIN WO CONTRAST CLINICAL HISTORY: tremors TECHNIQUE: Routine MRI of the brain was performed without contrast COMPARISON: None FINDINGS: Mild generalized parenchymal volume loss with commensurateenlargement of the ventricles and widening of the sulci. Cavum velum interpositum isnoted. There are a few scattered nonspecific foci of white matter signalalteration and mild confluent periventricular white matter signal alteration, likelyreflecting sequela of chronic microangiopathy. No disproportionate atrophy of thebrainstem or hippocampi. No mass effect, midline shift or extra-axial collection.No evidence for recent infarction. Incidental note is made of probable 3 mmpars intermedia cyst versus a Rathke's cleft cyst of the pituitary gland.Regional bone marrow demonstrates no evidence for aggressive marrow replacingprocess. Mild paranasal sinus mucosal thickening. Scattered fluid opacified leftmastoid air cells. The orbits are normal in appearance. Major intracranialvascular flow voids are normal. IMPRESSION Mild sequela of atrophy and chronic microangiopathy. Tracy Johnson MD IMG MRI ORDERABLES documented in this encounter Visit Diagnoses Diagnosis Tremor Abnormal involuntary movements documented in this encounter Care Teams Hasher Operator Relationship Specialty Start Date End Date Niki Vyas MD [address] [place] [address] PCP - General 07/21/10 12/16/21 documented as of this encounter
--- OUTSIDE RECORDS SUMMARY | 2024-08-09 10:18 | XMS_ITS | Encounter Summary ---
Author Organization [facility] [place] [address] Care Team Providers Care Cigarette Machine Operator Name Role Phone Niki Vyas MD Primary Care Provider [phone] Reason for Visit * Reason Onset Date Comments Medication Refill 11/16/2017 Encounter Details Date Type Department Care Team (Late st Contact Info) Description 11/16/2017 Refill [place] [address] Taylor Tinajero LPN Social History Tobacco Use [...] 11:30 AM EST Office Visit Dermatology at [facility] [address] [place] [address] Tata Aldridge MD [facility] [place] [address] 05/09/2025 2:00 PM EDT Office Visit Dermatology at [facility] [address] [place] [address] Tata Aldridge MD [facility] [place] [address] documented as of this encounter Visit Diagnoses Not on filedocumented in this encounter Care Teams Cigarette Machine Operator Relationship Specialty Start Date End Date Niki Vyas MD [address] [place] [address] PCP - General 07/21/10 12/16/21 documented as of this encounter
--- OUTSIDE RECORDS SUMMARY | 2024-08-09 10:18 | XMS_ITS | Encounter Summary ---
[place] [address] Care Team Providers Care Pierce And Shave Press Operator Name Role Phone Niki Vyas MD Primary Care Provider [phone] Encounter Details Date Type Department Care Team (Late st Contact Info) Description 01/20/2018 Telephone [place] [id number] Kathi Eaton Social History Tobacco Use Types Packs/Day Years [...] encounter Miscellaneous Notes * Telephone Encounter - Kathi Eaton - 01/20/2018 9:20 AM EDT Left message asking patient to call back to reschedule 01/27/[address] Santos who willnot be in clinic. Time held on 02/03/18. documented in this encounter Plan of Treatment Upcoming Encounters Date Type Department Care Team (Late st Contact Info) Description 09/18/2024 11:30 AM EST Office Visit Dermatology at [facility] [address] [place] [address] Tata Aldridge MD [facility] [place] [address] 05/09/2025 2:00 PM EDT Office Visit Dermatology at [facility] [address] [place] [address] Tata Aldridge MD [facility] [place] [place] [address] documented as of this encounter Visit Diagnoses Not on filedocumented in this encounter Care Teams Pierce And Shave Press Operator Relationship Specialty Start Date End Date Niki Vyas MD [address] [place] [address] PCP - General 07/21/10 12/16/21 documented as of this encounter
--- OUTSIDE RECORDS SUMMARY | 2024-08-09 10:18 | XMS_ITS | Encounter Summary ---
Author Organization [facility] [place] [address] Care Team Providers Care Bulk Filler Name Role Phone Angelina Walker APRN Primary Care Provider [phone] Encounter Details Date Type Department Care Team (Latest Contact Info) Description 03/04/2023 Travel Social History Tobacco Use Types Packs/Day [...] place to sleep or slept in a halfway (including now)? No 10/26/2022 Sex and Gender Information Value Date Recorded Sex Assigned at Not on file Gender Identity Not on file Sexual Orientation Not on file documented as of this encounter Plan of Treatment Upcoming Encounters Date Type Department Care Team (Late st Contact Info) Description 09/18/2024 11:30 AM EST Office Visit Dermatology at [facility] [address] [place] [address] Tata Aldridge MD [facility] [place] [address] 05/09/2025 2:00 PM EDT Office Visit Dermatology at [facility] [address] [place] [address] Tata Aldridge MD [facility] [place] [address] documented as of this encounter Visit Diagnoses Not on filedocumented in this encounter Care Teams Bulk Filler Relationship Specialty Start Date End Date Angelina Walker APRN [address] [place] [address] PCP - General Family Medicine 05/31/22 08/08/23 documented as of this encounter
--- OUTSIDE RECORDS SUMMARY | 2024-08-09 10:18 | XMS_ITS | Encounter Summary ---
Author Organization [facility] Address [facility] [place] [address] Care Team Providers Care Bit Shaver Name Role Phone Angelina Walker APRN Primary Care Provider [phone] Reason for Referral * Consultation (Routine) - Closed Specialty Diagnoses / Procedures Referred By Contac t Referred To Contact Dermatology Diagnoses Basal cell carcinoma (BCC), unspecified site Tariq Holder MD [facility] [place] [address] Loki Honeycutt MD [facility] [address] [facility] [address] Referral ID Status Reason Start Date Expiration Date V isits Requested Visits Authorized [id number] Closed Consult, Test & Treat 07/11/2023 07/10/2024 1 1 Reason for Visit * Reason Comments Advice Only * Consultation (Routine) - Closed Specialty Diagnoses / Procedures Referred By Contac t Referred To Contact Plastic Surgery Diagnoses BCC (basal cell carcinoma), face Procedures basal cell carcinoma, nasal bridge right Chester Umanzor MD [address] [place] [address] [facility] [address] [place] [address] Referral ID Status Reason Start Date Expiration Date V isits Requested Visits Authorized [id number] Closed Consult, Test & Treat 05/11/2023 05/10/2024 1 1 Encounter Details Date Type Department Care Team (Late st Contact Info) Description 07/06/2023 11:00 AM EST Office [place] [address] Tariq Holder MD [facility] [place] [address] Basal cell carcinoma (BCC), unspecified site Social History Tobacco Use Types Packs/Day Years [...] this encounter Patient Instructions * Patient Instructions* Jackie Duffy RN - 07/06/2023 11:00 AM EST Preoperative Instructions You have been scheduled to have plastic surgery. The instructions below are specific to your procedure. Two Weeks prior to Surgery Do not take any Aspirin or aspirin containing products for the 2 weeks leading up to surgery. You may resume taking 48 hours after surgery. Do not take medications containing Ibuprofen. Do not take any anti-steroidal's such as Advil, Aleve, Celebrex, Daypro, Indocin, Midol, Motrin, Naproxen, Nuprinand Toradol. These medications increase your risk of bleeding. You may resume taking any of these medications 48 hours after surgery. Stop Vitamin E, Garlic supplements, Ginseng, Fish Oil tablets, Ginkgo and Jam's Wort and any other herbals. You may resume taking 48 hours after surgery. If you need medication for pain, you may take Tylenol or extra strength Tylenol during this two week period. One Week prior to Surgery Please call if you feel ill, have cold or fever, have a rash or breaks in the skin near your surgical site. Stay hydrated. Avoid alcohol and recreational drugs Three Days before Surgery Do not shave near your surgical site The night before and morning of your Dermatology procedure Head and Neck Surgery - Wash your face and neck with an antibacterial soap the night before and themorning of surgery. The Same Day Surgery Team will call you the business day before your surgery to give you instructions specific to your procedure and your surgical time. Generally, you will be asked not to eat any solids after midnight. You are allowed clear liquids (water, aquilino patel, apple juice, black coffee andplain tea) until 2 hours prior to your surgery. Day of Surgery A company truck driver is required at time of discharge. If you are a Same Day procedure and do not have a driveryour surgery will be canceled. DO NOT wear any jewelry, makeup or artificial nails the day of surgery. DO NOT apply any lotions, powders or deodorants on or near the surgical site the day of surgery. Do wear comfortable, loose fitting clothes. Anesthesia will meet with you the morning of surgery. They will perform an assessment and review your history with you. Contact Information: During regular office hours (Tuesday- Tuesday, non-holiday 8:00 am- 5:00 pm) For an appointment or insurance questions [phone] For questions pertaining to your surgical date [phone] For nursing related questions [phone] On weekends, holidays or after office hours: Call and ask the dairy machine operator farmworker to page the Plastic Surgery Resident cotton breeder. Plastic surgery Clinic fax number: [phone] documented in this encounter Progress Notes * Tariq Holder MD - 07/06/2023 11:00 AM EST Plastic Surgery Consultation Note Provider: Tariq Holder MD. PCP: Angelina Walker APRN BURNISHER: Chester Umanzor MD CC: basal cell carcinoma on right nasal bridge HPI: Linda Browning is a 73 y.o. female, here in consultation at the request of Chester Umanzor MD forevaluation and possible reconstruction following Mohs excision . She is accompanied by her for todays visit. The lesion was initially reported to her Community Representative. The lesion was biopsied revealing basal cell carcinoma.The patient presents today to discuss reconstructive options of the post-excisional defect. The patient reports that she has another lesion on the left side of her nose. She states that she has these lesions for 3 years. The patient reports that she has had a prior excision of a pre-cancerous lesion on her left chest. The patient's family history is significant for skin cancer in her brother. 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 Past Medical History: Diagnosis Date Lumbar degenerative disc disease Radiculopathy of lumbosacral region Spondylolisthesis at L5-S1 level : Past Surgical History: Procedure Laterality Date PRO ALLOGRAFT FOR SPINE SURGERY ONLY MORSELIZED Bilateral 10/11/2017 ALLOGRAFT FOR SPINE SURGERY ONLY; MORSELIZED (WRVU *) performed by Trey Santos MD at [facility] OR PRO ARTHRODESIS POSTERIOR/PSTLAT TECHNIQUE 1 INTERSPACE LUMBAR Bilateral 10/11/2017 ARTHRODESIS, LUMBAR SPINE, SINGLE LEVEL (WRVU 23.53) [facility] PRO AUTOGRAFT SPINE SURGERY LOCAL FROM SAME INCISION Bilateral 10/11/2017 AUTOGRAFT FOR SPINE SURGERY ONLY, SAME INCISION (WRVU *) performed by Trey Santos MD at [facility] OR [facility] INSERT BIOMCHN DEV INTERVERTEBRAL DSC SPC W/ARTHRD Bilateral 10/11/2017 INSERTION INTERBODY BIOMECH DEV TO INTERVEBRAL DISC SPACE, EA INTERSPACE (WRVU 4.25) performed by Trey Santos MD at [facility] OR [facility] LUMBAR SPINE FUSION, ANTER APPRCH Bilateral 10/11/2017 @ANT. LUMBAR FUSION INCLUD. MIN. DISKECTOMY (WRVU 23.53) performed by Trey Santos MD at [facility] OR [facility] POSTERIOR NON-SEGMENTAL INSTRUMENTATION Bilateral 10/11/2017 POSTERIOR SPINAL NON-SEGMENTAL INST.(ONE SPACE) (WRVU 12.52) performed by Trey Santos MD at [facility] OR [facility] THORAX SPINE FUSION, ANTER APPRCH N/A 10/11/2017 @ANTERIOR APPROACH, FOR THROACIC (VASC) (WRVU 24.7) performed by Chico Granados [facility] Current Outpatient Medications on File Prior to Visit Medication Sig Dispense Refill carbidopa-levodopa (Sinemet) 25-100 mg Tablet Take 2 tablets by mouth 3 times daily. UNABLE TO FIND Airborne two tablets twice a day glucosam/chond-msm1/C/porsha/bor (RLHCJHIPBWI-EEVGL-ZUZ COMPLEX ORAL) Take by mouth. magnesium 250 mg Tablet Take by mouth daily. multivitamin (THERAGRAN) Tablet Take 1 tablet by mouth daily. acetaminophen (TYLENOL) 500 mg Tablet Take 1,000 mg by mouth 2 times daily. albuterol (PROVENTIL HFA;VENTOLIN HFA) 90 mcg/Actuation inhaler senna-docusate (PERICOLACE) 8.6-50 mg Tablet Take 2 tablets by mouth 2 times daily. Take to maintain normal bowel pattern while taking narcotic pain medication. (Patient not taking: Reported on 07/06/2023) No current facility-administered medications on file prior to visit. Allergies Allergen Reactions Gabapentin Itching Pt states she was itchy from Gabapentin( Pt is taking this medication) Unable To Find [Unclassified Drug] Blood pudding-asthma attack and eyes blacked out Soc Hx: Social History Socioeconomic History Marital status: Spouse [...] Unstable Housing in the Last Year: No ROS: HEENT, GI, . Psych, Neuro, Renal, Immun., Heme, Card, Pulm: Negative Examination: Gen: No acute distress, fluent, follows Lesion right lateral nasal sidewall and left medial eyelid Diagnostic Testing: Pathology 04/27/2023 A. SKIN OF NASAL BRIDGE, RIGHT, PUNCH BIOPSY: - Basal cell carcinoma, nodular type, involving peripheral edges. Impression: Linda Browning presents with basal cell carcinoma on her right nasal bridge, diagnosed on pathology, requiring excision and reconstruction. She is not scheduled for Mohs excision, howevershe will meet with Dr. Honeycutt today to discuss the Mohs excision in detail. I reviewed the nature of this lesion with the patient, educating them about the options for wound closure. We discussed the treatment options in detail including primary closure, local flap closure or FTSG.We discussed that the recommended treatment depends on the extent of the excision and their aesthetic concerns. We discussed the risks of excision including infection, scar, bleeding, asymmetry, deformity, and the need for further surgery. The patient elect to proceed. Plan: Follow up with Dr. Honeycutt Schedule Mohs Surgical Grid: Surgeon: Gallo Duration: 1.5 hour Timeframe: elective Coordinated with: Ke Procedure: reconstruction of mohs defect Adjacent tissue transfer (<10cm,>10cm): Eyelid,nose, ear, lip: 70323, 09743 Scalp: 44664, 85250 Head, cheek, mouth: 12751, 37690 08693 (FTSG), 14815, (Forehead flap/nasolabial fold flap), 57396 (ear cartilage graft) Surgical site: face Side: right Anesthesia: General Follow up: 5-7 Days AMINA PAT: No Need to discontinue blood thinners pre-op? N/A documented in this encounter Plan of Treatment Upcoming Encounters Date Type Department Care Team (Late st Contact Info) Description 09/18/2024 11:30 AM EST Office Visit Dermatology at [facility] [address] [place] [address] Tata Aldridge MD [facility] [place] [address] 05/09/2025 2:00 PM EDT Office Visit Dermatology [facility] [address] [place] [address] Tata Aldridge MD [facility] [place] [address] Scheduled Referrals Name Type Priority Associated Diagnoses Orde r Schedule Referral to Dermatology Outpatient Referral Routine Basal cell carcinoma (BCC), unspecified site Ordered: 07/11/2023 documented as of this encounter Visit Diagnoses Diagnosis Basal cell carcinoma (BCC), unspecified site documented in this encounter Care Teams Bit Shaver Relationship Specialty Start Date End Date Angelina Walker APRN [address] [place] [address] PCP - General Family Medicine 05/31/22 08/08/23 documented as of this encounter
--- OUTSIDE RECORDS SUMMARY | 2024-08-09 10:18 | XMS_ITS | Encounter Summary ---
Author Organization [facility] [place] [address] Care Team Providers Care Bellman Name Role Phone Niki Vyas MD Primary Care Provider [phone] Encounter Details Date Type Department Care Team (Late st Contact Info) Description 12/28/2017 Abstract [place] [address] Pernell Gilbert, RN Social History Tobacco Use Types Packs/Day [...] at [facility] [address] [place] [address] Tata Aldridge MD [facility] [place] [address] 05/09/2025 2:00 PM EDT Office Visit Dermatology at [facility] [address] [place] [address] Tata Aldridge MD [facility] [place] [address] documented as of this encounter Visit Diagnoses Not on filedocumented in this encounter Care Teams Bellman Relationship Specialty Start Date End Date Niki Vyas MD [address] [place] [id number] PCP - General 07/21/10 12/16/21 documented as of this encounter
--- OUTSIDE RECORDS SUMMARY | 2024-08-09 10:18 | XMS_ITS | Encounter Summary ---
Author Organization [facility] Address [facility] [place] [address] Care Team Providers Care Tooth Cutter Pinion Name Role Phone Niki Vyas MD Primary Care Provider [phone] Encounter Details Date Type Department Care Team (Latest Contact Info) Description 02/03/2018 12:39 PM EDT - 02/03/2018 11:59 PM EDT Hospital Encounter XRay at [address] [place] [address] Trey Santos MD [facility] [place] [address] S/P lumbar fusion Discharge Disposition: Home Social [...] [facility] [address] [place] [address] Tata Aldridge MD [facility] [place] [address] 05/09/2025 2:00 PM EDT Office Visit Dermatology at [facility] [address] [place] [address] Tata Aldridge MD [facility] [place] [address] documented as of this encounter Procedures Procedure Name Priority Date/Time Associated Diagnosis Comments XR LUMBAR SPINE 2 OR 3 VIEWS Routine 02/03/2018 12:53 PM EDT S/P lumbar fusion documented in this encounter Results * XR Lumbar Spine 2 Or 3 Views (Generic) (02/03/2018 12:53 PM EDT) Anatomical Region Laterality Modality L-spine N/A Digital Radiogra phy Impressions 02/03/2018 2:14 PM EDT Unchanged appearance and alignment of Decompression and posterior instrumented fusion Narrative 02/03/2018 2:14 PM EDT EXAMINATION: XR LUMBAR SPINE 2 OR 3 VIEWS (GENERIC) CLINICAL HISTORY: s/p l5-S1 fusion TECHNIQUE: 2 views COMPARISON: October 2017. FINDINGS: Number of non-rib bearing lumbar-type vertebrae: 5 L5-S1 decompression and posterior instrumented fusion with patient of L5-S1 interbody graft. Vertebral bodies: Normal vertebral height. No vertebral fracture. Multiple small vertebral body osteophytes. Unchanged appearance of hardware. Disk spaces: Unchanged narrowed L1-L2, L3- 4 and L5-S1 disc spaces. Soft tissues: Normal. ?? Alignment: ? Unchanged anterolisthesis of L5 and S1. Procedure Note Barbara Shetty MD - 02/03/2018 EXAMINATION: XR LUMBAR SPINE 2 OR 3 VIEWS (GENERIC) CLINICAL HISTORY: s/p l5-S1 fusion TECHNIQUE: 2 views COMPARISON: October 2017. FINDINGS: Number of non-rib bearing lumbar-type vertebrae: 5 L5-S1 decompression and posterior instrumented fusion with patient ofL5-S1 interbody graft. Vertebral bodies: Normal vertebral height. No vertebral fracture. Multiplesmall vertebral body osteophytes. Unchanged appearance of hardware. Disk spaces: Unchanged narrowed L1-L2, L3- 4 and L5-S1 disc spaces. Soft tissues: Normal. Alignment: Unchanged anterolisthesis of L5 and S1. IMPRESSION Unchanged appearance and alignment of Decompression and posteriorinstrumented fusion Trey Santos MD IMG DX ORDERABLES documented in this encounter Visit Diagnoses Diagnosis S/P lumbar fusion Arthrodesis status documented in this encounter Care Teams Tooth Cutter Pinion Relationship Specialty Start Date End Date Niki Vyas MD [address] [place] [id number] PCP - General 07/21/10 12/16/21 documented as of this encounter
--- OUTSIDE RECORDS SUMMARY | 2024-08-09 10:18 | XMS_ITS | Encounter Summary ---
Author Organization [facility] [place] [address] Care Team Providers Care Construction Equipment Overhauler Name Role Phone Angelina Walker APRN Primary Care Provider [phone] Encounter Details Date Type Department Care Team (Latest Contact Info) Description 10/26/2022 Travel Social History Tobacco Use Types Packs/Day [...] place to sleep or slept in a skilled nursing (including now)? No 10/26/2022 Sex and Gender Information Value Date Recorded Sex Assigned at Not on file Gender Identity Not on file Sexual Orientation Not on file documented as of this encounter Plan of Treatment Upcoming Encounters Date Type Department Care Team (Late st Contact Info) Description 09/18/2024 11:30 AM EST Office Visit Dermatology at [facility] [address] [place] [address] [facility] [address] 05/09/2025 2:00 PM EDT Office Visit Dermatology at [facility] [address] [place] [address] [facility] [address] documented as of this encounter Visit Diagnoses Not on filedocumented in this encounter Care Teams Construction Equipment Overhauler Relationship Specialty Start Date End Date Angelina Walker APRN [address] [place] [address] PCP - General Family Medicine 05/31/22 08/08/23 documented as of this encounter
--- OUTSIDE RECORDS SUMMARY | 2024-08-09 10:18 | XMS_ITS | Encounter Summary ---
Author Organization [facility] [place] [address] Care Team Providers Care Explosive Ordnance Manager Name Role Phone Niki Vyas MD Primary Care Provider Encounter Details Date Type Department Care Team (Late st Contact Info) Description 11/16/2017 Orders [place] [address] Taylor Tinajero, ED Social History Tobacco Use Types Packs/Day Years [...] Office Visit Dermatology at [facility] [address] [place] [address] Tata Aldridge MD [facility] [place] [address] 05/09/2025 2:00 PM EDT Office Visit Dermatology at [facility] [address] [place] [address] Tata Aldridge MD [facility] [place] [address] documented as of this encounter Visit Diagnoses Not on filedocumented in this encounter Care Teams Explosive Ordnance Manager Relationship Specialty Start Date End Date Niki Vyas MD [address] [place] [id number] PCP - General 07/21/10 12/16/21 documented as of this encounter
--- OUTSIDE RECORDS SUMMARY | 2024-08-09 10:18 | XMS_ITS | Encounter Summary ---
Author Organization [facility] [place] [address] Care Team Providers Care Bisque Ware Dipper Name Role Phone Niki Vyas MD Primary Care Provider Reason for Visit * Reason Comments Annual Exam Encounter Details Date Type Department Care Team (Late st Contact Info) Description 07/25/2018 8:30 AM EST Office Visit Dermatology at [address] [address] Steven Souza MD [address] [facility] [facility] [place] [address] Sebaceous hyperplasia; Seborrheic keratosis; History of basal cell carcinoma Social History Tobacco Use Types Packs/Day Years Used Date Smoking Tobacco: Never Smokeless Tobacco: Never Alcohol Use Standard Drinks/Week Comments No 0 (1 standard drink = 0.6 oz pur e alcohol) Sex and Gender Information Value Date Recorded Sex Assigned at Not on file Gender Identity Not on file Sexual Orientation Not on file documented as of this encounter Progress Notes * Steven Souza MD - 07/25/2018 8:30 AM EST Problem: 1. 1 year skin checkup 2. History of 3 basal cell carcinomas, June 2016: Left upper back, right upper back, and mid central back Linda follows up and continues to do well except for the spondylolisthesis of her back. She walks with crutches. She has not noted any particular cutaneous lesions of concern. Physical examination reveals numerous numerous seborrheic keratoses present on her back upper chestand around underneath her breasts. There is no evidence of recurrent BCCA's. The biopsy sites are well-healed without evidence of recurrence. She has a single actinic keratosis on the right cutaneouslip. She is very fair skinned,, with fair hair, blue eyes and a moderate solar elastotic damage. Examination of the head and neck the chest the back the hands the arms forearms thighs and calf is benign. She has seborrheic keratosis present in the left and right post auricular scalp within the hairline. Assessment and plan: History of 3 basal cell carcinomas June 2016 1. No evidence recurrence 2. Patient reassured 3. Recommend that I see the patient again in 2 years for repeat check. If doing well may thereafterbe able to Follow-up on a as needed basis Seborrheic keratoses 1. Patient reassured about these numerous benign lesions. Actinic keratosis right cutaneous lip 1. LN 2 x 2 applied to single site CC: Niki Vyas MD documented in this encounter Plan of Treatment Upcoming Encounters Date Type Department Care Team (Late st Contact Info) Description 09/18/2024 11:30 AM EST Office Visit Dermatology at [facility] [address] [place] [address] Tata Aldridge MD [facility] [place] [address] 05/09/2025 2:00 PM EDT Office Visit Dermatology at [facility] [address] [place] [address] Tata Aldridge MD [facility] [place] [address] documented as of this encounter Visit Diagnoses Diagnosis Sebaceous hyperplasia Other specified disease of sebaceous glands Seborrheic keratosis Other seborrheic keratosis History of basal cell carcinoma Personal history of other malignant neoplasm of skin documented in this encounter Care Teams Bisque Ware Dipper Relationship Specialty Start Date End Date Niki Vyas MD [address] [place] [address] PCP - General 07/21/10 12/16/21 documented as of this encounter
--- OUTSIDE RECORDS SUMMARY | 2024-08-09 10:18 | XMS_ITS | Encounter Summary ---
Author Organization [facility] Address [facility] [place] [address] Care Team Providers Care Parent Partner Name Role Phone Niki Vyas MD Primary Care Provider [phone] Encounter Details Date Type Department Care Team (Latest Contact Info) Description 06/28/2018 7:10 AM EDT - 06/28/2018 11:59 PM EDT Hospital Encounter XRay at [address] [place] [address] Trey Santos MD [facility] [place] [address] Low back pain, non-specific Discharge Disposition: Home Social History Tobacco Use [...] Inhale into the lungs as needed. 04/14/2004 documented as of this encounter Plan of Treatment Upcoming Encounters Date Type Department Care Team (Late st Contact Info) Description 09/18/2024 11:30 AM EST Office Visit Dermatology at [facility] [address] [place] [address] Tata Aldridge MD [facility] [place] [place] [address] 05/09/2025 2:00 PM EDT Office Visit Dermatology at [facility] [address] [place] [address] Tata Aldridge MD [facility] [place] [place] [address] documented as of this encounter Procedures Procedure Name Priority Date/Time Associated Diagnosis Comments XR LUMBAR SPINE 2 OR 3 VIEWS Routine 06/28/2018 7:23 AM EDT Low back pain, non-specific documented in this encounter Results * XR Lumbar Spine 2 Or 3 Views (Generic) (06/28/2018 7:23 AM EDT) Anatomical Region Laterality Modality L-spine N/A Digital Radiogra phy Impressions 06/28/2018 9:18 AM EDT 1. ??Unchanged postsurgical change status post posterior decompression and is ready fusion at L5-S1. 2. ??Multilevel degenerative disc disease, as described above. Narrative 06/28/2018 9:18 AM EDT EXAMINATION: XR LUMBAR SPINE 2 OR 3 VIEWS (GENERIC) CLINICAL HISTORY: Xrays AP LAT, Focused L5-S1 Lateral please TECHNIQUE: AP and lateral views lumbar spine,: Lateral view the lumbosacral junction. COMPARISON: Lumbar spine radiographs 02/03/2018 and dating back to 10/11/[address] lumbar spine 08/25/2017. FINDINGS: In keeping with numbering scheme used from prior radiographs dated 02/03/2018, 10/28/2017, and 10/11/2017, there is postsurgical changes status post posterior decompression and instrumented fusion at L5-S1 with graft material in the intervening disc space. No vertebral body height loss. Unchanged anterolisthesis of L5 on S1. Hardware is unchanged. 3 mm retrolisthesis of L1 on L2 and trace retrolisthesis of T12 on L1 and L2 on L3. There is disc space narrowing at L1-2 and L3-4. There is also disc space narrowing at L4-5. Procedure Note Mariola Perez MD - 06/28/2018 EXAMINATION: XR LUMBAR SPINE 2 OR 3 VIEWS (GENERIC) CLINICAL HISTORY: Xrays AP LAT, Focused L5-S1 Lateral please TECHNIQUE: AP and lateral views lumbar spine,: Lateral view the lumbosacraljunction. COMPARISON: Lumbar spine radiographs 02/03/2018 and dating back to 10/11/2017 and CTlumbar spine 08/25/2017. FINDINGS: In keeping with numbering scheme used from prior radiographs dated02/03/2018, 10/28/2017, and 10/11/2017, there is postsurgical changes status postposterior decompression and instrumented fusion at L5-S1 with graft material inthe intervening disc space. No vertebral body height loss. Unchangedanterolisthesis of L5 on S1. Hardware is unchanged. 3 mm retrolisthesis of L1 on L2 and trace retrolisthesis of T12 on L1 andL2 on L3. There is disc space narrowing at L1-2 and L3-4. There is also discspace narrowing at L4-5. IMPRESSION 1. Unchanged postsurgical change status post posterior decompression andis ready fusion at L5-S1. 2. Multilevel degenerative disc disease, as described above. Trey Santos MD IMG DX ORDERABLES documented in this encounter Visit Diagnoses Diagnosis Low back pain, non-specific documented in this encounter Care Teams Parent Partner Relationship Specialty Start Date End Date Niki Vyas MD [address] [place] [address] PCP - General 07/21/10 12/16/21 documented as of this encounter
--- OUTSIDE RECORDS SUMMARY | 2024-08-09 10:18 | XMS_ITS | Encounter Summary ---
Author Organization [facility] [place] [address] Care Team Providers Care Palliative Care Nurse Practitioner Name Role Phone Niki Vyas MD Primary Care Provider [phone] Encounter Details Date Type Department Care Team (Late st Contact Info) Description 12/28/2017 Orders Only [facility] [address] Pernell Gilbert, RN Social History Tobacco Use [...] 11:30 AM EST Office Visit Dermatology at [facility] [address] [place] [address] Tata Aldridge MD [facility] [place] [address] 05/09/2025 2:00 PM EDT Office Visit Dermatology at [address] [place] [address] Tata Aldridge MD [facility] [place] [address] documented as of this encounter Visit Diagnoses Not on filedocumented in this encounter Care Teams Palliative Care Nurse Practitioner Relationship Specialty Start Date End Date Niki Vyas MD [address] [place] [address] PCP - General 07/21/10 12/16/21 documented as of this encounter
--- OUTSIDE RECORDS SUMMARY | 2024-08-09 10:18 | XMS_ITS | Encounter Summary ---
Author Organization [facility] [place] [address] Care Team Providers Care Liquor Bridge Operator Name Role Phone Niki Vyas MD Primary Care Provider [phone] Reason for Visit * Reason Comments Follow Up Surgery Left Arm Pain numbness Encounter Details Date Type Department Care Team (Late st Contact Info) Description 02/03/2018 1:40 PM EDT Office [place] [address] Trey Santos MD [facility] [place] [address] Low back pain, non-specific; S/P lumbar fusion; Spondylolisthesis at L5-S1 level Social History Tobacco Use Types Packs/Day Years [...] Sign Reading Time Taken Comments Blood Pressure 122/54 02/03/2018 1:25 PM EDT Pulse - - Temperature - - Respiratory Rate - - Oxygen Saturation - - Inhaled Oxygen Concentration - - Weight 64.4 kg (142 lb) 02/03/2018 1:25 PM EDT Height 160 cm (5' 3) 02/03/2018 1:25 PM EDT Body Mass Index 25.15 02/03/2018 1:25 PM EDT documented in this encounter Progress Notes * Trey Santos MD - 02/03/2018 1:40 PM EDT Images from the original note were not included. Spine Center @ [facility] Trey Santos MD, MS. Director Kennedy Dooley MD [facility] [place] [address] Niki Vyas MD [address] / [facility] [address] Dear Colleagues, I had the pleasure of seeing this patient at the [facility] for surgical evaluation. Patient is status post anterior posterior fusion on October 11, 2017 without complication. She returns to clinic. She is neuro intact with a baseline tremor although this appears worse. She can run better than she can walk. Walking her pain 6 out of 10 when she gets spasms in her core and then this leads to bending over. It is better after surgery if she is less back pain however still significant. She has some mild left knee swelling. Calves are soft. She remains neurologically intact. She has some new left hand numbness some very neurologic symptoms. She may have a more systemic issue associated with the tremor and dystonia. X-rays are consistent with the surgery. There is been no interval change. Summary and plan: 1. Follow-up in 6 months with AP and lateral views of the lumbar spine. 2. She seen Dr. Johnson in neurology for possible other systemic cause of her dystonia. I will be interested to read this note. Sincerely, Trey Santos MD MS [employer] Draftsman - Orthopedic Spine Surgery / Spine Center Personal Property Assessor - Department of Orthopedic Surgery / [employer] Service Manager - [facility] 02/07/2018 Spine Center Response Trends Patient-reported scores: myD-H Spine Questionnaire responses 11/23/2016 06/27/2017 10/21/2017 01/28/2018 VR36 - Physical Function (Range: 0-100) 24.1 - - - VR36 - Bodily Pain (Range: 0-100) 37.5 - - - VR36 - PCS (Range: 0-100) 35.9 - - - VR36 - MCS (Range: 0-100) 42.9 - - - Oswestry Disability Index (Range: 0-100) 37.77 (Moderate disability) 48.88 (Severe disability) 64.44 (Crippled) 44 (Severe disability) PROMIS-10 Physical Health Score - 37.4 37.4 39.8 PROMIS-10 Mental Health Score - 36.3 38.8 41.1 documented in this encounter Plan of Treatment Upcoming Encounters Date Type Department Care Team (Late st Contact Info) Description 09/18/2024 11:30 AM EST Office Visit Dermatology at [facility] [address] [place] [address] Tata Aldridge MD [facility] [place] [address] 05/09/2025 2:00 PM EDT Office Visit Dermatology at [facility] [address] [place] [address] Tata Aldridge MD [facility] [place] [address] documented as of this encounter Visit Diagnoses Diagnosis Low back pain, non-specific S/P lumbar fusion Arthrodesis status Spondylolisthesis at L5-S1 level Congenital spondylolisthesis documented in this encounter Care Teams Liquor Bridge Operator Relationship Specialty Start Date End Date Niki Vyas MD [address] [place] [address] PCP - General 07/21/10 12/16/21 documented as of this encounter
--- OUTSIDE RECORDS SUMMARY | 2024-08-09 10:18 | XMS_ITS | Encounter Summary ---
Author Organization [facility] [place] [address] Care Team Providers Care Impregnator And Drier Helper Name Role Phone Angelina Walker APRN Primary Care Provider [phone] Reason for Referral * Consultation (Routine) - Closed Specialty Diagnoses / Procedures Referred By Contmargarette t Referred To Contact Neurology Diagnoses Dystonia Orthostatic tremor Carmina Jennings MD [facility] [address] [place] [address] Tracy Johnson MD [facility] [place] [address] Referral ID Status Reason Start Date Expiration Date V isits Requested Visits Authorized [id number] Closed Consult, Test & Treat PCP Updated and/or Approved 05/31/2022 05/31/2023 6 6 Encounter Details Date Type Department Care Team (Late st Contact Info) Description 05/31/2022 Transcribe Orders eDH Incoming Referrals [phone] Carmina Jennings MD [facility] [address] [place] [address] Dystonia; Orthostatic tremor Social History Tobacco Use Types Packs/Day Years [...] 11:30 AM EST Office Visit Dermatology at [facility] [address] [place] [address] Tata Aldridge MD [facility] [place] [address] 05/09/2025 2:00 PM EDT Office Visit Dermatology [facility] [address] [place] [address] Tata Aldridge MD [facility] [place] [address] Scheduled Referrals Name Type Priority Associated Diagnoses Orde r Schedule Referral to Neurology Outpatient Referral Routine Dystonia Orthostatic tremor Ordered: 05/31/2022 documented as of this encounter Visit Diagnoses Diagnosis Dystonia Abnormal involuntary movements 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
--- OUTSIDE RECORDS SUMMARY | 2024-08-09 10:18 | XMS_ITS | Encounter Summary ---
Author Organization [facility] [place] [address] Care Team Providers Care Sample Maker Name Role Phone Niki Vyas MD Primary Care Provider Encounter Details Date Type Department Care Team (Late st Contact Info) Description 07/19/2019 Ancillary Procedure Radiology Library [place] [facility] [place] [address] Janett Garcia MD [address] [place] [address] Social History Tobacco Use Types Packs/Day Years [...] 11:30 AM EST Office Visit Dermatology at [facility] [address] [place] [address] Tata Aldridge MD [facility] [place] [address] 05/09/2025 2:00 PM EDT Office Visit Dermatology at [address] [place] [address] Tata Aldridge MD [facility] [place] [address] documented as of this encounter Procedures Procedure Name Priority Date/Time Associated Diagnosis Comments FILM LIBRARY STORAGE ONLY CT SPINE Routine 07/19/2019 12:00 AM EST documented in this encounter Results * Film Library- Storage Only CT Spine (07/19/2019 12:00 AM EST) N[facility]ative [facility] - 12/22/2021 4:54 PM EDT This exam is auto-finalizing. It's purpose is for storage only. Janett Garcia MD IMG FILM LIBRARY ORD ERABLES Performing Organization Address City/State/[facility] Co de Phone Number [place], [place] documented in this encounter Visit Diagnoses Not on filedocumented in this encounter Care Teams Sample Maker Relationship Specialty Start Date End Date Niki Vyas MD [address] [place] [address] PCP - General 07/21/10 12/16/21 documented as of this encounter
--- OUTSIDE RECORDS SUMMARY | 2024-08-09 10:18 | XMS_ITS | Encounter Summary ---
Author [place] [address] Care Team Providers Care Client Solutions Director Name Role Phone Janett Garcia MD Primary Care Provider [phone] Reason for Referral * Consultation (Routine) - Closed Specialty Diagnoses / Procedures Referred By Contac t Referred To Contact Neurosurgery Diagnoses Dystonia Spondylolisthesis, site unspecified Unequal limb length (acquired), unspecified site Weakness Other intervertebral disc degeneration, lumbosacral region Low back pain, unspecified Janett Garcia MD [address] [place] [address] [facility]surgery [address] [place] [address] Referral ID Status Reason Start Date Expiration Date V isits Requested Visits Authorized [id number] Closed Consult, Test & Treat PCP Updated and/or Approved 12/17/2021 12/17/2022 12 12 Encounter Details Date Type Department Care Team (Late st Contact Info) Description 12/17/2021 Transcribe Orders eDH Incoming Referrals [phone] Janett Garcia MD [address] [place] [address] Dystonia Social History Tobacco Use Types Packs/Day [...] Dermatology at [facility] [address] [place] [address] Tata Aldridge MD [facility] [place] [address] 05/09/2025 2:00 PM EDT Office Visit Dermatology at [facility] [address] [place] [address] Tata Aldridge MD [facility] [place] [address] Scheduled Referrals Name Type Priority Associated Diagnoses Order Schedule Referral to Neurosurgery Outpatient Referral Routine Dystonia Ordered: 12/17/2021 documented as of this encounter Visit Diagnoses Diagnosis Dystonia Abnormal involuntary movements documented in this encounter Care Teams Client Solutions Director Relationship Specialty Start Date End Date Janett Garcia MD [address] [place] [address] PCP - General Family Medicine 12/17/21 05/30/22 documented as of this encounter
--- OUTSIDE RECORDS SUMMARY | 2024-08-09 10:18 | XMS_ITS | Encounter Summary ---
Author Organization [facility] [place] [address] Care Team Providers Care Director Of Technology Name Role Phone Angelina Walker APRN Primary Care Provider [phone] Reason for Referral * High Dollar Medication (Routine) - Closed Specialty Diagnoses / Procedures Referred By Umair burk Referred To Contact Neurology Diagnoses Focal dystonia Procedures Onabotulinumtoxin A (BOTOX) Authorizations Request (IN CLINIC) TC ONABOTULINUMTOXINA, 1 UNIT, INJECTION PRO CHEMODENERVATION ONE EXTREMITY 1-4 MUSCLE(S) PRO CHEMODENERVATION OF TRUNK MUSCLE 1-5 MUSCLE(S) Bethany Encinas MD [facility] [place] [address] Bethany Encinas MD [facility] [place] [address] Referral ID Status Reason Start Date Expiration Date V isits Requested Visits Authorized [id number] Closed Consult, Test & Treat 11/02/2022 11/02/2023 99 100 Reason for Visit * Consultation (Routine) - Closed Specialty Diagnoses / Procedures Referred By Umair burk Referred To Contact Neurology Diagnoses Dystonia Orthostatic tremor Carmina Jennings MD [facility] [address] [place] [address] Bethany Encinas MD [facility] [place] [address] Referral ID Status Reason Start Date Expiration Date V isits Requested Visits Authorized [id number] Closed Consult, Test & Treat PCP Updated and/or Approved 05/31/2022 05/31/2023 6 6 Encounter Details Date Type Department Care Team (Late st Contact Info) Description 11/02/2022 8:00 AM EST Office [place] [address] Bethany Encinas MD [facility] [place] [address] Focal dystonia Social History Tobacco Use Types [...] in a snf (including now)? No 10/26/2022 Sex and Gender Information Value Date Recorded Sex Assigned at Not on file Gender Identity Not on file Sexual Orientation Not on file documented as of this encounter Last Filed Vital Signs Vital Sign Reading Time Taken Comments Blood Pressure 124/69 11/02/2022 7:43 AM EST Pulse 72 11/02/2022 7:43 AM EST Temperature - - Respiratory Rate - - Oxygen Saturation - - Inhaled Oxygen Concentration - - Weight 56.7 kg (125 lb) 11/02/2022 7:43 AM EST Height 158.8 cm (5' 2.5) 11/02/2022 7:43 AM EST Body Mass Index 22.5 11/02/2022 7:43 AM EST documented in this encounter Progress Notes * Bethany Encinas MD - 11/02/2022 8:00 AM EST Images from the original note were not included. [facility] Movement Disorders New Patient Evaluation Date of service 11/02/2022 Referring provider Carmina Jennings MD [facility] [address] [place] [address] Cc: tremors History of present illness Linda Browning is a 72 y.o. right handed woman who presents to [...] since 2018 she has been evaluated in [place] with the impression that she has decompensated [...] a sense that she gets pulled back. Current Outpatient Medications: ??? UNABLE TO FIND, Airborne two tablets twice a day, Disp: , Rfl: ??? magnesium 250 mg Tablet, Take by mouth daily., Disp: , Rfl: ??? multivitamin (THERAGRAN) Tablet, Take 1 tablet by mouth daily., Disp: , Rfl: ??? acetaminophen (TYLENOL) 500 mg Tablet, Take 1,000 mg by mouth 2 times daily., Disp: , Rfl: ??? albuterol (PROVENTIL HFA;VENTOLIN HFA) 90 mcg/Actuation inhaler, , Disp: , Rfl: ??? carbidopa-levodopa (Sinemet) 25-100 mg Tablet, Take 2 tablets by mouth 3 times daily., Disp: , Rfl: ??? glucosam/chond-msm1/C/porsha/bor (DFCBFMONNBM-ZPQXE-GES COMPLEX ORAL), Take by mouth., Disp: , Rfl: ??? senna-docusate (PERICOLACE) 8.6-50 mg Tablet, Take 2 tablets by mouth 2 times daily. Take to maintain normal bowel pattern while taking narcotic pain medication. (Patient not taking: Reported on 11/02/2022), Disp: , Rfl: Past Medical History: Diagnosis Date ??? Lumbar degenerative disc disease ??? Radiculopathy of lumbosacral region ??? Spondylolisthesis at L5-S1 level Past Surgical History: Procedure Laterality Date ??? PRO ALLOGRAFT FOR SPINE SURGERY ONLY MORSELIZED Bilateral 10/11/2017 ALLOGRAFT FOR SPINE SURGERY ONLY; MORSELIZED (WRVU *) performed by Trey Santos MD at [facility] OR ??? PRO ARTHRODESIS POSTERIOR/PSTLAT TECHNIQUE 1 INTERSPACE LUMBAR Bilateral 10/11/2017 ARTHRODESIS, LUMBAR SPINE, SINGLE LEVEL (WRVU 23.53) performed by Trey Santos MD at [facility] ??? PRO AUTOGRAFT SPINE SURGERY LOCAL FROM SAME INCISION Bilateral 10/11/2017 AUTOGRAFT FOR SPINE SURGERY ONLY, SAME INCISION (WRVU *) performed by Trey Santos MD at [facility] OR ??? PRO INSERT BIOMCHN DEV INTERVERTEBRAL DSC SPC W/ARTHRD Bilateral 10/11/2017 INSERTION INTERBODY BIOMECH DEV TO INTERVEBRAL DISC SPACE, EA INTERSPACE (WRVU 4.25) performed by Trey Santos MD at [facility] OR ??? PRO LUMBAR SPINE FUSION, ANTER APPRCH Bilateral 10/11/2017 @ANT. LUMBAR FUSION INCLUD. MIN. DISKECTOMY (WRVU 23.53) performed by Trye Santos MD at [facility] OR ??? PRO POSTERIOR NON-SEGMENTAL INSTRUMENTATION Bilateral 10/11/2017 POSTERIOR SPINAL NON-SEGMENTAL INST.(ONE SPACE) (WRVU 12.52) performed by Trey Santos MD at [facility] OR ??? PRO THORAX SPINE FUSION, ANTER APPRCH N/A 10/11/2017 @ANTERIOR APPROACH, FOR THROACIC (VASC) (WRVU 24.7) performed by Chico Granados MD at [facility] Social History: , two kids, non smoker, rare alcohol Review of Systems - All others negative except as per HPI Physical Exam Patient Vitals for the past 24 hrs: Pulse BP 11/02/22 0743 72 124/69 General: the patient appears stated age, not in any acute distress, well groomed, Body mass index is 22.5 kg/m??. HEENT: normal cephalic atraumatic Voice/language: no vocal tremor or dysarthria. Normal fluency and comprehension Neck: full ROM Extremities: full ROM and no visible deformities Mental status: oriented to place, self, date and reason for visit Cranial Nerves: III, IV, : EOMI, normal saccades and pursuit Reflexes: 1/4 symmetrical throughout Coordination: Finger to nose: normal Gait: Pushes off to stand, stooped posture, visible trunk and leg tremors on standing, tremors do dissipate with walking Additional movement disorder specific findings: No tremors in the upper extremities She has a truncal jerky irregular tremor which worsens with sitting up straight or standing She has a fairly regular tremor on standing in the legs which is of moderate amplitude No bradykinesia Normal tone Tremor measured with [employer] juan attached above right patella Review of available labs and imaging: MRI of spine reviewed in stored imaging. Notes from [facility] reviewed. Assessment: ICD-10-CM 1. 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 The worsening on standing is suspicious of orthostatic tremor but the frequency is too low and amplitude too high for that diagnosis. She has been told that additional spinal surgery would be too extensive. She has previously had lumbar spine fusion. She has failed baclofen and gabapentin. We did previously try a low dose botox on the left paraspinals. She would like to try again. We will do shots standing this time. Plan: - botox injections, prior auth requested, 100 units thoracic paraspinals Bethany Encinas MD [facility] Neurology-Movement Disorders documented in this encounter Miscellaneous Notes * Addendum Note - Bethany Encinas MD - 11/02/2022 8:00 AM ESTAddended by: BETHANY ENCINAS on: 11/02/2022 08:42 AM Modules accepted: Level of Service documented in this encounter Plan of Treatment Upcoming Encounters Date Type Department Care Team (Late st Contact Info) Description 09/18/2024 11:30 AM EST Office Visit Dermatology at [facility] [address] [place] [address] Tata Aldridge MD [facility] [place] [address] 05/09/2025 2:00 PM EDT Office Visit Dermatology at [facility] [address] [place] [address] Tata Aldridge MD [facility] [place] [address] documented as of this encounter Visit Diagnoses Diagnosis 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
--- OUTSIDE RECORDS SUMMARY | 2024-08-09 10:18 | XMS_ITS | Encounter Summary ---
Author Organization [facility] [place] [address] Care Team Providers Care Airfield Engineer Officer Name Role Phone Niki Vyas MD Primary Care Provider [phone] Encounter Details Date Type Department Care Team (Late st Contact Info) Description 06/06/2018 Notes Only [place] [address] Trey Santos MD [facility] [address] Social History Tobacco Use Types Packs/Day Years Used Date Smoking Tobacco: Never Smokeless Tobacco: Never Alcohol Use Standard Drinks/Week Comments No 0 (1 standard drink = 0.6 oz pur e alcohol) Sex and Gender Information Value Date Recorded Sex Assigned at Not on file Gender Identity Not on file Sexual Orientation Not on file documented as of this encounter Progress Notes * Trey Santos MD - 06/06/2018 9:18 AM EDT Images from the original note were not included. Spine Center @ [facility] Trey Santos MD, MS. Director Niki Vyas MD [address] / [facility] [address] Dear Colleagues, I reviewed notes from neurology. It is felt to be dystonia. However, we do need to make sure she has fused at the L5-S1 level. Need Xrays AP LAT, Focused L5-S1 Lateral. Lumbar spine. Can see her back to make sure that there are no surprises. What is due to dystonia vs lumbar spine? If fused nothing to do. Tough situation. Sincerely, Trey Santos MD MS Yeast Culture Developer - Orthopedic Spine Surgery / Spine Center Visual Merchandising Director - Department of Orthopedic Surgery / Academics and Research Automatic Buffing Wheel Former - [facility] 06/06/2018 Spine Center Response Trends Patient-reported scores: myD-H [...] 11:30 AM EST Office Visit Dermatology at [facility] [address] [place] [address] Tata Aldridge MD [facility] [address] [place] [address] 05/09/2025 2:00 PM EDT Office Visit Dermatology at [facility] [address] [place] [address] Tata Aldridge MD [facility] [place] [address] documented as of this encounter Visit Diagnoses Not on filedocumented in this encounter Care Teams Airfield Engineer Officer Relationship Specialty Start Date End Date Niki Vyas MD [address] [place] [address] PCP - General 07/21/10 12/16/21 documented as of this encounter
--- OUTSIDE RECORDS SUMMARY | 2024-08-09 10:18 | XMS_ITS | Encounter Summary ---
Author Organization [facility] Address [facility] [place] [address] Care Team Providers Care Filter Pulp Washer Name Role Phone Janett Garcia MD Primary Care Provider [phone] Encounter Details Date Type Department Care Team (Late st Contact Info) Description 12/22/2021 5:00 PM EDT Ancillary Procedure Radiology Library at [facility] [place] [address] Janett Garcia MD [address] [place] [address] Social History Tobacco Use Types Packs/Day Years [...] 11:30 AM EST Office Visit Dermatology at [facility] [address] [place] [address] Tata Aldridge MD [facility] [address] 05/09/2025 2:00 PM EDT Office Visit Dermatology at [address] [place] [address] Tata Aldridge MD [facility] [place] [address] documented as of this encounter Procedures Procedure Name Priority Date/Time Associated Diagnosis Comments FILM LIBRARY STORAGE ONLY MR SPINE Routine 12/22/2021 4:58 PM EDT documented in this encounter Results * Film Library- Storage Only MR Spine (12/22/2021 4:58 PM EDT) Narrative [facility] - 12/22/2021 4:58 PM EDT This exam is auto-finalizing. It's purpose is for storage only. Janett Garcia MD G FILM LIBRARY ORD ERABLES Performing Organization Address City/State/[facility] Co de Phone Number [place], [place] documented in this encounter Visit Diagnoses Not on filedocumented in this encounter Care Teams Filter Pulp Washer Relationship Specialty Start Date End Date Janett Garcia MD [address] [place] [address] PCP - General Family Medicine 12/17/21 05/30/22 documented as of this encounter
--- OUTSIDE RECORDS SUMMARY | 2024-08-09 10:18 | XMS_ITS | Encounter Summary ---
Author Organization [facility] Address [facility] [place] [address] Care Team Providers Care Cloth Tester Quality Name Role Phone Niki Vyas MD Primary Care Provider [phone] Encounter Details Date Type Department Care Team (Late st Contact Info) Description 02/22/2018 [place] [address] Tracy Johnson MD [facility] [place] [address] Social History Tobacco Use Types Packs/Day Years [...] 11:30 AM EST Office Visit Dermatology at [facility] [address] [place] [address] Tata Aldridge MD [facility] [place] [address] 05/09/2025 2:00 PM EDT Office Visit Dermatology at [facility] [address] [place] [address] Tata Aldridge MD [facility] [place] [address] documented as of this encounter Visit Diagnoses Not on filedocumented in this encounter Care Teams Cloth Tester Quality Relationship Specialty Start Date End Date Niki Vyas MD [address] [place] [address] PCP - General 07/21/10 12/16/21 documented as of this encounter
--- OUTSIDE RECORDS SUMMARY | 2024-08-09 10:18 | XMS_ITS | Encounter Summary ---
Author Organization [facility] [place] [address] Care Team Providers Care Service Order Dispatcher Name Role Phone Niki Vyas MD Primary Care Provider [phone] Reason for Visit * Reason Comments Low Back Pain Encounter Details Date Type Department Care Team (Late st Contact Info) Description 06/28/2018 8:20 AM EDT Office [place] [address] Trey Santos MD [facility] [place] [address] Low back pain, non-specific; Spondylolisthesis at L5-S1 level Social History Tobacco [...] Progress Notes * Trey Santos MD - 06/28/2018 8:20 AM EDT Images from the original note were not included. Spine Center @ [facility] Trey Santos MD, MS. Director Kennedy Dooley MD [facility] [place] [address] Niki Vyas MD [address] / [facility] [address] Tracy Johnson MD Neurology Dear Colleagues, I had the pleasure of seeing this patient at the [facility] for surgical evaluation. Patient able to walk better. More upright. However still with significant symptoms. No symptoms when sitting or lying down. No leg pain. Followed by neurology. Images c/w prior images. No further intervention needed. Tough situation. More than 50% of more than 30 minutes was on counseling around diagnosis, surgery, reviewing films.Talking about activities and possible 2nd opinion. Sincerely, Trey Santos MD MS Habilitation Worker - Orthopedic Spine Surgery / Spine Center Child Care Assistant - Department of Orthopedic Surgery / Academics and Research Air Conditioning Mechanic - Formerly [facility] 06/28/2018 Spine Center Response Trends Patient-reported scores: myD-H Spine Questionnaire responses 11/23/2016 06/27/2017 10/21/2017 01/28/2018 06/22/2018 VR36 - Physical Function (Range: 0-100) 24.1 - - - - VR36 - Bodily Pain (Range: 0-100) 37.5 - - - - VR36 - PCS (Range: 0-100) 35.9 - - - - VR36 - MCS (Range: 0-100) 42.9 - - - - Oswestry Disability Index (Range: 0-100) 37.77 (Moderate disability) 48.88 (Severe disability) 64.44 (Crippled) 44 (Severe disability) 44.44 (Severe disability) PROMIS-10 Physical Health Score - 37.4 37.4 39.8 34.9 PROMIS-10 Mental Health Score - 36.3 38.8 41.1 31.3 documented in this encounter Plan of Treatment Upcoming Encounters Date Type Department Care Team (Late st Contact Info) Description 09/18/2024 11:30 AM EST Office Visit Dermatology at [facility] [address] [place] [address] Tata Aldridge MD [facility] [place] [address] 05/09/2025 2:00 PM EDT Office Visit Dermatology at [facility] [address] [place] [address] Tata Aldridge MD [facility] [place] [address] documented as of this encounter Visit Diagnoses Diagnosis Low back pain, non-specific Spondylolisthesis at L5-S1 level Congenital spondylolisthesis documented in this encounter Care Teams Service Order Dispatcher Relationship Specialty Start Date End Date Niki Vyas MD [address] [place] [address] PCP - General 07/21/10 12/16/21 documented as of this encounter
--- OUTSIDE RECORDS SUMMARY | 2024-08-09 10:18 | XMS_ITS | Encounter Summary ---
Author Organization [facility] [place] [address] Care Team Providers Care Resourcing Advisor Name Role Phone Angelina Walker APRN Primary Care Provider [phone] Reason for Visit * High Dollar Medication (Routine) - Closed Specialty Diagnoses / Procedures Referred By Contac t Referred To Contact Neurology Diagnoses Focal dystonia Procedures Onabotulinumtoxin A (BOTOX) Authorizations Request (IN CLINIC) TC ONABOTULINUMTOXINA, 1 UNIT, INJECTION PRO CHEMODENERVATION ONE EXTREMITY 1-4 MUSCLE(S) PRO CHEMODENERVATION OF TRUNK MUSCLE 1-5 MUSCLE(S) Tracy Johnson MD [facility] [place] [address] Tracy Johnson MD [facility] [place] [address] Referral ID Status Reason Start Date Expiration Date V isits Requested Visits Authorized [id number] Closed Consult, Test & Treat 11/02/2022 11/02/2023 99 100 Encounter Details Date Type Department Care Team (Late st Contact Info) Description 03/04/2023 3:30 PM EDT Office [place] [address] Tracy Johnson MD [facility] [place] [address] Dystonia Social History Tobacco Use Types Packs/Day [...] in a residential (including now)? No 10/26/2022 Sex and Gender Information Value Date Recorded Sex Assigned at Not on file Gender Identity Not on file Sexual Orientation Not on file documented as of this encounter Procedure Notes * Tracy Johnson MD - 03/04/2023 3:30 PM EDTAssociated Order(s): CHEMODENERVATION W/ EMG GUIDANCE Chemodenervation Procedure Note Diagnosis: focal dystonia HPI: She has a history of tremors and dystonic trunk tremor which is worse in standing position. She hastried multiple oral medications without success. Last shots provided some benefit and we will inject again today with a slight increase. Botox risks, benefits and reasonable expectations discussed. Codes for chemodenervation visit: 85421, 22972 Exam: Procedure: A time out was performed The patient was positioned for best access to muscles to be injected. The area was cleaned with alcohol swabs. 100 units of onabotulinumtoxinA was prepared by 1cc saline to 100 units toxin dilution with preservative free saline EMG guidance was used for this procedure for anatomic localization of the paraspinal muscles. Injections: Thoracic paraspinal Middle left 25 units Middle right 25 units Lumbar paraspinal High 25 units each side Total 100 units Waste 0 units The patient tolerated the procedure well with no immediate adverse events. Follow up will be in 3 months. Tracy Johnson MD [facility] Neurology-Movement Disorders documented in this encounter Plan of Treatment Upcoming Encounters Date Type Department Care Team (Late st Contact Info) Description 09/18/2024 11:30 AM EST Office Visit Dermatology at [facility] [address] [place] [address] Tata Aldridge MD [facility] [address] [place] [address] 05/09/2025 2:00 PM EDT Office Visit Dermatology at [facility] [address] [place] [address] Tata Aldridge MD [facility] [place] [place] [address] documented as of this encounter Procedures Procedure Name Priority Date/Time Associated Diagnosis Comments CHEMODENERVATION W/ EMG GUIDANCE Routine 03/04/2023 3:30 PM EDT documented in this encounter Results * CHEMODENERVATION W/ EMG GUIDANCE (03/04/2023 3:30 PM EDT) Narrative Tracy Johnson MD - 03/04/2023 3:30 PM EDT Tracy Johnson MD ? 03/04/2023 ??4:01 PM Chemodenervation Procedure Note Diagnosis: focal dystonia HPI: She has a history of tremors and dystonic trunk tremor which is worse in standing position. She has tried multiple oral medications without success. Last shots provided some benefit and we will inject again today with a slight increase. Botox risks, benefits and reasonable expectations discussed. Codes for chemodenervation visit: 69165, 57038 Exam: Procedure: A time out was performed The patient was positioned for best access to muscles to be injected. The area was cleaned with alcohol swabs. 100 units of onabotulinumtoxinA was prepared by 1cc saline to 100 units toxin dilution with preservative free saline EMG guidance was used for this procedure for anatomic localization of the paraspinal muscles. Injections: Thoracic paraspinal Middle left 25 units Middle right 25 units Lumbar paraspinal High 25 units each side Total 100 units Waste 0 units The patient tolerated the procedure well with no immediate adverse events. Follow up will be in 3 months. Tracy Johnson MD [facility] Neurology-Movement Disorders Tracy Johnson MD NEUROLOGY ORDERABL ES documented in this encounter Visit Diagnoses Diagnosis Dystonia Abnormal involuntary movements documented in this encounter Administered Medications Inactive Administered Medications - up to 3 most recent administrations Medication Order MAR Action Action Date Dose Rate Site botulinum toxin type A (Botox) injection 100 Units 100 Units, Intramuscular, ONCE, 1 dose, On Tue03/04/23 at 1600, Routine Given 03/04/2023 3:57 PM EDT 100 Units documented in this encounter Care Teams Resourcing Advisor Relationship Specialty Start Date End Date Angelina Walker APRN [address] [place] [address] PCP - General Family Medicine 05/31/22 08/08/23 documented as of this encounter
--- OUTSIDE RECORDS SUMMARY | 2024-08-09 10:18 | XMS_ITS | Encounter Summary ---
Author Organization [facility] [place] [address] Care Team Providers Care Bench Mover Name Role Phone Niki Vyas MD Primary Care Provider [phone] Encounter Details Date Type Department Care Team (Late st Contact Info) Description 06/07/2018 Orders Only [place] [address] Taylor Tinajero LPN Low back pain, non-specific Social History Tobacco Use Types Packs/Day Years [...] 11:30 AM EST [facility] [address] [place] [address] Tata Aldridge MD [facility] [place] [address] 05/09/2025 2:00 PM EDT Office Visit Dermatology at [address] [place] [address] Tata Aldridge MD [facility] [place] [address] documented as of this encounter Results * XR Lumbar Spine [...] Visit Diagnoses Diagnosis Low back pain, non-specific Low back pain, non-specific documented in this encounter Care Teams Bench Mover Relationship Specialty Start Date End Date Niki Vyas MD [address] [place] [address] PCP - General 07/21/10 12/16/21 documented as of this encounter
--- OUTSIDE RECORDS SUMMARY | 2024-08-09 10:18 | XMS_ITS | Encounter Summary ---
Author Organization [facility] Address [facility] [place] [address] Care Team Providers Care Final Inspector Truck Trailer Name Role Phone Angelina Walker APRN Primary Care Provider [phone] Reason for Visit * Reason Comments Basal Cell Carcinoma Encounter Details Date Type Department Care Team (Late st Contact Info) Description 07/06/2023 12:00 PM EST Office Visit Dermatology at [facility] [address] [place] [address] Loki Honeycutt MD [facility] DR PEEWEE [place] [address] Basal cell carcinoma of medial canthus of [...] Sign Reading Time Taken Comments Blood Pressure 131/77 07/06/2023 12:29 PM EST Pulse 62 07/06/2023 12:29 PM EST Temperature - - Respiratory Rate - - Oxygen Saturation - - Inhaled Oxygen Concentration - - Weight - - Height - - Body Mass Index - - documented in this encounter Progress Notes * Loki Honeycutt MD - 07/06/2023 12:00 PM EST Images from the original note were not included. [facility] consultation and preoperative note (H&P) Patient Name: Linda Browning Age: 73 y.o. Date of : 1950 Today's Date: 07/06/2023 REFERRING PROVIDER: Chester Umanzor MD CC: Mohs micrographic surgery for treatment of a cutaneous tumor HPI: Linda Browning is a 73 y.o. female presenting for biopsy-proven basal cell carcinoma, nodular location on the right nasal bridge. The dermatologic preoperative information sheet was reviewed with pertinent positive and negative as below. Patient reports scaly lesion on left medial canthus present for ~7-8 years. Requesting to have evaluated today. DERMATOLOGIC PRE-OPERATIVE EVALUATION AND REVIEW OF SYSTEMS [...] L5-S1. ALLERGIES: Allergies reviewed MEDICATIONS: Medications reviewed VITAL SIGNS: BP 131/77 (BP Location (NBP): Left arm, Patient Position: Sitting, BP Cuff Sizes: Adult (25-34 cm)) Pulse 62 PHYSICAL EXAMINATION: General: patient is awake, alert, oriented and in no acute distress. Skin: Focused examination of surgical site(s) performed which shows a well healed biopsy site with surrounding poorly defined pearly plaque. Poorly defined pink scaly plaque located on the left medial canthus. PHYSICIAN REVIEW OF REPORTS, RECORDS, IMAGES: 1) The accompanying pathology report(s) associated with aforementioned biopsy slide(s) were/was also reviewed. Assessment: Linda Browning is a 73 y.o. female presenting for: 1. Biopsy-proven basal cell carcinoma, nodular located on the right nasal bridge. 2. Basal cell carcinoma, superficial and nodular located on the left medial canthus. Frozen biopsy performed today. Specimen sent for permanent pathology as well. Plan: 1. Findings from the biopsy report, [...] restricted physical activity and heavy lifting. 4. The nature of sun-induced photo-aging and skin cancers was discussed. Recommended sun avoidance when possible, especially peak hours of sun 10 am to 2pm, protective clothing such as wide-brimmed hats and long-sleeved clothing, and the use of SPF broad-spectrum sunscreen SPF 50 or higher. 5. Signs and symptoms of skin cancer reviewed. Patient to report any new, changing, or symptomatic lesions and follow up with his or her clinical rn manager or other skin provider. Follow up: Plan to coordinate Mohs micrographic surgery with Dr. Holder at next available date. Note initiated by RANJANA Brasher RN has performed the documentation for this encounter in the presence of and acting as a scribe for Dr. Ke Mccann performed the above scribed service and agree with the accuracy of the documentation in this encounter. Reviewed and signed by: Loki Honeycutt Dermatology [facility] Loki Honeycutt MD PhD Mohs Micrographic Surgery and Dermatologic Oncology Department of Dermatology [address] [place] [address] Frozen Biopsy Procedure: Skin biopsy by shave technique Location: Left medial canthus Discussed indications for procedure and expectations including risks and benefits. Verbal consent obtained. Skin prep with alcohol. Local anesthesia with 1% xylocaine, 1/100,000 epinephrine. A sampleof the lesion was removed by shave technique to the level of the dermis and submitted for frozen sections and revealed basal cell carcinoma, nodular and superficial. Hemostasis obtained (AlCl and/or electrocautery). There were no complications; the pt. tolerated the procedure well. Loki Honeycutt MD PhD Mohs Micrographic Surgery and Dermatologic Oncology Department of Dermatology [address] [place] [address] Note initiated by RANJANA Brasher RN has performed the documentation for this encounter in the presence of and acting as a scribe for Dr. Ke Mccann performed the above scribed service and agree with the accuracy of the documentation in this encounter. Reviewed and signed by: Loki Honeycutt Dermatology [facility] Loki Honeycutt MD PhD Mohs Micrographic Surgery and Dermatologic Oncology Department of Dermatology [address] [place] [address] documented in this encounter Plan of Treatment Upcoming Encounters Date Type Department Care Team (Late st Contact Info) Description 09/18/2024 11:30 AM EST Office Visit Dermatology [facility] [address] [place] [address] Tata Aldridge MD [facility] [place] [address] 05/09/2025 2:00 PM EDT Office Visit Dermatology [facility] [address] [place] [address] Tata Aldridge MD [facility] [place] [address] documented as of this encounter Procedures Procedure Name Priority Date/Time Associated Diagnosis Comments SURGICAL PATHOLOGY REPORT Routine 07/06/2023 2:09 PM EST SPECIMEN TO PATHOLOGY Routine 07/06/2023 2:09 PM EST Basal cell carcinoma of medial canthus of left eye documented in this encounter Results * (ABNORMAL) Surgical Pathology Report (07/06/2023 2:09 PM EST) Final Diagnosis [id number] ? Location: [facility] The signing pathologist has (i) examined the relevant preparation(s) for the specimen(s) and (ii) rendered or confirmed the diagnosis(es). . ?Surgical Pathology DIAGNOSIS L eft medial canthus, skin shave biopsy: - ??Basal cell carcinoma, superficial and nodular types, ?? present at the peripheral and deep specimen edges Electronically signed by: ?Agustin MARTIN, PhD, Gaurav Verified: ??07/13/2023 13:06 ??Dermatopathol ogist Performed at: ??-[facility] Dept. of Pathology, [place] [address] Watch Leader: Gabriele Jarvis MD, FCAP, ??CLIA Certificate: [id number] DISCUSSION THIS RESULT REQUIRES PHYSICIAN/A.P.P . FOLLOW UP SPECIMEN(S) SUBMITTED A - left medial canthus, skin shave biopsy (_) CLINICAL INFORMATION Nonhealing pink scaly plaque. ??BCC SPECIMEN PROCESSING A - Labeled/Fixativ e: Left medial canthus, formalin. Quantity/Size: ??Two, 0.5 x 0.2 cm. Tissue Description: Elliptical, variegated argueta-torres and torres-brown skin shave biopsies. Sections/Proces sing: Submitted in toto ??in 1 cassette labeled A1. ??shb(A) 07/13/2023 1:06 PM EST [facility] SPECIMEN FROM SKIN / Unknown 07/06/2023 2:09 PM EST 07/06/2023 2:09 PM EST Loki Honeycutt MD PATHOLOGY/CYTOLOGY ORDERABLES [facility] [place] [id number] [facility] [place] [address] * Specimen to Pathology (07/06/2023 2:09 PM EST) AP Specimen 07/06/2023 2:09 PM EST 07/06/2023 2:09 PM EST Narrative [facility] - 07/06/2023 2:09 PM EST Specimen requisition ordered. ??Separate Pathology report to follow Loki Honeycutt MD PATHOLOGY/CYTOLOGY ORDERABLES [facility] [address] documented in this encounter Visit Diagnoses Diagnosis Basal cell carcinoma of medial canthus of left eye Basal cell carcinoma of right nasal sidewall Basal cell carcinoma of skin of other and unspecified parts of face documented in this encounter Care Teams Final Inspector Truck Trailer Relationship Specialty Start Date End Date Angelina Walker APRN [address] [place] [address] PCP - General Family Medicine 05/31/22 08/08/23 documented as of this encounter
--- OUTSIDE RECORDS SUMMARY | 2024-08-09 10:18 | XMS_ITS | Encounter Summary ---
Author Organization [facility] [place] [address] Care Team Providers Care Desulfurizer Operator Name Role Phone Niki Vyas MD Primary Care Provider [phone] Reason for Visit * Reason Comments Follow Up Surgery achy legs, lighthead ness, low blood pressure, constipation Encounter Details Date Type Department Care Team (Late st Contact Info) Description 10/28/2017 2:20 PM EST Office [place] [address] Trey Santos MD [facility] [place] [address] S/P lumbar fusion; Spondylolisthesis at L5-S1 level [...] Progress Notes * Trey Santos MD - 10/28/2017 2:20 PM EST Images from the original note were not included. Spine Center @ [facility] Trey Santos MD, MS. Director Kennedy Dooley MD [facility] [place] [address] Niki Vyas MD [address] / [facility] [address] Dear Colleagues, I had the pleasure of seeing this patient at the [facility] for surgical evaluation. Preop Chief complaint: Back pain. ??Unable to stand up and walk. Postop symptoms: Certainly able to walk upright better still after more than 30 feet moves into more collapsed posture. ? Diagnosis: 1. 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 2. ??Diffuse lumbar spondylosis mild to moderate. 3. ??Back pain with buttock and limited leg pain worse with walking better with forward flexion andpushing. 4. ??Leg length discrepancy with pelvic obliquity. Procedure: Anterior posterior fusion October 11, 2017. Patient returns to clinic. She is able to walk better but not cured. I think she would benefit fromphysical therapy. Her incisions are clean dry and intact. The images are consistent with the surgery. She remains neurologically intact. Her bowel bladder are working okay. She still requires suppository to move her bowels successfully. She appears very comfortable in the sitting position. Initially walking she is okay. However after more than 30 feet she again goes into the flexed extended posture. At this time we will continue start back her aquatic therapy. She did do this on her own for 2-3 months. At that time will consider land therapy. I will obtain AP lateral views of her lumbar spine atthat time. Sincerely, Trey Santos MD MS Pediatric Orthodontist - Orthopedic Spine Surgery / Spine Center Money Position Officer - Department of Orthopedic Surgery / [employer] - [facility] [employer] 10/28/2017 Spine Center Response Trends Patient-reported scores: myD-H Spine Questionnaire responses 11/23/2016 06/27/2017 10/21/2017 VR36 - Physical Function (Range: 0-100) 24.1 - - VR36 - Bodily Pain (Range: 0-100) 37.5 - - VR36 - PCS (Range: 0-100) 35.9 - - VR36 - MCS (Range: 0-100) 42.9 - - Oswestry Disability Index (Range: 0-100) 37.77 (Moderate disability) 48.88 (Severe disability) 64.44 (Crippled) PROMIS-10 Physical Health Score - 37.4 37.4 PROMIS-10 Mental Health Score - 36.3 38.8 documented in this encounter Plan of Treatment Upcoming Encounters Date Type Department Care Team (Late st Contact Info) Description 09/18/2024 11:30 AM EST Office Visit Dermatology at [facility] [address] [place] [address] Tata Aldridge MD [facility] [place] [address] 05/09/2025 2:00 PM EDT Office Visit [facility] [address] [place] [address] Tata Aldridge MD [facility] [place] [address] documented as of this encounter Results * [...] Diagnoses Diagnosis S/P lumbar fusion Arthrodesis status Spondylolisthesis at L5-S1 level Congenital spondylolisthesis S/P lumbar fusion Arthrodesis status documented in this encounter Care Teams Desulfurizer Operator Relationship Specialty Start Date End Date Niki Vyas MD [address] [place] [address] PCP - General 07/21/10 12/16/21 documented as of this encounter
--- OUTSIDE RECORDS SUMMARY | 2024-08-09 10:18 | XMS_ITS | Encounter Summary ---
Author Organization [facility] [address] Care Team Providers Care Quality Coordinator Name Role Phone Angelina Walker APRN Primary Care Provider [phone] Encounter Details Date Type Department Care Team (Latest Contact Info) Description 11/15/2022 Travel Social History Tobacco Use Types Packs/Day [...] at [facility] [address] [place] [address] Tata Aldridge MD [facility] [place] [address] 05/09/2025 2:00 PM EDT Office Visit Dermatology at [facility] [address] [place] [address] Tata Aldridge MD [facility] [place] [address] documented as of this encounter Visit Diagnoses Not on filedocumented in this encounter Care Teams Quality Coordinator Relationship Specialty Start Date End Date Angelina Walker APRN [address] [place] [address] PCP - General Family Medicine 05/31/22 08/08/23 documented as of this encounter
--- OUTSIDE RECORDS SUMMARY | 2024-08-09 10:18 | XMS_ITS | Encounter Summary ---
Author Organization [place] [address] Care Team Providers Care Compo Caster Name Role Phone Angelina Walker APRN Primary Care Provider [phone] Encounter Details Date Type Department Care Team (Latest Contact Info) Description 11/08/2022 Travel Social History Tobacco Use Types Packs/Day [...] 11:30 AM EST Office Visit Dermatology at [facility] [address] [place] [address] Tata Aldridge MD [facility] [place] [address] 05/09/2025 2:00 PM EDT Office Visit Dermatology at [facility] [address] [place] [address] Tata Aldridge MD [facility] [place] [address] documented as of this encounter Visit Diagnoses Not on filedocumented in this encounter Care Teams Compo Caster Relationship Specialty Start Date End Date Angelina Walker APRN [address] [place] [address] PCP - General Family Medicine 05/31/22 08/08/23 documented as of this encounter
--- OUTSIDE RECORDS SUMMARY | 2024-08-09 10:18 | XMS_ITS | Encounter Summary ---
Author Organization [place] [address] Care Team Providers Care Mold Polisher Name Role Phone Niki Vyas MD Primary Care Provider [phone] Reason for Referral * Diagnostic Test (Routine) - Closed Specialty Diagnoses / Procedures Referred By Umair burk Referred To Contact Radiology Diagnoses Tremor Procedures MRI Brain wo Contrast Tracy Johnson MD [facility] [place] [address] [place] [address] Referral ID Status Reason Start Date Expiration Date V isits Requested Visits Authorized [id number] Closed Specialty Service Requested 02/13/2018 02/13/2019 1 1 Reason for Visit * Consultation (Routine) - Closed Specialty Diagnoses / Procedures Referred By Umair burk Referred To Contact Neurology Diagnoses tremor with hx of fasciulations Angelina Walker APRN [address] [place] [address] [facility] [address] [place] [address] Referral ID Status Reason Start Date Expiration Date V isits Requested Visits Authorized [id number] Closed Consult, Test & Treat Connection Center 12/30/2017 12/30/2018 1 1 Encounter Details Date Type Department Care Team (Late st Contact Info) Description 02/13/2018 8:00 AM EDT Office [place] [address] Tracy Johnson MD [facility] [place] [address] Tremor Social History Tobacco Use Types Packs/Day Years [...] Sign Reading Time Taken Comments Blood Pressure 118/70 02/13/2018 8:05 AM EDT Pulse 60 02/13/2018 8:05 AM EDT Temperature - - Respiratory Rate - - Oxygen Saturation - - Inhaled Oxygen Concentration - - Weight 62.6 kg (138 lb) 02/13/2018 8:05 AM EDT Height 160 cm (5' 3) 02/13/2018 8:05 AM EDT Body Mass Index 24.45 02/13/2018 8:05 AM EDT documented in this encounter Progress Notes * Tracy Johnson MD - 02/13/2018 8:00 AM EDT Images from the original note were not included. [facility] Movement Disorders New Patient Evaluation Date of service 02/13/2018 Referring provider Angelina Walker APRN [address] [place] [address] Cc: tremors History of present illness Linda Browning is a 68 y.o. right handed woman who presents to the movement disorders clinic for evaluation of tremors. She started noting aching back pain in fall, initially though she just over did it [...] paraspinal muscles which she feels is a contributing factor. She has not had sciatic type symptoms and no leg pain. Therewere no medication changes at the time the tremor started. Gabapentin has not been helpful. She also tried flexeril for a short time. She had a spine surgery [...] life she did not wear the lift. Patient Active Problem List Diagnosis Code ??? Sebaceous hyperplasia L73.8 ??? Seborrheic keratosis L82.1 ??? s/p OLIF L5-S1 and posterior instrumented fusion L5-S1 on 10/11/2017, Dr. Santos M43.19 ??? History of basal cell carcinoma Z85.828 ??? Diverticulitis K57.92 Current Outpatient Prescriptions: ??? gabapentin (NEURONTIN) 300 mg Capsule, Take 300 mg by mouth 3 times daily., Disp: , Rfl: ??? senna-docusate (PERICOLACE) 8.6-50 mg Tablet, Take 2 tablets by mouth 2 times daily. Take to maintain normal bowel pattern while taking narcotic pain medication., Disp: , Rfl: ??? magnesium 250 mg Tablet, Take by mouth daily., Disp: , Rfl: ??? multivitamin (THERAGRAN) Tablet, Take 1 tablet by mouth daily., Disp: , Rfl: ??? acetaminophen (TYLENOL) 500 mg Tablet, Take 1,000 mg by mouth 2 times daily., Disp: , Rfl: ??? albuterol (PROVENTIL HFA;VENTOLIN HFA) 90 mcg/Actuation inhaler, , Disp: , Rfl: Past Medical History: Diagnosis Date ??? Lumbar degenerative disc disease ??? Radiculopathy of lumbosacral region ??? Spondylolisthesis at L5-S1 level Past Surgical History: Procedure Laterality Date ??? PRO ALLOGRAFT FOR SPINE SURGERY ONLY MORSELIZED Bilateral 10/11/2017 ALLOGRAFT FOR SPINE SURGERY ONLY; MORSELIZED (WRVU *) performed by Trey Santos MD at [facility] OR ??? PRO AUTOGRAFT SPINE SURGERY LOCAL FROM SAME INCISION Bilateral 10/11/2017 AUTOGRAFT FOR SPINE SURGERY ONLY, SAME INCISION (WRVU *) performed by Trey Santso MD at [facility] OR ??? PRO INSERT BIOMCHN DEV INTERVERTEBRAL DSC SPC W/ARTHRD Bilateral 10/11/2017 INSERTION INTERBODY BIOMECH DEV TO INTERVEBRAL DISC SPACE, EA INTERSPACE (WRVU 4.25) performed by Trey Santos MD at [facility] OR ??? PRO LUMBAR SPINE FUSION, ANTER APPRCH Bilateral 10/11/2017 @ANT. LUMBAR FUSION INCLUD. MIN. DISKECTOMY (WRVU 23.53) performed by Trey Santos MD at [facility] OR ??? PRO LUMBAR SPINE FUSN, POST TECH Bilateral 10/11/2017 ARTHRODESIS, LUMBAR SPINE, SINGLE LEVEL (WRVU 23.53) [facility] ??? PRO POSTERIOR NON-SEGMENTAL INSTRUMENTATION Bilateral 10/11/2017 POSTERIOR SPINAL NON-SEGMENTAL INST.(ONE SPACE) (WRVU 12.52) performed by Trey Santos MD at [facility] OR ??? PRO THORAX SPINE FUSION, ANTER APPRCH N/A 10/11/2017 @ANTERIOR APPROACH, FOR THROACIC (VASC) (WRVU 24.7) [facility] Social History: , two kids, non smoker, rare alcohol Family History Problem Relation Age of Onset ??? Cancer Mother ??? Cancer Father smoker ??? Cancer Brother ??? Cancer Brother ??? Cancer Brother ??? Parkinsonism Neg Hx ??? Tremor Neg Hx Review of Systems - All others negative except as per HPI Physical Exam Most Recent Vitals: 02/13/18 0805 BP: 118/70 Pulse: 60 General: the patient appears stated age, not in any acute distress, well groomed, Body mass index is 24.45 kg/(m^2). HEENT: normal cephalic atraumatic Voice/language: no vocal tremor or dysarthria. Normal fluency and comprehension Skin: no lesions or abrasions on exposed surfaces Neck: full ROM Extremities: full ROM and no visible deformities Mental status: oriented to place, self, date and reason for visit Cranial Nerves: III, IV, : EOMI, normal saccades and pursuit V: facial sensation normal bilaterally VII: face symmetrical to voluntary movements and expressions IX, X, XII: swallowing normal, tongue midline Strength: 5/5 strength throughout Reflexes: 1/4 symmetrical throughout Coordination: Finger to [...] No bradykinesia Normal tone Tremor measured with Codefied juan attached above right patella Review of available labs and imaging: MRI of spine reviewed in stored imaging. Assessment: ICD-10-CM 1. 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 The worsening on standing is suspicious of orthostatic tremor but the frequency is too low and amplitude too high for that diagnosis. The etiology of her paraspinal muscle dystonia is not clear. This could be idiopathic vs due tolong time asymmetry to leg length or even post surgical. Treatment would start with baclofen or tizanidine as a first line option. Botox would also be a good option. I discussed with her that paraspinal botox injections are complicated because of the consequences of over weakening a muscle involvedwith maintaining normal posture. We will first rule out any structural cause in the brain with MRI and check a TSH. Plan: - MRI brain - TSH today - after the above we will need to discuss trial of baclofen vs botox - f/u in 2 months Tracy Johnson MD [facility] Neurology-Movement Disorders 4.79Hz documented in this encounter Miscellaneous Notes * Addendum Note - Adrien Willingham - 02/13/2018 9:07 AM EDTAddended by: ADRIEN WILLINGHAM on: 02/13/2018 09:07 AM Modules accepted: Orders documented in this encounter Plan of Treatment Upcoming Encounters Date Type Department Care Team (Late st Contact Info) Description 09/18/2024 11:30 AM EST Office Visit Dermatology at [facility] [address] [place] [address] Tata Aldridge MD [facility] [place] [address] 05/09/2025 2:00 PM EDT Office Visit Dermatology at [facility] [address] [place] [address] Tata Aldridge MD [facility] [place] [address] documented as of this encounter Procedures Procedure Name Priority Date/Time Associated Diagnosis Comments TSH Routine 02/13/2018 9:14 AM EDT Tremor documented in this encounter Results [...] microangiopathy. Tracy Johnson MD IMG MRI ORDERABLES * TSH (02/13/2018 9:14 AM EDT) Thyroid Stimulating Hormone 2.19 0.27 - 4.20 mlU/ML [facility] Blood specimen (specimen) 02/13/2018 9:14 AM EDT 02/13/2018 9:27 AM EDT Narrative Resulting Agency Comment Spec In Lab Tracy Johnson MD CHEMISTRY ORDERABL ES [facility] [place] [address] documented in this encounter Visit Diagnoses Diagnosis Tremor Abnormal involuntary movements Tremor Abnormal involuntary movements documented in this encounter Care Teams Mold Polisher Relationship Specialty Start Date End Date Niki Vyas MD [address] [place] [address] PCP - General 07/21/10 12/16/21 documented as of this encounter
--- OUTSIDE RECORDS SUMMARY | 2024-08-09 10:18 | XMS_ITS | Encounter Summary ---
Author Organization [facility] [place] [address] Care Team Providers Care Patient Service Rep Name Role Phone Niki Vyas MD Primary Care Provider [phone] Encounter Details Date Type Department Care Team (Late st Contact Info) Description 06/06/2019 Ancillary Procedure Radiology Library [place] [facility] [place] [address] Janett Garcia MD [address] [place] [address] Social History Tobacco Use Types Packs/Day Years [...] 11:30 AM EST Office Visit Dermatology at [facility] [address] [place] [address] Tata Aldridge MD [facility] [place] [address] 05/09/2025 2:00 PM EDT Office Visit Dermatology at [facility] [address] [place] [address] Tata Aldridge MD [facility] [place] [address] documented as of this encounter Procedures Procedure Name Priority Date/Time Associated Diagnosis Comments FILM LIBRARY STORAGE ONLY MR SPINE Routine 06/06/2019 12:00 AM EDT documented in this encounter Results * Film Library- Storage Only MR Spine (06/06/2019 12:00 AM EDT) Narrative [facility] - 12/22/2021 4:56 PM EDT This exam is auto-finalizing. It's purpose is for storage only. Janett Garcia MD IMG FILM LIBRARY ORD ERABLES Performing Organization Address City/State/[facility] Co de Phone Number [place], [place] documented in this encounter Visit Diagnoses Not on filedocumented in this encounter Care Teams Patient Service Rep Relationship Specialty Start Date End Date Niki Vyas MD [address] [place] [address] PCP - General 07/21/10 12/16/21 documented as of this encounter
--- OUTSIDE RECORDS SUMMARY | 2024-08-09 10:18 | XMS_ITS | Encounter Summary ---
Author Organization [facility] [place] [address] Care Team Providers Care Sand Digger Name Role Phone Angelina Walker APRN Primary Care Provider [phone] Reason for Visit * High Dollar Medication (Routine) - Closed Specialty Diagnoses / Procedures Referred By Contac t Referred To Contact Neurology Diagnoses Focal dystonia Procedures Onabotulinumtoxin A (BOTOX) Authorizations Request (IN CLINIC) TC ONABOTULINUMTOXINA, 1 UNIT, INJECTION PRO CHEMODENERVATION ONE EXTREMITY 1-4 MUSCLE(S) PRO CHEMODENERVATION OF TRUNK MUSCLE 1-5 MUSCLE(S) Tracy Johnson MD [facility] [place] [address] Tracy Johnson MD [facility] [place] [address] Referral ID Status Reason Start Date Expiration Date V isits Requested Visits Authorized [id number] Closed Consult, Test & Treat 11/02/2022 11/02/2023 99 100 Encounter Details Date Type Department Care Team (Late st Contact Info) Description 11/15/2022 9:00 AM EDT [place] [address] Tracy Johnson MD [facility] [place] [address] Dystonia Social History Tobacco Use Types Packs/Day [...] in a detention (including now)? No 10/26/2022 Sex and Gender Information Value Date Recorded Sex Assigned at Not on file Gender Identity Not on file Sexual Orientation Not on file documented as of this encounter Procedure Notes * Tracy Johnson MD - 11/15/2022 9:00 AM EDTAssociated Order(s): CHEMODENERVATION W/ EMG GUIDANCE Chemodenervation Procedure Note Diagnosis: focal dystonia HPI: She has a history of tremors and dystonic trunk tremor which is worse in standing position. We previously tried botox injections on the left paraspinals only and that was not enough to help the back position. This was last tried about 5 years ago. She has tried multiple oral medications in the meantime without success. We have discussed trying the thoracic paraspinals bilaterally and she is agreeable to this. Botox risks, benefits and reasonable expectations discussed. Codes for chemodenervation visit: 68433, 15327 Exam: No data found. Procedure: A time out was performed The patient was positioned for best access to muscles to be injected. The area was cleaned with alcohol swabs. 100 units of onabotulinumtoxinA was prepared by 1cc saline to 100 units toxin dilution with preservative free saline EMG guidance was used for this procedure for anatomic localization of the paraspinal muscles. Injections: Thoracic paraspinal Lower right 25 units middle right 25 units Lower left 10 units Middle left 25 units Total 85 units Waste 15 units The patient tolerated the procedure well with no immediate adverse events. Follow up will be in 3 months. Tracy Johnson MD [facility] Neurology-Movement Disorders documented in this encounter Plan of Treatment Upcoming Encounters Date Type Department Care Team (Late st Contact Info) Description 09/18/2024 11:30 AM EST Office Visit Dermatology at [facility] [address] [place] [address] Tata Aldridge MD [facility] [place] [address] 05/09/2025 2:00 PM EDT Office Visit Dermatology at [facility] [address] [place] [address] Tata Aldridge MD [facility] [place] [address] documented as of this encounter Procedures Procedure Name Priority Date/Time Associated Diagnosis Comments CHEMODENERVATION W/ EMG GUIDANCE Routine 11/15/2022 9:00 AM EDT documented in this encounter Results * CHEMODENERVATION W/ EMG GUIDANCE (11/15/2022 9:00 AM EDT) Narrative Tracy Johnson MD - 11/15/2022 9:00 AM EDT Tracy Johnson MD ? 11/15/2022 ??9:10 AM Chemodenervation Procedure Note Diagnosis: focal dystonia HPI: She has a history of tremors and dystonic trunk tremor which is worse in standing position. We previously tried botox injections on the left paraspinals only and that was not enough to help the back position. This was last tried about 5 years ago. She has tried multiple oral medications in the mean time without success. We have discussed trying the thoracic paraspinals bilaterally and she is agreeable to this. Botox risks, benefits and reasonable expectations discussed. Codes for chemodenervation visit: 50909, 00193 Exam: No data found. Procedure: A time out was performed The patient was positioned for best access to muscles to be injected. The area was cleaned with alcohol swabs. 100 units of onabotulinumtoxinA was prepared by 1cc saline to 100 units toxin dilution with preservative free saline EMG guidance was used for this procedure for anatomic localization of the paraspinal muscles. Injections: Thoracic paraspinal Lower right 25 units middle right 25 units Lower left 10 units Middle left 25 units Total 85 units Waste 15 units The patient tolerated the procedure well with no immediate adverse events. Follow up will be in 3 months. Tracy Johnson MD [facility] Neurology-Movement Disorders Tracy Johnson MD NEUROLOGY ORDERABL ES documented in this encounter Visit Diagnoses Diagnosis Dystonia Abnormal involuntary movements documented in this encounter Administered Medications Inactive Administered Medications - up to 3 most recent administrations Medication Order MAR Action Action Date Dose Rate Site botulinum toxin type A (Botox) injection 100 Units 100 Units, Intramuscular, ONCE, 1 dose, On Tue11/15/22 at 0915, Routine Given 11/15/2022 9:10 AM EDT 85 Units documented in this encounter Care Teams Sand Digger Relationship Specialty Start Date End Date Angelina Walker APRN [address] [place] [address] PCP - General Family Medicine 05/31/22 08/08/23 documented as of this encounter
--- OUTSIDE RECORDS SUMMARY | 2024-08-09 10:19 | XMS_ITS | Encounter Summary ---
[place] [address] Care Team Providers Care Lotteries Agent Name Role Phone Niki Vyas MD Primary Care Provider [phone] Reason for Visit * Physical Therapy (Routine) - Closed Specialty Diagnoses / Procedures Referred By Contac t Referred To Contact Physical Therapy Diagnoses 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 Trey Mascorro [place] [facility] [place] [address] [facility] [place] [address] Referral ID Status Reason Start Date Expiration Date V isits Requested Visits Authorized [id number] Closed Evaluate and Treat 11/23/2016 11/23/2017 12 12 Encounter Details Date Type Department Care Team (Latest Contact Info) Description 11/25/2016 9:00 AM EDT Office [place] [address] Eduarda Gutierrez, PT 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 Social History Tobacco Use Types Packs/Day Years Used Date Smoking Tobacco: Never Sex and Gender Information Value Date Recorded Sex Assigned at Not on file Gender Identity Not on file Sexual Orientation Not on file documented as of this encounter Progress Notes * Eduarda Gutierrez, PT - 11/25/2016 9:00 AM EDT [facility] PHYSICAL THERAPY INITIAL VISIT Date of First Exam/ First Treatment: 11/25/2016 Referring provider: Trey Mascorro APRN Diagnosis: 1. 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 Work Status and occupation: Retired. Current Exercise/hobbies: Enjoys hiking in the summer. Enjoys walking 5 miles per day but is unableto do so due to LBP. Volunteers to maintain the [employer]. Onset: Patient is unsure the specific activity that aggravated LBP late last fall. She believes commenced in April/May of 2016 following a trip (driving) to [place], [place]. Over the first weekof coming back she notes being very active with weed whacking, raking, weeding, and hauling. Linda noted bilateral low back pain and lumbar spasms which radiate out from the center of her back which have worsened since onset. Occasionally she reports right gluteal region pinching which is only lastsfor a few seconds. At night she reports having some tingling at night along the left lateral thigh which she attributes to weaning off gabapentin, states this is happens occasionally. She denies any t ingling, numbness, or weakness in bilateral LEs. She began to use ski poles yesterday to assist herwith standing upright during walking. Present symptoms: Bilateral LBP. Pain is rated 3/10 and reaches 7/10 at its worst. Symptoms are worse with increased night pain and decreased activity since onset. Functional disability from present episode: Increased discomfort walking around her home, requires hand assist to perform sit > stand transfer, unable to hike, requires hand assist on the countersto move around her kitchen Previous episodes or treatments: Left LE sciatica when she was in high school treated with a heel lift for leg length discrepancy with on and off mechanical LBP over the years. Patient has experienced no spine surgeries or associated trauma. Treatments this episode: Land based PT from August-October 2016 without significant benefit, Aquaticbased PT in October 2016 without significant benefit, Gabapentin (currently on taper off due to pricky feeling in her arms), Advil (but stopped due to irritation of her stomach), acetaminophen without significant benefit, heating pad with benefit Imaging: L4-5 spondylosis, L5-S1 spondylolisthesis Worse with: Walking >5-10 steps, sit > stand transfer, as the day progresses Better with: Using a heating pad, No past medical history on file.:Asthma No past surgical history on file.: Unremarkable Sleep is not disturbed and sleeping posture is variable Gait deviations from present episode: Forward flexed trunk, using ski poles bilaterally Sensation: Light touch intact bilateral LEs. Neural tension screening: Seated slump test right negative, left negative. LE Myotome Strength Right Left Hip flexion (L2) 5/5 5/5 Knee extension (L3) 5/5 5/5 Dorsiflexion (L4) 5/5 5/5 Hallux extension (L5) 4/5 5/5 Plantarflexion (S1) 5/5 5/5 Observation (standing): Forward flexed trunk. Posture: Fair sitting posture. Symptoms lessen with postural correction. Lumbar spine AROM AROM Loss Pain Forward flexion in standing Moderate loss (65 degrees flexion AROM) Central LBP Extension in standing Minimal loss (15 degrees AROM) Nil Right side glide in standing Nil loss Nil Left side glide in standing Nil L LBP Lumbar Repeated Movement Testing Pretest pain and location standing: Bilateral LBP 3/10 Movement: Symptoms pre/post testing: Mechanical effect: Repeated flexion standing Repeated extension standing Centralizing, no better Pretest pain and location lyin/10 central LBP Prone on elbows No effect Repeated extension in lying Decrease, better Increased extension AROM, increased flexion AROM with less difficulty on the return to neutral, full right L5 myotome strength Additional tests (overpressure, passive, static): none Assessment: The patient is a 66 y.o. female presenting with chronic low back pain. She demonstrateslimited lumbar AROM in the sagittal plane with strength deficits in the right L5 myotome effecting function. Mechanical examination reveals probable extension based directional preference as evidenceby centralization of symptoms and increased right L5 strength. Symptoms will likely change quickly over time. Good prognosis for improvement with directional exercise self care strategies with meaningful functional carryover. Reviewed safety concepts from Keith Blackwell's Treat Your Own Back and reviewed use of a lumbar support. Additionally, I instructed her to try ambulation without use of ski poles and that as the lumbar derangement further reduces she should be able to stand more upright without assist. She was active with participation of self care planning today and reports understands how often to perform the self treatment strategy. PT Goals to be met in 10 weeks: 1) Patient will be independent and compliant with self care treatment strategies. 2) Linda Browning to resume desired components of walking for exercise 30 minutes or greater without any worsening of pain as a result. 3) Patient will be able to perform a sit > stand transfer from a standard height chair without use of UEs indicating reduction of the lumbar derangement. 4) Patient will demonstrate full and painfree lumbar AROM in all planes to assist with ADLs. The plan has been discussed with Linda Browning and she has agreed with the planned treatment. Clinical Presentation: Stable Evolving Unstable X Notes: The patient's clinical presentation is Stable Clinical decision making of low complexity using standardized patient assessment instrument and measurable assessment of functional outcome. Plan: Initial self care trial centered around repeated extension in lying from quadruped. She knows to discontinue any movement or activity that causes true worsening or peripheralization of symptoms. Other considerations will include standing extension next visit. Recommend PT follow up in 1-2 weeks. Continue with 4 additional PT sessions over 10 weeks): 45 minutes were spent assessing, treating and instructing Linda Browning in a home exercise program. G-Code: Mobility Status Modifier CURRENT CJ - At least 20 percent but less than 40 percent impaired, limited or restricted PROJECTED CI - At least 1 percent but less than 20 percent impaired, limited or restricted DISCHARGE Not Discharged Yet - Ongoing G Code Rationale: This G-Code and these disability modifiers were selected on 11/25/2016 as the primary therapy goal based upon the patient's evaluation including the following functional test(s): NINA- Oswestry Disability Index range of motion and activity tolerances. Current ability measures, co-morbidities and clinical judgement were also used to select the disability modifier. Ms. Browning's current G-Code functional level is 39% impaired based upon today's evaluation. Medicare certification dates: 11/25/2016 to 02/03/2017. documented in this encounter Plan of Treatment Upcoming Encounters Date Type Department Care Team (Late st Contact Info) Description 09/18/2024 11:30 AM EST Office Visit Dermatology at [facility] [address] [facility] [place] [phone] Tata Aldridge MD [facility] [address] 05/09/2025 2:00 PM EDT Office Visit Dermatology at [facility] [address] [place] [address] Tata Aldridge MD [facility] [address] Scheduled Referrals Name Type Priority Associated Diagnoses Orde r Schedule Referral to Physical Therapy Outpatient Referral Routine 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 Ordered: 11/23/2016 documented as of this encounter Visit Diagnoses Diagnosis 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 Acquired spondylolisthesis documented in this encounter Care Teams Lotteries Agent Relationship Specialty Start Date End Date Niki Vyas MD [address] [place] [address] PCP - General 07/21/10 12/16/21 documented as of this encounter
--- OUTSIDE RECORDS SUMMARY | 2024-08-09 10:19 | XMS_ITS | Encounter Summary ---
Author Organization [facility] [place] [address] Care Team Providers Care Disk Recoater Name Role Phone Niki Vyas MD Primary Care Provider [phone] Reason for Visit * Reason Comments Follow-up Encounter Details Date Type Department Care Team (Latest Contact Info) Description 12/22/2016 9:00 AM EDT Office [place] [id number] Trey Mascorro, PATR[place] [address] 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 Social History Tobacco Use Types Packs/Day Years Used Date Smoking Tobacco: Never Smokeless Tobacco: Never Sex and Gender Information Value Date Recorded Sex Assigned at Not on file Gender Identity Not on file Sexual Orientation Not on file documented as of this encounter Progress Notes * Trey Mascorro APRN - 12/22/2016 9:00 AM EDT SUBJECTIVE: Linda Browning is a 66-year-old lady who returns today in followup to her last encounter with me on 12/07/2016. She feels that her back pain is perhaps minimally improved from when I last saw her. She is doing aquatherapy for an hour each day and has been able to increase her walking distances using trekking pole, up to 2 miles. She returns today in followup. OBJECTIVE: A review of MRI 11/05/2016 indicates degenerative changes in the lumbar spine and a grade 1 spondylolisthesis at L5-S1 with moderate to severe bilateral neuroforaminal stenosis at that level. ASSESSMENT: This is a 66-year-old with degenerative spondylosis in the lumbar spine and spondylolisthesis at L5-S1 that may be associated with pars defects. She continues to benefit from a conservative physical activity regime and has been able to slowly increase her walking distances. She has tried acupuncture for 1 visit, but intends to follow up and have some repeat visits to see if that modality is helpful for her. She is feeling that should acupuncture fail to be helpful based on her essential plateauing of improvement, she would perhaps feel that the next steps would be injections. She is attempting to avoid injections until she is certain she can make no further progress in using conservative strategies. We reviewed again medial branch block as a treatment option and using the model, explained to her and her , who accompanies her in the exam room today, how the procedure is performed. Forty minutes of this 45 minute encounter were spent in [id number] counseling as described above. PLAN: Patient will continue with conservative treatments, but should she call the Spine Center to request it, a potential referral to the [facility] for medial branch block and possible radiofrequency ablation, particularly at L5-S1 would be appropriate. Should she call to request injections, I would like to have a telephone conversation with her to understand whether or not surgery is ever something that she might consider should injections fail as pars defects injections could be another option. documented in this encounter Plan of Treatment Upcoming Encounters Date Type Department Care Team (Late st Contact Info) Description 09/18/2024 11:30 AM EST Office Visit Dermatology at [facility] [address] [place] [address] Tata Aldridge MD [facility] [address] 05/09/2025 2:00 PM EDT Office Visit Dermatology at [address] [place] [address] Tata Aldridge MD [facility] [place] [address] documented as of this encounter Visit Diagnoses Diagnosis 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 Acquired spondylolisthesis documented in this encounter Care Teams Disk Recoater Relationship Specialty Start Date End Date Niki Vyas MD [address] [place] [address] PCP - General 07/21/10 12/16/21 documented as of this encounter
--- OUTSIDE RECORDS SUMMARY | 2024-08-09 10:19 | XMS_ITS | Encounter Summary ---
Author Organization [facility] Address [facility] [place] [address] Care Team Providers Care Gin Feeder Name Role Phone Niki Vyas MD Primary Care Provider [phone] Encounter Details Date Type Department Care Team (Latest Contact Info) Description 09/09/2017 Orders [place] [address] Franklin Triplett MD [facility] [place] [address] 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; Spine pain, lumbar Social History Tobacco Use Types Packs/Day Years [...] 11:30 AM EST Office Visit Dermatology at [facility] [address] [place] [address] Tata Aldridge MD [facility] [place] [address] 05/09/2025 2:00 PM EDT Office Visit Dermatology at [facility] [address] [place] [phone] Tata Aldridge MD [facility] [place] [place] [address] documented as of this encounter Results * Basic Metabolic Panel (non-fasting) (10/11/2017 6:11 AM EST) Glucose 85 65 - 199 mg/dL [facility] Comment:Diabetes: >=200 mg/d L plus symptoms Blood Urea Nitrogen 15 8 - 18 mg/dL [facility] Creatinine 0.90 0.70 - 1.20 mg/dL [facility] Sodium 143 135 - 145 mmol/L [facility] Potassium 4.0 3.5 - 5.0 mmol/L [facility] Comment: Please note: ??Patients with WBC >100,000 may have falsely elevated Potassium levels. ??For accurate Potassium quantification in these patients send serum separator tube (gold top) for subsequent determinations. ??Contact the Clinical Chemistry Laboratory if there are any questions. Chloride 103 98 - 107 mmol/L [facility] Carbon Dioxide 25 22 - 31 mmol/L [facility] Anion Gap 15 5 - 15 mmol/L [facility] Calcium 8.7 8.5 - 10.5 mg/dL [facility] Est Glomerular Filtration Rate >60 >=60 [facility] Comment: The reported eGFR should be multiplied by 1.2 for patients. The MDRD is not an appropriate measure of renal function for patients with body mass extremes or in patients with acute kidney failure. http://Crosswise.SocialShield/DHnkdep http://Crosswise.SocialShield/DHMCnkf Blood specimen (specimen) 10/11/2017 6:11 AM EST 10/11/2017 6:30 AM EST Narrative Resulting Agency Comment Spec In Lab Trey Santos MD CHEMISTRY ORDERABLES [facility] [place] [address] documented in this encounter Visit Diagnoses Diagnosis 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 Acquired spondylolisthesis Spine pain, lumbar Lumbago documented in this encounter Care Teams Gin Feeder Relationship Specialty Start Date End Date Niki Vyas MD [address] [place] [address] PCP - General 07/21/10 12/16/21 documented as of this encounter
--- OUTSIDE RECORDS SUMMARY | 2024-08-09 10:19 | XMS_ITS | Encounter Summary ---
Author Organization [facility] [place] [address] Care Team Providers Care Wing Mailer Machine Operator Name Role Phone Niki Vyas MD Primary Care Provider [phone] Reason for Visit * Reason Comments Annual Exam Encounter Details Date Type Department Care Team (Late st Contact Info) Description 07/19/2017 8:30 AM EST Office Visit Dermatology at [address] [address] Steven Souza MD [address] [facility] [place] [address] Sebaceous hyperplasia; Seborrheic keratosis; History of basal cell carcinoma Social History Tobacco Use Types Packs/Day Years Used Date Smoking Tobacco: Never Smokeless Tobacco: Never Sex and Gender Information Value Date Recorded Sex Assigned at Not on file Gender Identity Not on file Sexual Orientation Not on file documented as of this encounter Progress Notes * Steven Souza MD - 07/19/2017 8:30 AM EST PROBLEM: 1. Linda follows up today for a 1-year skin checkup. 2. History of BCCAs x3, 06/2016: Left upper back, right upper back, and midcentral back. She has been doing well except for spondylolisthesis of her back which is beginning to limit her activities. She is working out 6 days a week in the [employer] to try to stay limber and active. She has not noted any particular cutaneous lesions of concern today since I removed 3 basal cell skin cancers from her back last visit in 06/2016. The patient is concerned about a lesion on the left postauricular scalp. Physical examination today reveals numerous seborrheic keratoses present on patient's back and chest, also on the flanks. There is no evidence of recurrent BCCAs, and the biopsy sites are well healed on the prior treatment sites. She has no significant actinics. She is very fair-skinned, fair hair, blue-eyed, with moderate solar elastotic damage. Examination of the head and the neck, the chest, the back, hands, arms, forearms, thighs, and the calves is benign. She also has 2 seborrheic keratoses on the left postauricular scalp within the hairline. A/P: 1. History of BCCAs x3, 06/2016. a. No evidence of recurrence. Patient reassured. b. Return to clinic in another year for repeat check. 2. Seborrheic keratoses. a. Patient reassured about numerous seborrheic keratoses. b. Recommend return to clinic in another year for repeat check. 3. Seborrheic keratosis, left postauricular scalp. Patient reassured about seborrheic keratosis. No treatment necessary. CC: Niki Vyas MD documented in this encounter Plan of Treatment Upcoming Encounters Date Type Department Care Team (Late st Contact Info) Description 09/18/2024 11:30 AM EST Office Visit Dermatology at [facility] [address] [place] [address] Tata Aldridge MD [facility] [address] [place] [address] 05/09/2025 2:00 PM EDT Office Visit Dermatology at [facility] [address] [place] [address] Tata Aldridge MD [facility] [place] [address] documented as of this encounter Visit Diagnoses Diagnosis Sebaceous hyperplasia Other specified disease of sebaceous glands Seborrheic keratosis Other seborrheic keratosis History of basal cell carcinoma Personal history of other malignant neoplasm of skin documented in this encounter Care Teams Wing Mailer Machine Operator Relationship Specialty Start Date End Date Niki Vyas MD [address] [place] [address] PCP - General 07/21/10 12/16/21 documented as of this encounter
--- OUTSIDE RECORDS SUMMARY | 2024-08-09 10:19 | XMS_ITS | Encounter Summary ---
Author Organization [facility] [place] [address] Care Team Providers Care Industrial Commercial Groundskeeper Name Role Phone Niki Vyas MD Primary Care Provider [phone] Reason for Referral * Consultation (Routine) - Closed Specialty Diagnoses / Procedures Referred By Umair burk Referred To Contact Neurology Diagnoses Tremor of unknown origin Kennedy Dooley MD [facility] [place] [address] [facility] [address] [place] [id number] Referral ID Status Reason Start Date Expiration Date V isits Requested Visits Authorized [id number] Closed Consult, Test & Treat 03/31/2017 03/31/2018 1 1 Encounter Details Date Type Department Care Team (Late st Contact Info) Description 03/31/2017 Orders [place] [address] Kennedy Dooley MD [facility] [place] [address] Tremor of unknown origin (Primary Dx) Social History Tobacco Use Types Packs/Day Years [...] [facility] [address] [place] [address] Tata Aldridge MD [facility] [place] [address] 05/09/2025 2:00 PM EDT Office Visit Dermatology at [facility] [address] [place] [address] Tata Aldridge MD [facility] [place] [address] Scheduled Referrals Name Type Priority Associated Diagnoses Orde r Schedule Referral to Neurology Outpatient Referral Routine Tremor of unknown origin Ordered: 03/31/2017 documented as of this encounter Visit Diagnoses Diagnosis Tremor of unknown origin- Primary Abnormal involuntary movements documented in this encounter Care Teams Industrial Commercial Groundskeeper Relationship Specialty Start Date End Date Niki Vyas MD [address] [place] [address] PCP - General 07/21/10 12/16/21 documented as of this encounter
--- OUTSIDE RECORDS SUMMARY | 2024-08-09 10:19 | XMS_ITS | Encounter Summary ---
[place] [address] Care Team Providers Care Home Health Assistant Name Role Phone Niki Vyas MD Primary Care Provider [phone] Reason for Visit * Reason Comments Back Pain Encounter Details Date Type Department Care Team (Latest Contact Info) Description 12/03/2016 3:30 PM EDT Office [place] [id number] Eduarda Gutierrez, PT 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 Social History Tobacco Use Types Packs/Day Years Used Date Smoking Tobacco: Never Sex and Gender Information Value Date Recorded Sex Assigned at Not on file Gender Identity Not on file Sexual Orientation Not on file documented as of this encounter Progress Notes * Eduarda Gutierrez, PT - 12/03/2016 3:30 PM EDT [facility] PHYSICAL THERAPY FOLLOW-UP Subjective: Utilized self care exercises as instructed. Reports taking medication is making her feel bloated and her stomach is upset. She is unsure if the medication is masking her pain. States being compliant with her exercise and having benefits at times and then at others being limited. During the day she reports sitting in her recliner chair for hours at a time because sitting in an upright chair is uncomfortable. Patient reports quivering of muscles in her abdominal region. Central LBP israted 09/07. Objective: Baseline measurements: Strength: LE Myotome Strength Right Left Hip flexion (L2) 5/5 5/5 Knee extension (L3) 5/5 5/5 Dorsiflexion (L4) 5/5 5/5 Hallux extension (L5) 4+/5 5/5 Plantarflexion (S1) 5/5 5/5 Gait: Antalgic, forward flexed (unable to attain neutral) Lumbar spine AROM AROM Loss Pain Forward bend standing Moderate Increased Bilateral LBP Backward bend standing Minimal Increased Bilateral LBP Session Treatment: Lumbar Repeated movement testing During, After Pre-test pain/location lying 09/07 central LBP Prone lying over 2 pillows Abolishes pain Prone lying over 1 pillow Increase, no worse Prone lying Prone on elbows Increase, no worse Repeated extension in lying Peripheralizing bilateral lumbar spine, no worse Mechanical response to treatment: Able to stand upright following gradual mechanical progression into extension Assessment: Following treatment session Linda demonstrates greater ability to attain neutral without pain. She remains guarded in her movements about the examination room and appears anxious during PT session with some upper body shaking on two occasions for 30-60 seconds at a time. I spoke to Trey Mascorro APRN and referring provider regarding her upset stomach with the naproxen who advised that she should stop the medication. Linda's presentation indicates likely posterior derangement which is not helped during the day by prolonged periods of lumbar flexion in the recliner chair. Patient expresses frustration with continued pain and inability to just stand up and walk during the day. We agreed that a visit to Trey Mascorro APRN may be beneficial at this time; however, she was instructed to trial a gradual return to walking for exercise during the day and avoid prolonged recliner positioning. For self treatment, she will work on progression from prone over several pillows to prone on elbows to abolish kyphotic deformity of the lumbar spine. Patient is making slow progress towards PT goals. Home exercise program: Reviewed exercise objectives and safety principles. The self care routine now consists of: Progression from prone over 2 pillows to prone on elbows. Patient knows to call the Spine Center with any questions or concerns. Plan: Additional PT is not planned until after patient's visit with referring provider Trey Mascorro APRN next week. Length of visit: A total of 35 minutes was spent to test and develop appropriate self care exercisestrategies. documented in this encounter Plan of Treatment Upcoming Encounters Date Type Department Care Team (Late st Contact Info) Description 09/18/2024 11:30 AM EST Office Visit Dermatology at [facility] [address] [place] [address] Tata Aldridge MD [facility] [place] [address] 05/09/2025 2:00 PM EDT Office Visit Dermatology at [facility] [address] [place] [address] Tata Aldridge MD [facility] [place] [address] documented as of this encounter Visit Diagnoses Diagnosis 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 Acquired spondylolisthesis documented in this encounter Care Teams Home Health Assistant Relationship Specialty Start Date End Date Niki Vyas MD [address] [place] [address] PCP - General 07/21/10 12/16/21 documented as of this encounter
--- OUTSIDE RECORDS SUMMARY | 2024-08-09 10:19 | XMS_ITS | Encounter Summary ---
Author Organization [facility] [place] [address] Care Team Providers Care Drying Machine Back Tender Name Role Phone Niki Vyas MD Primary Care Provider [phone] Encounter Details Date Type Department Care Team (Late st Contact Info) Description 09/14/2017 Orders [place] [phone] Taylor Tinajero, BUSINESS OFFICE MANAGER S/P lumbar fusion Social History Tobacco Use Types Packs/Day Years [...] Dermatology at [facility] [address] [place] [phone] Tata Aldridge MD [facility] [place] [address] 05/09/2025 2:00 PM EDT Office Visit Dermatology at [facility] [address] [place] [phone] Tata Aldridge MD [facility] [place] [address] documented as of this encounter Results * [...] Diagnoses Diagnosis S/P lumbar fusion Arthrodesis status S/P lumbar fusion Arthrodesis status documented in this encounter Care Teams Drying Machine Back Tender Relationship Specialty Start Date End Date Niki Vyas MD [address] [place] [address] PCP - General 07/21/10 12/16/21 documented as of this encounter
--- OUTSIDE RECORDS SUMMARY | 2024-08-09 10:19 | XMS_ITS | Encounter Summary ---
Author Organization [place] [address] Care Team Providers Care Supervisor Rice Milling Name Role Phone Niki Vyas MD Primary Care Provider Encounter Details Date Type Department Care Team (Late st Contact Info) Description 07/23/2016 Telephone Dermatology at [address] [address] Jennifer Yu LPN Social History Tobacco Use Types Packs/Day Years Used Date Smoking Tobacco: Never Sex and Gender Information Value Date Recorded Sex Assigned at Not on file Gender Identity Not on file Sexual Orientation Not on file documented as of this encounter Miscellaneous Notes * Telephone Encounter - Jennifer Diggs LPN - 07/23/2016 4:02 PM EST Nurse called patient to review biopsy results; BCCA x 3, 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 Reviewed information with skyler. Voiced understanding and if patient had any concerns will call office. documented in this encounter Plan of Treatment Upcoming Encounters Date Type Department Care Team (Late st Contact Info) Description 09/18/2024 11:30 AM EST Office Visit Dermatology at [facility] [address] [place] [address] Tata Aldridge MD [facility] [place] [address] 05/09/2025 2:00 PM EDT Office Visit Dermatology at [facility] [address] [place] [address] Tata Aldridge MD [facility] [place] [address] documented as of this encounter Visit Diagnoses Not on filedocumented in this encounter Care Teams Supervisor Rice Milling Relationship Specialty Start Date End Date Niki Vyas MD [address] [place] [address] PCP - General 07/21/10 12/16/21 documented as of this encounter
--- OUTSIDE RECORDS SUMMARY | 2024-08-09 10:19 | XMS_ITS | Encounter Summary ---
[place] [address] Care Team Providers Care Cigarette Packing Machine Operator Name Role Phone Niki Vyas MD Primary Care Provider [phone] Encounter Details Date Type Department Care Team (Late st Contact Info) Description 07/25/2017 Telephone [place] [phone] Medina Willoughby LNA Social History Tobacco Use Types Packs/Day Years Used Date Smoking Tobacco: Never Smokeless Tobacco: Never Sex and Gender Information Value Date Recorded Sex Assigned at Not on file Gender Identity Not on file Sexual Orientation Not on file documented as of this encounter Miscellaneous Notes * Telephone Encounter - Medina Willoughby LNA - 07/25/2017 3:11 PM EST Linda Browning :1950 Contact made with patient: I spoke to Ms. Browning at 3:11 PM regarding her upcoming lumbar epidural steroid injection scheduled on 07/27/17 (date) scheduled at 10:30 (time) with Dr. Kennedy Dooley MD. Medication and Allergy reconciliation: 1. Changes were made in the telephone encounter per patient; marked as reviewed, and closed. 2. Patient confirmed no IVP dye allergy. 3. Have you had any steroid injections anywhere in your body within the last two weeks? no Arrival time: The patient was instructed to arrive at 10:00 (30 minutes prior to procedure start time) Wood Window And Door Craftsman: The patient was reminded that they need to have a milk tanker driver accompany them to her procedure who will remain onsite. Antibiotics/Skin assessment/Illness symptoms/Pain level assessment : 1. The patient confirmed that she is not taking antibiotics at this time. 2. The patient confirmed that she does not have any rashes, blisters, or skin breakdown on their body. 3. The patient confirmed that she does not have any active infections. 4. The patient confirmed that she does not have any symptoms of illness: fever, chills, cold, flu, nausea, vomiting. 5. The patient confirmed that she isstill experiencing significant pain. (Significant pain is defined as interfering with performing ADL.) Pain and Anti-anxiety Medications: 1. Nerve Block Procedure Patients: Patient was instructed NOT to take their pain medications on theday of the procedure and anti-anxiety medications are part of their daily medication regiment; theycan and should continue taking that medication. 2. All Other Procedure Patients: The patient was instructed that if they take daily pain or anti-anxiety medications, they can and should continue taking on the day of the procedure. Does patient have history of any diagnosed bleeding disorders: No Anticoagulants: No Implant: Patient has pacemaker/defibrillator: No Prior to checking in at [employer] Proposal Specialist, please be sure to empty your bladder. Patient confirmed understanding that if they do not follow the above their instructions, their procedure is likely to be cancelled. @MES@ documented in this encounter Plan of Treatment Upcoming Encounters Date Type Department Care Team (Late st Contact Info) Description 09/18/2024 11:30 AM EST Office Visit Dermatology at [facility] [address] [place] [address] Tata Aldridge MD [facility] [place] [address] 05/09/2025 2:00 PM EDT Office Visit Dermatology at [address] [place] [address] Tata Aldridge MD [facility] [place] [address] documented as of this encounter Visit Diagnoses Not on filedocumented in this encounter Care Teams Cigarette Packing Machine Operator Relationship Specialty Start Date End Date Niki Vyas MD [address] [place] [address] PCP - General 07/21/10 12/16/21 documented as of this encounter
--- OUTSIDE RECORDS SUMMARY | 2024-08-09 10:19 | XMS_ITS | Encounter Summary ---
Author Organization [facility] Address [facility] [place] [address] Care Team Providers Care Computer Meteorologist Name Role Phone Niki Vyas MD Primary Care Provider [phone] Reason for Visit * Auth/Cert Specialty Diagnoses / Procedures Referred By Contac t Referred To Contact Diagnoses 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 Lytic Listhesis L5-S1 UNKNOWN Procedures PRO LUMBAR SPINE FUSION, ANTER APPRCH @ANT. LUMBAR FUSION INCLUD. MIN. DISKECTOMY (WRVU 23.53) Referral ID Status Reason Start Date Expiration Date Visits Re quested Visits Authorized [id number] 1 1 Encounter Details Date Type Department Care Team (Late st Contact Info) Description 10/11/2017 7:30 AM EST - 10/11/2017 3:28 PM EST Surgery [place] [address] Trey Santos MD [facility] [place] [address] @ANT. LUMBAR FUSION INCLUD. MIN. DISKECTOMY (WRVU 23.53) Social History Tobacco Use Types Packs/Day Years [...] Sign Reading Time Taken Comments Blood Pressure 124/52 10/11/2017 3:15 PM EST Pulse 81 10/11/2017 3:15 PM EST Temperature 37.1 ??C (98.8 ??F) 10/11/2017 2:45 PM ES T Respiratory Rate 17 10/11/2017 3:15 PM EST Oxygen Saturation 93% 10/11/2017 3:15 PM EST Inhaled Oxygen Concentration - - Weight 62.1 kg (137 lb) 10/11/2017 6:19 AM EST Height 160 cm (5' 3) 10/11/2017 6:19 AM EST Body Mass Index 25.85 10/11/2017 6:19 AM EST documented in this encounter Discharge Summaries * Perlita Lora MD - 10/13/2017 11:50 AM EST Discharge Summary Patient Name: Linda Browning Patient Age: 67 y.o. Language: Venezuelan Race: White Ethnicity: Not nor Admit date: 10/11/2017 Discharge date and time: 10/13/2017 Attending Physician: Trey Santos MD Discharge Physician: Trey Santos MD Follow-up Recommendations for Providers: See discharge instructions for additional details. Future Appointments Date Time Provider Department Center 10/28/2017 1:15 PM [facility] DX ROOM 2 Xray [facility] Rad Clin 10/28/2017 2:20 PM Trey Santos MD Le[facility] Spine [place] [facility] 07/25/2018 8:30 AM Steven Souza MD [facility] Inpatient Provider Contact Information: Trey Santos MD Spine Center: [phone] After hours and weekends, call [facility] Electrolysist, , and have the Orthopedic resident paged. [...] S1 is approximately 25 mm. Her B AK is 24. ?? On exam in clinic [...] Weight: Wt Readings from Last 1 Encounters: 02/15/18 66.2 kg (145 lb 15.1 oz) Height: Ht Readings from Last 1 Encounters: /13/18 160 cm (5' 3) HC: HC Readings [...] them. 3. You should also take an stjm-efv-bdmfcag stool softener of laxative, such as Cadence-colace [...] please contact the Spine Center Prescription Lineat [phone]. PRESCRIPTION RENEWAL REQUESTS CAN TAKE UP TO 3 DAYS TO FILL. YOU WILL BE REQUIRED TO ANESTHESIA ASSISTANT YOUR NARCOTIC REFILL PRESCRIPTION IN PERSON AT [facility] OR IT CAN BE MAILED TO YOUR [...] has completely healed. PLEASE CALL US AT [phone] TO SPEAK WITH A SPINE CENTER NURSE [...] Numbers: Clinical issues, nurse questions, medication renewals: [phone] Santos: [phone] Evenings after 5pm and weekends you may contact the Orthopaedic resident automotive salesperson: [phone], askthe primer waterproofing machine operator to page the Orthopaedic resident Follow Up Appointments: 1. You will have follow-up appointments at [facility] as indicated in the ???Future Appointments and [...] on the next business day. Please call [phone] if you do not hear from us by that time, as your timely follow-up is very important to us. Future Appointments Date Time Provider Department Center 10/28/2017 1:15 PM [facility] DX ROOM 2 [facility] Clin 10/28/2017 2:20 PM Trey Santos MD [facility] [place] [facility] 07/25/2018 8:30 AM Steven Souza MD [facility] Future Appointments and Orders Future Appointments Provider Department Dept Phone 10/28/2017 1:15 PM [facility] DX ROOM 2 XRay at [place] [phone] Please go to Psychosocial Rehabilitation Counselor Area 3T ([place] Location). 10/28/2017 2:20 PM Trey Santos MD Spine Center at [place] [phone] 07/25/2018 8:30 AM Steven Souza MD Dermatology at [place] [phone] Future Orders Complete By Expires Referral to Home Health - at DISCHARGE [OVG0214 CPT(R)] As directed Process Instructions: Scheduling Instructions: Comments: DOCUMENTATION FOR VNA SERVICES (INCLUDING THOSE PATIENTS WITH MEDICARE COVERAGE REQUIRING HOME VNA SERVICES AND/OR HOSPICE SERVICES) PATIENT'S LOCATION: Linda Browning [address] [facility] [phone] (home) Cell: Telephone Information: Cream Cheese Maker's Name: patient and family In discussion with the attending physician, it is certified that this patient is under their care and that they, or a Nurse Practitioner,Clinical Nurse specialist or Physician Corrugator Helper who is working directly with them, had [...] program if appropriate. HOME HEALTH CARE AGENCY: [facility] PHONE: [phone] FAX: [phone] Start of care: 24 to 48 hours [...] Niki Vyas MD [address] / [facility] [address] All A agencies which cover the area of patient's residence have been reviewed, either verbally mason writing, and patient/family have chosen the home health care agency noted Questions: Agency name and contact information: [facility] Patient location post [...] Orth[facility]are Primary Care Provider: Niki Vyas MD [phone] Discharge References/Attachments None Click refresh button immediately [...] them. 3. You should also take an byry-zzv-yfbsxos stool softener of laxative, such as Cadence-colace [...] please contact the Spine Center Prescription Lineat [phone]. PRESCRIPTION RENEWAL REQUESTS CAN TAKE UP TO 3 DAYS TO FILL. YOU WILL BE REQUIRED TO ANESTHESIA ASSISTANT YOUR NARCOTIC REFILL PRESCRIPTION IN PERSON AT [facility] OR IT CAN BE MAILED TO YOUR [...] has completely healed. PLEASE CALL US AT [phone] TO SPEAK WITH A SPINE CENTER NURSE [...] Numbers: Clinical issues, nurse questions, medication renewals: [phone] Santos: [phone] Evenings after 5pm and weekends you may contact the Orthopaedic resident automotive salesperson: [phone], askthe primer waterproofing machine operator to page the Orthopaedic resident Follow Up Appointments: 1. You will have follow-up appointments at [facility] as indicated in the ???Future Appointments and [...] on the next business day. Please call [phone] if you do not hear from us by that time, as your timely follow-up is very important to us. Future Appointments Date Time Provider Department Center 10/28/2017 1:15 PM [facility] DX ROOM 2 Xray [facility] Rad Clin 10/28/2017 2:20 PM Trey Santos MD [facility] Spine [facility] 07/25/2018 8:30 AM Steven Souza MD [facility] documented in this encounter Medications at [...] Encounter Note Patient Name: Linda Browning : [id number] MR#: [id number] Admit Date: 10/11/2017 5:49 AM Hospital Day 2 days Narrative: Linda was sitting up in bed eating lunch when I visited. She had two visitors in the room with her. She told me that her surgery went well and she anticipates being discharged later later today. Linda is from [place], [place] and is a member of the [employer] there and is supported by her family and her client services account manager, Rev. Jerson Johnson. Assessment: Linda seems comfortable [...] - 10/13/2017 10:53 AM EST GUILLE paged Perlita Colin, at [phone] to sign walker order in [...] concerns. Julita Mistry Vascular Surgery, PGY2 Pager #[phone] * Bethany Callahan - 10/13/2017 5:27 AM [...] Time Provider Department Center 10/28/2017 1:15 PM [facility] DX ROOM 2 Xray [facility] Rad Clin 10/28/2017 2:20 PM Trey Santos MD [facility] Spine [facility] 07/25/2018 8:30 AM Steven Souza MD Lit Derm [facility] BETHANY CALLAHAN MD 10/13/2017 * Janett Garcia RN - 10/12/2017 11:16 AM EST I reviewed a list of Home Health Agencies/DME vendors with patient which serve her preferred geographic area. I educated Her about her right to choose where referrals are placed. Patient requests referral to [facility] PHONE: [phone] FAX: [phone] Ortho Care Located @ [place], [place] Expected date of discharge: tomorrow or Tuesday Referral routed to the Computer Architect for matching with agency/vendor and to provide [...] Plantar flexion 5 5 Laboratory Recent Labs 02/13/18 0611 WBC 6.7 HGB 12.8 HCT 38.1 [...] Time Provider Department Center 10/28/2017 1:15 PM [facility] DX ROOM 2 Xray [facility] 10/28/2017 2:20 PM Trey Santos MD [facility] Spine [facility] 07/25/2018 8:30 AM Steven Souza MD [facility] Derm [facility] FRANKLIN TRIPLETT MD 10/12/2017 * Cyndie Coe RN - 10/12/2017 6:02 AM EST 0556 Urrutia catheter removed. * Carmina Thomas MD - 10/11/2017 7:01 PM EST [...] ??C (98.8 ??F)] Heart Rate: [65-88] Resp: [12-25] BP: (95-130)/(39-81) Intake/Output Summary (Last 24 hours) [...] 24-Hour Pre-Operative H&P Update Linda Browning 1950 [id number] Patient seen in pre-op holding area today. [...] All questions answered. Trey Santos MD MS Financial Services Sales Representative - Orthopedic Spine Surgery / Spine Center Toolmaker Helper - Department of Orthopedic Surgery / Academics and Research Health Care Analyst - [facility] [employer] 10/11/2017 * Franklin Triplett MD [...] 10/13/2017 1:[address] [facility] Operative Note Patient Name: Linda Browning : [id number] MR#: [id number] Case Date: 10/11/2017 Surgeon: Surgeon(s) and Role: [...] vein were then reflected laterally the. The Medtronic retractor system was then positioned as perroutine. Following this there was adequate exposure for performance of the discectomy. The patient tolerated procedure well. Infection Bundle used? No Attestation: Case Date: 10/11/2017 I was present and I participated during the entire procedure (does not need to include opening and closing). CHICO GRANADOS MD 10/19/2017 * Plan of Care - [...] documented. * Plan of Care - Irma Gracia - 10/12/2017 12:02 PM EST Problem: Patient [...] Anticipated Discharge Disposition: home with assist Pager: [phone] Irma Garcia 10/12/2017 Occupational Therapy Rehabilitation Department [...] instrument and measurable assessment of functional outcome. [facility] 6 Clicks Daily Activity Inpatient Short Form [...] based upon CJ. Lizbeth Marx, OTR/L Pager [phone] * Plan of Care - Reyna Reyes, PT - 10/12/2017 11:39 AM EST Problem: Patient Care Overview Goal: Plan of Care Review Outcome: Ongoing (Interventions Implemented as Appropriate) 10/12/17 6315 Coping/Psychosocial Plan Of Care Reviewed With patient [...] tub shower set-up. 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 Patient's and [...] and home PT/OT; needs a walker Pager: [phone] Reyna Reyes, DPT, NCS Physical Therapy Rehabilitation [...] Past 30 Days: No [facility] visits. Anticipated Length Of Stay (If known): [...] Skyler, and her friends. Daughter lives in [place], and son lives in [place]. Was going to outpatient PT, and pool therapy prior to admission. Behavioral Health History: None Substance Use/Abuse: None Other Pertinent/Service Specific Information: None Health/Prescription Coverage: Primary Insurance: MEDICARE Secondary Insurance: [employer] [place] Prescription Coverage: [employer] Preferred Pharmacy: [facility] Other: None Primary Care Provider: Niki Vyas MD [phone] Patient/Caregiver Goals of Treatment: Go home Potential Needs for Transition of Care: Rehab/SNF: None [facility] Health: [facility] DME: Front Wheeled Walker Dialysis: None Community Resources: None Transportation: None Other: None Anticipated Barriers to Discharge/Special Considerations: None Plan: Anticipate discharge home with her , VNA services through [facility], and walker. , Skyler, will transport pt home upon discharge. A member of the Care Management team will continue to monitor progress, follow for continuity of care and assist with transition of care planning. OBIE Hammond Pager: [phone] * Plan of Care - Cyndie Coe [...] 10/11/2017 2:[address] [facility] Operative Note Patient Name: Linda Browning : [id number] MR#: [id number] Case Date: 10/11/2017 Surgeon: Surgeon(s) and Role: [...] Operative Note Patient Name: Linda Browning : [id number] MR#: [id number] Case Date: 10/11/2017 Surgeon: Surgeon(s) and Role: [...] 11:30 AM EST Office Visit Dermatology at [facility] [address] [place] [address] Tata Aldridge MD [facility] [address] 05/09/2025 2:00 PM EDT Office Visit Dermatology [facility] [address] [place] [address] Tata Aldridge MD [facility] [address] documented as of this encounter Procedures Procedure [...] * Differential, Automated (10/12/2017 6:45 AM EST) Pathologist [facility] Neutrophil % 70.9 % [facility] Neutrophil Absolute 5.92 1.70 - 6.10 x10(3)/[facility] LAB[facility] Lymph % 17.9 % [facility] Lymphocytes Abs 1.5 0.9 - 3.2 x10(3)/[facility] LABORATORY Monocyte % 10.6 % [facility] Monocyte Abs 0.9 0.3 - 0.9 x10(3)/[facility] LABORATORY Eos % 0.0 % [facility] Eosinophils Abs 0.0 0.0 - 0.4 x10(3)/[facility] LABORATORY Basophil % 0.2 % [facility] Baso Absolute 0.0 0.0 - 0.1 x10(3)/[facility] LABORATORY Immature Gran % 0.40 % [facility] Comment: Immature granulocytes(IG's)percentage and absolute count will include metamyelocytes, myelocytes, and promyelocytes. Blood smears from CBCs yielding IG's will be scanned manually for concordance. If this scan disagrees with the automated IG or if promyelocytes are noted, a manual differential will be performed. Immature Gran Absolute 0.03 0.00 - 0.04 x10(3)/[facility] LABORATORY Blood specimen (specimen) 10/12/2017 6:45 AM EST 10/12/2017 6:51 AM EST Narrative Resulting Agency Comment Spec In Lab Franklin Triplett MD HEMATOLOGY ORDERABLE S [facility] [place] [address] * (ABNORMAL) Hemogram (10/12/2017 6:45 AM EST) Pathologist [facility] White Blood Cell 8.4 4.0 - 9.5 x10(3)/ L [facility] Red Blood Cell 3.23(L) 4.00 - 5.21 x10(6)/ L [facility] Hemoglobin 10.2(L) 11.7 - 15.5 gm/dL [facility] Hematocrit 31.1(L) 35.7 - 45.8 % [facility] Mean Cell Volume 96.3(H) 82.6 - 94.4 fL [facility] Mean Cell Hemoglobin 31.6 27.1 - 32.0 pg [facility] Mean Cell Hemoglobin Concentration 32.8 31.7 - 35.0 gm/dL [facility] Platelet 159 145 - 357 x10(3)/[facility] LABORATORY RDW Standard Deviation 46.0 37.0 - 46.0 [facility] LABORATORY RDW coefficient of variation 12.9 11.5 - 14.1 % [facility] Mean Platelet Volume 9.4 7.6 - 12.9 [facility] LABORATORY NRBC% auto 0.0 % [facility] NRBC Absolute 0.000 0.000 - 0.000 x10(3)/[facility] LABOR[facility] Blood specimen (specimen) 10/12/2017 6:45 AM EST 10/12/2017 6:51 AM EST Narrative Resulting Agency Comment Spec In Lab Franklin Triplett MD HEMATOLOGY ORDERABLE S [facility] [place] [address] * (ABNORMAL) Basic Metabolic Panel (non-fasting) (10/12/2017 6:45 AM EST) [facility] Glucose 91 65 - 199 mg/dL [facility] Comment:Diabetes: >=200 mg/d L plus symptoms Blood Urea Nitrogen 19(H) 8 - 18 mg/dL [facility] Creatinine 0.82 0.70 - 1.20 mg/dL [facility] Sodium 139 135 - 145 mmol/L [facility] Potassium 4.3 3.5 - 5.0 mmol/L [facility] Comment: Please note: ??Patients with WBC >100,000 may have falsely elevated Potassium levels. ??For accurate Potassium quantification in these patients send serum separator tube (gold top) for subsequent determinations. ??Contact the Clinical Chemistry Laboratory if there are any questions. Chloride 105 98 - 107 mmol/L [facility] Carbon Dioxide 24 22 - 31 mmol/L [facility] Anion Gap 10 5 - 15 mmol/L [facility] Calcium 7.9(L) 8.5 - 10.5 mg/dL [facility] Est Glomerular Filtration Rate >60 >=60 [facility] Comment: The reported eGFR should be multiplied by 1.2 for patients. The MDRD is not an appropriate measure of renal function for patients with body mass extremes or in patients with acute kidney failure. http://DataMotion/DHnkdep http://DataMotion/DHMCnkf Blood specimen (specimen) 10/12/2017 6:45 AM EST 10/12/2017 6:51 AM EST Narrative Resulting Agency Comment Spec In Lab Trey Santos MD CHEMISTRY ORDERABLES Performing Organization Address City/State/[facility] Co de Phone Number [facility] [place] [address] * XR Lumbar Spine 2 Or 3 [...] No appreciablepostoperative hardware complication. Trey Santos MD [facility] DX ORDERABLES * XR Fluoro No Rad <1Hr - OR Use (10/11/2017 2:11 PM EST) Narrative [facility][NOTE 2] - 10/11/2017 2:12 PM EST This order does not need a radiologist interpretation. ?? Trey Santos MD [facility] FLUORO ORDERABLE [place], [place] * Differential, Automated (10/11/2017 6:11 AM EST) Neutrophil % 52.3 % [facility] Neutrophil Absolute 3.49 1.70 - 6.10 x10(3)/[facility] LABORATORY Lymph % 33.0 % [facility] Lymphocytes Abs 2.2 0.9 - 3.2 x10(3)/[facility] LABORATORY Monocyte % 9.7 % [facility] Monocyte Abs 0.6 0.3 - 0.9 x10(3)/[facility] LABORATORY Eos % 4.0 % [facility] Eosinophils Abs 0.3 0.0 - 0.4 x10(3)/[facility] LABORATORY Basophil % 0.9 % [facility] Baso Absolute 0.1 0.0 - 0.1 x10(3)/[facility] Immature Gran % 0.10 % [facility] Comment: Immature granulocytes(IG's)percentage and absolute count will include metamyelocytes, myelocytes, and promyelocytes. Blood smears from CBCs yielding IG's will be scanned manually for concordance. If this scan disagrees with the automated IG or if promyelocytes are noted, a manual differential will be performed. Immature Gran Absolute 0.01 0.00 - 0.04 x10(3)/[facility] LABORATORY Blood specimen (specimen) 10/11/2017 6:11 AM EST 10/11/2017 6:30 AM EST Narrative Resulting Agency Comment Spec In Lab Franklin Triplett MD HEMATOLOGY ORDERABLE S [facility] [place] [address] * Hemogram (10/11/2017 6:11 AM EST) White Blood Cell 6.7 4.0 - 9.5 x10(3)/[facility] LABORATORY Red Blood Cell 4.06 4.00 - 5.21 x10(6)/[facility]ORY Hemoglobin 12.8 11.7 - 15.5 gm/dL [facility] Hematocrit 38.1 35.7 - 45.8 % [facility] Mean Cell Volume 93.8 82.6 - 94.4 fL [facility] Mean Cell Hemoglobin 31.5 27.1 - 32.0 pg [facility] Mean Cell Hemoglobin Concentration 33.6 31.7 - 35.0 gm/dL [facility] Platelet 230 145 - 357 x10(3)/[facility]ORAT[facility] RDW Standard Deviation 45.3 37.0 - 46.0 fL [facility] RDW coefficient of variation 13.0 11.5 - 14.1 % [facility] Mean Platelet Volume 9.2 7.6 - 12.9 fL [facility] NRBC% auto 0.0 % [facility] NRBC Absolute 0.000 0.000 - 0.000 x10(3)/[facility] LABOR[facility] Blood specimen (specimen) 10/11/2017 6:11 AM EST 10/11/2017 6:30 AM EST Narrative Resulting Agency Comment Spec In Lab Franklin Triplett MD HEMATOLOGY ORDERABLE S [facility] [place] [address] * Basic Metabolic Panel (non-fasting) (10/11/2017 6:11 AM EST) Glucose 85 65 - 199 mg/dL [facility] Comment:Diabetes: >=200 mg/d L plus symptoms Blood Urea Nitrogen 15 8 - 18 mg/dL [facility] Creatinine 0.90 0.70 - 1.20 mg/dL [facility] Sodium 143 135 - 145 mmol/L [facility] Potassium 4.0 3.5 - 5.0 mmol/L [facility] Comment: Please note: ??Patients with WBC >100,000 may have falsely elevated Potassium levels. ??For accurate Potassium quantification in these patients send serum separator tube (gold top) for subsequent determinations. ??Contact the Clinical Chemistry Laboratory if there are any questions. Chloride 103 98 - 107 mmol/L [facility] Carbon Dioxide 25 22 - 31 mmol/L [facility] Anion Gap 15 5 - 15 mmol/L [facility] Calcium 8.7 8.5 - 10.5 mg/dL [facility] Est Glomerular Filtration Rate >60 >=60 [facility] Comment: The reported eGFR should be multiplied by 1.2 for patients. The MDRD is not an appropriate measure of renal function for patients with body mass extremes or in patients with acute kidney failure. http://DataMotion/DHnkdep http://DataMotion/DHMCnkf Blood specimen (specimen) 10/11/2017 6:11 AM EST 10/11/2017 6:30 AM EST Narrative Resulting Agency Comment Spec In Lab Trey Santos MD CHEMISTRY ORDERABLES Performing Organization Address City/State/[facility] Co de Phone Number [facility] [place] [phone] documented in this encounter Visit Diagnoses Diagnosis s/p OLIF L5-S1 and posterior instrumented fusion L5-S1 on 10/11/2017, Dr. Santos- Primary Acquired spondylolisthesis Spine pain, lumbar Lumbago s/p OLIF L5-S1 and posterior instrumented fusion L5-S1 on 10/11/2017, Dr. Santos Acquired spondylolisthesis 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 Acquired spondylolisthesis documented in this encounter Administered [...] Given 10/12/2017 4:56 PM EST 1,000 mg bacitracin injection ONCE PRN, Starting on Tue10/11/17 at 0955, Until Rupali 10/13/17 at 1603, Intra-Operative (Intra-Procedure), Routine Given 10/11/2017 2:00 PM EST 50,000 Units 19- Surgical Site Given 10/11/2017 9:55 AM EST 50,000 Units 19- Surgical Site gelatin adsorbable (GELFOAM) sponge ONCE PRN, Starting on Tue10/11/17 at 0955, Until Rupali 10/13/17 at 1603, Intra-Operative (Intra-Procedure) Given 10/11/2017 9:55 AM EST 2 each 19- Surgical Site multivitamin Vekj-Lq-LK-Min (THERAPEUTIC-M) 27-0.4 mg tablet 1 tablet 1 [...] 11:57 AM EST 1,000 mLs 100 mL/hr thrombin (Bovine) (THROMBINAR) kit ONCE PRN, Starting on Tue10/11/17 at 0956, Until Rupali 10/13/17 at 1603, Intra-Operative (Intra-Procedure) Given 10/11/2017 9:56 AM EST 20,000 Units 19- Surgical Site vancomycin (VANCOCIN) injection ONCE PRN, Starting on Tue10/11/17 at 1400, Until Tue10/12/17 at 0624, Intra-Operative (Intra-Procedure), Routine Given 10/11/2017 2:00 PM EST 1 g 19- Surgical Site documented in this encounter [...] Cyndie Coe RN)0843 (Given - Provider: Gisela Cuevas, RANJANA)1656 (Given - Provider: Gisela Cuevas, RANJANA)2341 (Given - Provider: Christina Rueda RN) 0947 (Given - Provider: Becka Schneider, RANJANA) ceFAZolin (ANCEF) 1g in dextrose 5% 50mL [...] Coe RN)0839 (New Bag - Provider: Gisela Cuevas, RANJANA)0909 (Stopped - Provider: Gisela Cuevas, RANJANA) ceFAZolin (ANCEF) 2g in dextrose 5% 100 [...] Cyndie Coe RN)1224 (Given - Provider: Gisela Cuevas, RANJANA) multivitamin Kwtf-To-VD-Min (THERAPEUTIC-M) 27-0.4 mg tablet 1 tablet 1 tablet, Oral, DAILY, First dose on Tue10/12/17 at 0900, Until Discontinued, Recovery (Recovery-Hospital Unit) 0849 (Given - Provider: Gisela Cuevas, RANJANA) 0949 (Given - Provider: Becka Schneider RN) pantoprazole (PROTONIX) tablet 40 mg 40 mg, Oral, DAILY, First dose on Tue10/12/17 at 0900, Until Discontinued, DO NOT CRUSH OR OPEN, Recovery (Recovery-Hospital Unit), Routine 08 (Given - Provider: Gisela Cuevas RN) 0949 (Given - Provider: Becka Schneider, RANJANA) polyethylene glycol (MIRALAX) packet 17 g 17 [...] is not taking this medication since April) 0900 (Not Given - Provider: Gisela Cuevas RN - Reason: See comment - Comment: patient hasn't taken this since April for back pain, pt stated did not help) 0900 (Not Given - Provider: Becka Schneider RN - Reason: Patient/family refused) senna-docusate (PERICOLACE) 8.6-50 mg per tablet 2 tablet 2 tablet, Oral, 2 TIMES DAILY, First dose on Tue10/11/17 at 211, Until Discontinued, Recovery (Recovery-Hospital Unit), Routine 2120 (Given - Provider: Cyndie Coe RN) 0843 (Given - Provider: Gisela Cuevas, RANJANA)2021 (Given - Provider: Christina Rueda, RANJANA) 0949 (Given - Provider: Becka Schneider, RANJANA) sodium chloride 0.9 % flush 5 mL 5 mL, Intravenous, 2 TIMES DAILY, First dose on Tue10/11/17 at 2115, Until Discontinued, Recovery (Recovery-Hospital Unit), Routine 2123 (Given - Provider: Rachel Dellosa, RN) 0849 (Given - Provider: Gisela Cuevas, RN)2024 (Given - Provider: Christina Rueda, RANJANA) 0900 (Not Given - Provider: Becka Schneider RN - Reason: Order parameters not met) Continuous Medication Order 10/11/2017 10/12/2017 10/13/2017 lactated Ringers infusion 1,000 mL (CANCELED) 1,000 mL, at 100 mL/hr, Intravenous, CONTINUOUS, Starting on Tue10/11/17 at 0645, Until 10/11/17 at 1838, Day of Surgery (Day of Procedure) 0647 (New Bag - Provider: Claire Varela, RANJANA)1349 (Anesthesia Volume Adjustment - Provider: Giovani Jovel MD) sodium chloride 0.9% infusion 1,000 mL, at 100 mL/hr, Intravenous, CONTINUOUS, Starting on Tue10/11/17 at 1615, Until Rupali 10/13/17 at 1603, Recovery (Recovery-Hospital Unit) 1630 (New Bag - Provider: Meliza Vicente, RANJANA) 0203 (New Bag - Provider: Cyndie Coe, RANJANA)1157 (New Bag - Provider: Viviana Sauer, RANJANA)2336 (New Bag - Provider: Felicita Cordoba, RANJANA) 0950 (New Bag - Provider: Becka Schneider, RANJANA) PRN Medication Order 10/11/2017 10/12/2017 10/13/2017 bacitracin injection (CANCELED) ONCE PRN, Starting on Tue10/11/17 at 0955, Until Rupali 10/13/17 at 1603, Intra-Operative (Intra-Procedure), Routine 0955 (Given - Provider: Trey Santos MD - Comment: Mixed in 1 L NS administered via bulb syringe.)1400 (Given - Provider: Trey Santos MD - Comment: Mixed in 1 L NS administered via bulb syringe.) gelatin adsorbable (GELFOAM) sponge (CANCELED) ONCE PRN, Starting on Tue10/11/17 at 0955, Until Rupali 10/13/17 at 1603, Intra-Operative (Intra-Procedure) 0955 (Given - Provider: Trey Santos MD - Comment: Mixed with 20,000 units Thrombin.) HYDROmorphone (DILAUDID) injection 0.2-0.4 mg (CANCELED) 0.2-0.4 mg, Intravenous, EVERY 5 MIN PRN, Starting on Tue10/11/17 at 1424, Until Tu10/11/17 at 1838, Pain, Give 0.2 mg every [...] fentanyl for breakthrough pain., PACU Recovery, Routine 153 (Given - Provider: Adriana Cabrera RN)1620 (Given - Provider: Adriana Cabrera RN) lidocaine (XYLOCAINE) 10 mg/mL (1 %) injection 3 mg 3 mg (0.3 mL), Subcutaneous, ONCE PRN, 1 dose, Starting on Tue10/11/17 at 2046, Until Rupali 10/13/17 at 1603, for discomfort with PIV insertion, Recovery (Recovery-Hospital Unit), Routine ondansetron (ZOFRAN) injection 4 mg 4 mg, Intravenous, EVERY 8 HOURS PRN, Starting on Tue10/11/17 at 2046, Until [...] Rueda RN) 0947 (Given - Provider: Becka Schneider RN)1350 (See Alternative - Provider: Becka Schneider RN) oxyCODONE (ROXICODONE) immediate release tablet 15 mg(Linked Group 1) 15 mg, Oral, EVERY 4 HOURS PRN, Starting on 10/11/17 at 1939, Until Rupali 10/13/17 at [...] Intravenous, EVERY 1 MIN PRN, Starting on e 10/11/17 at 2046, Until Rupali 10/13/17 at 1603, flush, Flush pertains to all indwelling lines. Flush per protocol found in the job aid using the link provided on this medication record., Recovery (Recovery-Hospital Unit), Routine thrombin (Bovine) (THROMBINAR) kit (CANCELED) ONCE PRN, Starting on e 10/11/17 at 0956, Until Rupali 10/13/17 at 1603, Intra-Operative (Intra-Procedure) 0956 (Given - Provider: Trey Santos MD - Comment: Neuropatties and gelfoam soaked in 20,000 units Thrombin.) vancomycin (VANCOCIN) injection (CANCELED) ONCE PRN, Starting on Tue10/11/17 at 1400, Until Tue10/12/17 at 0624, Intra-Operative (Intra-Procedure), Routine 1400 (Given [...] Starting on Tue10/11/17 at 1939, Until Rupali 18 at 1603, Pain, severe pain (7-10), For severe pain (7-10). Do not exceed 15 mg in 4 hours. If pain not relieved, call provider., Recovery (Recovery-Hospital Unit), Routine documented in this encounter Care Teams Computer Meteorologist Relationship Specialty Start Date End Date Niki Vyas MD [address] [place] [address] PCP - General 07/21/10 12/16/21 documented as of this encounter
--- OUTSIDE RECORDS SUMMARY | 2024-08-09 10:19 | XMS_ITS | Encounter Summary ---
Author Organization [facility] [place] [address] Care Team Providers Care Bow String Maker Name Role Phone Niki Vyas MD Primary Care Provider [phone] Encounter Details Date Type Department Care Team (Latest Contact Info) Description 06/21/2017 Orders [place] [address] Trey Mascorro [place]N [place] [address] 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 Social History Tobacco Use Types Packs/Day Years Used Date Smoking Tobacco: Never Smokeless Tobacco: Never Sex and Gender Information Value Date Recorded Sex Assigned at Not on file Gender Identity Not on file Sexual Orientation Not on file documented as of this encounter Progress Notes * Trey Mascorro APRN - 06/21/2017 2:20 PM EDT Notified by flow staff that patient referred for surgical consult. Ordered flex/extension XR given MRI findings and briefly reviewed case with Dr. Bhatt who agrees to see patient. documented in this encounter Plan of Treatment Upcoming Encounters Date Type Department Care Team (Late st Contact Info) Description 09/18/2024 11:30 AM EST Office Visit Dermatology at [facility] [address] [place] [address] Tata Aldridge MD [facility] [address] [place] [address] 05/09/2025 2:00 PM EDT Office Visit Dermatology at [facility] [address] [place] [address] Tata Aldridge MD [facility] [address] documented as of this encounter Results * XR Lumbar Spine 2 Or 3 Views (Generic) (06/30/2017 9:14 AM EDT) Anatomical Region Laterality Modality L-spine N/A Digital Radiogra phy Impressions 06/30/2017 10:01 AM EDT Pars defects at L5. At least grade 2, possibly borderline grade 3, anterolisthesis of L5 relative to S1, but no definite dynamic instability seen. Narrative 06/30/2017 10:01 AM EDT EXAMINATION: XR LUMBAR SPINE 2 OR 3 VIEWS (GENERIC) CLINICAL HISTORY: AP; lateral flexion & extension (3 views) grade II anterolisthesis L5 on S1 TECHNIQUE: AP, flexion lateral, and extension lateral views of the lumbar spine. COMPARISON: None FINDINGS: 5 nonrib-bearing lumbar-type vertebral bodies are present. Minimal dextrocurvature on the frontal projection, apex at L3. There is nearly one half vertebral body anterolisthesis of L5 on S1, best visualized on a coned-down lateral view of the lumbosacral junction, thus grade 2, possibly borderline grade 3. Although this is less area is less-well penetrated on flexion and extension lateral. Xzpxl-lh-zoed radiographs, no definite change in relative listhesis is seen. Pars interarticularis defects appear present at L5. Minimal anterolisthesis of L2 relative to L1, L3 relative to L2 and L4 relative to L3, with mild to moderate intervertebral disc space narrowing. Procedure Note Justyna Watt MD - 06/30/2017 EXAMINATION: XR LUMBAR SPINE 2 OR 3 VIEWS (GENERIC) CLINICAL HISTORY: AP; lateral flexion & extension (3 views) grade II anterolisthesis L5 on S1 TECHNIQUE: AP, flexion lateral, and extension lateral views of the lumbarspine. COMPARISON: None FINDINGS: 5 nonrib-bearing lumbar-type vertebral bodies are present.Minimal dextrocurvature on the frontal projection, apex at L3. There is nearly one half vertebral body anterolisthesis of L5 on S1,best visualized on a coned-down lateral view of the lumbosacral junction, thusgrade 2, possibly borderline grade 3. Although this is less area is less-well penetrated on flexion and extension lateral. Qaiic-pd-ydei radiographs,no definite change in relative listhesis is seen. Pars interarticularisdefects appear present at L5. Minimal anterolisthesis of L2 relative to L1, L3 relative to L2 and Y0enhzatum to L3, with mild to moderate intervertebral disc space narrowing. IMPRESSION Pars defects at L5. At least grade 2, possibly borderline grade 3, anterolisthesis of L5 relative to S1, but no definite dynamic instabilityseen. Trey Mascorro APRN IMG DX ORDERABLES documented in this encounter Visit Diagnoses Diagnosis 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 Acquired spondylolisthesis 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 Acquired spondylolisthesis documented in this encounter Care Teams Bow String Maker Relationship Specialty Start Date End Date Niki Vyas MD [address] [place] [address] PCP - General 07/21/10 12/16/21 documented as of this encounter
--- OUTSIDE RECORDS SUMMARY | 2024-08-09 10:19 | XMS_ITS | Encounter Summary ---
Author Organization [facility] [place] [address] Care Team Providers Care Snipper Name Role Phone Niki Vyas MD Primary Care Provider [phone] Reason for Referral * Physical Therapy (Routine) - Closed Specialty Diagnoses / Procedures Referred By Contac t Referred To Contact Physical Therapy Diagnoses 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 Trey Mascorro APRN [facility] [place] [address] [facility] [place] [address] Referral ID Status Reason Start Date Expiration Date V isits Requested Visits Authorized [id number] Closed Evaluate and Treat 11/23/2016 11/23/2017 12 12 Reason for Visit * Reason Comments Back Pain * Consultation (Urgent) - Closed Specialty Diagnoses / Procedures Referred By Contac t Referred To Contact Orthopaedics Diagnoses Progressive low back pain and loss of motion-Degenerative Disc Disease. Niki Vyas MD [address] [address] [facility] [address] [place] [phone] Referral ID Status Reason Start Date Expiration Date V isits Requested Visits Authorized [id number] Closed Consult, Test & Treat [facility] 11/17/2016 11/17/2017 1 1 Encounter Details Date Type Department Care Team (Latest Contact Info) Description 11/23/2016 8:30 AM EDT Office Visit Spine Center at [facility] [place] [phone] Trey Mascorro, SVP CHIEF MARKETING OFFICER [facility] [place] [address] 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 Social History Tobacco Use Types Packs/Day Years Used Date Smoking Tobacco: Never Sex and Gender Information Value Date Recorded Sex Assigned at Not on file Gender Identity Not on file Sexual Orientation Not on file documented as of this encounter Last Filed Vital Signs Vital Sign Reading Time Taken Comments Blood Pressure 112/62 11/23/2016 8:03 AM EDT Pulse - - Temperature - - Respiratory Rate - - Oxygen Saturation - - Inhaled Oxygen Concentration - - Weight 63.5 kg (140 lb) 11/23/2016 8:03 AM EDT Height 160 cm (5' 3) 11/23/2016 8:03 AM EDT Body Mass Index 24.8 11/23/2016 8:03 AM EDT documented in this encounter Progress Notes * Trey Mascorro, PATRICK - 11/23/2016 8:30 AM EDT SUBJECTIVE: Linda Browning is a 66-year-old female patient being seen at the request of Niki Vyas MD, with a chief complaint of low back pain. Patient states her low back pain began relatively suddenly approximately 6 months ago after she had been seated for a prolonged period [facility] an [facility], and then following that she began having some low back pain. She also describes an event in high school when she had low back pain and pain radiating to her bilateral legs. Her current low back pain she describes as being bilateral in midline and mid lumbar region, occasionally radiating into the superior lateral buttocks bilaterally. Her pain is aggravated primarily by walking. She recently was walking as much as 5 miles, but since the onset of these symptoms is limited to less than 1 mile. Her pain is alleviated by using a lumbar cushion, movement, and using a rolled-up towel in the lumbar area. She is limited from things that are very important to her including walking, hiking, snowshoeing, and gardening. She states her sleep is occasionally disrupted by her low back pain, but generally not. Review of systems is negative for constitutional, GI, or symptoms. Patient denies tobacco or alcohol use, is a retired teacher, and lives with her who accompanies her in the exam room today. 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 OBJECTIVE: On examination the patient's affect is bright, her speech is in good time and to the point, and she responds appropriately to questions and direction. She stands with level hips and a straight lumbar spine and is nontender in the midline lumbar spine or bilateral buttock. Lumbar ROM is 80 degrees of flexion, and 15 degrees of extension neither of which aggravated her back pain, she has a positive Julian's sign. She walks with an antalgic gait due to her low back pain, she is able to toe walk, heel walk, and tandem walk. Motor exam is 5/5 strength of all lower extremity muscle groups bilaterally with the exception of the bilateral EHLs which are 4+/5. They are subtle but I do believe there is a slight weakness in her great toe extension. Sensation is intact in all dermatomes of the lower extremities. Reflexes are symmetrical and 1 at the knees, and 1 at the ankles. There is no clonus or Babinski. Hip ROM and straight leg raise exams are negative. Corrigan's test is positive on the right. Lumbar spine MRI 11/05/2016 is reviewed. At L1-2 there is a trace retrolisthesis and moderate bilateral neuroforaminal stenosis with disk bulge and facet arthropathy. At L2-3 there is spondylosis with disk bulge. At L3-4 there is spondylosis with disk bulge. Also at L3-4 there is a midline annular tear. At L4-5 there is spondylosis. At L5-S1 there is severe disk height loss, a grade 1 spondylolisthesis with partial uncovering of the posterior superior disk and there is severe bilateral neuroforaminal stenosis. Elongation of the central canal in this level suggests an isthmic spondylolisthesis and there may be bilateral pars defects at this level. These images were reviewed in detail with the patient and her . ASSESSMENT: This is an active 66-year-old female with multilevel degenerative spondylolisthesis and potentially a longstanding isthmic spondylolisthesis at L5-S1 with 6 months of mechanical low back pain with an apparent flexion directional preference. I discussed with her the various treatment options including oral medications, physical therapy and activities, possible injections, and possible surgery. She has had physical therapy with a local therapist with benefit, but I explained to her the potential additional benefits of a second opinion from a litigation specialist PT. We also discussed her medication regimen and she does not feel that she is obtaining any benefit from her gabapentin regimen. Given that I suggested that she consider slowly tapering off and discontinuing the medication if she does not belief she is reaping benefit. After discussing the various treatment options we have mutually agreed to proceed as follows. PLAN: 1. Mechanical diagnosis and treatment with a Spine Center physical therapist. 2. Trial of OTC naproxen 440 mg twice a day for 2 weeks. 3. Follow up with me in 4 weeks to determine her progress. documented in this encounter Plan of Treatment Upcoming Encounters Date Type Department Care Team (Late st Contact Info) Description 09/18/2024 11:30 AM EST Office Visit Dermatology at [facility] [address] [place] [address] Tata Aldridge MD [facility] [place] [address] 05/09/2025 2:00 PM EDT Office Visit [facility] [address] [place] [address] Tata Aldridge MD [facility] [place] [address] Scheduled Referrals Name Type Priority Associated Diagnoses Orde r Schedule Referral to Physical Therapy Outpatient Referral Routine 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 Ordered: 11/23/2016 documented as of this encounter Visit Diagnoses Diagnosis 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 Acquired spondylolisthesis documented in this encounter Care Teams Snipper Relationship Specialty Start Date End Date Niki Vyas MD [address] [place] [address] PCP - General 07/21/10 12/16/21 documented as of this encounter
--- OUTSIDE RECORDS SUMMARY | 2024-08-09 10:19 | XMS_ITS | Encounter Summary ---
Author Organization [facility] [place] [address] Care Team Providers Care Office Rn Name Role Phone Niki Vyas MD Primary Care Provider Reason for Visit * Reason Comments Back Pain Encounter Details Date Type Department Care Team (Latest Contact Info) Description 08/25/2017 9:00 AM EST Office Visit Spine Center at [place] [phone] Trey Santos MD [facility] [place] [place] [address] 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 Social History Tobacco Use Types Packs/Day Years Used Date Smoking Tobacco: Never Smokeless Tobacco: Never Sex and Gender Information Value Date Recorded Sex Assigned at Not on file Gender Identity Not on file Sexual Orientation Not on file documented as of this encounter Progress Notes * Trey Santos MD - 08/25/2017 9:00 AM EST Images from the original note were not included. Spine Center @ [facility] Trey Santos MD, MS. Director Kennedy Dooley MD [facility] [place] [address] Niki Vyas MD [address] / [facility] [address] Chico Granados MD Chief of Vascular Surgery Dear Colleagues, I had the pleasure of seeing this patient at the [facility] for surgical evaluation. Chief complaint: Back pain. Unable to stand up and walk. ?? Diagnosis: 1. Grade 2 lytic spinal listhesis L5-S1 with collapse and severe foraminal stenosis. 2. Diffuse lumbar spondylosis mild to moderate. 3. Back pain with buttock and limited leg pain worse with walking better with forward flexion and pushing. 4. Leg length discrepancy with pelvic obliquity. Patient returns to discuss surgical intervention. We [...] 25 mm. Her B AK is 24. On exam today she walks with a forward flexed gait. Unable to stand upright. She can lie flat quitecomfortably. She can lie on her side. She can lie on her belly. She has no hip flexion contracture.She remains neurologically intact. She has had tubal ligation through an arthroscopic approach. No abdominal surgery. We talked about the risks of vascular injury nonunion infection resistant pain as well as other complications. Consents reviewed and signed. We talked about the extent of the procedure and the amountof pain afterwards. About the importance of mobilization. Procedure: OLIF L5-S1 with instrumentation and BMP2. Posterior spinal instrumentation L5-S1 with arthrodesis. All questions were answered. More than 50% of more than 40 minutes were utilized in counseling around procedure and its details. Sincerely, Trey Santos MD MS Industrial Education Instructor - Orthopedic Spine Surgery / Spine Center Orthopedic Shoe Fitter - Department of Orthopedic Surgery / [employer]ics and [employer] County Supervisor - [facility] [employer] 08/25/2017 Spine Center Response Trends Patient-reported scores: myD-H Spine Questionnaire responses 11/23/2016 06/27/2017 VR36 - Physical Function (Range: 0-100) 24.1 - VR36 - Bodily Pain (Range: 0-100) 37.5 - VR36 - PCS (Range: 0-100) 35.9 - VR36 - MCS (Range: 0-100) 42.9 - Oswestry Disability Index (Range: 0-100) 37.77 (Moderate disability) 48.88 (Severe disability) PROMIS-10 Physical Health Score - 37.4 PROMIS-10 Mental Health Score - 36.3 documented in this encounter Plan of Treatment Upcoming Encounters Date Type Department Care Team (Late st Contact Info) Description 09/18/2024 11:30 AM EST Office Visit Dermatology at [facility] [address] [place] [address] Tata Aldridge MD [facility] [place] [address] 05/09/2025 2:00 PM EDT Office Visit [facility] [address] [place] [address] Tata Aldridge MD [facility] [place] [address] documented as of this encounter Procedures Procedure Name Priority Date/Time Associated Diagnosis Comments ANT. LUMBAR FUSION INCLUD. MIN. DISKECTOMY Routine 08/25/2017 9:58 AM EST 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 documented in this encounter Visit Diagnoses Diagnosis 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 Acquired spondylolisthesis documented in this encounter Care Teams Office Rn Relationship Specialty Start Date End Date Niki Vyas MD [address] [place] [address] PCP - General 07/21/10 12/16/21 documented as of this encounter
--- OUTSIDE RECORDS SUMMARY | 2024-08-09 10:19 | XMS_ITS | Encounter Summary ---
Author Organization [facility] [place] [address] Care Team Providers Care Train Control Electronic Technician Name Role Phone Niki Vyas MD Primary Care Provider [phone] Encounter Details Date Type Department Care Team (Latest Contact Info) Description 11/05/2016 - 11/05/2016 11:59 PM EST Hospital Encounter Radiology Library at [facility] [place] [phone] Vasquez Robles MD [facility] [place] [address] Pain Discharge Disposition: Home Social History Tobacco Use Types Packs/Day Years Used Date Smoking Tobacco: Never Sex and Gender Information Value Date Recorded Sex Assigned at Not on file Gender Identity Not on file Sexual Orientation Not on file documented as of this encounter Medications at Time of Discharge Medication Sig Dispensed Refills Start Date End Date albuterol (PROVENTIL HFA;VENTOLIN HFA) 90 mcg/Actuation inhaler Inhale into the lungs as needed. 04/14/2004 gabapentin (NEURONTIN) 100 mg Capsule Take 2 capsules by mouth 3 times daily. Patient takes 2 caps in am, 2 caps mid-day, and 1 cap at night. 0 11/03/2016 12/07/2016 ibuprofen (ADVIL;MOTRIN) 200 mg tablet 04/14/2004 11/23/2016 documented as of this encounter Plan of Treatment Upcoming Encounters Date Type Department Care Team (Late st Contact Info) Description 09/18/2024 11:30 AM EST Office Visit Dermatology at [facility] [address] [place] [address] Tata Aldridge MD [facility] [place] [address] 05/09/2025 2:00 PM EDT Office Visit Dermatology at [facility] [address] [place] [address] Tata Aldridge MD [facility] [place] [address] documented as of this encounter Procedures Procedure Name Priority Date/Time Associated Diagnosis Comments FILM LIBRARY STORAGE ONLY MR SPINE Routine 11/05/2016 12:00 AM EST Pain documented in this encounter Results * Film Library- Storage Only MR Spine (11/05/2016 12:00 AM EST) Narrative [facility] - 11/18/2016 3:23 PM EDT This exam is for storage only and is auto-finalizing. Vasquez Robles MD IMG FILM LIBRARY ORD ERABLES [place], [place] documented in this encounter Visit Diagnoses Diagnosis Pain Generalized pain documented in this encounter Care Teams Train Control Electronic Technician Relationship Specialty Start Date End Date Niki Vyas MD [address] [place] [address] PCP - General 07/21/10 12/16/21 documented as of this encounter
--- OUTSIDE RECORDS SUMMARY | 2024-08-09 10:19 | XMS_ITS | Encounter Summary ---
Author Organization [facility] Address [facility] [place] [address] Care Team Providers Care Filler Block Inserter Remover Name Role Phone Niki Vyas MD Primary Care Provider [phone] Encounter Details Date Type Department Care Team (Latest Contact Info) Description 05/24/2017 - 05/24/2017 11:59 PM EDT Hospital Encounter Radiology Library at [facility] [place] [phone] Tracy Johnson MD [facility] [place] [address] Discharge Disposition: Home Social History Tobacco Use Types Packs/Day Years Used Date Smoking Tobacco: Never Smokeless Tobacco: Never Sex and Gender Information Value Date Recorded Sex Assigned at Not on file Gender Identity Not on file Sexual Orientation Not on file documented as of this encounter Medications at Time of Discharge Medication Sig Dispensed Refills Start Date End Date multivitamin (THERAGRAN) Tablet Take 1 tablet by mouth daily. acetaminophen (TYLENOL) 500 mg Tablet Take 1,000 mg by mouth 2 times daily. albuterol (PROVENTIL HFA;VENTOLIN HFA) 90 mcg/Actuation inhaler Inhale into the lungs as needed. 04/14/2004 LYRICA 25 mg Capsule 0 05/18/2017 018 cyclobenzaprine (FLEXERIL) 10 mg Tablet take 1 tablet by mouth every 8 hours if needed for SPASM 0 03/09/2017 08/25/2017 naproxen sodium (ANAPROX) 220 mg Tablet Take 220 mg by mouth 2 times daily (with meals). 09/15/2017 CALCIUM CARBONATE/VITAMIN D3 (CALCIUM 600 + D,3, ORAL) Take 1 tablet by mouth daily. 02/03/2018 documented as of this encounter Plan of Treatment Upcoming Encounters Date Type Department Care Team (Late st Contact Info) Description 09/18/2024 11:30 AM EST Office Visit Dermatology at [facility] [address] [place] [address] Tata Aldridge MD [facility] [place] [address] 05/09/2025 2:00 PM EDT Office Visit Dermatology at [facility] [address] [place] [address] Tata Aldridge MD [facility] [place] [address] documented as of this encounter Procedures Procedure Name Priority Date/Time Associated Diagnosis Comments FILM LIBRARY STORAGE ONLY DX SPINE Routine 05/24/2017 12:00 AM EDT documented in this encounter Results * Film Library- Storage Only DX Spine (05/24/2017 12:00 AM EDT) Narrative [facility] - 01/22/2018 10:32 AM EDT This exam is for storage only and is auto-finalizing. Tracy Johnson MD IMG FILM LIBRARY O RDERABLES [place], [place] documented in this encounter Visit Diagnoses Not on filedocumented in this encounter Care Teams Filler Block Inserter Remover Relationship Specialty Start Date End Date Niki Vyas MD [address] [place] [address] PCP - General 07/21/10 12/16/21 documented as of this encounter
--- OUTSIDE RECORDS SUMMARY | 2024-08-09 10:19 | XMS_ITS | Encounter Summary ---
Author Organization [facility] Address [facility] [place] [address] Care Team Providers Care Hvac Operations Technician Name Role Phone Niki Vyas MD Primary Care Provider [phone] Encounter Details Date Type Department Care Team (Latest Contact Info) Description 09/15/2017 1:20 PM EST Laboratory [place] [phone] 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 Social [...] AM EST Office Visit Dermatology at [facility] [address] [place] [address] Tata Aldridge MD [facility] [place] [address] 05/09/2025 2:00 PM EDT Office Visit Dermatology at [facility] [address] [place] [address] Tata Aldridge MD [facility] [place] [address] documented as of this encounter Procedures Procedure Name Priority Date/Time Associated Diagnosis Comments ABORH RECHECK STATUS Routine 09/15/2017 1:58 PM EST TYPE AND SCREEN, SDP (FUTURE SURGERY, [facility] SAME DAY PROGRAM ONLY) Routine 09/15/2017 1:58 PM EST 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 ABO/RH TYPING Routine 09/15/2017 1:58 PM EST 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 ANTIBODY SCREEN Routine 09/15/2017 1:58 PM EST 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 documented in this encounter Results * ABORH Recheck Status (09/15/2017 1:58 PM EST) ABORH Recheck Order Order Placed [facility] ABORH Type Recheck Complete [facility] Blood specimen (specimen) 09/15/2017 1:58 PM EST 09/15/2017 2:01 PM EST Narrative Resulting Agency Comment Spec In Lab Trey Santos MD BLOOD BANK LAB ORDER DEMIAN Performing Organization Address City/[facility]/ZIP Co de Phone Number [facility] [place] [address] * Antibody screen (09/15/2017 1:58 PM EST) Ab Screen Interp Negative [facility] Expires at [id number] on: 10/14/2017 [facility] Blood specimen (specimen) 09/15/2017 1:58 PM EST 09/15/2017 2:01 PM EST Narrative Resulting Agency Comment Spec In Lab Trey Santos MD BLOOD BANK LAB ORDER DEMIAN [facility] [place] [address] * ABO/Rh Typing (09/15/2017 1:58 PM EST) ABORH Type A Pos [facility] Blood specimen (specimen) 09/15/2017 1:58 PM EST 09/15/2017 2:01 PM EST Narrative Resulting Agency Comment Spec In Lab Trey Santos MD BLOOD BANK LAB ORDER DEMIAN Performing Organization Address [facility] Co de Phone Number [facility] [place] [address] documented in this encounter Visit Diagnoses Diagnosis 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 Acquired spondylolisthesis documented in this encounter Care Teams Hvac Operations Technician Relationship Specialty Start Date End Date Niki Vyas MD [address] [place] [id number] PCP - General 07/21/10 12/16/21 documented as of this encounter
--- OUTSIDE RECORDS SUMMARY | 2024-08-09 10:19 | XMS_ITS | Encounter Summary ---
Author Organization Formerly [facility] [place] [address] Care Team Providers Care Metallurgical Laboratory Assistant Name Role Phone Niki Vyas MD Primary Care Provider [phone] Reason for Referral * Surgical (Routine) - Specialty Diagnoses / Procedures Referred By Contac t Referred To Contact Diagnoses Radiculopathy of lumbosacral region Procedures TRANSFORAMINAL INJECTION Kennedy Dooley MD [facility] [place] [address] Referral ID Status Reason Start Date Expiration Date V isits Requested Visits Authorized [id number] Consult, Test & Treat 09/16/2017 09/16/2018 1 1 Reason for Visit * Reason Comments Back Pain * Surgical (Routine) - Specialty Diagnoses / Procedures Referred By Contac t Referred To Contact Pain Management Diagnoses Bilateral L5 Diagnostic Selective Nerve Root Block (60 minutes per [facility]) Procedures PRO INJ, FORAMEN, L/S, 1 LEVEL PROCEDURE 1 Micha Bhatt MD [facility] [place] [address] Kennedy Dooley MD [facility] [place] [address] Referral ID Status Reason Start Date Expiration Date V isits Requested Visits Authorized [id number] 09/15/2017 09/15/2018 1 1 Encounter Details Date Type Department Care Team (Latest Contact Info) Description 09/15/2017 3:00 PM EST Procedure [place] [address] Kennedy Dooley MD [facility] [place] [address] Radiculopathy of lumbosacral region (Primary Dx) Social History Tobacco Use Types [...] Sign Reading Time Taken Comments Blood Pressure 129/72 09/15/2017 4:33 PM EST Pulse 75 09/15/2017 4:33 PM EST Temperature - - Respiratory Rate - - Oxygen Saturation 100% 09/15/2017 4:33 PM EST Inhaled Oxygen Concentration - - Weight 62.1 kg (137 lb) 09/15/2017 3:50 PM EST Height 160 cm (5' 3) 09/15/2017 3:50 PM EST Body Mass Index 24.27 09/15/2017 3:50 PM EST documented in this encounter Patient Instructions * Patient Instructions* Sally Ghosh RN - 09/15/2017 3:00 PM EST Pain Management Center Discharge Instructions: You were seen by Dr. Kennedy Dooley MD who performed Bilateral L5 Selective Nerve Root Block. It is normal that the injection site will be sore for up to 48 hours. You may also experience mild stiffness in the joint near the injection site. [x] You may resume your normal activities: tomorrow. You may shower today. DO NOT tub bathe, use whirlpools, hot tubs or pool therapy for 2 days. RemoveBand-Aid(s) later today/tomorrow. Do not drive until tomorrow. Use caution walking/climbing stairs as you may be unsteady on your feet. You may use your usual medications, including pain medications, as directed, unless otherwise instructed. You may use an ice pack as needed for the first 24 hours, on for 20 minutes then off for 20 minutes. Do not apply heat today. Attempt to empty your bladder 4-6 hours after your procedure. You received the following medications: Omnipaque (contrast dye) and Bupivacaine. During regular business hours, please phone the Pain Management Center at with any questions or if the following or other troubling symptoms develop: 1) Prolonged dizziness or weakness (more than 1 day). 2) Localized swelling, redness or drainage at the injection site(s). 3) Temperature of 101 degrees that lasts for more than 4 hours. After 5 PM or on weekends, call and ask for Pain Clinic provider on-call. If you are unable to reach the Pain Management Center and have a complication, please call your Primary Care Provider or proceed to your local emergency department. Sally Ghosh RN Special instructions documented in this encounter Progress Notes * Sally Ghosh RN - 09/15/2017 3:00 PM EST Pre-Procedure Screening Questions: 1. Status: No 2. Patient states they have a courtesy driver to transport after procedure? Yes 3. Patient taking antibiotics at present? No 4. NPO per Pain Management Center protocol? No 5. Patient diabetic: No Patient routinely taking anticoagulants ? No Patient Vital Signs documented in Doc Flowsheets associated with this encounter. Patient Discharge Instructions were reviewed with patient and copy provided to patient. * Kennedy Dooley MD - 09/15/2017 3:00 PM EST PREPROCEDURE HISTORY AND PHYSICAL Date of Visit: September 16, 2017 Ms. Browning presents for bilateral L5 selective nerve root block Chief Complaint: Low back pain and bilateral radicular leg pain HPI: Subjective Linda L Nam is a 67 y.o. female who presents today for bilateral L5 selective nerve root block with a diagnosis of 1. Radiculopathy of lumbosacral region with symptoms of low back pain and bilateral radicular leg pain The history is obtained from the patient, and I have reviewed medical records provided by the referring physician and located in the electronic medical record to fill in gaps in the patient's recollection of events, treatments and outcomes. LOCATION: Low back pain, bilateral radicular leg pain PAIN LEVEL AT REST 02/05 PAST MEDICAL HISTORY: Past Medical History: Diagnosis Date ??? Lumbar degenerative disc disease ??? Radiculopathy of lumbosacral region ??? Spondylolisthesis at L5-S1 level PAST SURGICAL HISTORY: No past surgical history on file. ALLERGIES: Unable to find [unclassified drug] MEDICATIONS: Medications 09/15/17 0313 Medication Sig Taking? diphenhydrAMINE (BENADRYL) 25 mg Capsule Take 25 mg by mouth as needed for Itching. Yes METRONIDAZOLE (METROCREAM TOP) Apply topically. Uses this three times per week on her face Yes LYRICA 25 mg Capsule Yes HYDROcodone-acetaminophen (NORCO) 5-325 mg Tablet take 1 tablet by mouth every 6 hours if needed for DENTAL PAIN Yes amitriptyline (ELAVIL) 10 mg Tablet take 1 tablet by mouth at bedtime Yes magnesium 250 mg Tablet Take by mouth every other day. Yes multivitamin (THERAGRAN) Tablet Take 1 tablet by mouth daily. Yes acetaminophen (TYLENOL) 500 mg Tablet Take 1,000 mg by mouth 2 times daily. Yes CALCIUM CARBONATE/VITAMIN D3 (CALCIUM 600 + D,3, ORAL) Take 1 tablet by mouth daily. Yes albuterol (PROVENTIL HFA;VENTOLIN HFA) 90 mcg/Actuation inhaler Yes FAMILY HISTORY: No family history on file. SOCIAL HISTORY: Social History Social History ??? Marital status: Spouse name: N/A ??? Number of children: N/A ??? Years of education: N/A Occupational History ??? Not on file. Social History Main Topics ??? Smoking status: Never Smoker ??? Smokeless tobacco: Never Used ??? Alcohol use No ??? Drug use: No ??? Sexual activity: Not on file Other Topics Concern ??? Not on file Social History Narrative ROS: Review of Systems Constitutional: Positive for activity change. Negative for appetite change. Respiratory: Negative for choking, chest tightness and shortness of breath. Cardiovascular: Negative for chest pain. Musculoskeletal: Positive for back pain. Psychiatric/Behavioral: Negative for agitation and behavioral problems. PHYSICAL EXAM: BP 129/72 Pulse 75 Ht 160 cm (5' 3) Wt 62.1 kg (137 lb) SpO2 100% BMI 24.27 kg/m2 Physical Exam Constitutional: She appears well-developed and well-nourished. No distress. Cardiovascular: Intact radial pulses. Pulmonary/Chest: Effort normal and breath sounds normal. Skin: She is not diaphoretic. ASSESSMENT: Assessment 1. Radiculopathy of lumbosacral region PLAN: Bilateral L5 selective nerve root block Thank you for the opportunity to participate in Linda Browning's care. Please feel free to contact me with any questions. Sincerely, Kennedy Dooley MD [employer] ACGME Board Certified Pain ManagemenSpecialist [address] [address] / [facility] documented in this encounter Procedure Notes * Kennedy Dooley MD - 09/15/2017 3:00 PM ESTAssociated Order(s): TRANSFORAMINAL INJECTION Procedure(s): TRANSFORAMINAL INJECTION Pre-Procedure Diagnose(s): Radiculopathy of lumbosacral region Bilateral L5 selective nerve root block Injection Date of Service: 09/15/2017 Patient: Linda Browning Provider: Kennedy Dooley MD Linda Browning has been referred to the Pain Management Center for transforaminal epidural steroid injection. Ms. Browning was interviewed and the medical record reviewed. There were no medical, pharmacologic, radiographic or other structural contraindications to attempting fluoroscopically guided bilateral L5 selective nerve root block injection. Risks and expected side effects as well as potential benefitof the procedure were reviewed with Ms. Browning, and her voiced concerns were addressed. The printed consent form was signed and witnessed. The risks and benefits were reviewed with the patient including but not limited to weakness, numbness, headache, infection, nerve injury, allergic reaction, possible increase in symptoms over the ensuing 24 to 48 hours, paralysis. The patient appeared to understand, questions were answered and the patient agreed to proceed. Standard time-out procedure was performed. Linda Browning was greeted by the nurse who verified patients name and . Patient was then taken to the fluoroscopy suite. TECHNIQUE: After informed written consent was obtained the patient was placed in the prone position. The lumbar spine was prepped with chloraprep and draped. Sterile technique was used ( glove, mask were worn). Vitals signs were monitored, time out was done and the sidedness of the procedure was marked. The skin and subcutaneous structures were anesthetized with lidocaine 2% to a total volume of 5 ML at each level where the procedure was to be performed. Under fluoroscopic guidance, in ipsilateral oblique view, co-axial approach, 22 gauge spinal needlewas advanced to the superior-lateral aspect of the superior articular process of the left L5 facet joint. The needle were advanced to the medial-anterior aspect of the left L5 neural foramen under lateral view. Oblique and AP views were rechecked. Under AP view Omnipaque 240 0.5 cc's was injected. There was no evidence of intravascular uptake, the left L5 nerve root was delineated. Bupivacaine 0.5% 0.5 mL mg was injected after negative aspiration. Outcome: The patient tolerated the procedure well and had stable vital signs. The patient noted immediately following the selective nerve root block of left L5 that her left-sided low back pain and left radicular leg pain level was 0 out of 10. Preprocedure pain level was at 6 out of 10. Using the same methodology and technique a selective nerve root block was then performed of the right L5 nerve root. Outcome: The patient tolerated the procedure well and had stable vital signs. The patient noted immediate relief following selective nerve root block of the right L5 nerve root that her right-sided low back pain was 1/10 which is down from a preprocedure level of 6/10. Within 10 minutes following procedure upon exiting the facility she noted that her right-sided low back pain had returned to baseline which likely represents limited efficacy secondary to the technical challenges involved in the procedure secondary to grade 2 spondylolisthesis of L5 on S1. Follow up plans and appointments were discussed with Linda Browning. The patient was observed in the pain clinic and then discharged after having met discharge criteria to the care of a courtesy driver. The patient received written instructions as documented in nursing records. CC: Niki Vyas MD @[email or web address]@ documented in this encounter Plan of Treatment Upcoming Encounters Date Type Department Care Team (Late st Contact Info) Description 09/18/2024 11:30 AM EST Office Visit Dermatology at [facility] [address] [place] [address] Tata Aldridge MD [facility] [place] [address] 05/09/2025 2:00 PM EDT Office Visit Dermatology at [facility] [address] [place] [address] Tata Aldridge MD [facility] [place] [address] documented as of this encounter Procedures Procedure Name Priority Date/Time Associated Diagnosis Comments TRANSFORAMINAL INJECTION Routine 09/16/2017 2:14 PM EST Radiculopathy of lumbosacral region documented in this encounter Results * TRANSFORAMINAL INJECTION (09/16/2017 2:14 PM EST) Narrative Kennedy Dooley MD - 09/16/2017 2:14 PM EST Kennedy Dooley MD ? 09/16/2017 ??2:14 PM Bilateral L5 selective nerve root block Injection Date of Service: ??09/15/2017 Patient: ??Linda Browning ?? Provider: ??Kennedy Dooley MD ?? Linda Browning has been referred to the Pain Management Center for transforaminal epidural steroid injection. ?? Ms. Browning was interviewed and the medical record reviewed. ?? There were no medical, pharmacologic, radiographic or other structural contraindications to attempting fluoroscopically guided bilateral L5 selective nerve root block injection. ??Risks and expected side effects as well as potential benefit of the procedure were reviewed with Ms. Browning, and her voiced concerns were addressed. ??The printed consent form was signed and witnessed. The risks and benefits were reviewed with the patient including but not limited to weakness, numbness, headache, infection, nerve injury, allergic reaction, possible increase in symptoms over the ensuing 24 to 48 hours, paralysis. ??The patient appeared to understand, ??questions were answered and the patient agreed to proceed. Standard time-out procedure was performed. Linda Browning was greeted by the nurse who verified patients name and . ??Patient was then taken to the fluoroscopy suite. TECHNIQUE: ??After informed written consent was obtained the patient was placed in the prone position. ??The lumbar spine was prepped with chloraprep and draped. ??Sterile technique was used ( glove, mask were worn). Vitals signs were monitored, time out was done and the sidedness of the procedure was marked. ??The skin and subcutaneous structures were anesthetized with lidocaine 2% to a total volume of 5 ??ML at each level where the procedure was to be performed. Under fluoroscopic guidance, in ipsilateral oblique view, co-axial approach, ??22 gauge spinal needle was advanced to the superior-lateral aspect of the superior articular process of the left L5 facet joint. ??The needle were advanced to the medial-anterior aspect of the left L5 neural foramen under lateral view. ??Oblique and AP views were rechecked. ?? Under AP view Omnipaque 240 ??0.5 cc's was injected. ?? There was no evidence of intravascular uptake, the left L5 nerve root was delineated. ??Bupivacaine 0.5% 0.5 mL mg was injected after negative aspiration. Outcome: The patient tolerated the procedure well and had stable vital signs. The patient noted immediately following the selective nerve root block of left L5 that her left-sided low back pain and left radicular leg pain level was 0 out of 10. ?? Preprocedure pain level was at 6 out of 10. Using the same methodology and technique a selective nerve root block was then performed of the right L5 nerve root. Outcome: The patient tolerated the procedure well and had stable vital signs. The patient noted immediate relief following selective nerve root block of the right L5 nerve root that her right-sided low back pain was 1/10 which is down from a preprocedure level of 6/10. Within 10 minutes following procedure upon exiting the facility she noted that her right-sided low back pain had returned to baseline which likely represents limited efficacy secondary to the technical challenges involved in the procedure secondary to grade 2 spondylolisthesis of L5 on S1. Follow up plans and appointments were discussed with Linda Browning. The patient was observed in the pain clinic and then discharged after having met discharge criteria ??to the care of a courtesy driver. ??The patient received written instructions as documented in nursing records. ?? CC: Niki Vyas MD @[email or web address]@ Kennedy Dooley MD PROCEDURE/MINOR SURG ICAL ORDERABLES documented in this encounter Visit Diagnoses Diagnosis Radiculopathy of lumbosacral region- Primary Thoracic or lumbosacral neuritis or radiculitis, unspecified documented in this encounter Administered Medications Inactive Administered Medications - up to 3 most recent administrations Medication Order MAR Action Action Date Dose Rate Site BUpivacaine (PF) (MARCAINE) 0.5 % (5 mg/mL) injection 5 mg 5 mg (1 mL), Subcutaneous, ONCE, 1 dose, On Tue09/16/17 at 1430, Routine Given 09/16/2017 2:30 PM EST 5 mg iohexol (OMNIPAQUE) 240 mg/mL solution 1 mL 1 mL, Epidural, ONCE, 1 dose, On Tue09/16/17 at 1430, Wasted 49 ml, Routine Given 09/16/2017 2:30 PM EST 1 mL documented in this encounter Care Teams Metallurgical Laboratory Assistant Relationship Specialty Start Date End Date Niki Vyas MD [address] [place] [address] PCP - General 07/21/10 12/16/21 documented as of this encounter
--- OUTSIDE RECORDS SUMMARY | 2024-08-09 10:19 | XMS_ITS | Encounter Summary ---
[place] [address] Care Team Providers Care Cyber Forensic Specialist Name Role Phone Niki Vyas MD Primary Care Provider [phone] Reason for Visit * Reason Onset Date Comments Pre Procedure Call 09/13/2017 Encounter Details Date Type Department Care Team (Late st Contact Info) Description 09/13/2017 [place]phone [place] [phone] Linda Allison LNA Pre Procedure Call Social History Tobacco Use Types Packs/Day Years Used Date Smoking Tobacco: Never Smokeless Tobacco: Never Sex and Gender Information Value Date Recorded Sex Assigned at Not on file Gender Identity Not on file Sexual Orientation Not on file documented as of this encounter Miscellaneous Notes * Telephone Encounter - Linda Allison LNA - 09/13/2017 3:30 PM EST Linda Browning :1950 Contact made with patient: I spoke to Ms. Browning at 3:30 PM regarding her upcoming Bilateral Nerve Root block scheduled on 09/15/2017 (date) scheduled at 300 (time) with Dr. Kennedy Dooley MD. Medication and Allergy reconciliation: 1. Changes were made in the telephone encounter per patient; marked as reviewed, and closed. 2. Patient confirmed no IVP dye allergy. 3. Have you had any steroid injections anywhere in your body within the last two weeks? no Arrival time: The patient was instructed to arrive at 230 (30 minutes prior to procedure start time - 60 minutes prior for RF patients with a pacemaker) on 09/15/2017 (date of procedure). Flag Signalman: The patient was reminded that they need to have a driver examiner accompany them to her procedure who will [...] any diagnosed bleeding disorders: No Anticoagulants: No NSAIDs: Does the patient take Aspirin/ASA? No Does the patient take an NSAID? No Implant: Patient has pacemaker/defibrillator: No Prior to checking in at [employer], please be sure to empty your bladder. Patient confirmed understanding that if they do not follow the above their instructions, their procedure is likely to be cancelled. ALDO Rosa documented in this encounter Plan of Treatment Upcoming Encounters Date Type Department Care Team (Late st Contact Info) Description 09/18/2024 11:30 AM EST Office Visit Dermatology at [address] [address] Tata Aldridge MD [facility] [place] [address] 05/09/2025 2:00 PM EDT Office Visit Dermatology at [facility] [address] [place] [address] Tata Aldridge MD [facility] [place] [address] documented as of this encounter Visit Diagnoses Not on filedocumented in this encounter Care Teams Cyber Forensic Specialist Relationship Specialty Start Date End Date Niki Vyas MD [address] [place] [address] PCP - General 07/21/10 12/16/21 documented as of this encounter
--- OUTSIDE RECORDS SUMMARY | 2024-08-09 10:19 | XMS_ITS | Encounter Summary ---
Author Organization [facility] Address [facility] [place] [address] Care Team Providers Care Manager Fine Dining Name Role Phone Niki Vyas MD Primary Care Provider [phone] Encounter Details Date Type Department Care Team (Latest Contact Info) Description 06/02/2017 - 06/02/2017 11:59 PM EDT Hospital Encounter Radiology Library at [facility] [place] [id number] Tracy Johnson MD [facility] [place] [address] Discharge Disposition: Home Social History Tobacco Use [...] AM EST Office Visit Dermatology at [facility] [address] [place] [address] Tata Aldridge MD [facility] [place] [address] 05/09/2025 2:00 PM EDT Office Visit Dermatology at [facility] [address] [place] [address] Tata Aldridge MD [facility] [place] [address] documented as of this encounter Procedures Procedure Name Priority Date/Time Associated Diagnosis Comments FILM LIBRARY STORAGE ONLY DX SPINE Routine 06/02/2017 12:00 AM EDT documented in this encounter Results * Film Library- Storage Only DX Spine (06/02/2017 12:00 AM EDT) Narrative [facility] - 01/22/2018 10:29 AM EDT This exam is for storage only and is auto-finalizing. Tracy Johnson MD IMG FILM LIBRARY O RDERABLES [place], [place] documented in this encounter Visit Diagnoses Not on filedocumented in this encounter Care Teams Manager Fine Dining Relationship Specialty Start Date End Date Niki Vyas MD [address] [place] [address] PCP - General 07/21/10 12/16/21 documented as of this encounter
--- OUTSIDE RECORDS SUMMARY | 2024-08-09 10:19 | XMS_ITS | Encounter Summary ---
Author Organization [facility] Address [facility] [place] [address] Care Team Providers Care Bushler Name Role Phone Niki Vyas MD Primary Care Provider [phone] Encounter Details Date Type Department Care Team (Latest Contact Info) Description 01/07/2017 - 01/07/2017 11:59 PM EDT Hospital Encounter Radiology Library at [facility] [place] [phone] Tracy Johnson MD [facility] [place] [address] Discharge Disposition: Home Social History Tobacco Use [...] Inhale into the lungs as needed. 04/14/2004 naproxen sodium (ANAPROX) 220 mg Tablet Take 220 mg by mouth 2 times daily (with meals). 09/15/2017 CALCIUM CARBONATE/VITAMIN D3 (CALCIUM 600 + D,3, ORAL) Take 1 tablet by mouth daily. 02/03/2018 documented as of this encounter Plan of Treatment Upcoming Encounters Date Type Department Care Team (Late st Contact Info) Description 09/18/2024 11:30 AM EST Office Visit Dermatology at [facility] [address] [place] [address] Tata Aldridge MD [facility] [place] [address] 05/09/2025 2:00 PM EDT Office Visit Dermatology at [place] [facility] [address] [place] [address] Tata Aldridge MD [facility] [place] [address] documented as of this encounter Procedures Procedure Name Priority Date/Time Associated Diagnosis Comments FILM LIBRARY STORAGE ONLY DX SPINE Routine 01/07/2017 12:00 AM EDT documented in this encounter Results * Film Library- Storage Only DX Spine (01/07/2017 12:00 AM EDT) Narrative [facility] - 01/22/2018 10:31 AM EDT This exam is for storage only and is auto-finalizing. Tracy Johnson MD IMG FILM LIBRARY O RDERABLES [place], [place] documented in this encounter Visit Diagnoses Not on filedocumented in this encounter Care Teams Bushler Relationship Specialty Start Date End Date Niki Vyas MD [address] [place] [address] PCP - General 07/21/10 12/16/21 documented as of this encounter
--- OUTSIDE RECORDS SUMMARY | 2024-08-09 10:19 | XMS_ITS | Encounter Summary ---
[place] [address] Care Team Providers Care Narrow Gauge Operator Name Role Phone Niki Vyas MD Primary Care Provider [phone] Reason for Referral * Diagnostic Test (Routine) - Closed Specialty Diagnoses / Procedures Referred By Contac t Referred To Contact Radiology Diagnoses 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 Procedures CT Lumbar Spine wo Contrast (Generic) Trey Santos MD [facility] [place] [address] [facility] [place] [address] Referral ID Status Reason Start Date Expiration Date V isits Requested Visits Authorized [id number] Closed Specialty Service Requested 08/09/2017 08/09/2018 1 1 Reason for Visit * Reason Comments Low Back Pain Encounter Details Date Type Department Care Team (Latest Contact Info) Description 08/09/2017 11:20 AM EST Office [place] [address] Trey Santos MD [facility] [place] [address] 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 Social History Tobacco Use Types Packs/Day Years Used Date Smoking Tobacco: Never Smokeless Tobacco: Never Sex and Gender Information Value Date Recorded Sex Assigned at Not on file Gender Identity Not on file Sexual Orientation Not on file documented as of this encounter Progress Notes * Blaise Rivero - 08/09/2017 11:20 AM EST Orthopaedic Office Note Attending: Dr. Santos Linda Browning is a 67 y.o. female who presents to see us in consultation today at the request of Kennedy Dooley MD [facility] [place] [address] for Low back pain. History of Present Illness: Linda Browning is a 67 y.o. female who comes in today complaining of low back pain. She states that she has had a low back pain for the past year but it has been getting significantly worse. Her biggest problem spasming. She rarely gets leg pain. She has been quite organized with her medical care and comes in with a list of the treatments that she has had. Pain is limiting her to walking less than half a mile, the pain is worse with activity, better with rest, icing,sitting. She also notes that the pain is better when leaning forward such as pushing her bike up a hill, or using a grocery cart in the store. She has no night pain. She has no gait or balance problems, no fine motor control problems, no fevers, chills, weight loss, bowel or bladder changes. She reports no numbness. She reports no weakness. Past treatments have included NSAIDs which have provided some relief. She is also tried cyclobenzaprine which also give some relief. She has not tolerated gabapentin or Lyrica due to adverse side effects. She does pool therapy 6-7 times per week for up to 45 minutes per day. She has had a medial branch block which helped for 1 day and an epidural steroid injection on 07/27/2017 provided a few hours of relief. She has never had spine surgery. Past medical history history is significant for asthma as a child. She has never had a heart attack, CVA, DVT, PE. She does not smoke or drink. 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 Past Medical History: Patient Active Problem List Diagnosis Code ??? Sebaceous hyperplasia L73.8 ??? Seborrheic keratosis L82.1 ??? 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 M43.19 ??? History of basal cell carcinoma Z85.828 Past Surgical History: No past surgical history on file. No Known Allergies Social History: Social History Social History ??? Marital status: Spouse name: N/A ??? Number of children: N/A ??? Years of education: N/A Occupational History ??? Not on file. Social History Main Topics ??? Smoking status: Never Smoker ??? Smokeless tobacco: Never Used ??? Alcohol use Not on file ??? Drug use: Not on file ??? Sexual activity: Not on file Other Topics Concern ??? Not on file Social History Narrative Review of Systems: As above, otherwise negative Objective: GENERAL: Well appearing, NAD, awake, alert, appropriately answers questions Back: inspection of back is normal. no stepoff. No abrasons present. No eccyhmosis present. Nontender to palpation throughout spine Gait: she is able to toe walk and heel walk. Normal tandem gait. Motor: 5/5 strength in her LE bilaterally. Sensory: (to light touch and pin prick) Intact in C5-T1 dermatomes in bilateral upper extremities. Intact in L2-S1 dermatomes in bilateral lower extremities. Reflexes: R L Patellar 1/4 1/4 Ankle jerk 1/4 1/4 Plantar Downgoing Downgoing Clonus absent absent Special Tests: Straight-leg raise negative . Contra-lateral straight leg raise negative. Vascular: 2+ DP pulses good Imaging: XR dated 06/30/2017 demonstrate pars defects at L5 with Grade 2 spondylolisthesis of L5 on S1. MRI dated 11/30/2016 demonstrates L5-S1 spondylolisthesis with foraminal narrowing. Images personally reviewed with Dr. Santos. Assessment/Plan: 67 y.o. female who presents with primarily back pain in the setting of L5-S1 spondylolisthesis. She has failed prior treatments including medications, PT, medial branch blocks, epidural steroid injections, acupuncture, chiropractor care up until this point. Her walking tolerance isextremely limited. We would like to get a CT of her lumbar spine to further evaluate the bony anatomy at the L5-S1 level. We also will speak with the pain team regarding an L5-S1 epidural steroid injection as the prior one was done at the L4-L5 level. She was seen alongside Dr. Santos who was in agreement with this plan. BLAISE RIVERO MD PGY4 Orthopaedic Surgery * Trey Santos MD - 08/09/2017 11:20 AM EST Images from the original note were not included. Spine Center @ [facility] Trey Santos MD, MS. Director Kennedy Dooley MD [facility] [place] [address] Niki Vyas MD [address] / [facility] [address] Dear Colleagues, I had the pleasure of seeing this patient at the [facility] for surgical evaluation. Chief complaint: Back pain. Unable to stand up and walk. Diagnosis: 1. Grade 2 lytic spinal listhesis L5-S1 with collapse and severe foraminal stenosis. 2. Diffuse lumbar spondylosis mild to moderate. 3. Back pain with buttock and limited leg pain worse with walking better with forward flexion and pushing. 4. Leg length discrepancy with pelvic obliquity. Duration of symptoms: Approximately 1 year. Prior treatments medial branch blocks acupuncture director of primary care will therapy land therapy. Imaging: MRI shows lytic spinal listhesis with the space collapse and foraminal stenosis. X-rays show similar findings. Physical examination: She remains neurologically intact her lower extremities. No focal weakness orspasticity. Pelvic obliquity for leg length discrepancy. Difficulty standing upright position. Summary and plan: This patient has significant symptoms with inability to stand erect. Walking tolerance is extremely low. She is able to read or write her bike without difficulty. She is flex forward and pushing she is significantly better. She is much more uncomfortable and arch position. To the extent that she walks down the stairs sideways. Request authorization for a CT of her lumbar spine. Like to talk to pain specialist and see whetheran L5-S1 epidural injection would help. She has not had that today. I believe the last injection was at L4-5. I will see her back she is going to try to stay in a forward flexed position while walking to see if this increases her comfort level. There is a consideration for anterior posterior fusion with limited goals. Patient was seen in conjunction with that Josefa chief resident on the spine service. Please see his clinical note for details. Sincerely, Trey Santos MD MS Vp [employer] And Planning - Orthopedic Spine Surgery / Spine Center Glass Technologist - Department of Orthopedic Surgery / [employer] Orthopedics Nurse - [facility] 08/09/2017 Spine Center Response Trends Patient-reported scores: myD-H [...] EST Office Visit Dermatology at [facility] [address] [place] [address] Tata Aldridge MD [facility] [place] [address] 05/09/2025 2:00 PM EDT Office Visit Dermatology at [facility] [address] [place] [address] Tata Aldridge MD [facility] [place] [address] documented as of this encounter Results * CT Lumbar Spine wo Contrast (Generic) (08/25/2017 8:10 AM EST) Anatomical Region Laterality Modality L-spine Computed Tomogra phy Impressions 08/25/2017 9:47 AM EST L5-S1 anterolisthesis with bilateral pars defects. Narrative 08/25/2017 9:47 AM EST EXAMINATION: CT LUMBAR SPINE WO CONTRAST (GENERIC) CLINICAL HISTORY: spondylolisthesis Lumber spine L5-S1 TECHNIQUE: CT of the lumbar spine performed without intravenous contrast. COMPARISON: Plain films 06/30/2017, MR 11/05/2016 FINDINGS: There is anterolisthesis of L5 on S1 with pars defects. There is bilateral L5-S1 foraminal narrowing. There is a chronic appearing fracture of the L5 lamina just to the right of the spinous process. There appears to be fusion between the L3, L4, and L5 spinous processes. There is complete loss of disc height at L5-S1 without contrast, and endplate sclerosis. There is loss of disc height throughout the lumbar spine with multilevel facet arthropathy. An ossified fragment contributes to left L1-L2 foraminal narrowing. There is no aggressive osseous destruction. Procedure Note Sami Cobos MD - 08/25/2017 EXAMINATION: CT LUMBAR SPINE WO CONTRAST (GENERIC) CLINICAL HISTORY: spondylolisthesis Lumber spine L5-S1 TECHNIQUE: CT of the lumbar spine performed without intravenouscontrast. COMPARISON: Plain films 06/30/2017, MR 11/05/2016 FINDINGS: There is anterolisthesis of L5 on S1 with pars defects. Thereis bilateral L5-S1 foraminal narrowing. There is a chronic appearing fracture of the L5 lamina just to the rightof the spinous process. There appears to be fusion between the L3, L4, and N8odetdcf processes. There is complete loss of disc height at L5-S1 withoutcontrast, and endplate sclerosis. There is loss of disc height throughout the lumbarspine with multilevel facet arthropathy. An ossified fragment contributes toleft L1-L2 foraminal narrowing. There is no aggressive osseous destruction. IMPRESSION L5-S1 anterolisthesis with bilateral pars defects. Trey Santos MD IMG CT ORDERABLES documented in this encounter Visit Diagnoses Diagnosis 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 Acquired spondylolisthesis 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 Acquired spondylolisthesis documented in this encounter Care Teams Narrow Gauge Operator Relationship Specialty Start Date End Date Niki Vyas MD [address] [place] [address] PCP - General 07/21/10 12/16/21 documented as of this encounter
--- OUTSIDE RECORDS SUMMARY | 2024-08-09 10:19 | XMS_ITS | Encounter Summary ---
Author Organization [facility] [place] [address] Care Team Providers Care Project Coach Name Role Phone Niki Vyas MD Primary Care Provider [phone] Reason for Visit * Reason Comments Skin Check annual Encounter Details Date Type Department Care Team (Late st Contact Info) Description 07/16/2016 3:45 PM EST Office Visit Dermatology at [address] [address] Steven Souza MD [address] [facility] [place] [address] Sebaceous hyperplasia; Seborrheic keratosis; Basal cell carcinoma Social History Tobacco Use Types Packs/Day Years Used Date Smoking Tobacco: Never Sex and Gender Information Value Date Recorded Sex Assigned at Not on file Gender Identity Not on file Sexual Orientation Not on file documented as of this encounter Progress Notes * Steven Souza MD - 07/16/2016 3:45 PM EST PROBLEM: Skin checkup. Linda follows up today for a 1-year skin checkup. She has been doing well. She still has some dry spots near the left medial canthus. Physical examination reveals a cluster of what appear to be small seborrheic keratoses, perhaps some sebaceous hyperplasia present as well, and an almost contiguous, 8 mm, slightly reddened, flattened patch. The rest of the facial examination is benign with moderate solar elastotic damage and several solar lentigos. On her back she has numerous seborrheic keratoses, but additionally she has erythematous, pearly papules in patches concerning for early BCCA versus SCCA. Site A, left upper back. Site B, right upper back. Site C, mid-central back. Otherwise, examination of the hands, forearms, the chest, the rest of the back, the thighs, the calves, the feet is benign. ASSESSMENT/PLAN: 1. Rule out SCCA versus BCCA, back. a. After obtaining informed consent, site A, left upper back, site B, right upper back, and site C, mid-central back, were all treated in the same fashion: Shave C and D x3 performed. After curettage, sites A and B measured 6 mm in diameter and after curettage site C measured 1.3 cm in diameter. Wound care instructions and supplies given. Recommended to see her again in another year for a repeat check. Will notify patient of biopsy results when these are available. Continue sun avoidance precautions. 2. Seborrheic keratoses, back. a. Patient reassured about benign seborrheic keratoses. CC: Niki Vyas MD documented in this encounter Plan of Treatment Upcoming Encounters Date Type Department Care Team (Late st Contact Info) Description 09/18/2024 11:30 AM EST Office Visit Dermatology at [facility] [address] [place] [address] Tata Aldridge MD [facility] [address] [place] [address] 05/09/2025 2:00 PM EDT Office Visit Dermatology [facility] [address] [place] [address] Tata Aldridge MD [facility] [address] [place] [address] documented as of this encounter Visit Diagnoses Diagnosis Sebaceous hyperplasia Other specified disease of sebaceous glands Seborrheic keratosis Other seborrheic keratosis Basal cell carcinoma Basal cell carcinoma of skin, site unspecified documented in this encounter Care Teams Project Coach Relationship Specialty Start Date End Date Niki Vyas MD [address] [place] [address] PCP - General 07/21/10 12/16/21 documented as of this encounter
--- OUTSIDE RECORDS SUMMARY | 2024-08-09 10:19 | XMS_ITS | Encounter Summary ---
Author Organization [facility] Address [facility] [place] [address] Care Team Providers Care Teasel Setter Name Role Phone Niki Vyas MD Primary Care Provider [phone] Encounter Details Date Type Department Care Team (Latest Contact Info) Description 05/03/2017 - 05/03/2017 11:59 PM EDT Hospital Encounter Radiology Library [place] [id number] Tracy Johnson MD [facility] [place] [address] Discharge Disposition: Home Social History Tobacco Use [...] Inhale into the lungs as needed. 04/14/2004 cyclobenzaprine (FLEXERIL) 10 mg Tablet take 1 [...] at [facility] [address] [place] [address] Tata Aldridge MD [facility] [place] [address] 05/09/2025 2:00 PM EDT Office Visit Dermatology at [facility] [address] [place] [address] Tata Aldridge MD [facility] [address] [place] [address] documented as of this encounter Procedures Procedure Name Priority Date/Time Associated Diagnosis Comments FILM LIBRARY STORAGE ONLY MR SPINE Routine 05/03/2017 12:00 AM EDT documented in this encounter Results * Film Library- Storage Only MR Spine (05/03/2017 12:00 AM EDT) Narrative [facility] - 01/22/2018 10:33 AM EDT This exam is for storage only and is auto-finalizing. Tracy Johnson MD IMG FILM LIBRARY O RDERABLES [place], [place] documented in this encounter Visit Diagnoses Not on filedocumented in this encounter Care Teams Teasel Setter Relationship Specialty Start Date End Date Niki Vyas MD [address] [place] [address] PCP - General 07/21/10 12/16/21 documented as of this encounter
--- OUTSIDE RECORDS SUMMARY | 2024-08-09 10:19 | XMS_ITS | Encounter Summary ---
[place] [address] Care Team Providers Care Hydroelectric Plant Mechanical Engineer Name Role Phone Niki Vyas MD Primary Care Provider [phone] Reason for Visit * Reason Onset Date Comments Pre Procedure Call 08/25/2017 Encounter Details Date Type Department Care Team (Late st Contact Info) Description 08/25/2017 Telephone [place] [phone] Taylor Tinajero LPN Pre Procedure Call Social History Tobacco Use Types Packs/Day Years Used Date Smoking Tobacco: Never Smokeless Tobacco: Never Sex and Gender Information Value Date Recorded Sex Assigned at Not on file Gender Identity Not on file Sexual Orientation Not on file documented as of this encounter Miscellaneous Notes * Telephone Encounter - Taylor Tinajero LPN - 08/25/2017 2:53 PM EST Met with pt today following the surgical evaluation, advised pt of need to hold anticoagulants, NSAIDs, ASA products, and FishOil for ~10 days preoperatively. Reviewed medication list. Patient is not noted to be on any anticoagulants Patient agreed to hold Naproxen as instructed. . Acute Opioid Prescribing: Opioid PDMP 08/25/2017 [place] PDMP Query Date 08/25/2017 Opioid Risk Assessment 08/25/2017 ORT Risk Assessment Low (0-3) Acute Opioid Specific Questions 08/25/2017 Date Acute Consent signed 08/25/2017 Considered the risk of opioid misuse, abuse, diversion? Yes Some recent data might be hidden Reviewed salient points within Acute Opioid Therapy Informed Consent with pt. Pt denies any questions or concerns. Offered pt a copy of consent for home reference. Signed Consent form passed to OR horticultural technical officer for scanning. Reviewed with pt the non opioid pain mgmt strategies that should be put in place both pre and postoperatively to minimize opioid use; strategies include: activity modification, regular Acetaminophen use, ice application for local analgesia, regular rest and relaxation. Explained that the non-opioid pain mgmt strategies noted above are the first line to assist with their postop pain; that the opioid pain medication that will be ordered is to be used to supplement the non-opioid methods. Advised pt that she is to take the least amt of opioid possible and the intentis to reduce use as the postoperative pain subsides. Explained that she should never exceed the prescribed amt without obtaining authorization from someone on the surgical care team. Explained that the goal is not to be pain free but rather have the postoperative pain manageable to allow for the the expected restricted activities. Copy of Spine Center Pre/Post-Operative Reference sheet provided to pt; reviewed the content, to include of prescription refill practices/timing with pt Reviewed postoperative expectations with pt, to include in general terms expectations r/t activity,restrictions, driving, work, disability paperwork, home support needs, FU appts. Linda has support at home for recovery. Pt verbalized understanding of the information reviewed.. Pt has Spine Center Nursing contact information; encouraged to call pre or postoperatively with any questions or concerns. documented in this encounter Plan of Treatment Upcoming Encounters Date Type Department Care Team (Late st Contact Info) Description 09/18/2024 11:30 AM EST Office Visit Dermatology at [facility] [address] [place] [address] Tata Aldridge MD [facility] [place] [address] 05/09/2025 2:00 PM EDT Office Visit Dermatology at [facility] [address] [place] [address] Tata Aldridge MD [facility] [place] [address] documented as of this encounter Visit Diagnoses Not on filedocumented in this encounter Care Teams Hydroelectric Plant Mechanical Engineer Relationship Specialty Start Date End Date Niki Vyas MD [address] [place] [address] PCP - General 07/21/10 12/16/21 documented as of this encounter
--- OUTSIDE RECORDS SUMMARY | 2024-08-09 10:19 | XMS_ITS | Encounter Summary ---
Author Organization [facility] [place] [address] Care Team Providers Care Nitriles Lab Technician Name Role Phone Niki Vyas MD Primary Care Provider [phone] Reason for Visit * Reason Comments Back Pain bilateral * Consultation (Routine) - Closed Specialty Diagnoses / Procedures Referred By Contac t Referred To Contact Pain Management Diagnoses 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 Procedures PRO INJ, PARAVERTEBRAL FACET JT W/IMAGE GUID, LUMBAR/SACRAL, SINGLE LEVEL PRO INJ, PARAVERTEBRAL FACET JT, W/IMAGE GUID, LUMBAR/SACRAL, SECOND LEVEL PRO INJ PARAVERTEBRAL FACET JT W/IMAGE GUID, LUMBAR/SACRAL, 3RD OR ADDL LEVEL Trey Mascorro, PATRICK [facility] [place] [address] [facility] [address] [place] [address] Referral ID Status Reason Start Date Expiration Date V isits Requested Visits Authorized [id number] Closed Consult, Test & Treat 02/28/2017 02/28/2018 1 1 Encounter Details Date Type Department Care Team (Latest Contact Info) Description 03/31/2017 7:30 AM EDT Procedure [place] [address] Kennedy Dooley MD [facility] [place] [address] Tremor of unknown origin Social History Tobacco Use Types Packs/Day Years Used Date Smoking Tobacco: Never Smokeless Tobacco: Never Sex and Gender Information Value Date Recorded Sex Assigned at Not on file Gender Identity Not on file Sexual Orientation Not on file documented as of this encounter Last Filed Vital Signs Vital Sign Reading Time Taken Comments Blood Pressure - - Pulse - - Temperature - - Respiratory Rate - - Oxygen Saturation - - Inhaled Oxygen Concentration - - Weight 61.2 kg (135 lb) 03/31/2017 7:16 AM EDT Height 160 cm (5' 3) 03/31/2017 7:16 AM EDT Body Mass Index 23.91 03/31/2017 7:16 AM EDT documented in this encounter Progress Notes * Ruthann Briscoe RN - 03/31/2017 7:30 AM EDT Pre-Procedure Screening Questions: 1. Status: No 2. Patient states they have a coach tour driver to transport after procedure? Yes 3. Patient taking antibiotics at present? No 4. NPO per [facility] protocol? No 5. Patient diabetic: No Patient routinely taking anticoagulants ? No Patient Vital Signs documented in Doc Flowsheets associated with this encounter. Patient Discharge Instructions were reviewed with patient and copy provided to patient. PROCEDURE CANCELLED PATIENT NOT HAVING ANY PAIN. * Kennedy Dooley MD - 03/31/2017 7:30 AM EDT Patient was not experiencing significant low back pain this morning and her procedure was cancelled. She demonstrated bilateral upper and lower limb tremor and spasm of thoracic and lumbar paraspinalmusculature however and revealed this was subacute in onset since May 2016. Accordingly, I will consult neurology to have the etiology of these new symptoms worked up. Kennedy Dooley MD [facility] Board Certified Media Production Manager documented in this encounter Plan of Treatment Upcoming Encounters Date Type Department Care Team (Late st Contact Info) Description 09/18/2024 11:30 AM EST Office Visit Dermatology at [address] [place] [address] Tata Aldridge MD [facility] [place] [address] 05/09/2025 2:00 PM EDT Office Visit Dermatology at [facility] [address] [place] [address] Tata Aldridge MD [facility] [place] [address] documented as of this encounter Procedures Procedure Name Priority Date/Time Associated Diagnosis Comments AMB REFERRAL TO PAIN CLINIC Routine 03/31/2017 7:52 AM EDT 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 documented in this encounter Visit Diagnoses Diagnosis Tremor of unknown origin Abnormal involuntary movements documented in this encounter Care Teams Nitriles Lab Technician Relationship Specialty Start Date End Date Niki Vyas MD [address] [place] [address] PCP - General 07/21/10 12/16/21 documented as of this encounter
--- OUTSIDE RECORDS SUMMARY | 2024-08-09 10:19 | XMS_ITS | Encounter Summary ---
Author Organization [facility] [place] [address] Care Team Providers Care Barrel Rifler Broach Name Role Phone iNki Vyas MD Primary Care Provider [phone] Reason for Referral * Consultation (Routine) - Closed Specialty Diagnoses / Procedures Referred By Contmargarette t Referred To Contact Pain Management Diagnoses 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 Procedures PRO INJ, PARAVERTEBRAL FACET JT W/IMAGE GUID, LUMBAR/SACRAL, SINGLE LEVEL PRO INJ, PARAVERTEBRAL FACET JT, W/IMAGE GUID, LUMBAR/SACRAL, SECOND LEVEL PRO INJ PARAVERTEBRAL FACET JT W/IMAGE GUID, LUMBAR/SACRAL, 3RD OR ADDL LEVEL Trey Mascorro APRN [facility] [place] [address] [facility] [address] [place] [address] Referral ID Status Reason Start Date Expiration Date V isits Requested Visits Authorized [id number] Closed Consult, Test & Treat 02/28/2017 02/28/2018 1 1 Encounter Details Date Type Department Care Team (Late st Contact Info) Description 02/28/2017 Telephone Spine Center at [facility] [place] [address] Trey Mascorro APRN [facility] [place] [address] Social History Tobacco Use Types Packs/Day Years Used Date Smoking Tobacco: Never Smokeless Tobacco: Never Sex and Gender Information Value Date Recorded Sex Assigned at Not on file Gender Identity Not on file Sexual Orientation Not on file documented as of this encounter Miscellaneous Notes * Telephone Encounter - Trey Mascorro APRN - 02/28/2017 1:58 PM EDT Returned patient's call. She states she feels ready to attempt injections for pain relief. Her painis primarily aggravated by walking and she has to radicular symptoms. On previous physical exam keyack pain was not aggravated by either flexion or extension. I discussed with her the potential for MBB to be helpful if her pain has a facet or pars etiology. I explained that the first step is a test and should that significantly relieve her back pain then RFA could be performed. Referral to Pain clinic for MBB and possible RFA. documented in this encounter Plan of Treatment Upcoming Encounters Date Type Department Care Team (Late st Contact Info) Description 09/18/2024 11:30 AM EST Office Visit Dermatology at [facility] [address] [place] [address] Tata Aldridge MD [facility] [place] [address] 05/09/2025 2:00 PM EDT Office Visit Dermatology [facility] [address] [place] [address] Tata Aldridge MD [facility] [place] [address] documented as of this encounter Procedures Procedure Name Priority Date/Time Associated Diagnosis Comments AMB REFERRAL TO PAIN CLINIC Routine 03/31/2017 7:52 AM EDT 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 documented in this encounter Results * Referral to Pain Clinic (03/31/2017 7:52 AM EDT) Trey Mascorro APRN OUTPATIENT REFERR AL ORDERABLES documented in this encounter Visit Diagnoses Diagnosis 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 Acquired spondylolisthesis documented in this encounter Care Teams Barrel Rifler Broach Relationship Specialty Start Date End Date Niki Vyas MD [address] [place] [address] PCP - General 07/21/10 12/16/21 documented as of this encounter
--- OUTSIDE RECORDS SUMMARY | 2024-08-09 10:19 | XMS_ITS | Encounter Summary ---
[place] [address] Care Team Providers Care Couture Alterations Dressmaker Name Role Phone Niki Vyas MD Primary Care Provider [phone] Reason for Visit * Reason Comments Low Back Pain bilateral buttock pa in Bilateral Hip Pain Encounter Details Date Type Department Care Team (Latest Contact Info) Description 12/07/2016 10:30 AM EDT Office [place] [address] Trey Mascorro, [place] [address] 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 Social History Tobacco Use Types Packs/Day Years Used Date Smoking Tobacco: Never Smokeless Tobacco: Never Sex and Gender Information Value Date Recorded Sex Assigned at Not on file Gender Identity Not on file Sexual Orientation Not on file documented as of this encounter Progress Notes * Trey Mascorro APRN - 12/07/2016 10:30 AM EDT CLARIFICATION NEEDED: BLANK SUBJECTIVE: Linda Browning is a 66-year-old female who returns today in followup to an encounter with me on 11/23/2016. She states that her back pain has been slightly improved since the last I saw her. In the intervening 2 weeks, she has had 2 sessions of physical therapy with a librarian specialist therapist and she has been endeavoring to walk more. In addition, she was trialing the naproxen, as I suggested at last visit, and found that it was upsetting her GI tract so she reduced the dosage slightly, but has continued to find the naproxen helpful. She returns today in followup. OBJECTIVE: Lumbar spine MRI of 11/05/2016 is again reviewed. She has degenerative changes throughout the lumbar spine and there is a grade 1 spondylolisthesis at L5-S1 with severe bilateral neural foraminal stenosis. She continues to have back pain that has been quite limiting to her. 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 She has also had some benefit from the naproxen and she has been realizing benefit by ambulating with trekking poles. After discussing the potential benefits of injections and the potential for continued improvement with her current regime, the patient states a preference to continue these conservative treatments and follow up with me later in the month, as is already scheduled. She also asked about the potential for acupuncture to be helpful, to which I advised her that there is some research evidence as to its potential benefit, and so she stated intention to pursue that. Twenty five of this 30 minute encounter were spent in face to face counseling, as described above. PLAN: 1. Patient will continue with the conservative treatment plan, as previously described. 2. Follow up with me as previously scheduled in 3 weeks. documented in this encounter Plan of Treatment Upcoming Encounters Date Type Department Care Team (Late st Contact Info) Description 09/18/2024 11:30 AM EST Office Visit Dermatology at [facility] [address] [place] [address] Tata Aldridge MD [facility] [place] [address] 05/09/2025 2:00 PM EDT Office Visit Dermatology at [facility] [address] [place] [address] Tata Aldridge MD [facility] [place] [address] documented as of this encounter Visit Diagnoses Diagnosis 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 Acquired spondylolisthesis documented in this encounter Care Teams Couture Alterations Dressmaker Relationship Specialty Start Date End Date Niki Vyas MD [address] [place] [address] PCP - General 07/21/10 12/16/21 documented as of this encounter
--- OUTSIDE RECORDS SUMMARY | 2024-08-09 10:19 | XMS_ITS | Encounter Summary ---
[place] [address] Care Team Providers Care Entry Operator Name Role Phone Niki Vyas MD Primary Care Provider [phone] Encounter Details Date Type Department Care Team (Late st Contact Info) Description 03/30/2017 Telephone [place] [address] Medina Willoughby LNA Social History Tobacco Use Types Packs/Day Years Used Date Smoking Tobacco: Never Smokeless Tobacco: Never Sex and Gender Information Value Date Recorded Sex Assigned at Not on file Gender Identity Not on file Sexual Orientation Not on file documented as of this encounter Miscellaneous Notes * Telephone Encounter - Medina Willoughby LNA - 03/30/2017 8:42 AM EDT Linda Browning :1950 Medication and Allergy reconciliation: 1. Changes were made in the telephone encounter per patient; marked as reviewed, and closed. 2. Patient confirmed no IVP dye allergy. 3. Have you had any steroid injections anywhere in your body within the last two weeks? no Arrival time: The patient was instructed to arrive at 7:00 (30 minutes prior to procedure start time) Assistant To The Vice President: The patient was reminded that they need to have a tow truck driver accompany them to her procedure who [...] No Prior to checking in at 3D Facility Security Officer, please be sure to empty your bladder. Patient confirmed understanding that if they do not follow the above their instructions, their procedure is likely to be cancelled. @MES@ documented in this encounter Plan of Treatment Upcoming Encounters Date Type Department Care Team (Late st Contact Info) Description 09/18/2024 11:30 AM EST Office Visit Dermatology at [facility] [address] [place] [address] Tata Aldridge MD [facility] [place] [address] 05/09/2025 2:00 PM EDT Office Visit Dermatology at [facility] [address] [place] [address] Tata Aldridge MD [facility] [place] [address] documented as of this encounter Visit Diagnoses Not on filedocumented in this encounter Care Teams Entry Operator Relationship Specialty Start Date End Date Niki Vyas MD [address] [place] [address] PCP - General 07/21/10 12/16/21 documented as of this encounter
--- OUTSIDE RECORDS SUMMARY | 2024-08-09 10:19 | XMS_ITS | Encounter Summary ---
Author Organization [facility] [place] [address] Care Team Providers Care Lead Application Architect Name Role Phone Niki Vyas MD Primary Care Provider [phone] Reason for Referral * Consultation (Routine) - Closed Specialty Diagnoses / Procedures Referred By Contac t Referred To Contact Pain Management Diagnoses 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 Procedures PRO INJECTION DX/THER SBST INTRLMNR LMBR/SAC W/IMG JESSICAN Micha Bhatt MD [facility] [place] [address] [facility] [address] [place] [address] Referral ID Status Reason Start Date Expiration Date V isits Requested Visits Authorized [id number] Closed Consult, Test & Treat 06/30/2017 06/30/2018 1 1 Reason for Visit * Reason Comments Low Back Pain Encounter Details Date Type Department Care Team (Latest Contact Info) Description 06/30/2017 10:00 AM EDT Office [place] [address] Micha Bhatt MD [facility] [place] [place] [address] 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 Social History Tobacco Use Types Packs/Day Years Used Date Smoking Tobacco: Never Smokeless Tobacco: Never Sex and Gender Information Value Date Recorded Sex Assigned at Not on file Gender Identity Not on file Sexual Orientation Not on file documented as of this encounter Last Filed Vital Signs Vital Sign Reading Time Taken Comments Blood Pressure 124/78 06/30/2017 10:37 AM EDT Pulse - - Temperature - - Respiratory Rate - - Oxygen Saturation - - Inhaled Oxygen Concentration - - Weight 62.6 kg (138 lb) 06/30/2017 10:37 AM EDT Height 161.3 cm (5' 3.5) 06/30/2017 10:37 AM ED T Body Mass Index 24.06 06/30/2017 10:37 AM EDT documented in this encounter Progress Notes * Micha Bhatt MD - 06/30/2017 10:00 AM EDT Images from the original note were not included. Ms. Browning is a 67-year-old woman seen today [facility] for consultation from Trey Mascorro APRN. This woman is evaluated for about a year history of pain in the low back. She has paraspinal spasms. On very rare occasion, she gets a twinge of pain down her leg, but the leg pain is a minimal problem here. She has no distal pain, numbness, tingling, or weakness on average. Her back pain is at the lumbosacral junction and is exacerbated with walking even for several minutes. She uses crutches to ambulate. She has had a whole host of interventions including certified social workers in health care and previous types of physical therapy, medications, shoe lifts, and others all without overall improvement in her symptoms. She is comfortable at rest. She has no problems at night. Gait, balance, and fine motor control are normal. Review of systems is negative for GI, , or constitutional symptoms. She has had medial branch blocks without overall improvement as well. She is a retired teacher. She is accompanied by her . Height is 5 feet 4 inch, weight 138 pounds. Body mass index 24.06. Back pain over the past week rated as a 7. She reports being otherwise healthy. This is a very pleasant woman. She moves easily about the office for the first few steps and then stops and developed some back spasms which are improved with flexion positioning. She also notes that if she brings her hip up and flexes it up, her pain improves as well. On inspection from the back, she has level pelvis with straight spine all of which was nontender including her sciatic notch. Her distal motor exam is normal. Sensory function is intact to light touch. Her reflexes are 1 at the knees and ankles. Her straight-leg raise test is negative. Clonus and Babinski's are absent. Distal pulses are palpable. Lumbar MRI dated 11/05/16 from [facility] is reviewed demonstrating grade 1 to grade 2 isthmic lytic spondylolisthesis L5-S1 with varying degrees of foraminal narrowing. She also age-appropriate degenerative changes throughout her low back. X-rays obtained today include AP and lateral flexion/extension views. The flexion/extension x-rays are suboptimal in order to evaluate L5-S1. No unexpected findings are seen on the AP view. IMPRESSION: Symptomatic low back pain and the absence of radicular symptoms or neurogenic claudication symptoms. History and exam are suggestive of the lumbosacral junction as the etiology of her symptoms, particularly, with the spondylolisthesis as noted. She does note from our discussion today that there is a degree of uncertainty however as to the specific anatomic location of her pain and that any operative intervention might have less than full success potential. Given all that, we have agreed on the following: Referral to the Pain Clinic for a series of up to 3 lumbar epidural steroid injections. If this is not helpful, I would repeat her lumbar MRI as the current study is over 7 months old, and I would repeat lateral lumbosacral flexion/extension x-ray centered at L5-S1. She is in agreement with this plan. Spine Center Response Trends Patient-reported scores: myD-H [...] Score - 36.3 documented in this encounter H&P Notes * Sami Killian - 06/30/2017 10:00 AM EDT Orthopaedic Office Note Attending: Dr. Bhatt Linda Browning is a 67 y.o. female who presents to see us in consultation today at the request of Trey Mascorro APRN [facility] [place] [address] for back pain. History of Present Illness: Linda Browning is a right-hand dominant 67 y.o. female who comes in today complaining of back pain at the lumbosacral junction, which has been going on since last Juneand has gotten progressively worse. The pain rarely goes to the legs, with no numbness or weakness.Standing and walking makes her back pain worse. The pain does not worsen at night. No problems withbalance or gait. No bowel or bladder changes. and she has been treated with PT, water therapy, chiropractor, and acupuncture which have not helped. NSAIDs did not help her pain. She says that she sometimes feels better with changes in position, such as when she rides her bike. She has also had a medial branch block injection, which provided some relief. Past Medical History: Patient Active Problem List Diagnosis Code ??? Sebaceous hyperplasia L73.8 ??? Seborrheic keratosis L82.1 ??? 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 M43.19 Past Surgical History: None Social History: She is a retired teacher. She does not smoke, or drink. Review of Systems: As above, otherwise negative Objective: GENERAL: Well appearing, NAD, awake, alert, appropriately answers questions HEENT- Normocephalic, atraumatic CV- RRR checked peripherally PULM- No increased work of breathing Skin- Intact Psych- Nl mood and affect Extremity Exam- Normal gait, toe walk, and heel walk. No pain on palpation of her back. - Lower Extremity Exam: Reflexes diminished to 1+ bilaterally. Strength is 5/5 bilaterally. Imaging: MRI 11/05/2016 indicates degenerative changes in the lumbar spine and a grade 1 spondylolisthesis at L5-S1 with moderate to severe bilateral neuroforaminal stenosis at that level. XR today: Suboptimal to evaluate L5/S1. Assessment/Plan: 67 y.o. female who presents with chronic back pain, MRI showing Grade 1 L5/S1 spondylolisthesis refractory to multiple types of treatment, with some positional changes in pain, unrelieved with many types of treatment. We discussed with her the uncertainty of the location of her pain. Although it is atypical, her symptoms could be from compression of her spina cord from her spondylolisthesis, with some spinal stenosis (positional changes). We spoke to her regarding benefits and risks of L5/S1 fusion vs epidural steroid injections. She decided to start with steroid injections, and if this does not relieve the pain, she will consider L5/S1 fusion. -Referral to pain clinic for epidural steroid injection Sami Killian MS3 documented in this encounter Plan of Treatment Upcoming Encounters Date Type Department Care Team (Late st Contact Info) Description 09/18/2024 11:30 AM EST Office Visit Dermatology at [facility] [address] [place] [address] Tata Aldridge MD [facility] [place] [address] 05/09/2025 2:00 PM EDT Office Visit Dermatology at [facility] [address] [place] [address] Tata Aldridge MD [facility] [place] [address] Scheduled Referrals Name Type Priority Associated Diagnoses Orde r Schedule Referral to Pain Clinic Outpatient Referral Routine 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 Ordered: 06/30/2017 documented as of this encounter Visit Diagnoses Diagnosis 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 Acquired spondylolisthesis documented in this encounter Care Teams Lead Application Architect Relationship Specialty Start Date End Date Niki Vyas MD [address] [place] [address] PCP - General 07/21/10 12/16/21 documented as of this encounter
--- OUTSIDE RECORDS SUMMARY | 2024-08-09 10:19 | XMS_ITS | Encounter Summary ---
Author Organization [facility] Address [facility] [place] [address] Care Team Providers Care Director Sales Support Name Role Phone Niki Vyas MD Primary Care Provider [phone] Encounter Details Date Type Department Care Team (Latest Contact Info) Description 03/06/2017 - 03/06/2017 11:59 PM EDT Hospital Encounter Radiology Library at [facility] [place] [phone] Trey Santos MD [facility] [place] [address] Discharge Disposition: Home Social History Tobacco Use [...] 11:30 AM EST Office Visit Dermatology at [facility] [address] [place] [address] Tata Aldridge MD [facility] [place] [place] [address] 05/09/2025 2:00 PM EDT Office Visit Dermatology at [facility] [address] [place] [address] Tata Aldridge MD [facility] [place] [address] documented as of this encounter Procedures Procedure Name Priority Date/Time Associated Diagnosis Comments FILM LIBRARY STORAGE ONLY CT ABDOMEN AND PELVIS Routine 03/06/2017 12:00 AM EDT documented in this encounter Results * Film Library- Storage Only CT Abdomen & Pelvis (03/06/2017 12:00 AM EDT) Narrative [facility] - 01/25/2018 9:42 AM EDT This exam is for storage only and is auto-finalizing. Trey Santos MD IMG FILM LIBRARY ORD ERABLES [place], [place] documented in this encounter Visit Diagnoses Not on filedocumented in this encounter Care Teams Director Sales Support Relationship Specialty Start Date End Date Niki Vyas MD [address] [place] [address] PCP - General 07/21/10 12/16/21 documented as of this encounter
--- OUTSIDE RECORDS SUMMARY | 2024-08-09 10:19 | XMS_ITS | Encounter Summary ---
Author Organization [facility] Address [facility] [place] [address] Care Team Providers Care Lehr Cutter Name Role Phone Niki Vyas MD Primary Care Provider [phone] Encounter Details Date Type Department Care Team (Latest Contact Info) Description 06/30/2017 8:58 AM EDT - 06/30/2017 11:59 PM EDT Hospital Encounter XRay at [address] [place] [address] Trey Mascorro APRN [facility] [place] [address] 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 Discharge Disposition: Home Social History Tobacco Use [...] 11:30 AM EST Office Visit Dermatology at [facility] [address] [place] [address] Tata Aldridge MD [facility] [place] [address] 05/09/2025 2:00 PM EDT Office Visit Dermatology at [facility] [address] [place] [address] Tata Aldridge MD [facility] [place] [address] documented as of this encounter Procedures Procedure Name Priority Date/Time Associated Diagnosis Comments XR LUMBAR SPINE 2 OR 3 VIEWS Routine 06/30/2017 9:14 AM EDT 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 documented in this encounter Results * XR [...] less-well penetrated on flexion and extension lateral. [id number]-[id number] radiographs, no definite change in relative listhesis [...] less-well penetrated on flexion and extension lateral. Qmfky-ms-riii radiographs,no definite change in relative listhesis is seen. Pars interarticularisdefects appear present at L5. Minimal anterolisthesis of L2 relative to L1, L3 relative to L2 and D6wrmeibuw to L3, with mild to moderate intervertebral disc space narrowing. IMPRESSION Pars defects at L5. At least grade 2, possibly borderline grade 3, anterolisthesis of L5 relative to S1, but no definite dynamic instabilityseen. Trey Mascorro CONTRACTS LAW PROFESSOR IMG DX ORDERABLES documented in this encounter Visit Diagnoses Diagnosis 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 Acquired spondylolisthesis documented in this encounter Care Teams Lehr Cutter Relationship Specialty Start Date End Date Niki Vyas MD [address] [place] [address] PCP - General 07/21/10 12/16/21 documented as of this encounter
--- OUTSIDE RECORDS SUMMARY | 2024-08-09 10:19 | XMS_ITS | Encounter Summary ---
Author Organization [facility] [place] [address] Care Team Providers Care Pea Viner Mechanic Name Role Phone Niki Vyas MD Primary Care Provider [phone] Reason for Visit * Auth/Cert Specialty Diagnoses / Procedures Referred By Contac t Referred To Contact Diagnoses 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 Lytic Listhesis L5-S1 UNKNOWN Procedures PRO LUMBAR SPINE FUSION, ANTER APPRCH @ANT. LUMBAR FUSION INCLUD. MIN. DISKECTOMY (WRVU 23.53) Referral ID Status Reason Start Date Expiration Date Visits Re quested Visits Authorized [id number] 1 1 Encounter Details Date Type Department Care Team (Late st Contact Info) Description 10/11/2017 7:38 AM EST Anesthesia Event [place] [address] Gracie Swanson MD [facility] [place] [address] Giovani Jovel MD [facility] [place] [address] Anesthesia Record Procedure Summary Procedure Name Responsible Anesthesiologist Anesthesia Start Time Anesthesia Stop Time @ANT. LUMBAR FUSION INCLUD. MIN. DISKECTOMY ([facility]) (Bilateral: Back) Gracie Swanson MD 10/11/17 0738 10/11/17 1450 Events Date Time Event Comment 10/11/2017 0738 Start 0742 AN Verify 0742 An Start Data 0752 An Induction 0757 An Intubation 0815 Anesthesia Ready 0836 Procedure Start 1057 Quick Note 1st part of pro cedure done. 1118 Quick Note Patient flipped prone for 2nd half of procedure. 1150 Quick Note Start phase II, incision. 1155 Break/Relief In Giovani cash MD 1235 Break/Relief Out 1426 An Data Art Poor A-line wav eform, flushed with improvement 1433 Procedure Stop 1439 Extubation/LMA Out 1441 an stop data 1445 Recovery or ICU Handoff Brandy ent care was transferred to the destination unit staff after review of the patient's medical history, current anesthetic/surgical status and plan, according to the Provider Handoff Checklist. 1450 Stop 10/12/2017 1248 Meds Name Total Midazolam 2 mg fentaNYL 100 mcg IV Lidocaine 40 mg Propofol 130 mg Rocuronium 170 mg PHENYLephrine 160 mcg ePHEDrine 5 mg Ondansetron 4 mg Dexamethasone 8 mg Neostigmine 4 mg Glycopyrrolate 0.6 mg ceFAZolin (ANCEF) 2g in dextrose 5% 100 mL 4 g PHENYLephrine INF 10,425 mcg HYDROmorphone 1.6 mg Dexmedetomidine 12 mcg lactated Ringers infusion 1,000 mL 1,600 mL * Agents Name O2 Air N2O Sevoflurane (et) Isoflurane (et) * Blood No blood administrations on file. Lines, Drains, and Airways Type Details Placement Removal Drain/Device Site 10/11/17; 1348; lowe r; back; collapsible closed device; cut to 10 holes 10/11/17 1348 by Tanya Norton, RN (RETIRED) Peripheral IV Line - Single Lumen 10/11/17; 0647; basilic vein (medial side of arm), left; dphn-red-caxtpw catheter system; 20 gauge, 1 in length; intradermal injection, tolerated well, age-appropriate response; 10/13/17; 1319 10/11/17 0647 by Claire Varela RN 10/13/17 1319 by Becka Stinson RN Urethral Catheter 10/11/17; 0800; Surg edgardo longer than 2 hours, Physician order; indwelling double lumen catheter; latex; 14; inserted at this facility; 1; 10; drainage bag to dependent drainage; per protocol/policy, urethral catheter removed (MDs aware); 10/12/17; 0556 10/11/17 0800 by Tanya Norton RN 10/12/17 0556 by Cyndie Coe RN ETT Mask Ventilation: Ea denilson (1); ETT Type: Cuffed, Oral; ETT Size: 7 mm; Mac Blade: 3; Notes: Asleep, Pre-O2, Cricoid Pressure, Stylette; Attempts: 1; Laryngoscopy Grade: 1; ETT Placement Verified By: Auscultation, Capnometry, Visual; Secured at Teeth: 21 cm; Inserted by: MD Becka; Removal Date: 10/11/17; Removal Time: 1439 10/11/17 0802 by Giovani Jovel MD 10/11/17 1439 by Giovani Jovel MD (RETIRED) Peripheral IV Line - Single Lumen 10/11/17; 0820; metacarpal vein (top of hand), right; wcbz-jdh-yrvcgm catheter system; 14 gauge; MD Olivia; tolerated well, appears comfortable; 10/13/17; 1319 10/11/17 0820 by Giovani Jovel MD 10/13/17 1319 by Becka Stinson RN Arterial Line 10/11/17; 0820; radi al artery, left; 20 gauge; MD Becka; Sterile Prep, Sterile Gloves; no longer indicated; 10/11/17; 1715 10/11/17 0820 by Giovani Jovel MD 10/11/17 1715 by Adriana Cabrera RN Incision 10/11/17; 0837; abdomen; 04/26/22 (LDA cleanup utility RA#[id number]); 1715 (LDA cleanup utility RA#[id number]) 10/11/17 0837 by Tanya Norton RN 04/26/22 1715 by Aguila Tovar Incision 10/11/17; 1130; back ; 04/26/22 (LDA cleanup utility RA#[id number]); 1715 (LDA cleanup utility RA#[id number]) 10/11/17 1130 by Tanya Norton RN 04/26/22 1715 by Aguila Tovar Incision 10/11/17; 1150; lumb ar spine; midline; 04/26/22 (LDA cleanup utility RA#[id number]); 1715 (LDA cleanup utility RA#[id number]) 10/11/17 1150 by Adri Britton RN 04/26/22 1715 by Aguila Tovar documented in this encounter Social History Tobacco [...] OR Notes * Anesthesia Postprocedure Evaluation - Giovani Jovel MD - 10/11/2017 2:50 PM EST [facility] Department of Anesthesiology Post-procedure Note Patient: Linda Browning Procedure Summary Date Anesthesia Start Anesthesia Stop Room / Location 10/11/17 0738 1450 [facility] OR 14 / [facility] MAIN OR Procedure Diagnosis Surgeon Responsible Provider @ANT. LUMBAR FUSION INCLUD. MIN. DISKECTOMY (WRVU 23.53) (Bilateral Back); INSERTION INTERBODY BIOMECH DEV TO INTERVEBRAL DISC SPACE, EA INTERSPACE (WRVU 4.25) (Bilateral ); ARTHRODESIS, LUMBAR SPINE, SINGLE LEVEL (WRVU 23.53) (Bilateral Spine Lumbar); POSTERIOR SPINAL NON-SEGMENTAL INST.(ONE SPACE) (WRVU 12.52) (Bilateral Spine Lumbar); AUTOGRAFT FOR SPINE SURGERY ONLY, SAME INCISION (WRVU *) (Bilateral ); ALLOGRAFT FOR SPINE SURGERY ONLY; MORSELIZED (WRVU *) (Bilateral ); MODIFIER GLOBUS CREO(Bilateral Back); MODIFIER L5 (Bilateral ); MODIFIER S1 (Bilateral ); @ANTERIOR APPROACH, FOR THROACIC (VASC) (WRVU 24.7) (N/A Chest) 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 (Lytic Listhesis L5-S1) Santos, Trey J, MD; Chico Granados MD Procopio, Marcia A, MD All Anesthesia Providers: Anesthesiologist: Gracie Swanson MD; Bailey Baker MD Cotton Washer: Giovani Jovel MD Most Recent Vitals: 10/11/17 0619 BP: 130/81 Pulse: 67 Resp: 16 Temp: 36.3 ??C (97.3 ??F) SpO2: 99% Pain Patient Location: PACU/[facility] Level of Consciousness: Conscious but Sleepy Pain Management: Satisfactory Analgesia PONV: None Cardiovascular Status: Hemodynamically Stable Respiratory Status: Supplemental O2 (NC or FM) and Stable Respiratory Status Postoperative Fluid Status: Intravascular EUvolemia Possible Anesthetic Complications: NONE apparent at time of evaluation Final Primary Anesthesia Type: General (The anesthetic type performed was the same as planned.) Comments: * Anesthesia Preprocedure Evaluation - Giovani Jovel MD - 10/10/2017 2:34 PM EST Images from the original note were not included. Pre-Anesthesia Evaluation for: Linda Browning a 67 y.o. female. Procedure(s): @ANT. LUMBAR FUSION INCLUD. MIN. DISKECTOMY [...] @ANTERIOR APPROACH, FOR THROACIC (VASC) (WRVU 24.7) Patient Active Problem List Diagnosis ??? History of basal cell carcinoma ??? 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 ??? Sebaceous hyperplasia ??? Seborrheic keratosis Past Medical History: Diagnosis Date ??? Lumbar degenerative disc disease ??? Radiculopathy of lumbosacral region ??? Spondylolisthesis at L5-S1 level No past surgical history on file. Social History Substance Use Topics ??? Smoking status: Never Smoker ??? Smokeless tobacco: Never Used ??? Alcohol use No History Drug Use No Allergies Allergen Reactions ??? Unable To Find [Unclassified Drug] Blood pudding-asthma attack and eyes blacked out Medications: MAR and/or home medications have been reviewed. Physical Exam: There were no vitals filed for this visit. There is no height or weight on file to calculate BMI. Airway Assessment: Mallampati: I TM distance: <3 FB Neck ROM: full Cardiovascular Assessment: cardiovascular exam normal Pulmonary Assessment: pulmonary exam normal Dental Assessment: Misc Assessment: IV access: Peripheral line Anesthesia Plan: ASA 2 general, with a(n) intravenous induction 67 y.o. Female with lumbar stenosis and lytic spondylolisthesis presenting for oblique lumbar interbody fusion (OLIF) L5-S1 and posterior spinal fusion (L5-S1). PMH significant for lumbar degenerative disk disease, lumbosacral radiculopathy, BCC, childhood asthma (exercise induced) Denies cardiac disease, hepatorenal disease, stroke/seizure, bleeding/clotting disorder Never smoker Dyspnea and palpitations with exertion, no CP. Occurs when walking fast, going up stairs, but not when swimming. History of asthma attack/bronchospasm (~ 5mins) and transient vision loss (< 1 min) after eatingblood pudding in [place]; occurred when 17, and again at 51 Able to lie flat, on side, and on belly comfortably. Anesthetic hx: No reported prior complications with anesthesia Airway hx: no records EKG, 09/26/2017: NSR Exercise Stress Echo, 09/30/17: Normal study after maximal exercise, reduced functional capacity. Achieved METS of 4.6. Max heart rate of 154 achieved (101% target HR). 09/15/17 1358 ABORH A Pos Allergies: -- Unable To Find (Unclassified Drug) -- Blood pudding-asthma attack and eyes blacked out NPO Status: Appropriate Gabapentin not administered this AM as patient reports itching reaction. Received acetaminophen. Anesthetic Plan: GA with ETT Position: R lateral decubitus for 1st part of procedure, prone position for 2nd part Arterial line Standard ASA monitoring Adequate IV access, PIV x2 Region - Other Informed Consent: PAT Staff Note documented in this encounter Plan of Treatment Upcoming Encounters Date Type Department Care Team (Late st Contact Info) Description 09/18/2024 11:30 AM EST Office Visit Dermatology at [facility] [address] [place] [address] Tata Aldridge MD [facility] [place] [address] 05/09/2025 2:00 PM EDT Office Visit Dermatology at [facility] [address] [place] [address] Tata Aldridge MD [facility] [place] [address] documented as of this encounter Visit Diagnoses Not on filedocumented in this encounter Administered Medications Inactive Administered Medications - up to 3 most recent administrations Medication Order MAR Action Action Date Dose Rate Site ceFAZolin (ANCEF) 2g in dextrose 5% 100 mL 2 g, Intravenous, EVERY 3 HOURS, 1 dose, First dose on Tue10/11/17 at 0645, Administer over 30 Minutes, Redose after 3 hours., Intra-Operative (Intra-Procedure), Indication for (Active or Suspected): Prophylaxis Given 10/11/2017 11:38 AM EST 2 g Given 10/11/2017 8:15 AM EST 2 g dexamethasone (DECADRON) injection PRN, Starting on Tue10/11/17 at 0825, Until Tue10/11/17 at 1450, Anesthesia Intra-op, Routine Given 10/11/2017 8:25 AM EST 8 mg dexmedetomidine (PRECEDEX) injection PRN, Starting on Tue10/11/17 at 1336, Until Tue10/11/17 at 1450, Anesthesia Intra-op, Routine Given 10/11/2017 2:07 PM EST 4 mcg Given 10/11/2017 1:46 PM EST 4 mcg Given 10/11/2017 1:36 PM EST 4 mcg ePHEDrine 5 mg/mL multi-dose injection PRN, Starting on Tue10/11/17 at 0845, Until Tue10/11/17 at 1450, Anesthesia Intra-op, Routine Given 10/11/2017 8:45 AM EST 5 mg fentaNYL 50 mcg/mL multi-dose injection PRN, Starting on Tue10/11/17 at 0752, Until Tue10/11/17 at 1450, Pain, Anesthesia Intra-op, Routine Given 10/11/2017 7:54 AM EST 50 mcg Given 10/11/2017 7:52 AM EST 50 mcg glycopyrrolate (ROBINUL) multi-dose injection PRN, Starting on Tue10/11/17 at 0847, Until Tue10/11/17 at 1450, Anesthesia Intra-op, Routine Given 10/11/2017 2:29 PM EST 0.4 mg Given 10/11/2017 8:47 AM EST 0.2 mg HYDROmorphone (DILAUDID) injection PRN, Starting on Tue10/11/17 at 1051, Until Tue10/11/17 at 1450, Pain, Anesthesia Intra-op, Routine Given 10/11/2017 1:47 PM EST 0.4 mg Given 10/11/2017 1:27 PM EST 0.4 mg Given 10/11/2017 1:26 PM EST 0.4 mg lidocaine (PF) (XYLOCAINE) 100 mg/5 mL (2 %) injection PRN, Starting on Tue10/11/17 at 0752, Until Tue10/11/17 at 1450, Anesthesia Intra-op, Routine Given 10/11/2017 7:52 AM EST 40 mg midazolam (PF) (VERSED) 1 mg/mL multi-dose injection PRN, Starting on Tue10/11/17 at 0738, Until Tue10/11/17 at 1450, Sleep, Anesthesia Intra-op, Routine Given 10/11/2017 7:38 AM EST 2 mg neostigmine (BLOXIVERZ) injection PRN, Starting on Tue10/11/17 at 1429, Until Tue10/11/17 at 1450, Anesthesia Intra-op, Routine Given 10/11/2017 2:29 PM EST 4 mg ondansetron (ZOFRAN) injection PRN, Starting on Tue10/11/17 at 1348, Until Tue10/11/17 at 1450, Nausea, Anesthesia Intra-op, Routine Given 10/11/2017 1:48 PM EST 4 mg PHENYLephrine (JALEEL-SYNEPHRINE) 20 mg in sodium chloride 250 mL (standard ADULT & Pedi greater than 20kg) infusion CONTINUOUS PRN, Starting on Tue10/11/17 at 0916, Until Tue10/11/17 at 1450, Anesthesia Intra-op, Routine Rate/Dose Change 10/11/2017 2:07 PM EST 10 mcg/min 7.5 mL/hr Rate/Dose Change 10/11/2017 2:04 PM EST 30 mcg/min 22.5 mL /hr Rate/Dose Change 10/11/2017 12:39 PM EST 50 mcg/min 37.5 m L/hr PHENYLephrine in NS (PF) (JALEEL-SYNEPHRINE) 0.8 mg/10 mL (80 mcg/mL) multi-dose injection Syrg PRN, Starting on Tue10/11/17 at 0904, Until Tue10/11/17 at 1450, Anesthesia Intra-op, Routine Given 10/11/2017 9:10 AM EST 80 mcg Given 10/11/2017 9:04 AM EST 80 mcg propofol (DIPRIVAN) 10 mg/mL bolus injection (Anesthesia) PRN, Starting on Tue10/11/17 at 0752, Until Tue10/11/17 at 1450, Anesthesia Intra-op Given 10/11/2017 2:22 PM EST 10 mg Given 10/11/2017 7:52 AM EST 120 mg rocuronium (ZEMURON) multi-dose injection PRN, Starting on Tue10/11/17 at 0754, Until Tue10/11/17 at 1450, Anesthesia Intra-op, Routine Given 10/11/2017 1:02 PM EST 20 mg Given 10/11/2017 11:51 AM EST 10 mg Given 10/11/2017 10:59 AM EST 20 mg documented in this encounter Care Teams Pea Viner Mechanic Relationship Specialty Start Date End Date Niki Vyas MD [address] [place] [address] PCP - General 07/21/10 12/16/21 documented as of this encounter
--- OUTSIDE RECORDS SUMMARY | 2024-08-09 10:19 | XMS_ITS | Encounter Summary ---
Author Organization [facility] Address [facility] [place] [address] Care Team Providers Care Chairlift Operator Name Role Phone Niki Vyas MD Primary Care Provider [phone] Encounter Details Date Type Department Care Team (Latest Contact Info) Description 04/08/2017 - 04/08/2017 11:59 PM EDT Hospital Encounter Radiology Library at [facility] [place] [phone] Tracy Johnson MD [facility] [place] [address] Discharge Disposition: Home Social History Tobacco Use [...] 11:30 AM EST Office Visit Dermatology at [facility] [address] [place] [address] Tata Aldridge MD [facility] [place] [place] [address] 05/09/2025 2:00 PM EDT Office Visit Dermatology at [facility] [address] [place] [address] Tata Aldridge MD [facility] [place] [address] documented as of this encounter Procedures Procedure Name Priority Date/Time Associated Diagnosis Comments FILM LIBRARY STORAGE ONLY DX SPINE Routine 04/08/2017 12:00 AM EDT documented in this encounter Results * Film Library- Storage Only DX Spine (04/08/2017 12:00 AM EDT) Narrative [facility] - 01/22/2018 10:30 AM EDT This exam is for storage only and is auto-finalizing. Tracy Johnson MD IMG FILM LIBRARY O RDERABLES [place], [place] documented in this encounter Visit Diagnoses Not on filedocumented in this encounter Care Teams Chairlift Operator Relationship Specialty Start Date End Date Niki Vyas MD [address] [place] [address] PCP - General 07/21/10 12/16/21 documented as of this encounter
--- OUTSIDE RECORDS SUMMARY | 2024-08-09 10:19 | XMS_ITS | Encounter Summary ---
Author Organization [facility] [place] [address] Care Team Providers Care Assistant Oceanographer Name Role Phone Niki Vyas MD Primary Care Provider [phone] Reason for Referral * Diagnostic Test (Routine) - Closed Specialty Diagnoses / Procedures Referred By Contac t Referred To Contact Radiology Diagnoses 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 Procedures CT Lumbar Spine wo Contrast (Generic) Trey Santos MD [facility] [place] [address] [facility] [place] [address] Referral ID Status Reason Start Date Expiration Date V isits Requested Visits Authorized [id number] Closed Specialty Service Requested 08/09/2017 08/09/2018 1 1 Reason for Visit * Diagnostic Test (Routine) - Closed Specialty Diagnoses / Procedures Referred By Contac t Referred To Contact Radiology Diagnoses 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 Procedures CT Lumbar Spine wo Contrast (Generic) Trey Santos MD [facility] [place] [address] [facility] [address] Scan [facility] [place] [address] Referral ID Status Reason Start Date Expiration Date V isits Requested Visits Authorized [id number] Closed Specialty Service Requested 08/09/2017 08/09/2018 1 1 Encounter Details Date Type Department Care Team (Latest Contact Info) Description 08/25/2017 7:56 AM EST - 08/25/2017 11:59 PM EST Hospital Encounter CT Scan at [facility] [address] Trey Santos MD [facility] [place] [address] 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 Discharge [...] prn SEVERE pain 60 tablet 10/13/2017 10/28/2017 LYRICA 25 mg Capsule 0 05/18/2017 018 amitriptyline (ELAVIL) 10 mg Tablet take 1 tablet by mouth at bedtime 0 07/05/2017 02/03/2018 naproxen sodium (ANAPROX) 220 mg Tablet Take 220 mg by mouth 2 times daily (with meals). 09/15/2017 CALCIUM CARBONATE/VITAMIN D3 (CALCIUM 600 + D,3, ORAL) Take 1 tablet by mouth daily. 02/03/2018 documented as of this encounter Plan of Treatment Upcoming Encounters Date Type Department Care Team (Late st Contact Info) Description 09/18/2024 11:30 AM EST Office Visit Dermatology at [facility] [address] [place] [address] Tata Aldridge MD [facility] [place] [address] 05/09/2025 2:00 PM EDT Office Visit Dermatology at [facility] [address] [place] [address] Tata Aldridge MD [facility] [place] [address] documented as of this encounter Procedures Procedure Name Priority Date/Time Associated Diagnosis Comments CT LUMBAR SPINE WWO CONTRAST Routine 08/25/2017 8:10 AM EST 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 documented in this encounter Results * CT Lumbar Spine [...] be fusion between the L3, L4, and P5swyaqdv processes. There is complete loss of disc [...] spondylolisthesis documented in this encounter Care Teams Assistant Oceanographer Relationship Specialty Start Date End Date Niki Vyas MD [address] [place] [address] PCP - General 07/21/10 12/16/21 documented as of this encounter
--- OUTSIDE RECORDS SUMMARY | 2024-08-09 10:19 | XMS_ITS | Encounter Summary ---
[place] [address] Care Team Providers Care Supervisor Fleshing Name Role Phone Niki Vyas MD Primary Care Provider [phone] Encounter Details Date Type Department Care Team (Late st Contact Info) Description 09/15/2017 1:20 PM EST Clinical [place] [id number] Social History Tobacco Use Types Packs/Day Years [...] Taken Comments Blood Pressure - - Pulse 93 09/15/2017 1:16 PM EST Temperature - - Respiratory Rate - - Oxygen Saturation 99% 09/15/2017 1:16 PM EST Inhaled Oxygen Concentration - - Weight 63.3 kg (139 lb 9.6 oz) 09/15/2017 1:16 P M EST Height 160 cm (5' 3) 09/15/2017 1:16 PM EST Body Mass Index 24.73 09/15/2017 1:16 PM EST documented in this encounter Progress Notes * Kate Rees RN - 09/15/2017 1:20 PM EST PAT questionnaire reviewed with patient while in Pre Admission testing. Pre-operative instruction booklet reviewed. Patient verbalizes a good understanding of all information reviewed. PLAN: Testing: Blood work and type and screen performed while in PAT. Special medication instructions: none Procedure date: 10/11/2017 documented in this encounter Plan of Treatment Upcoming Encounters Date Type Department Care Team (Late st Contact Info) Description 09/18/2024 11:30 AM EST Office Visit Dermatology at [facility] [address] [place] [address] Tata Aldridge MD [facility] [place] [address] 05/09/2025 2:00 PM EDT Office Visit Dermatology at [facility] [address] [place] [address] Tata Aldridge MD [facility] [place] [address] documented as of this encounter Visit Diagnoses Not on filedocumented in this encounter Care Teams Supervisor Fleshing Relationship Specialty Start Date End Date Niki Vyas MD [address] [place] [address] PCP - General 07/21/10 12/16/21 documented as of this encounter
--- OUTSIDE RECORDS SUMMARY | 2024-08-09 10:19 | XMS_ITS | Encounter Summary ---
Author Organization [facility] [place] [address] Care Team Providers Care Dbas Name Role Phone Niki Vyas MD Primary Care Provider [phone] Reason for Referral * Routine Exam (Routine) - Specialty Diagnoses / Procedures Referred By Contac t Referred To Contact Diagnoses Radiculopathy of lumbar region Procedures Epidural steroid injection - Kennedy Snyder MD [facility] [place] [address] Referral ID Status Reason Start Date Expiration Date Visits Requested Visits Authorized [id number] Specialty Service Requested 07/27/2017 07/27/2018 1 1 Reason for Visit * Reason Comments Back And Burning Leg Pain lower back and left hip * Consultation (Routine) - Closed Specialty Diagnoses / Procedures Referred By Contmargarette t Referred To Contact Pain Management Diagnoses 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 Procedures PRO INJECTION DX/THER SBST INTRLMNR LMBR/SAC W/IMG Micha Machado MD [facility] [place] [address] [facility] [address] [place] [id number] Referral ID Status Reason Start Date Expiration Date V isits Requested Visits Authorized [id number] Closed Consult, Test & Treat 06/30/2017 06/30/2018 1 1 Encounter Details Date Type Department Care Team (Latest Contact Info) Description 07/27/2017 10:30 AM EST Procedure [place] [address] Kennedy Dooley MD [facility] [place] [address] Radiculopathy of lumbar region (Primary Dx) Social History Tobacco Use Types Packs/Day Years Used Date Smoking Tobacco: Never Smokeless Tobacco: Never Sex and Gender Information Value Date Recorded Sex Assigned at Not on file Gender Identity Not on file Sexual Orientation Not on file documented as of this encounter Last Filed Vital Signs Vital Sign Reading Time Taken Comments Blood Pressure 131/81 07/27/2017 10:39 AM EST Pulse 82 07/27/2017 10:39 AM EST Temperature - - Respiratory Rate - - Oxygen Saturation 100% 07/27/2017 10:39 AM EST Inhaled Oxygen Concentration - - Weight 61.2 kg (135 lb) 07/27/2017 10:15 AM EST Height 160 cm (5' 3) 07/27/2017 10:15 AM EST Body Mass Index 23.91 07/27/2017 10:15 AM EST documented in this encounter Patient Instructions * Patient Instructions* Sally Ghosh RN - 07/27/2017 10:30 AM EST Pain Management [facility] Discharge Instructions: You were seen by Dr. Kennedy Dooley MD who performed Mid L4 - L5 Interlaminar. It is normal that the injection site [...] for 20 minutes. Do not apply heat today.. Attempt to empty your bladder 4-6 hours after your procedure. You received the following medications: Depo-Medrol 80 mg, Lidocaine and Omnipaque (contrast dye). During regular business hours, please phone the [...] emergency department. Sally Ghosh RN Special instructions Pain 7/10 prior to procedure and 2/10 after documented in this encounter Progress Notes * Sally Ghosh RN - 07/27/2017 10:30 AM EST Pre-Procedure Screening Questions: 1. Status: No 2. Patient states they have a team cdl driver to transport after procedure? Yes 3. Patient taking antibiotics at present? No 4. NPO per Pain Management Center protocol? No 5. Patient diabetic: No Patient routinely taking anticoagulants ? No Patient Vital Signs documented in Doc Flowsheets associated with this encounter. Patient Discharge Instructions were reviewed with patient and copy provided to patient. documented in this encounter Procedure Notes * Kennedy Dooley MD - 07/27/2017 10:30 AM ESTAssociated Order(s): EPIDURAL STEROID INJECTION Procedure(s): EPIDURAL STEROID INJECTION Pre-Procedure Diagnose(s): Radiculopathy of lumbar region Procedure Note MID L4-5 Lumbar Interlaminar Epidural Steroid Injection Date of Service: 07/27/2017 Patient: Linda Browning Provider: Kennedy Dooley MD Linda Browning has been referred to the Pain Management Center for lumbar epidural steroid injection. Ms. Browning was interviewed and the medical record were reviewed. There were no medical, pharmacologic, radiographic or other structural contraindications to attempting fluoroscopically guided lumbarinterlaminar epidural steroid injection. Risks, potential side effects, indications, and potential benefits of the procedure were reviewed with Ms. Browning. Questions and concerns were addressed. After it was clear that the patient was fully informed about the procedure, the printed consent form was signed by the patient and myself. A standard time-out procedure was performed. The patient was placed in the prone position on the fluoroscopy table and automated blood pressure cuff as well as pulse oximeter was applied. The skin entry point for entering the epidural space by a midline L4-5 interlaminar approach was identified under fluoroscopy and marked. The skin entry point was thoroughly cleaned with Chlorhexadine preparation and the skin was draped. Next a mixture of 10 ml of 2% lidocaine was infiltrated into the area of the planned skin entry point and underlying subcutaneous tissues. Next an 18 gauge Tuohy needle was placed under fluoroscopic guidance and with loss of resistance technique into the epidural space utilizing multiple AP, lateral, and 55 degree contralateral fluoroscopic views. Upon correct needle placement and loss of resistance, there were no paresthesiae or return of blood or CSF through the needle. Next 2cc of preservative-free Omnipaque 240 was injected with clear epidural spread in the A/P and oblique views. Next, a solution of 80mg of preservative-free DepoMedrol mixed with 4ml of preservative-free normal saline and 1 ml lidocaine 1% was injected through with no unusual discomfort expressed by Ms. Browning. Ms. Browning's vital signs were stable throughout the procedure and were as recorded in the docflowsheet by the nursing staff. If given, dosages of intravenous drugs for anxiolysis and analgesia were documented in MAR. Follow up plans and appointments were discussed with the Ms. Browning. Post procedure instruction was given as documented in nursing documentation and having met discharge criteria, she was dischargedfrom the Pain Management Center. Post-procedure pain level was reported as 2/10. Pre-procedure pain level was reported as 8/10 on VAS Kennedy Dooley [facility]-subspecialty board certification in Pain Medicine Attending Physician-Pain Management CC: Niki Vyas MD [address] [place] [address] Niki Vyas MD [address] [place] [address] documented in this encounter Plan of Treatment Upcoming Encounters Date Type Department Care Team (Late st Contact Info) Description 09/18/2024 11:30 AM EST Office Visit Dermatology at [facility] [address] [place] [address] Tata Aldridge MD [facility] [place] [address] 05/09/2025 2:00 PM EDT Office Visit Dermatology at [facility] [address] [place] [address] Tata Aldridge MD [facility] [address] documented as of this encounter Procedures Procedure Name Priority Date/Time Associated Diagnosis Comments EPIDURAL STEROID INJECTION Routine 07/27/2017 11:05 AM EST Radiculopathy of lumbar region documented in this encounter Results * EPIDURAL STEROID INJECTION (07/27/2017 11:05 AM EST) Narrative Kennedy Dooley MD - 07/27/2017 11:05 AM EST Kenendy Dooley MD ? 07/27/2017 11:05 AM Procedure Note MID L4-5 Lumbar Interlaminar Epidural Steroid Injection Date of Service: ??07/27/2017 Patient: ??Linda Browning ?? Provider: ??Kennedy Dooley MD ?? Linda Browning has been referred to the Pain Management Center for lumbar epidural steroid injection. ?? Ms. Browning was interviewed and the medical record were reviewed. There were no medical, pharmacologic, radiographic or other structural contraindications to attempting fluoroscopically guided lumbar interlaminar epidural steroid injection. ??Risks, potential side effects, indications, and potential benefits of the procedure were reviewed with Ms. Browning. ??Questions and concerns were addressed. ??After it was clear that the patient was fully informed about the procedure, the printed consent form was signed by the patient and myself. ??A standard time-out procedure was performed. The patient was placed in the prone position on the fluoroscopy table and automated blood pressure cuff as well as pulse oximeter was applied. ??The skin entry point for entering the epidural space by a midline L4-5 interlaminar approach was identified under fluoroscopy and marked. ??The skin entry point was thoroughly cleaned with Chlorhexadine preparation and the skin was draped. ??Next a mixture of 10 ml of 2% lidocaine was infiltrated into the area of the planned skin entry point and underlying subcutaneous tissues. ??Next an 18 gauge Tuohy needle was placed under fluoroscopic guidance and with loss of resistance technique into the epidural space utilizing multiple AP, lateral, and 55 degree contralateral fluoroscopic views. ?? Upon correct needle placement and loss of resistance, there were no paresthesiae or return of blood or CSF through the needle. Next 2cc of preservative-free Omnipaque 240 was injected with clear epidural spread in the A/P and oblique views. Next, a solution of 80mg of preservative-free DepoMedrol mixed with 4ml of preservative-free normal saline and 1 ml lidocaine 1% was injected through with no unusual discomfort expressed by Ms. Browning. Ms. Browning's vital signs were stable throughout the procedure and were as recorded in the docflowsheet by the nursing staff. ?? If given, dosages of intravenous drugs for anxiolysis and analgesia were documented in MAR. Follow up plans and appointments were discussed with the Ms. Browning. ??Post procedure instruction was given as documented in nursing documentation and having met discharge criteria, she was discharged from the Pain Management Center. Post-procedure pain level was reported as 2/10. ??Pre-procedure pain level was reported as 8/10 on VAS Kennedy Dooley [facility]-subspecialty board certification in Pain Medicine Attending Physician-Pain Management CC: Niki Vyas MD [address] [place] [address] Niki Vyas MD [address] [place] [address] Kennedy Dooley MD NEUROLOGY ORDERABLES documented in this encounter Visit Diagnoses Diagnosis Radiculopathy of lumbar region- Primary Thoracic or lumbosacral neuritis or radiculitis, unspecified documented in this encounter Administered Medications Inactive Administered Medications - up to 3 most recent administrations Medication Order MAR Action Action Date Dose Rate Site iohexol (OMNIPAQUE) 240 mg/mL solution 1 mL 1 mL, Other, ONCE, 1 dose, On Tue07/27/17 at 1100, 49 ml wasted, Routine Given 07/27/2017 11:00 AM EST 1 mL lidocaine (XYLOCAINE) 20 mg/mL (2 %) injection 400 mg 400 mg (20 mL), Subcutaneous, ONCE, 1 dose, On Tue07/27/17 at 1100, Routine Given 07/27/2017 11:00 AM EST 400 mg methylPREDNISolone acetate (DEPO-Medrol) injection 80 mg 80 mg, Epidural, ONCE, 1 dose, On Tue07/27/17 at 1100, Routine Given 07/27/2017 11:00 AM EST 80 mg documented in this encounter Care Teams Dbas Relationship Specialty Start Date End Date Niki Vyas MD [address] [place] [address] PCP - General 07/21/10 12/16/21 documented as of this encounter
--- OUTSIDE RECORDS SUMMARY | 2024-08-09 10:20 | XMS_ITS | Encounter Summary ---
[place] [address] Care Team Providers Care Day Camp Counselor Name Role Phone Janett Garcia MD Primary Care Provider [phone] Encounter Details Date Type Department Care Team (Late st Contact Info) Description 04/16/2004 [place] [id number] Emmett Walker MD GASTROENTEROLOGY Social History Tobacco Use Types Packs/Day Years Used Date Smoking Tobacco: Never Assessed Overall Financial Resource Strain (CARDIA) Answe r [...] the money to buy more. Never true 02/28/20 23 Within the past 12 months, t [...] place to sleep or slept in a longterm (including now)? No 10/26/2022 DH IPV Inpatient [...] 11:30 AM EST Office Visit Dermatology at [facility] [address] [place] [address] Tata Aldridge MD [facility] [place] [address] 05/09/2025 2:00 PM EDT Office Visit Dermatology at [facility] [address] [place] [address] Tata Aldridge MD [facility] [place] [address] documented as of this encounter Procedures Procedure Name Priority Date/Time Associated Diagnosis Comments SURGICAL PATHOLOGY REPORT Routine 04/16/2004 4:43 PM EDT documented in this encounter Results * Surgical Pathology Report (04/16/2004 4:43 PM EDT) Surgical Pathology Report [id number] ? Location: The signing pathologist has (i) examined the relevant preparation(s) for the specimen(s) and (ii) rendered or confirmed the diagnosis(es). . ?Pathology Surgical Pathology Final Report Clinical Information Specimen Submitted: A - Endosc. rem. tissue, Desc. 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 ( Brother with colon Cancer) Hematochezia Gross Description Labeled/Fixative: ? Endoscopically removed tissue, descending colon; ?formalin. Qty/Size/Weight: ?Single, 0.3 x 0.2 x 0.2 cm. Tissue Description: ?? Espinoza-argueta soft tissue. Sections/Processi ng: ??(T1) ??aje/PPS Microscopic Description Slides reviewed, microscopic description not recorded. Diagnosis Colon (descending), biopsy: ??Colonic mucosa with attached polypoid inflamed granulation tissue. CR-0 04/17/04 [facility] 04/17/04 Verified by: ? Michael Soriano MD, PhD ?Pathologist ?(Electronic Signature) The attending pathologist whose signature appears on this report has reviewed all diagnostic slides and has edited the gross and/or microscopic portion of the report in rendering the final pathologic diagnosis. [facility] 04/16/2004 4:43 PM EDT Emmett Walker MD PATHOLOGY/CYTOLOGY ORDERABLES Performing Organization Address City/State/[facility] Co ms Phone Number [facility] documented in this encounter Visit Diagnoses Not on filedocumented in this encounter Care Teams Day Camp Counselor Relationship Specialty Start Date End Date Janett Garcia MD [address] [place] [address] PCP - General Family Medicine 08/09/23 documented as of this encounter
--- OUTSIDE RECORDS SUMMARY | 2024-08-09 10:20 | XMS_ITS | Encounter Summary ---
[place] [address] Care Team Providers Care Semi Automatic Sewing Machine Operator Name Role Phone Niki Vyas MD Primary Care Provider [phone] Reason for Visit * Reason Comments Skin Check Encounter Details Date Type Department Care Team (Late st Contact Info) Description 12/31/2014 2:30 PM EDT Office Visit Dermatology at [address] [address] Steven Souza MD [address] [facility] [place] [address] Sebaceous hyperplasia (Primary Dx); Seborrheic keratosis Discharge Disposition: Home Social History Tobacco Use Types Packs/Day Years Used Date Smoking Tobacco: Never Assessed Sex and Gender Information Value Date Recorded Sex Assigned at Not on file Gender Identity Not on file Sexual Orientation Not on file documented as of this encounter Patient Instructions * Patient Instructions* Gillian Langford LPN - 12/31/2014 3:00 PM EDT [facility] Actinic Keratosis: After Your Visit Your Care Instructions Actinic keratosis is a skin growth caused by sun damage. It can turn into skin cancer, but this isn't common. Actinic keratoses, also called solar keratoses, are small red, brown, or skin-colored scaly patches. They are most common on the face, neck, hands, and forearms. Your doctor can remove these growths by freezing or scraping them off or by putting medicines on them. Follow-up care is a park part of your treatment and safety. Be sure to make and go to all appointments, and call your doctor if you are having problems. It's also a good idea to know your test resultsand keep a list of the medicines you take. How can you care for yourself at home? ?? If your doctor removes the growth, clean the area with soap and water 2 times a day unless your doctor gives you different instructions. Don't use hydrogen peroxide or alcohol, which can slow healing. ?? You may cover the wound with a thin layer of petroleum jelly, such as Vaseline, and a nonstick bandage. To prevent actinic keratosis ?? Always wear sunscreen on exposed skin. Make sure the sunscreen blocks ultraviolet rays (both UVAand UVB) and has a sun protection factor (SPF) of at least 15. Use it every day, even when it is cloudy. Some doctors may recommend a higher SPF, such as 30. ?? Wear long sleeves, a hat, and pants if you are going to be outdoors for a long time. ?? Avoid the sun between 10 a.m. and 4 p.m., the peak time for UV rays. ?? Do not use tanning booths or sunlamps. When should you call for help? Watch closely for changes in your health, and be sure to contact your doctor if: ?? The areas that were treated are red, drain pus, or have red streaks leading from them. ?? You see other growths that do not go away. ?? You do not get better as expected. Where can you learn more? Visit our health information library at [email or web address] You can also view health information on [employer], your personal patient account. Log in or sign up today. Enter L364 in the search box to learn more about Actinic Keratosis: After Your Visit. ?? [id number] [employer]. Care instructions adapted under license by [facility]. This care instruction is for use with your licensed healthcare professional. If you have questions about a medical condition or this instruction, always ask your healthcare professional. [employer] disclaims any warranty or liability for your use of this information. Content Version: 10.3.317325; Current as of: March 28, 2014 documented in this encounter Progress Notes * Steven Souza MD - 12/31/2014 3:11 PM EDT Problem: Skin check. Linda is a 64-year-old woman who is referred today by Dr. Vyas for evaluation of her moles and skin lesions. The patient states that she had two areas treated medial and somewhat inferior to her left medial canthus. These were treated with liquid nitrogen by Dr. Vyas with some improvement, but they remain slightly erythematous. She has an erythematous patch on her back and multiple nevi. Physical examination reveals a pleasant, 64-year-old woman who has numerous waxy, bgzsb-aa-edkeckupn seborrheic keratoses on her back. She has what appear to be two umbilicated papules consistent with sebaceous hyperplasia medial and somewhat inferior to the left medical canthus. She has moderate solar elastotic damage of the face. She is blue eyed and fair skinned with fair hair. Careful examination of the head and neck, chest, back, hands, arms, forearms, thighs, and calves is otherwise benign. Assessment and Plan: 1. Sebaceous hyperplasia, two papules, left medial canthal area. a. I recommended I see the patient again in another for repeat check. b. Patient reassured about their benign appearance today. c. Given her significant sun exposure history, however, I do want to reevaluate these in a year; oxcgdr-gc-yxsygo reminder in one year. 2. Seborrheic keratoses, back. a. Patient reassured about benign seborrheic keratoses and reassured about her benign skin examination. b. Kbvqpp-zx-bgshzv reminder in one year. COPY: Niki Vyas M.D. documented in this encounter Plan of Treatment Upcoming Encounters Date Type Department Care Team (Late st Contact Info) Description 09/18/2024 11:30 AM EST Office Visit Dermatology at [facility] [address] [place] [address] Tata Aldridge MD [facility] [place] [address] 05/09/2025 2:00 PM EDT Office Visit Dermatology at [facility] [address] [place] [address] Tata Aldridge MD [facility] [place] [place] [address] documented as of this encounter Visit Diagnoses Diagnosis Sebaceous hyperplasia- Primary Other specified disease of sebaceous glands Seborrheic keratosis Other seborrheic keratosis documented in this encounter Care Teams Semi Automatic Sewing Machine Operator Relationship Specialty Start Date End Date Niki Vyas MD [address] [place] [address] PCP - General 07/21/10 12/16/21 documented as of this encounter
[2024-08-09 14:35] LABS: HCT 39.1 % (36.0-46.0); HGB 13.1 g/dL (11.2-15.7); MCH 32.2 pg (27.0-33.0); MCHC 33.5 % (32.0-36.0); MCV 96 fL (80-95); MPV 11.2 fL (8.0-11.0); Platelet Count 240 10^3/uL (130-400); RBC 4.07 10^6/uL (3.93-5.22); RDW 12.6 % (11.7-14.6); RDW-SD 44.5 fL; WBC 4.97 10^3/uL (4.4-10.8)
[2024-08-09 14:47] LABS: ALT 17 U/L (14-59); AST 21 U/L (15-37); Albumin 3.7 g/dL (3.4-5.0); Alkaline Phosphatase 76 U/L (46-116); Anion Gap 9.8 mmol/L (3-11); BUN 16 mg/dL (7-18); Bilirubin, Total 0.77 mg/dL (0.2-1.0); CO2 28.2 mmol/L (21.0-32.0); CREATININE 1.1 mg/dL (0.55-1.02); Calcium 8.8 mg/dL (8.5-10.1); Calculated LDL 123 mg/dL (<100); Chloride 107 mmol/L (98-107); Cholesterol 217 mg/dL (<200); Glucose 87 mg/dL (74-106); HDL Cholesterol 81 mg/dL (40-60); Potassium 4.5 mmol/L (3.5-5.1); Sodium 145 mmol/L (136-145); Triglyceride 66 mg/dL (<150)
== END 2024-08-09 10:14 | disposition home or self-care (01) ==
LOC: NCHCN 10:13
PROVIDERS: PCP Nurse Practitioner Family; Visit Provider Family Medicine
DX: Z00.00 Encounter for general adult medical examination without abnormal findings (principal)
CPT/HCPCS: 80053; 80061; 85027

== ENCOUNTER → 2024-08-14 08:47 | Outpatient (BNVA) | payer MEDICARE, BC, SELFPAY | PROVIDERS: PCP Nurse Practitioner Family; Referring Provider Nurse Practitioner Family; Visit Provider Psychiatry & Neurology Neurology | DX: G25.2 Other specified forms of tremor (principal); G24.9 Dystonia, unspecified | CPT/HCPCS: 99213 ==

== ENCOUNTER 2024-12-08 14:40 | Emergency (ER) | payer MEDICARE, BC, SELFPAY ==
[2024-12-08] VITALS (14 sets, daily range): BP systolic 111–141; BP diastolic 66–75; PULSE 58–66; RESP 7–16; TEMP 36.6; O2SAT 96–100
--- NOTE | 2024-12-08 14:30 | RT.EKG_ITS ---
APPROVED REPORT Exam: Resting ECG Reason for Exam: sob Patient Location: E HR:62 bpm ECG Measurements Heart Rate 62 AXIS WA 189 P 71 QRSd 83 QRS 47 QT 381 T 55 QTc 386 Conclusion Sinus rhythm...normal P axis, V-rate 60- 99 Consider left ventricular hypertrophy...(S V1+R V5/V6) >3.25mV
--- NOTE | 2024-12-08 14:57 | ED.GENADUL_ITS ---
Discharge Plan Disposition Patient Disposition: Home Condition: Stable Discharge Details Clinical Impression: Costochondritis Primary Care Provider: Janett Garcia ED Provider: Klever Wells Home Meds and New Rx's Prescriptions: Continued ibuprofen 200 mg tablet 200 mg PO Q6H PRN Airborne (ascorbic acid) 250-8.875 mg tablet,chewable 1 tab PO TID albuterol sulfate 90 mcg/actuation aerosol powdr breath activated 1 inh inhalation ONCE acetaminophen 500 mg capsule 500 mg PO Q6H PRN baclofen 10 mg tablet 10 mg PO BID Qty: 180 3RF multivitamin [Daily Multi-Vitamin] 1 EACH tablet 1 ea PO DAILY magnesium oxide 500 mg capsule 500 mg PO DAILY Discharge Instructions Instructions: Costochondritis Additional Instructions: You were seen in the emergency department for your brief sharp chest pains under your left breast onset this morning while working in the yard, your cardiac workup is negative, your EKG is completely normal and there is no blood clot in your chest on CT of your chest, there is no evidence of infection or any other abnormality on imaging. Please follow-up with your primary care provider and get scheduled for baseline cardiology consult and possible studies like treadmill stress test or echocardiogram at some point the next 30 days. Please take Tylenol and ibuprofen as needed for pain apply an [id number] topical anti-inflammatory like Voltaren gel to area of pain for trial of relief. Please return for any significant exertional chest pain especially with shortness of breath, dizziness or near fainting, any chest pain lasting longer than 45 minutes. Referrals: Janett Garcia [Primary Care Provider] - Discharge Data Discharge Date/Time-TO BE ENTERED AT DEPARTURE: 12/08/24 17:52 HPI General Date/Time Provider Initiated Documentation: 12/08/24 14:48 . HPI Narrative: 74 year-old female presents to ED today by POV/ambulating with a chief complaint of shortness of breath this morning with some sharp brief few second left-sided intermittent chest pains behind the left breast after walking across her yard throughout some [place]ath in the [place] with onset around 10 AM. Quality described as brief left-sided chest pains, no radiation to dizziness or near fainting, states shortness of breath and had to sit down afterwards with resolution of pains within 2 minutes, denies recent URI, denies nausea or vomiting or abdominal pain, denies fever, endorses chronic L sided thoracic back pains intermittently. Severity is described as moderate. Palliating factors include rest. Provoking factors include exertion, denies worse with palpation. Events leading up to the incident/Associated Symptoms: Patient has no history of cardiac disease, states it does not run in her family either. Patient not anticoagulated. Related Data Home Medications ?Medication ?Instructions ?Recorded ?Confirmed multivitamin (Daily Multi-Vitamin 1 ea PO DAILY 04/25/17 12/08/24 tablet) albuterol sulfate 90 mcg/actuation 1 inh inhalation ONCE 05/25/22 12/08/24 breath activated powder inhaler ibuprofen 200 mg tablet 200 mg PO Q6H PRN 05/25/22 12/08/24 magnesium oxide 500 mg capsule 500 mg PO DAILY 05/25/22 12/08/24 [id number] C 250 1 tab PO TID 05/25/22 12/08/24 mg-herbal no.124 8.875 mg chewable tablet (Airborne (ascorbic acid)) acetaminophen 500 mg capsule 500 mg PO Q6H PRN 04/02/24 12/08/24 baclofen 10 mg tablet 10 mg PO BID #180 tabs 08/14/24 12/08/24 Previous Rx's ?Medication ?Instructions ?Recorded baclofen 10 mg tablet 10 mg PO BID #180 tabs 08/14/24 Allergies Allergy/AdvReac Type Severity Reaction Status Date / Time No Known Allergies Allergy Unverified 12/08/24 14:51 General Stated Complaint: Chest Pain DANIKA: 3 Review of Systems All systems reviewed & are unremarkable except as noted in HPI and below Exam Narrative Exam Narrative: GENERAL APPEARANCE: Well-nourished, non-toxic, awake and alert, atraumatic, no acute distress. SKIN: Warm, pink, dry, intact, without rashes/lesions/ulcerations. HEAD: Normocephalic, atraumatic, normal hair distribution for gender/age. EYES: Normal conjunctiva, no exudates on lids/lashes. ENT: Nares patent, no circumoral cyanosis, no facial swelling NECK: Supple, trachea midline, painless cervical ROM. LUNGS/CHEST: Lungs CTA bilaterally, non-labored respirations, normal A/P diameter, symmetrical expansion, no chest wall deformity HEART (CV/PV): Regular rate and rhythm without murmur, no peripheral edema, no JVD. ABDOMEN: Soft, non-distended, no guarding, no tenderness. MSK: Normal ROM, no swelling/deformity to bilateral UEs or LEs, moving all extremities without weakness, no cyanosis, spine midline without tenderness, normal curvature. NEURO: Mental Status AAOx4 - alert to person, place, time, events No facial droop, no forehead involvement. Motor: No focal weakness - strength 5/5 in bilateral UEs and LEs, proximal and distal, symmetric. Sensory: sensation intact to light touch globally. Gait normal: patient ambulated without ataxia into ED room. PSYCH: euthymic, cooperative, pleasant, appropriate speech Course Vital Signs Vital signs: Vital Signs Temperature 36.6 C 12/08/24 14:45 Pulse 61 12/08/24 14:45 Respiratory Rate 16 12/08/24 14:45 Blood Pressure 141/75 H 12/08/24 14:45 Pulse Oximetry 98 12/08/24 14:45 Temperature 36.6 C 12/08/24 14:45 Temperature Source Oral 12/08/24 14:45 Pulse 61 12/08/24 14:45 Respiratory Rate 16 12/08/24 14:45 Blood Pressure 141/75 H 12/08/24 14:45 Pulse Oximetry 98 12/08/24 14:45 Pain Level 0 12/08/24 14:45 Medical Decision Making This dictation utilizes [id number] dictation software and may contain unedited grammatical errors. 74 year-old female presents to ED today by POV/ambulating with a chief complaint of shortness of breath this morning with some sharp brief few second left-sided intermittent chest pains behind the left breast after walking across her yard throughout [place] with onset around 10 AM. Patient presented to [facility] and they referred here for cardiac ruleout. Quality described as brief left-sided chest pains, no radiation to dizziness or near fainting, states shortness of breath and had to sit down afterwards with resolution of pains within 2 minutes, denies recent URI, denies nausea or vomiting or abdominal pain, denies fever, endorses chronic L sided thoracic back pains intermittently. Severity is described as moderate. Palliating factors include rest. Provoking factors include exertion, denies worse with palpation. Events leading up to the incident/Associated Symptoms: Patient has no history of cardiac disease, states it does not run in her family either. Patients' medical history: Vertigo, asthma, orthostatic tremor. Family and social history: Denies tobacco use, denies EtOH use, lives with , eats normal diet, exercises fairly regularly. Pertinent exam findings / vital signs include benign cardiopulmonary exam, nonpleuritic left sided chest pain, benign abdomen, nontoxic vitals. Differential / pathologies of concern include costochondritis, pleurisy, PE, ACS, less likely pneumonia. Diagnostic studies of: - CBC, CMP, D-dimer, troponin, lipase, EKG, CTA chest PE study. - CBC shows no leukocytosis, no anemia - CMP without actionable abnormality - Lipase negative - Troponin negative with reliable onset - D-dimer elevated above age-adjusted but below years criteria, low probability PE - CTA chest shows no pneumonia or PE - EKG shows sinus rhythm 62 bpm with P waves followed by narrow complex QRS with normal axis, poor R wave progression, no ST or T wave abnormalities, normal QTc Interventions of: -None, had been given 324asa by [facility] [employer] prior. ED Course/Assessment/Plan: 74-year-old female presents with some brief exertional sharp left-sided chest pains this morning at 10 AM after walking across her yard to throw some wreaths into the [place], the pain abated after 2 minutes or so, has no cardiac history, no family history, has chronic thoracic back/rib pain intermittently, patient's cardiac workup is negative, D-dimer was slightly elevated but below years criteria, regardless CTA was performed showing no PE, no pneumonia, counseled the patient on the need for outpatient follow-up with cardiology as she has a low risk by heart score, lipase negative, no signs of infection, no electrolyte abnormalities, patient was comfortable with performing Tylenol and ibuprofen and topical Voltaren to areas of pain, applying heat to the area to see if this helped her symptoms, strict return criteria for any return of exertional chest pain especially chest pain lasting longer than 45 minutes or any other emergent concern. Findings not consistent with PE, ACS, pneumothorax, aortic dissection. Disposition of Costochondritis. Patient verbalized understanding of the plan and return to ED criteria and engaged in shared decision making. Medical Records Medical records reviewed: Yes I reviewed the patient's medical records. Imaging Data Radiologic Study: Attestation: I personally reviewed and interpreted this imaging study as follows: Imaging: CT Scan Radiologist's impression: Exam: CTA Chest With Contrast Exam date and time: 12/08/2024 4:20 PM Age: 74 years old Clinical indication: Other: Pleuritic cp pain; Pe check TECHNIQUE: Imaging protocol: Computed tomographic angiography of the chest with contrast. Exam focused on the arteries. 3D rendering (Not supervised by radiologist): MIP and/or 3D reconstructed images were created by the technologist. Contrast material: 350; Contrast volume: 65 ml; Contrast route: INTRAVENOUS (IV); COMPARISON: CR XR RIBS LT W PA LAT CHEST 01/03/2024 1:44 PM FINDINGS: Pulmonary arteries: Normal. No pulmonary emboli. Aorta: Unremarkable. No aortic aneurysm. No aortic dissection. Lungs: Mild bibasilar atelectasis. Pleural spaces: Unremarkable. No pneumothorax. No pleural effusion. Heart: Unremarkable. No cardiomegaly. No pericardial effusion. Lymph nodes: Unremarkable. No enlarged lymph nodes. Bones/joints: Mild thoracic spondylosis. Soft tissues: Unremarkable. IMPRESSION: No evidence for pulmonary embolus. Dictated and Authenticated by: Jacqueline Tomas MD. Lab Data Lab results reviewed: Yes I reviewed the patient's lab results. Labs: Laboratory Tests Range/Units 12/08/24 15:18 WBC (4.4-10.8) 10^3/uL 4.90 RBC (3.93-5.22) 10^6/uL 3.91 L Hgb (11.2-15.7) g/dL 12.6 Hct (36.0-46.0) % 38.1 MCV (80-95) fL 97 H MCH (27.0-33.0) pg 32.2 MCHC (32.0-36.0) % 33.1 RDW (11.7-14.6) % 12.3 Plt Count (130-400) 10^3/uL 209 MPV (8.0-11.0) fL 10.7 Immature Gran % % 0.2 Neutrophils % % 47.9 Lymphocytes % % 40.0 Monocytes % % 8.0 Eosinophils % % 3.3 Basophils % % 0.6 Nucleated RBC % (0.0-0.3) % 0.0 Absolute Neutrophils (1.2-6.7) 10^3/uL 2.35 Absolute Lymphocytes (1.2-3.4) 10^3/uL 1.96 Absolute Monocytes (0.1-0.8) 10^3/uL 0.39 Absolute Eosinophils (0.0-0.7) 10^3/uL 0.16 Absolute Basophils (0.0-0.2) 10^3/uL 0.03 D-Dimer (<500) ng/mlFEU 845 H Sodium (136-145) mmol/L 141 Potassium (3.5-5.1) mmol/L 3.7 Chloride (98-107) mmol/L 106 Carbon Dioxide (21.0-32.0) mmol/L 30.0 Anion Gap (3-11) mmol/L 5.0 BUN (7-18) mg/dL 14 Creatinine (0.55-1.02) mg/dL 0.9 Est GFR (CKD-EPI 2020) (mL/min/1.73m2) 66.67 Glucose (74-106) mg/dL 111 H Calcium (8.5-10.1) mg/dL 8.9 Total Bilirubin (0.2-1.0) mg/dL 0.4 AST (15-37) U/L 15 ALT (14-59) U/L 18 Alkaline Phosphatase (46-116) U/L 77 Troponin I (<or=51) ng/L 4 Total Protein (6.4-8.2) g/dL 6.9 Albumin (3.4-5.0) g/dL 3.6 Lipase (<78) U/L 61 Quality:SDOH Health Related Social Needs: No Data to Display PFSH All Active Problems Costochondritis (Acute) Arthritis of left knee (Acute) Tear of medial meniscus of left knee (Acute) Dystonia (Acute) Orthostatic tremor (Acute) Diverticula, colon, 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, lumbar region (Chronic) Status post cataract extraction and insertion of intraocular lens of right eye (Chronic 06/16/18) Status post cataract extraction and insertion of intraocular lens of left eye (Chronic 06/02/18) Medical History Vertigo Degenerative disc disease Leg length discrepancy Hepatic cyst Seborrheic keratosis Menopause Seasonal allergies Nuclear sclerotic cataract of right eye Cortical cataract of right eye Asthma Osteopenia Osteoarthritis Spondylolisthesis at L5-S1 level Insomnia Surgical History History of colonoscopy (~10/24/20) History of back surgery Ligation of fallopian tube Colonoscopy - IV Sedation CYSTECTOMY RIGHT NECK Family History Brother Personal history of malignant neoplasm Colon cancer Mother Brain cancer Father Throat cancer Social History Smoking/Tobacco Use Status: Never Smoking risk assessment performed?: Yes Alcohol Intake: never Drug use: Never Substance use type: does not use Household members: spouse Housing: house Number of Children: 2 current occupation: Retired teacher Do you feel safe at home: Yes Do you feel safe in your relationship?: Yes
[2024-12-08 15:25] LABS: Abs Immature Grans 0.01 10^3/uL (0.0-0.06); Absolute Basophil Count 0.03 10^3/uL (0.0-0.2); Absolute Eosinophil Count 0.16 10^3/uL (0.0-0.7); Absolute Lymphocyte Count 1.96 10^3/uL (1.2-3.4); Absolute Monocyte Count 0.39 10^3/uL (0.1-0.8); Absolute Neutrophil Count 2.35 10^3/uL (1.2-6.7); Basophils % 0.6 %; Eosinophils % 3.3 %; HCT 38.1 % (36.0-46.0); HGB 12.6 g/dL (11.2-15.7); Immature Grans % 0.2 %; MCH 32.2 pg (27.0-33.0); MCHC 33.1 % (32.0-36.0); MCV 97 fL (80-95); MPV 10.7 fL (8.0-11.0); Neutrophils % 47.9 %; Platelet Count 209 10^3/uL (130-400); RBC 3.91 10^6/uL (3.93-5.22); RDW 12.3 % (11.7-14.6); RDW-SD 44.1 fL
[2024-12-08 15:53] LABS: ALT 18 U/L (14-59); AST 15 U/L (15-37); Albumin 3.6 g/dL (3.4-5.0); Alkaline Phosphatase 77 U/L (46-116); BUN 14 mg/dL (7-18); Bilirubin, Total 0.4 mg/dL (0.2-1.0); CREATININE 0.9 mg/dL (0.55-1.02); Calcium 8.9 mg/dL (8.5-10.1); Chloride 106 mmol/L (98-107); Estimated GFR 66.67 (mL/min/1.73m2); Glucose 111 mg/dL (74-106); Lipase 61 U/L (<78); Potassium 3.7 mmol/L (3.5-5.1); Sodium 141 mmol/L (136-145); Total Protein 6.9 g/dL (6.4-8.2); Troponin I 4 ng/L (<or=51)
[2024-12-08 15:59] LABS: D-Dimer 845 ng/mlFEU (<500)
--- NOTE | 2024-12-08 16:09 | DI.CT_ITS ---
Exam(s) CT CHEST PE CTA EXAM: CT CHEST PE CTA CLINICAL HISTORY: pleuritic CP pain; PE check. TECHNIQUE: Imaging Protocol: Axial CT angiography was performed with multi-slice acquisition and mu lti-planar reconstructions as well as axial, coronal and sagittal MIP reconstructions. Computer aided detection (CAD) was utilized. CONTRAST MATERIAL: Intravenous: Omnipaque 350 Contrast volume:65 COMPARISON: CR XR RIBS LT W PA LAT CHEST from 01/03/2024 FINDINGS: Pulmonary Arteries: No evidence of filling defect to suggest pulmonary emboli. Mediastinum and Jessica: No dominant adenopathy or fluid collection. Pulmonary parenchyma: No consolidation or dominant measurable mass. Pleura: No effusion or pneumothorax. Heart: The heart is not dilated. No coronary artery calcifications are seen. Aorta: Thoracic aorta non-dilated. No dissection. Upper abdomen: No acute findings. Bones: Unremarkable for age. Tubes, Catheters, and Lines: None Soft tissues: Unremarkable. IMPRESSION: No evidence of pulmonary embolism or other acute abnormality in the chest. RADIATION DOSE DELIVERED: Total DLP DATA REPOSITORY: All CT scans at this facility are submitted to the National Radiology Data Registry (NRDR) Dose Index Registry (DIR) with the [employer] (A[employer]). RADIATION OPTIMIZATION: All CT scans at this facility use at least one of these dose optimization te chniques: automated exposure control; mA and/or kV adjustment per patient size (includes targeted exa ms where dose is matched to clinical indication); or iterative reconstruction.
[2024-12-08] MEDS: Normal Saline - Diluent 50 ML VIAL IJ (16:53)
[2024-12-08] MEDS: Omnipaque 350 MG/ML 100 ML BTL IJ (16:54)
--- NOTE | 2024-12-08 17:26 | DI.VRAD_ITS ---
PROCEDURE INFORMATION: Exam: CTA Chest With Contrast Exam date and time: 12/08/2024 4:20 PM Age: 74 years old Clinical indication: Other: Pleuritic cp pain; Pe check TECHNIQUE: Imaging protocol: Computed tomographic angiography of the chest with contrast. Exam focused on the arteries. 3D rendering (Not supervised by radiologist): MIP and/or 3D reconstructed images were created by the technologist. Contrast material: 350; Contrast volume: 65 ml; Contrast route: INTRAVENOUS (IV); COMPARISON: CR XR RIBS LT W PA LAT CHEST 01/03/2024 1:44 PM FINDINGS: Pulmonary arteries: Normal. No pulmonary emboli. Aorta: Unremarkable. No aortic aneurysm. No aortic dissection. Lungs: Mild bibasilar atelectasis. Pleural spaces: Unremarkable. No pneumothorax. No pleural effusion. Heart: Unremarkable. No cardiomegaly. No pericardial effusion. Lymph nodes: Unremarkable. No enlarged lymph nodes. Bones/joints: Mild thoracic spondylosis. Soft tissues: Unremarkable. IMPRESSION: No evidence for pulmonary embolus. Dictated and Authenticated by: Jacqueline Tomas MD. Orderin Priscilla Ernst MD
== END 2024-12-08 17:52 | disposition home or self-care (01) ==
PROVIDERS: Emergency Provider Physician Assistant; PCP Family Medicine
DX: M94.0 Chondrocostal junction syndrome [Tietze] (principal)
CPT/HCPCS: 36415; 71275; 80053; 83690; 93005; 99285; 84484; 85025; 85379; 93010; 99283; J3490

== ENCOUNTER → 2025-02-13 12:57 | Outpatient (BNVA) | payer MEDICARE, BC, SELFPAY | PROVIDERS: PCP Family Medicine; Visit Provider Psychiatry & Neurology Neurology | DX: G25.2 Other specified forms of tremor (principal); G24.9 Dystonia, unspecified; M25.562 Pain in left knee | CPT/HCPCS: 99213 ==

== ENCOUNTER → 2025-05-27 11:16 | Outpatient (BNVA) | payer MEDICARE, BC, SELFPAY | PROVIDERS: PCP Family Medicine; Referring Provider Family Medicine; Visit Provider Psychiatry & Neurology Neurology | DX: G25.2 Other specified forms of tremor (principal); G24.9 Dystonia, unspecified; M25.562 Pain in left knee; J45.909 Unspecified asthma, uncomplicated | CPT/HCPCS: 99214 ==

== ENCOUNTER → 2025-07-16 08:05 | Outpatient (BNVA) | payer MEDICARE, BC, SELFPAY | PROVIDERS: PCP Family Medicine; Referring Provider Family Medicine; Visit Provider Psychiatry & Neurology Neurology | DX: G25.2 Other specified forms of tremor (principal); G24.9 Dystonia, unspecified; M25.562 Pain in left knee; J45.909 Unspecified asthma, uncomplicated | CPT/HCPCS: 99214 ==